=== PATIENT | female | born 1945 | race Caucasian/White ===

== ENCOUNTER 2017-01-20 08:17 | Inpatient (IN) | payer OTHER ==
--- NOTE | 2017-01-20 08:57 | PDOC ---
History of Present Illness - General Chief Complaint: Shortness of Breath Stated Complaint: liver transplant pt LOWER BACK PAIN, COUGH Time Seen by Provider: 01/20/17 08:47 Past History - Past Medical History Allergies/Adverse Reactions: Allergies Allergy/AdvReac Type Severity Reaction Status Date / Time shrimp Allergy Verified 01/20/17 08:20 Home Medications: Ambulatory Orders Allopurinol [Zyloprim -] 100 mg PO DAILY 01/20/17 Budesonide/Formeterol Fumarate [SYMBICORT 160/4.5mcg -] 1 inh PO BID 01/20/17 Gabapentin [Neurontin -] 200 mg PO DAILY 01/20/17 Hydrochlorothiazide [Hctz -] 12.5 mg PO DAILY 01/20/17 Losartan Potassium [Cozaar -] 25 mg PO DAILY 01/20/17 Metoprolol Succinate [Toprol Xl -] 25 mg PO DAILY 01/20/17 Montelukast Na [Singulair -] 10 mg PO HS 01/20/17 Omeprazole 20 mg PO DAILY 01/20/17 Prednisone [Deltasone -] 5 mg PO DAILY 01/20/17 Spironolactone [Aldactone] 25 mg PO DAILY 01/20/17 Cardiac Disorders: Yes (cad) HTN: Yes Liver Disease: Yes (cirrhosis, s/p transplant) - Psycho/Social/Smoking Cessation Hx Anxiety: No Suicidal Ideation: No Smoking History: Never smoked Have you smoked in the past 12 months: No Information on smoking cessation initiated: No Hx Alcohol Use: No Drug/Substance Use Hx: No Substance Use Type: None *Physical Exam - Vital Signs Last Vital Signs Temp Pulse Resp BP Pulse Ox 98.6 F 99 H 22 180/85 96 01/20/17 08:20 01/20/17 08:20 01/20/17 08:20 01/20/17 08:20 01/20/17 08:20
--- NOTE | 2017-01-20 09:02 | PDOC ---
History of Present Illness - General Chief Complaint: Shortness of Breath Stated Complaint: liver transplant pt LOWER BACK PAIN, COUGH Time Seen by Provider: 01/20/17 08:47 History Source: Patient Exam Limitations: No Limitations - History of Present Illness Initial Comments: 01/20/17 9:00 CHIEF COMPLAINT: Left sided chest pain, Worsening cough and SOB PCP: Dr. Pool HISTORY OF PRESENT ILLNESS: 71 year old female presented to the ED with the chief complaints of worsening cough and SOB. A/c to the patient, due to her COPD, she has chronic cough alternating with dry and productive sputum. Also reports of have left sided chest pain, pressure type, 4/10 in intensity, non radiating, non reproducible. Patient reports to have SOB at exertion and at rest, no orthopnea or PND. On home oxygen therapy. She thinks it may have been triggered by feathers/dust in a hotel room. Patient said she felt feverish (temp not recorded) associated with chills, rigors and sweating since few days. Patient mentions she went to [facility] 5 days ago for the same problem, flu swab was done but never told her the result, was given nebulization and discharged from the ED with tapering dose of Prednisone 60mg. She reports of not feeling better and was unhappy with their management and didn't take the prednisone 60mg. She has headache on the frontal area, on/off. Denies loc, dizziness, palpitations, abdominal pain, nausea or vomiting. Bowel/Bladder habit normal. Sleep/Appetite normal. Recent Travel: None PAST MEDICAL HISTORY: COPD, Sarcoidosis (30 yrs ago); Pneumonia, bronchitis, Liver transplant (20yrs ago) for cirrhosis of liver. PAST SURGICAL HISTORY: As mentioned above Social History: Smoking: Current smoker, 1 cig/day Alcohol: Denies Drugs: Denies Family History: Allergies: Shrimp, seasonal allergies, feathers, dusts, pollen. Past History - Past Medical History Allergies/Adverse Reactions: Allergies Allergy/AdvReac Type Severity Reaction Status Date / Time shrimp Allergy Verified 01/20/17 08:20 Home Medications: Ambulatory Orders Allopurinol [Zyloprim -] 100 mg PO DAILY 01/20/17 Budesonide/Formeterol Fumarate [SYMBICORT 160/4.5mcg -] 1 inh PO BID 01/20/17 Gabapentin [Neurontin -] 200 mg PO DAILY 01/20/17 Hydrochlorothiazide [Hctz -] 12.5 mg PO DAILY 01/20/17 Losartan Potassium [Cozaar -] 25 mg PO DAILY 01/20/17 Metoprolol Succinate [Toprol Xl -] 25 mg PO DAILY 01/20/17 Montelukast Na [Singulair -] 10 mg PO HS 01/20/17 Omeprazole 20 mg PO DAILY 01/20/17 Prednisone [Deltasone -] 5 mg PO DAILY 01/20/17 Spironolactone [Aldactone] 25 mg PO DAILY 01/20/17 Cardiac Disorders: Yes (cad) HTN: Yes Liver Disease: Yes (cirrhosis, s/p transplant) - Psycho/Social/Smoking Cessation Hx Anxiety: No Suicidal Ideation: No Smoking History: Never smoked Have you smoked in the past 12 months: No Information on smoking cessation initiated: No Hx Alcohol Use: No Drug/Substance Use Hx: No Substance Use Type: None Review of Systems - Review of Systems Able to Perform ROS?: Yes Comments:: 01/20/17 10:02 CONSTITUTIONAL: Absent: fever, chills, diaphoresis, generalized weakness, malaise, loss of appetite HEENT: Absent: rhinorrhea, nasal congestion, throat pain, throat swelling, difficulty swallowing, mouth swelling, ear pain, eye pain, visual Changes CARDIOVASCULAR: Present: Chest pain Absent:syncope, palpitations, irregular heart rate, lightheadedness, peripheral edema RESPIRATORY: Present: Chronic cough dry/productive,shortness of breath, dyspnea with exertion Absent: orthopnea, wheezing, stridor, hemoptysis GASTROINTESTINAL: Absent: abdominal pain, abdominal distension, nausea, vomiting, diarrhea, constipation, melena, hematochezia GENITOURINARY: Absent: dysuria, frequency, urgency, hesitancy, hematuria, flank pain, genital pain MUSCULOSKELETAL: Absent: myalgia, arthralgia, joint swelling SKIN: Absent: rash, itching, pallor HEMATOLOGIC/IMMUNOLOGIC: Absent: easy bleeding, easy bruising, lymphadenopathy, frequent infections ENDOCRINE: Absent: unexplained weight gain, unexplained weight loss, heat intolerance, cold intolerance NEUROLOGIC: Absent: headache, focal weakness or paresthesias, dizziness, unsteady gait, seizure, mental status changes, bladder or bowel incontinence PSYCHIATRIC: Absent: anxiety, depression, suicidal or homicidal ideation, hallucinations. Is the patient limited [place] proficient: No *Physical Exam - Vital Signs Last Vital Signs Temp Pulse Resp BP Pulse Ox 98.6 F 99 H 22 180/85 96 01/20/17 08:20 01/20/17 08:20 01/20/17 08:20 01/20/17 08:20 01/20/17 08:20 - Physical Exam Comments: 01/20/17 10:05 PE: GENERAL: Awake, alert, and fully oriented, in no acute distress HEAD: No signs of trauma EYES: PERRLA, EOMI, sclera anicteric, conjunctiva clear ENT: Auricles normal inspection, hearing grossly normal, nares patent, oropharynx clear without exudates. Moist mucosa NECK: Normal ROM, supple, no lymphadenopathy, JVD, or masses LUNGS: Breath sounds equal, clear to auscultation bilaterally. No wheezes, and no crackles.. HEART: Regular rate and rhythm, normal S1 and S2, no murmurs, rubs or gallops ABDOMEN: Soft, nontender, normoactive bowel sounds. No guarding, no rebound. No masses EXTREMITIES: Normal range of motion, no edema. No clubbing or cyanosis. No cords, erythema, or tenderness NEUROLOGICAL: Cranial nerves II through XII grossly intact. Normal speech, normal gait SKIN: Warm, Dry, normal turgor, no rashes or lesions noted. Heart Score/ECG Review - ECG Intrepretation Rhythm: Regular Rhythm - Horicon Horicon: Left Horicon Deviation - P and CT Delta Wave(s) Present: No WPW: No - ST and T Flattened T Waves: No Prolonged Q-T Interval: No - ECG Impressions Non-specific ST Elevation: Yes ED Treatment Course - LABORATORY CBC & Chemistry Diagram: 01/20/17 10:00 01/20/17 10:00 Medical Decision Making - Medical Decision Making 01/20/17 9:10 Patient seen and examined. Vitals noted, afebrile; 180/85 bpm, TachypneicSpo2- 95 %. Physical examination: Unremarkable. Will order basic labs, troponins, CXR, Flu swab, UA, D-dimer, EKG, VBG Duoneb Q15 3 doses Prednisone 60mg stat Differential Diagnosis: COPD exacerbation, r/o pneumonia; Bronchitis; URTI; Flu 01/20/17 9:50 Labs noted, leukocytosis (12.9). Rest, pending [id number]. If patient remains tachypneic, may need to be placed on observation 01/20/17 13:30 Patient reassessed. Still short of breath; Tachypneic. Couldn't walk ten steps due to short of breath. Clinical Impression/Plan Acute exacerbation of COPD likely triggered by allergy / URTI Patient's SOB didn't improve even after 3 dose of Duoneb Neb and 60mg of Prednisone CXR showed no acute pathology Admit the patient under Dr. Gutierrez. Would consider ABG if symptoms worsen Illness, Investigation and Plan of care explained to the patient. She verbalized understanding. Case seen and discussed with Dr. Trujillo. *DC/Admit/Observation/Transfer Diagnosis at time of Disposition: COPD with exacerbation - Discharge Dispostion Admit: Yes - Referrals Referrals: Dalia Pool MD [Primary Care Provider] -
[2017-01-20] MEDS ORDERED: ALBUTEROL SO4 2.5/IPRATROPIUM 0.5 INH SOL 3 ML VIAL.NEB. NEB ONE ×2 (09:23→09:28)
[2017-01-20 10:21] LABS: BASOPHIL 0.4 % (0-2.0); EOSINOPHIL 0.7 % (0-4.5); MCH 32.1 pg (25.7-33.7); MCHC 32.5 g/dl (32.0-36.0); MEAN CELL VOLUME 98.6 fl (80-96); NEUTROPHILS 79.4 % (42.8-82.8); PLATELET COUNT 150 K/MM3 (134-434); RDW 14.9 % (11.6-15.6); WHITE BLOOD COUNT 12.9 K/mm3 (4.0-10.0)
[2017-01-20 10:51] LABS: ALBUMIN 3.9 g/dl (3.4-5.0); ANION GAP 6 (8-16); BILIRUBIN,TOTAL 0.3 mg/dL (0.2-1.0); CALCIUM 9.1 mg/dL (8.5-10.1); CO2 30 mmol/L (21-32); CREATININE 1.4 mg/dL (0.55-1.02); GLUCOSE,RANDOM 60 mg/dL (74-106); SGPT/ALT 25 U/L (12-78); TOT PROT 7.4 g/dl (6.4-8.2)
[2017-01-20 10:54] LABS: ALK PHOS 101 U/L (45-117); TROPONIN I < 0.02 ng/ml (0.00-0.05)
[2017-01-20 11:05] LABS: URINE APPEARANCE CLEAR; URINE BILIRUBIN NEGATIVE (NEGATIVE); URINE BLOOD NEGATIVE (NEGATIVE); URINE COLOR STRAW; URINE GLUCOSE (UA) NEGATIVE (NEGATIVE); URINE KETONE NEGATIVE (NEGATIVE); URINE LEUK ESTERASE NEGATIVE (NEGATIVE); URINE NITRITE NEGATIVE (NEGATIVE); URINE PROTEIN NEGATIVE (NEGATIVE); URINE UROBILINOGEN NEGATIVE E.U./dl (0.2-1.0)
[2017-01-20 11:06] LABS: INR 0.96 (0.82-1.09); PROTHROMBIN TIME (PATIENT) 10.6 SEC (9.98-11.88)
[2017-01-20 11:09] LABS: MAGNESIUM 1.7 mg/dL (1.8-2.4)
[2017-01-20 11:10] LABS: SGOT/AST 25 U/L (15-37)
[2017-01-20] MEDS ORDERED: ALBUTEROL SO4 2.5/IPRATROPIUM 0.5 INH SOL 3 ML VIAL.NEB. NEB SCH (11:15)
[2017-01-20] MEDS ORDERED: predniSONE 20 MG TABLET (UD) PO ONE (11:15)
[2017-01-20] MEDS: ALBUTEROL SO4 2.5/IPRATROPIUM 0.5 INH SOL 3 ML VIAL.NEB. NEB SCH ×2 (11:20→11:37)
--- NOTE | 2017-01-20 11:20 | PDOC ---
Attending Attestation - Resident Resident Name: Dee Herrera - ED Attending Attestation I have performed the following: I have examined & evaluated the patient, The case was reviewed & discussed with the resident, I agree w/resident's findings & plan, Exceptions are as noted - HPI HPI: 01/20/17 11:19 71-year-old female with history of COPD/asthma, liver transplant patient from 20 years ago presents with persistent COPD exacerbation over the last week. Patient states trigger of feathers/dust in a hotel room, was seen at [facility] last week and prescribed treatment dose steroids but she never took it, presents now with persistent dry cough and dyspnea. - Physicial Exam PE: 01/20/17 11:20 Vital signs as noted, O2 sat within normal limits. Scant end expiratory wheezing throughout, no focally decreased breath sounds, no accessory muscle use. Slightly tachypneic at rest. No edema - Medical Decision Making 01/20/17 11:20 Patient seen and evaluated with the resident. I agree with the overall evaluation, assessment, and management with the following summary of visit: 71-year-old female with likely COPD exacerbation, rule out underlying pneumonia. Atypical for ACS or PE, vital signs within normal limits. Check labs including troponin EKG, chest x-ray Nebulizers, steroids Reassess, if remains tachypneic may require admission overnight
[2017-01-20] MEDS ORDERED: predniSONE 20 MG TABLET (UD) ONE (11:21)
--- NOTE | 2017-01-20 11:49 | EKG ---
Test Reason : Blood Pressure : / mmHG Vent. Rate : 091 BPM Atrial Rate : 091 BPM P-R Int : 130 ms QRS Dur : 120 ms QT Int : 366 ms P-R-T Axes : 071 -41 109 degrees QTc Int : 450 ms NORMAL SINUS RHYTHM LEFT AXIS DEVIATION LEFT BUNDLE BRANCH BLOCK ABNORMAL ECG NO PREVIOUS ECGS AVAILABLE Confirmed by CLARA CORRAL MD ([id number]) on 01/20/2017 11:48:52 AM Referred By: Confirmed By:CLARA CORRAL MD
[2017-01-20] MEDS ORDERED: CEFTRIAXONE 1 GM in DEXTROSE 5%-WATER - 50 ML IVPB ONE (13:28)
[2017-01-20] MEDS ORDERED: CEFTRIAXONE 50 ML ONE (13:29)
[2017-01-20 15:52] VITALS: BMI 37.0
--- NOTE | 2017-01-20 20:11 | HP ---
Admitting History and Physical - Primary Care Physician PCP: Марина Gutierrez - Admission History of Present Illness: 71-year-old female with history of COPD/asthma, liver transplant patient from 20 years ago presents with persistent COPD exacerbation over the last week. Patient states trigger of feathers/dust in a hotel room, was seen at [facility] last week and prescribed treatment dose steroids but she never took it, presents now with persistent dry cough and dyspnea. - Past Medical History Pulmonary: Yes: Asthma, COPD - Smoking History Smoking history: Never smoked Have you smoked in the past 12 months: No Aproximately how many cigarettes per day: 2 - Alcohol/Substance Use Hx Alcohol Use: No Home Medications - Allergies Allergies/Adverse Reactions: Allergies Allergy/AdvReac Type Severity Reaction Status Date / Time shrimp Allergy Verified 01/20/17 08:20 - Home Medications Home Medications: Ambulatory Orders Allopurinol [Zyloprim -] 100 mg PO DAILY 01/20/17 Budesonide/Formeterol Fumarate [SYMBICORT 160/4.5mcg -] 1 inh PO BID 01/20/17 Gabapentin [Neurontin -] 200 mg PO DAILY 01/20/17 Hydrochlorothiazide [Hctz -] 12.5 mg PO DAILY 01/20/17 Losartan Potassium [Cozaar -] 25 mg PO DAILY 01/20/17 Metoprolol Succinate [Toprol Xl -] 25 mg PO DAILY 01/20/17 Montelukast Na [Singulair -] 10 mg PO HS 01/20/17 Omeprazole 20 mg PO DAILY 01/20/17 Prednisone [Deltasone -] 5 mg PO DAILY 01/20/17 Spironolactone [Aldactone] 25 mg PO DAILY 01/20/17 Physical Examination Vital Signs: Vital Signs Temperature 98.3 F 01/20/17 12:01 Pulse Rate 96 H 01/20/17 15:40 Respiratory Rate 18 01/20/17 15:40 Blood Pressure 128/47 01/20/17 15:40 O2 Sat by Pulse Oximetry (%) 93 L 01/20/17 15:40 Constitutional: Yes: No Distress HENT: Yes: Atraumatic Neck: Yes: Supple Cardiovascular: Yes: Regular Rate and Rhythm Respiratory: Yes: Rhonchi, Wheezes Gastrointestinal: Yes: Normal Bowel Sounds Extremities: Yes: WNL Problem List - Problems (1) COPD with exacerbation Code(s): J44.1 - CHRONIC OBSTRUCTIVE PULMONARY DISEASE W (ACUTE) EXACERBATION Assessment/Plan Laboratory Tests 01/20/17 01/20/17 01/20/17 09:03 10:00 10:00 WBC 12.9 H RBC 4.04 Hgb 13.0 Hct 39.8 MCV 98.6 H MCHC 32.5 RDW 14.9 Plt Count 150 MPV 12.0 H Neutrophils % 79.4 Lymphocytes % 8.2 Monocytes % 11.3 H Eosinophils % 0.7 Basophils % 0.4 INR 0.96 D-Dimer Sodium Potassium Chloride Carbon Dioxide Anion Gap BUN Creatinine Creat Clearance w eGFR Random Glucose Calcium Magnesium Total Bilirubin AST ALT Alkaline Phosphatase Creatine Kinase CK-MB (CK-2) Troponin I B-Natriuretic Peptide Total Protein Albumin Urine Color Urine Appearance Urine pH Ur Specific [place] Urine Protein Urine Glucose (UA) Urine Ketones Urine Blood Urine Nitrite Urine Bilirubin Urine Urobilinogen Ur Leukocyte Esterase Blood Type O POSITIVE Antibody Screen Negative 01/20/17 01/20/17 01/20/17 10:00 10:00 10:00 WBC RBC Hgb Hct MCV MCHC RDW Plt Count MPV Neutrophils % Lymphocytes % Monocytes % Eosinophils % Basophils % INR D-Dimer 316 H Sodium 139 Potassium 4.9 Chloride 103 Carbon Dioxide 30 Anion Gap 6 L BUN 29 H Creatinine 1.4 H Creat Clearance w eGFR 37.18 Random Glucose 60 L Calcium 9.1 Magnesium 1.7 L Total Bilirubin 0.3 AST 25 ALT 25 Alkaline Phosphatase 101 Creatine Kinase 309 H CK-MB (CK-2) 2.387 Troponin I < 0.02 B-Natriuretic Peptide 478.84 H Total Protein 7.4 Albumin 3.9 Urine Color Urine Appearance Urine pH Ur Specific [place] Urine Protein Urine Glucose (UA) Urine Ketones Urine Blood Urine Nitrite Urine Bilirubin Urine Urobilinogen Ur Leukocyte Esterase Blood Type Antibody Screen 01/20/17 10:00 WBC RBC Hgb Hct MCV MCHC RDW Plt Count MPV Neutrophils % Lymphocytes % Monocytes % Eosinophils % Basophils % INR D-Dimer Sodium Potassium Chloride Carbon Dioxide Anion Gap BUN Creatinine Creat Clearance w eGFR Random Glucose Calcium Magnesium Total Bilirubin AST ALT Alkaline Phosphatase Creatine Kinase CK-MB (CK-2) Troponin I B-Natriuretic Peptide Total Protein Albumin Urine Color Straw Urine Appearance Clear Urine pH 5.0 Ur Specific [place] 1.010 Urine Protein Negative Urine Glucose (UA) Negative Urine Ketones Negative Urine Blood Negative Urine Nitrite Negative Urine Bilirubin Negative Urine Urobilinogen Negative Ur Leukocyte Esterase Negative Blood Type Antibody Screen A/P 1. CKD 2. COPD exacerbation DUO NEBS, STEROIDS ABX COVERAGE FOR POSSIBLE INFECTION 3. liver transplant 4. sarcoidosis 5. HTN ON MEDS STABLE 6. gout STABLE 7. hep C
[2017-01-20] MEDS: methylPREDNISolone NA SUCC 40 MG/1 ML VIAL IVPB SCH (21:20)
[2017-01-20] MEDS: MONTELUKAST NA 10 MG TABLET PO SCH (21:20)
[2017-01-20] MEDS ORDERED: GABAPENTIN 100 MG CAPSULE (FP) PO ONE (21:45)
--- NOTE | 2017-01-20 22:25 | CONSULT ---
Consult Consult Specialty:: Nephrology Reason for Consultation:: CKD - History of Present Illness Chief Complaint: shortness of breath History of Present Illness: Pt is a 71 year old female with pmhx of HTN, CKD. COPD, liver transplant, Hep C , and CHF who presents to the ER for shortness of breath. She also complains of cough. She went to [facility] where she was given steroids however she did not take them. She does complain of fevers and chills. She denies dysuria or hematuria. I was called to see her for CKD. She follows with me in the office and her renal function is at baseline. - Past Medical History Cardio/Vascular: Yes: HTN Pulmonary: Yes: Asthma, COPD Gastrointestinal: Yes: GERD, Other (liver transplant) Hepatobiliary: Yes: Hepatitis C Renal/: Yes: Renal Inusuff - Past Surgical History Past Surgical History: Yes: Liver Transplant - Alcohol/Substance Use Hx Alcohol Use: No - Smoking History Smoking history: Never smoked Have you smoked in the past 12 months: No Aproximately how many cigarettes per day: 2 Home Medications - Allergies Allergies/Adverse Reactions: Allergies Allergy/AdvReac Type Severity Reaction Status Date / Time shrimp Allergy Verified 01/20/17 08:20 - Home Medications Home Medications: Ambulatory Orders Allopurinol [Zyloprim -] 100 mg PO DAILY 01/20/17 Budesonide/Formeterol Fumarate [SYMBICORT 160/4.5mcg -] 1 inh PO BID 01/20/17 Gabapentin [Neurontin -] 200 mg PO DAILY 01/20/17 Hydrochlorothiazide [Hctz -] 12.5 mg PO DAILY 01/20/17 Losartan Potassium [Cozaar -] 25 mg PO DAILY 01/20/17 Metoprolol Succinate [Toprol Xl -] 25 mg PO DAILY 01/20/17 Montelukast Na [Singulair -] 10 mg PO HS 01/20/17 Omeprazole 20 mg PO DAILY 01/20/17 Prednisone [Deltasone -] 5 mg PO DAILY 01/20/17 Spironolactone [Aldactone] 25 mg PO DAILY 01/20/17 Family Disease History - Family Disease History Other Family History: DM Review of Systems - Review of Systems Constitutional: reports: Chills, Fever, Malaise Eyes: reports: No Symptoms HENT: reports: No Symptoms Neck: reports: No Symptoms Cardiovascular: reports: Shortness of Breath. denies: Edema Respiratory: reports: Cough, SOB, SOB on Exertion Gastrointestinal: reports: No Symptoms Genitourinary: reports: No Symptoms Musculoskeletal: reports: No Symptoms Integumentary: reports: No Symptoms Neurological: reports: No Symptoms Endocrine: reports: No Symptoms Hematology/Lymphatic: reports: No Symptoms Physical Exam Vital Signs: Vital Signs Temperature 98.8 F 01/20/17 21:53 Pulse Rate 92 H 01/20/17 21:53 Respiratory Rate 20 01/20/17 21:53 Blood Pressure 143/71 01/20/17 21:53 O2 Sat by Pulse Oximetry (%) 93 L 01/20/17 15:40 Constitutional: Yes: Calm Eyes: Yes: Conjunctiva Clear HENT: Yes: Atraumatic Neck: Yes: Supple Cardiovascular: Yes: S1, S2 Respiratory: Yes: Wheezes Gastrointestinal: Yes: Normal Bowel Sounds, Soft, Abdomen, Obese Musculoskeletal: Yes: WNL Edema: No Neurological: Yes: Oriented Psychiatric: Yes: Oriented Labs: Laboratory Tests 01/20/17 01/20/17 01/20/17 10:00 10:00 10:00 WBC 12.9 H Hgb 13.0 Plt Count 150 Sodium 139 Potassium 4.9 Chloride 103 Carbon Dioxide 30 Anion Gap 6 L BUN 29 H Creatinine 1.4 H Random Glucose 60 L Calcium 9.1 Magnesium 1.7 L Urine Color Straw Urine Appearance Clear Urine pH 5.0 Ur Specific [place] 1.010 Urine Protein Negative Urine Glucose (UA) Negative Urine Ketones Negative Urine Blood Negative Urine Nitrite Negative Urine Bilirubin Negative Urine Urobilinogen Negative Ur Leukocyte Esterase Negative Imaging - Results Chest X-ray: Report Reviewed Problem List - Problems (1) COPD with exacerbation Code(s): J44.1 - CHRONIC OBSTRUCTIVE PULMONARY DISEASE W (ACUTE) EXACERBATION (2) CKD (chronic kidney disease) Code(s): N18.9 - CHRONIC KIDNEY DISEASE, UNSPECIFIED Assessment/Plan Current Medications Generic Name Dose Route Start Last Admin Trade Name Freq PRN Reason Stop Dose Admin Albuterol/Ipratropium 1 amp 01/20/17 20:15 Duoneb - NEB Q4H PRN SHORTNESS OF BREATH Gabapentin 200 mg 01/21/17 10:00 Neurontin - PO DAILY [facility]SON Hydrochlorothiazide 12.5 mg 01/21/17 10:00 Hctz - PO DAILY K[facility]SON Ceftriaxone Sodium 50 mls @ 100 mls/hr 01/21/17 10:00 Rocephin 1gm Ivpb (Pre-Docked) IVPB 01/21/17 11:59 DAILY KARSON Losartan Potassium 25 mg 01/21/17 10:00 Cozaar - PO DAILY [facility]SON Methylprednisolone Sodium Succinate 40 mg 01/20/17 20:15 01/20/17 21:20 Solu-Medrol - IVPB 40 mg Q8H-IV K[facility]SON Administration Metoprolol Succinate 25 mg 01/21/17 10:00 Toprol Xl - PO DAILY K[facility]SON Montelukast Sodium 10 mg 01/20/17 22:00 01/20/17 21:20 Singulair - PO 10 mg HS K[facility]SON Administration Spironolactone 25 mg 01/21/17 10:00 Aldactone - PO DAILY KARSON Impression 1. CKD 2. COPD exacerbation 3. liver transplant 4. sarcoidosis 5. HTN 6. gout 7. hep C Plan - agree with steroids - recommend pulmonary eval - cont current meds - add allopurinol 100 mg daily - will follow Dr Pool
[2017-01-21] MEDS: methylPREDNISolone NA SUCC 40 MG/1 ML VIAL IVPB SCH ×4 (02:08→21:27)
[2017-01-21] MEDS: ALBUTEROL SO4 2.5/IPRATROPIUM 0.5 INH SOL 3 ML VIAL.NEB. NEB PRN ×3 (05:50→22:44)
[2017-01-21 08:09] LABS: MCH 32.2 pg (25.7-33.7); MCHC 33.1 g/dl (32.0-36.0); MEAN CELL VOLUME 97.5 fl (80-96); NEUTROPHILS 94.7 % (42.8-82.8); PLATELET COUNT 170 K/MM3 (134-434); RDW 15.2 % (11.6-15.6); WHITE BLOOD COUNT 14.5 K/mm3 (4.0-10.0)
[2017-01-21 09:05] LABS: BILIRUBIN,TOTAL 0.5 mg/dL (0.2-1.0); CREATININE 1.5 mg/dL (0.55-1.02); TOT PROT 7.7 g/dl (6.4-8.2)
[2017-01-21] MEDS: SPIRONOLACTONE 25 MG TABLET (FP) PO SCH (09:07)
[2017-01-21] MEDS: HYDROCHLOROTHIAZIDE 12.5 MG CAPSULE (FP) PO SCH (09:07)
[2017-01-21] MEDS: ALLOPURINOL 100 MG TABLET (FP) PO SCH (09:07)
[2017-01-21] MEDS: LOSARTAN POTASSIUM 25 MG TABLET PO SCH (09:07)
[2017-01-21] MEDS: METOPROLOL SUCCINATE 25 MG TAB.SR.24H (FP) PO SCH (09:08)
[2017-01-21] MEDS: GABAPENTIN 100 MG CAPSULE (FP) PO SCH (09:09)
[2017-01-21] MEDS ORDERED: CEFTRIAXONE 1G/50 ML IVPB SCH (10:00)
--- NOTE | 2017-01-21 14:36 | PN ---
Progress Note, Physician History of Present Illness: Pt seen and examined at bedside. She feels her breathing is a little better however she does get very SOB on ambulation. - Current Medication List Current Medications: Active Medications Albuterol/Ipratropium (Duoneb -) 1 amp NEB Q4H PRN PRN Reason: SHORTNESS OF BREATH Last Admin: 01/21/17 11:15 Dose: 1 amp Allopurinol (Zyloprim -) 100 mg PO DAILY [facility] Last Admin: 01/21/17 09:07 Dose: 100 mg Gabapentin (Neurontin -) 200 mg PO DAILY [facility] Last Admin: 01/21/17 09:09 Dose: 200 mg Hydrochlorothiazide (Hctz -) 12.5 mg PO DAILY [facility] Last Admin: 01/21/17 09:07 Dose: 12.5 mg Losartan Potassium (Cozaar -) 25 mg PO DAILY [facility] Last Admin: 01/21/17 09:07 Dose: 25 mg Methylprednisolone Sodium Succinate (Solu-Medrol -) 40 mg IVPB Q8H-IV [facility] Last Admin: 01/21/17 09:09 Dose: 40 mg Metoprolol Succinate (Toprol Xl -) 25 mg PO DAILY [facility] Last Admin: 01/21/17 09:08 Dose: 25 mg Montelukast Sodium (Singulair -) 10 mg PO HS [facility] Last Admin: 01/20/17 21:20 Dose: 10 mg Spironolactone (Aldactone -) 25 mg PO DAILY [facility] Last Admin: 01/21/17 09:07 Dose: 25 mg - Objective Vital Signs: Vital Signs Temperature 97.9 F 01/21/17 09:00 Pulse Rate 92 H 01/21/17 11:24 Respiratory Rate 20 01/21/17 09:00 Blood Pressure 154/72 01/21/17 09:00 O2 Sat by Pulse Oximetry (%) 96 01/21/17 11:24 Constitutional: Yes: Calm Eyes: Yes: Conjunctiva Clear HENT: Yes: Atraumatic Cardiovascular: Yes: S1, S2 Respiratory: Yes: Wheezes Gastrointestinal: Yes: Soft Genitourinary: Yes: WNL Musculoskeletal: Yes: WNL Edema: No Neurological: Yes: Oriented Psychiatric: Yes: Oriented Labs: CBC, BMP 01/21/17 07:08 01/21/17 07:08 INR, PTT INR 0.96 (0.82-1.09) 01/20/17 10:00 Problem List - Problems (1) COPD with exacerbation Code(s): J44.1 - CHRONIC OBSTRUCTIVE PULMONARY DISEASE W (ACUTE) EXACERBATION (2) CKD (chronic kidney disease) Code(s): N18.9 - CHRONIC KIDNEY DISEASE, UNSPECIFIED Assessment/Plan Current Medications Generic Name Dose Route Start Last Admin Trade Name Freq PRN Reason Stop Dose Admin Albuterol/Ipratropium 1 amp 01/20/17 20:15 01/21/17 11:15 Duoneb - NEB 1 amp Q4H PRN Administration SHORTNESS OF BREATH Allopurinol 100 mg 01/21/17 10:00 01/21/17 09:07 Zyloprim - PO 100 mg DAILY [facility] Administration Gabapentin 200 mg 01/21/17 10:00 01/21/17 09:09 Neurontin - PO 200 mg DAILY [facility] Administration Hydrochlorothiazide 12.5 mg 01/21/17 10:00 01/21/17 09:07 Hctz - PO 12.5 mg DAILY [facility] Administration Losartan Potassium 25 mg 01/21/17 10:00 01/21/17 09:07 Cozaar - PO 25 mg DAILY [facility] Administration Methylprednisolone Sodium Succinate 40 mg 01/20/17 20:15 01/21/17 09:09 Solu-Medrol - IVPB 40 mg Q8H-IV [facility] Administration Metoprolol Succinate 25 mg 01/21/17 10:00 01/21/17 09:08 Toprol Xl - PO 25 mg DAILY [facility] Administration Montelukast Sodium 10 mg 01/20/17 22:00 01/20/17 21:20 Singulair - PO 10 mg HS [facility] Administration Spironolactone 25 mg 01/21/17 10:00 01/21/17 09:07 Aldactone - PO 25 mg DAILY [facility] Administration Impression 1. CKD 2. COPD exacerbation 3. liver transplant 4. sarcoidosis 5. HTN 6. gout 7. hep C Plan - renal function stable - labs reviewed - cont with steroids - cont current meds - check pulse ox with ambulation - pending pulmonary consult - will follow Dr Pool
--- NOTE | 2017-01-21 14:43 | CONSULT ---
Consultation: REQUESTING PROVIDER: CONSULT REQUEST: We have been asked to medically evaluate this patient for SOB. HISTORY OF PRESENT ILLNESS: This is a 71 yo F with PMH of COPD (hospitalized 3 x, last time 1 yr ago), pulmonary sarcoidosis (diagnosed by [facility] biopsy), liver transplant (20 years ago, on daily steroids), who presents with worsening sob and cough productive of increased green flem for 10 days. She has exertional sob at baseline but it recently worsened. She states that symptoms were triggered by feathers/dust in a hotel room (she has many environmental allergies). She reports subjective fevers/chills. She was seen at [facility] week [facility]. Current symptoms partially alleviated by inhalers. She deneis bryan pain, abd pain, n/v, diarrhea or dysuria. She used to smoke 1 cig/day 20 yrs ago but has had some second hand exposure since from . 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 REVIEW OF SYSTEMS: CONSTITUTIONAL: Absent: generalized weakness, malaise, loss of appetite, weight change HEENT: Absent: rhinorrhea, nasal congestion, throat pain CARDIOVASCULAR: Absent: chest pain, syncope, palpitations RESPIRATORY: Absent: orthopnea GASTROINTESTINAL: Absent: abdominal pain, abdominal distension, nausea, vomiting, diarrhea, constipation GENITOURINARY: Absent: dysuria MUSCULOSKELETAL: Absent: myalgia, arthralgia SKIN: Absent: rash, itching, pallor HEMATOLOGIC/IMMUNOLOGIC: Absent:frequent infections ENDOCRINE: Absent: heat intolerance, cold intolerance NEUROLOGIC: Absent: headache, focal weakness or paresthesias PSYCHIATRIC: Absent: anxiety PHYSICAL EXAMINATION Vital Signs - 24 hr 01/20/17 01/20/17 01/20/17 15:40 21:00 21:53 Temperature 98.8 F Pulse Rate 96 H 92 H Respiratory 18 20 20 Rate Blood Pressure 128/47 143/71 O2 Sat by Pulse 93 L 94 L Oximetry (%) 01/21/17 01/21/17 01/21/17 05:33 09:00 11:24 Temperature 98.3 F 97.9 F Pulse Rate 87 95 H 92 H Respiratory 20 20 Rate Blood Pressure 149/80 154/72 O2 Sat by Pulse 95 96 Oximetry (%) GENERAL: Awake, alert, and fully oriented, in no acute distress. HEAD: Normal with no signs of trauma. EYES: Pupils equal, round and reactive to light, extraocular movements intact, sclera anicteric, conjunctiva clear. EARS, NOSE, THROAT: Moist mucous membranes. NECK: supple without masses. LUNGS: coarse breath sounds in upper lobes. HEART: Regular rate and rhythm, normal S1 and S2 ABDOMEN: Soft, nontender, not distended, normoactive bowel sounds MUSCULOSKELETAL: No CVA tenderness. UPPER EXTREMITIES: 2+ pulses, warm, well-perfused. No peripheral edema. LOWER EXTREMITIES: 2+ pulses, warm, well-perfused. No peripheral edema. NEUROLOGICAL: Cranial nerves II-XII grossly intact. Normal speech. PSYCHIATRIC: Cooperative. Good eye contact. Appropriate mood and affect. SKIN: Warm, dry Laboratory Results - last 24 hr 01/21/17 01/21/17 07:08 07:08 WBC 14.5 H RBC 4.19 Hgb 13.5 Hct 40.8 MCV 97.5 H MCHC 33.1 RDW 15.2 Plt Count 170 MPV 12.0 H Neutrophils % 94.7 H Lymphocytes % 3.0 L D Monocytes % 2.3 L Eosinophils % 0.0 D Basophils % 0.0 Sodium 140 Potassium 5.1 Chloride 102 Carbon Dioxide 24 Anion Gap 14 BUN 32 H Creatinine 1.5 H Creat Clearance w eGFR 34.33 Random Glucose 147 H D Calcium 10.0 Total Bilirubin 0.5 D AST 10 L D ALT 25 Alkaline Phosphatase 93 Total Protein 7.7 Albumin 4.0 Active Medications Generic Name Dose Route Start Last Admin Trade Name Freq PRN Reason Stop Dose Admin Albuterol/Ipratropium 1 amp 01/20/17 20:15 01/21/17 11:15 Duoneb - NEB 1 amp Q4H PRN Administration SHORTNESS OF BREATH Allopurinol 100 mg 01/21/17 10:00 01/21/17 09:07 Zyloprim - PO 100 mg DAILY [facility] Administration Gabapentin 200 mg 01/21/17 10:00 01/21/17 09:09 Neurontin - PO 200 mg DAILY [facility] Administration Hydrochlorothiazide 12.5 mg 01/21/17 10:00 01/21/17 09:07 Hctz - PO 12.5 mg DAILY [facility] Administration Losartan Potassium 25 mg 01/21/17 10:00 01/21/17 09:07 Cozaar - PO 25 mg DAILY [facility] Administration Methylprednisolone Sodium Succinate 40 mg 01/20/17 20:15 01/21/17 09:09 Solu-Medrol - IVPB 40 mg Q8H-IV [facility] Administration Metoprolol Succinate 25 mg 01/21/17 10:00 01/21/17 09:08 Toprol Xl - PO 25 mg DAILY [facility] Administration Montelukast Sodium 10 mg 01/20/17 22:00 01/20/17 21:20 Singulair - PO 10 mg HS [facility] Administration Spironolactone 25 mg 01/21/17 10:00 01/21/17 09:07 Aldactone - PO 25 mg DAILY [facility] Administration ASSESSMENT/PLAN: This is a 71 yo F with PMH of COPD (hospitalized 3 x, last time 1 yr ago), pulmonary sarcoidosis (diagnosed by [facility]), liver transplant (20 years ago, on daily steroids), who presents with worsening sob and cough productive of increased green flem for 10 days. Acute on Chronic pulmonary sarcoidosis vs COPD exacerbation -due to allergen exposure vs PNA -afebrile -clinically improving -continue empiric rocephin -leukocytosis trending up likely due to steroids: reactionary -duoneb, singulair -symbicort not indicated for acute copd exacerbation -IV medrol 40 q8h -CT chest -sputum cultures Hx Liver transplant -hold PO steroids -stable -f/u liver specialist outpatient Dispo: We will continue to follow the patient. Thank you for this consultative opportunity. Problem List - Problems (1) CKD (chronic kidney disease) Code(s): N18.9 - CHRONIC KIDNEY DISEASE, UNSPECIFIED (2) COPD with exacerbation Code(s): J44.1 - CHRONIC OBSTRUCTIVE PULMONARY DISEASE W (ACUTE) EXACERBATION (3) Pulmonary sarcoidosis Code(s): D86.0 - SARCOIDOSIS OF LUNG Visit type - Emergency Visit Emergency Visit: Yes ED Registration Date: 01/20/17 Care time: The patient presented to the Emergency Department on the above date and was hospitalized for further evaluation of their emergent condition. - New Patient This patient is new to me today: Yes Date on this admission: 01/21/17 - Critical Care Critical Care patient: No
--- NOTE | 2017-01-21 16:31 | PN ---
Teaching Attending Note Name of Resident: Odalis Aldridge ATTENDING PHYSICIAN STATEMENT I saw and evaluated the patient. I reviewed the resident's note and discussed the case with the resident. I agree with the resident's findings and plan as documented. SARCOID/FIBROTIC LUNG DISEASE ACUTE BRONCHITIC ILLNESS MULTIPLE MEDICAL PROBLEMS LISTED RESTART ANTIBIOTICS/CONTINUE STEROIDS/ANTIBIOTICS/CHECK CT CHEST Mercedez SCHWAB MD
--- NOTE | 2017-01-21 19:41 | PN ---
Progress Note, Physician - Current Medication List Current Medications: Active Medications Albuterol/Ipratropium (Duoneb -) 1 amp NEB Q4H PRN PRN Reason: SHORTNESS OF BREATH Last Admin: 01/21/17 11:15 Dose: 1 amp Allopurinol (Zyloprim -) 100 mg PO DAILY [facility] Last Admin: 01/21/17 09:07 Dose: 100 mg Gabapentin (Neurontin -) 200 mg PO DAILY [facility] Last Admin: 01/21/17 09:09 Dose: 200 mg Hydrochlorothiazide (Hctz -) 12.5 mg PO DAILY [facility] Last Admin: 01/21/17 09:07 Dose: 12.5 mg Losartan Potassium (Cozaar -) 25 mg PO DAILY [facility] Last Admin: 01/21/17 09:07 Dose: 25 mg Methylprednisolone Sodium Succinate (Solu-Medrol -) 40 mg IVPB BID [facility] Metoprolol Succinate (Toprol Xl -) 25 mg PO DAILY [facility] Last Admin: 01/21/17 09:08 Dose: 25 mg Montelukast Sodium (Singulair -) 10 mg PO HS [facility] Last Admin: 01/20/17 21:20 Dose: 10 mg Spironolactone (Aldactone -) 25 mg PO DAILY [facility] Last Admin: 01/21/17 09:07 Dose: 25 mg - Objective Vital Signs: Vital Signs Temperature 97.8 F 01/21/17 19:26 Pulse Rate 95 H 01/21/17 19:26 Respiratory Rate 20 01/21/17 19:26 Blood Pressure 144/74 01/21/17 19:26 O2 Sat by Pulse Oximetry (%) 96 01/21/17 11:24 Constitutional: Yes: No Distress HENT: Yes: Atraumatic Neck: Yes: Supple Cardiovascular: Yes: Regular Rate and Rhythm Respiratory: Yes: Rhonchi Gastrointestinal: Yes: Normal Bowel Sounds Extremities: Yes: WNL Neurological: Yes: Alert, Oriented Labs: INR, PTT INR 0.96 (0.82-1.09) 01/20/17 10:00 Problem List - Problems (1) COPD with exacerbation Code(s): J44.1 - CHRONIC OBSTRUCTIVE PULMONARY DISEASE W (ACUTE) EXACERBATION Assessment/Plan A/P 1. CKD 2. COPD exacerbation CONTINUE STEROIDS DUO NEBS 3. liver transplant 4. sarcoidosis 5. HTN STABLE ON MEDS 6. gout 7. hep C
[2017-01-21] MEDS ORDERED: CEFTRIAXONE 1 GM in DEXTROSE 5%-WATER - 100 ML IVPB SCH (19:45)
[2017-01-21] MEDS: MONTELUKAST NA 10 MG TABLET PO SCH (21:26)
[2017-01-22] MEDS: GABAPENTIN 100 MG CAPSULE (FP) PO SCH ×2 (09:28→21:48)
[2017-01-22] MEDS: HYDROCHLOROTHIAZIDE 12.5 MG CAPSULE (FP) PO SCH (09:29)
[2017-01-22] MEDS: SPIRONOLACTONE 25 MG TABLET (FP) PO SCH (09:29)
[2017-01-22] MEDS: LOSARTAN POTASSIUM 25 MG TABLET PO SCH (09:29)
[2017-01-22] MEDS: ALLOPURINOL 100 MG TABLET (FP) PO SCH (09:30)
[2017-01-22] MEDS: METOPROLOL SUCCINATE 25 MG TAB.SR.24H (FP) PO SCH (09:30)
[2017-01-22] MEDS: methylPREDNISolone NA SUCC 40 MG/1 ML VIAL IVPB SCH (09:30)
[2017-01-22] MEDS: CEFTRIAXONE 50 ML IVPB SCH (09:30)
[2017-01-22] MEDS: ALBUTEROL SO4 2.5/IPRATROPIUM 0.5 INH SOL 3 ML VIAL.NEB. NEB PRN (09:45)
--- NOTE | 2017-01-22 10:45 | PN ---
Physical Exam: SUBJECTIVE: Patient seen and examined PAtient resting in bed nad. No acute events overnight. Afebrile and hemodynamically stable. states she feels better but her cough has gotten more severe, She deneis bryan pain, abd pain, n/v, diarrhea or dysuria. OBJECTIVE: Vital Signs Period Temp Pulse Resp BP Sys/Freeman Pulse Ox Last 24 Hr 97.5 F-98.3 F 83-95 18-20 136-157/61-84 96-96 GENERAL: Awake, alert, and fully oriented, in no acute distress. HEAD: Normal with no signs of trauma. EYES: Pupils equal, round and reactive to light, extraocular movements intact, sclera anicteric, conjunctiva clear. EARS, NOSE, THROAT: Moist mucous membranes. NECK: supple without masses. LUNGS: coarse breath sounds in upper lobes. HEART: Regular rate and rhythm, normal S1 and S2 ABDOMEN: Soft, nontender, not distended, normoactive bowel sounds MUSCULOSKELETAL: No CVA tenderness. UPPER EXTREMITIES: 2+ pulses, warm, well-perfused. No peripheral edema. LOWER EXTREMITIES: 2+ pulses, warm, well-perfused. No peripheral edema. NEUROLOGICAL: Cranial nerves II-XII grossly intact. Normal speech. PSYCHIATRIC: Cooperative. Good eye contact. Appropriate mood and affect. SKIN: Warm, dry Active Medications Generic Name Dose Route Start Last Admin Trade Name Freq PRN Reason Stop Dose Admin Albuterol/Ipratropium 1 amp 01/20/17 20:15 01/22/17 09:45 Duoneb - NEB 1 amp Q4H PRN Administration SHORTNESS OF BREATH Allopurinol 100 mg 01/21/17 10:00 01/22/17 09:30 Zyloprim - PO 100 mg DAILY [facility] Administration Gabapentin 200 mg 01/21/17 10:00 01/22/17 09:28 Neurontin - PO Not Given DAILY [facility] Hydrochlorothiazide 12.5 mg 01/21/17 10:00 01/22/17 09:29 Hctz - PO 12.5 mg DAILY [facility] Administration Ceftriaxone Sodium 50 mls @ 100 mls/hr 01/22/17 10:00 01/22/17 09:30 Rocephin 1gm Ivpb (Pre-Docked) IVPB 100 mls/hr DAILY [facility] Administration Losartan Potassium 25 mg 01/21/17 10:00 01/22/17 09:29 Cozaar - PO 25 mg DAILY [facility] Administration Methylprednisolone Sodium Succinate 40 mg 01/21/17 22:00 01/22/17 09:30 Solu-Medrol - IVPB 40 mg BID [facility] Administration Metoprolol Succinate 25 mg 01/21/17 10:00 01/22/17 09:30 Toprol Xl - PO 25 mg DAILY [facility] Administration Montelukast Sodium 10 mg 01/20/17 22:00 01/21/17 21:26 Singulair - PO 10 mg HS [facility] Administration Spironolactone 25 mg 01/21/17 10:00 01/22/17 09:29 Aldactone - PO 25 mg DAILY [facility] Administration ASSESSMENT/PLAN: This is a 71 yo F with PMH of COPD (hospitalized 3 x, last time 1 yr ago), 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 Acute on Chronic pulmonary sarcoidosis vs COPD exacerbation -possible superimposed PNA -afebrile -clinically improving -CT chest consistent with upper lobe sarcoidosis (calcified lesions b/l) with possible upper lobe infiltrate -cannot r/o histo, TB -PPD -continue empiric rocephin -duoneb -can stop singulair, unlikley asthma -symbicort not indicated for acute copd exacerbation -IV medrol 40 bid -sputum cultures uncollected -robitussin -outpatient cardiac and eye eval for sarcoid. Hx Liver transplant -hold PO steroids -stable -f/u liver specialist outpatient Dispo: We will continue to follow the patient. Thank you for this consultative opportunity. Problem List - Problems (1) CKD (chronic kidney disease) Code(s): N18.9 - CHRONIC KIDNEY DISEASE, UNSPECIFIED (2) COPD with exacerbation Code(s): J44.1 - CHRONIC OBSTRUCTIVE PULMONARY DISEASE W (ACUTE) EXACERBATION (3) Pulmonary sarcoidosis Code(s): D86.0 - SARCOIDOSIS OF LUNG Visit type - Emergency Visit Emergency Visit: No - New Patient This patient is new to me today: No - Critical Care Critical Care patient: No - Discharge Referral Referred to [facility] No
[2017-01-22] MEDS ORDERED: PANTOPRAZOLE 40 MG TABLET (FP) PO SCH (11:15)
[2017-01-22] MEDS: PANTOPRAZOLE 20 MG TABLET (FP) PO SCH (11:54)
--- NOTE | 2017-01-22 13:11 | PN ---
Progress Note (short form) - Note Progress Note: PULMONARY VSS/AFEBRILE COUGHED ALL NIGHT(NONPRODUCTIVE) ANICTERIC CRACKLES B/L ANTERIOR/POSTERIOR/AXILLARY PREDOMINANTLY IN UPPER LUNG ZONES S1S2 BS+ SOFT NO EDEMA CT CHEST REVIEWED: B/L CYSTIC/FIBROTIC CHANGES WITH CALCIFIED LYMPH NODES IN HILAR/MEDIASTINAL AREA BRONCHIECTATIC CHANGES ARE ALSO PRESENT IMP :LIKELY ACUTE BRONCHITIS (DOUBT PNEUMONIA) SUPERIMPOSED UPON CYSTIC/ FIBROTIC CHANGES LIKELY DUE TO SARCOIDOSIS PLAN: STEROIDS/ANTIBIOTICS/BRONCHODILATORS/DVT PROPHYLAXSIS/O2 SUPPLEMENTATION PRN OUTPATIENT PFTS WILL FOLLOW Mercedez SCHWAB MD
--- NOTE | 2017-01-22 13:12 | PN ---
Progress Note, Physician History of Present Illness: Pt seen and examined at bedside. She is awake and alert. She still has shortness of breath. She also complains of cough. - Current Medication List Current Medications: Active Medications Albuterol/Ipratropium (Duoneb -) 1 amp NEB Q4H PRN PRN Reason: SHORTNESS OF BREATH Last Admin: 01/22/17 09:45 Dose: 1 amp Allopurinol (Zyloprim -) 100 mg PO DAILY [facility] Last Admin: 01/22/17 09:30 Dose: 100 mg Gabapentin (Neurontin -) 200 mg PO [facility] Hydrochlorothiazide (Hctz -) 12.5 mg PO DAILY [facility] Last Admin: 01/22/17 09:29 Dose: 12.5 mg Ceftriaxone Sodium (Rocephin 1gm Ivpb (Pre-Docked)) 50 mls @ 100 mls/hr IVPB DAILY [facility] Last Admin: 01/22/17 09:30 Dose: 100 mls/hr Losartan Potassium (Cozaar -) 25 mg PO DAILY [facility] Last Admin: 01/22/17 09:29 Dose: 25 mg Methylprednisolone Sodium Succinate (Solu-Medrol -) 40 mg IVPB BID [facility] Last Admin: 01/22/17 09:30 Dose: 40 mg Metoprolol Succinate (Toprol Xl -) 25 mg PO DAILY [facility] Last Admin: 01/22/17 09:30 Dose: 25 mg Montelukast Sodium (Singulair -) 10 mg PO HS [facility] Last Admin: 01/21/17 21:26 Dose: 10 mg Pantoprazole Sodium (Protonix -) 20 mg PO DAILY [facility] Spironolactone (Aldactone -) 25 mg PO DAILY [facility] Last Admin: 01/22/17 09:29 Dose: 25 mg - Objective Vital Signs: Vital Signs Temperature 98.2 F 01/22/17 08:59 Pulse Rate 89 01/22/17 09:45 Respiratory Rate 18 01/22/17 08:59 Blood Pressure 157/84 01/22/17 08:59 O2 Sat by Pulse Oximetry (%) 96 01/22/17 09:45 Constitutional: Yes: Calm Eyes: Yes: Conjunctiva Clear HENT: Yes: Atraumatic Neck: Yes: Supple Cardiovascular: Yes: S1, S2 Respiratory: Yes: Wheezes Gastrointestinal: Yes: Soft, Abdomen, Obese Genitourinary: Yes: WNL Extremities: Yes: WNL Edema: No Neurological: Yes: Oriented Psychiatric: Yes: Oriented Labs: INR, PTT INR 0.96 (0.82-1.09) 01/20/17 10:00 Problem List - Problems (1) COPD with exacerbation Code(s): J44.1 - CHRONIC OBSTRUCTIVE PULMONARY DISEASE W (ACUTE) EXACERBATION (2) CKD (chronic kidney disease) Code(s): N18.9 - CHRONIC KIDNEY DISEASE, UNSPECIFIED Assessment/Plan Current Medications Generic Name Dose Route Start Last Admin Trade Name Freq PRN Reason Stop Dose Admin Albuterol/Ipratropium 1 amp 01/20/17 20:15 01/22/17 09:45 Duoneb - NEB 1 amp Q4H PRN Administration SHORTNESS OF BREATH Allopurinol 100 mg 01/21/17 10:00 01/22/17 09:30 Zyloprim - PO 100 mg DAILY [facility] Administration Gabapentin 200 mg 01/22/17 22:00 Neurontin - PO HS [facility] Hydrochlorothiazide 12.5 mg 01/21/17 10:00 01/22/17 09:29 Hctz - PO 12.5 mg DAILY [facility] Administration Ceftriaxone Sodium 50 mls @ 100 mls/hr 01/22/17 10:00 01/22/17 09:30 Rocephin 1gm Ivpb (Pre-Docked) IVPB 100 mls/hr DAILY [facility] Administration Losartan Potassium 25 mg 01/21/17 10:00 01/22/17 09:29 Cozaar - PO 25 mg DAILY [facility] Administration Methylprednisolone Sodium Succinate 40 mg 01/21/17 22:00 01/22/17 09:30 Solu-Medrol - IVPB 40 mg BID [facility] Administration Metoprolol Succinate 25 mg 01/21/17 10:00 01/22/17 09:30 Toprol Xl - PO 25 mg DAILY [facility] Administration Montelukast Sodium 10 mg 01/20/17 22:00 01/21/17 21:26 Singulair - PO 10 mg HS [facility] Administration Pantoprazole Sodium 20 mg 01/22/17 11:45 Protonix - PO DAILY [facility] Spironolactone 25 mg 01/21/17 10:00 01/22/17 09:29 Aldactone - PO 25 mg DAILY [facility] Administration Impression 1. CKD 2. COPD exacerbation 3. liver transplant 4. sarcoidosis 5. HTN 6. gout 7. hep C Plan - pulmonary input appreciated - CT scan reviewed - renal function is stable - cont with steroids - cont abx - check pulse ox with ambulation - will follow Dr Pool
[2017-01-22] MEDS ORDERED: guaiFENesin/D-METHORPHAN HB 10 ML UNIT-DOSE CUPS PO PRN (15:40)
[2017-01-22] MEDS ORDERED: TUBERCULIN PPD 5 TU/0.1ML SYRINGE (IN PATIENT USE ONLY) ID ONE (16:29)
--- NOTE | 2017-01-22 19:25 | PN ---
Progress Note, Physician - Current Medication List Current Medications: Active Medications Albuterol/Ipratropium (Duoneb -) 1 amp NEB Q4H PRN PRN Reason: SHORTNESS OF BREATH Last Admin: 01/22/17 09:45 Dose: 1 amp Allopurinol (Zyloprim -) 100 mg PO DAILY [facility] Last Admin: 01/22/17 09:30 Dose: 100 mg Gabapentin (Neurontin -) 200 mg PO HS [facility] Guaifenesin (Robitussin Dm -) 10 ml PO Q4H PRN PRN Reason: COUGH Hydrochlorothiazide (Hctz -) 12.5 mg PO DAILY [facility] Last Admin: 01/22/17 09:29 Dose: 12.5 mg Ceftriaxone Sodium (Rocephin 1gm Ivpb (Pre-Docked)) 50 mls @ 100 mls/hr IVPB DAILY [facility] Last Admin: 01/22/17 09:30 Dose: 100 mls/hr Losartan Potassium (Cozaar -) 25 mg PO DAILY [facility] Last Admin: 01/22/17 09:29 Dose: 25 mg Metoprolol Succinate (Toprol Xl -) 25 mg PO DAILY [facility] Last Admin: 01/22/17 09:30 Dose: 25 mg Montelukast Sodium (Singulair -) 10 mg PO HS [facility] Last Admin: 01/21/17 21:26 Dose: 10 mg Pantoprazole Sodium (Protonix -) 20 mg PO DAILY [facility] Last Admin: 01/22/17 11:54 Dose: 20 mg Prednisone (Deltasone -) 40 mg PO DAILY [facility] Spironolactone (Aldactone -) 25 mg PO DAILY [facility] Last Admin: 01/22/17 09:29 Dose: 25 mg - Objective Vital Signs: Vital Signs Temperature 97.9 F 01/22/17 13:41 Pulse Rate 96 H 01/22/17 13:41 Respiratory Rate 18 01/22/17 08:59 Blood Pressure 156/75 01/22/17 13:41 O2 Sat by Pulse Oximetry (%) 96 01/22/17 09:45 Constitutional: Yes: No Distress HENT: Yes: Atraumatic Neck: Yes: Supple Cardiovascular: Yes: Regular Rate and Rhythm Respiratory: Yes: CTA Bilaterally Gastrointestinal: Yes: Normal Bowel Sounds Extremities: Yes: WNL Neurological: Yes: Alert, Oriented Labs: INR, PTT INR 0.96 (0.82-1.09) 01/20/17 10:00 Problem List - Problems (1) COPD with exacerbation Code(s): J44.1 - CHRONIC OBSTRUCTIVE PULMONARY DISEASE W (ACUTE) EXACERBATION Assessment/Plan 1. CKD 2. COPD exacerbation CONTINUE STEROIDS DUO NEBS 3. liver transplant 4. sarcoidosis 5. HTN STABLE ON MEDS 6. gout 7. hep C
[2017-01-22] MEDS: predniSONE 20 MG TABLET (UD) PO SCH (20:48)
[2017-01-22] MEDS: MONTELUKAST NA 10 MG TABLET PO SCH (21:49)
[2017-01-23] MEDS: ALBUTEROL SO4 2.5/IPRATROPIUM 0.5 INH SOL 3 ML VIAL.NEB. NEB PRN (00:13)
[2017-01-23] MEDS: LOSARTAN POTASSIUM 25 MG TABLET PO SCH (09:09)
[2017-01-23] MEDS: CEFTRIAXONE 50 ML IVPB SCH (09:09)
[2017-01-23] MEDS: METOPROLOL SUCCINATE 25 MG TAB.SR.24H (FP) PO SCH (09:10)
[2017-01-23] MEDS: HYDROCHLOROTHIAZIDE 12.5 MG CAPSULE (FP) PO SCH (09:10)
[2017-01-23] MEDS: ALLOPURINOL 100 MG TABLET (FP) PO SCH (09:10)
[2017-01-23] MEDS: PANTOPRAZOLE 20 MG TABLET (FP) PO SCH (09:10)
[2017-01-23] MEDS: predniSONE 20 MG TABLET (UD) PO SCH (09:10)
[2017-01-23] MEDS: SPIRONOLACTONE 25 MG TABLET (FP) PO SCH (09:10)
--- NOTE | 2017-01-23 11:43 | PN ---
Addendum entered and electronically signed by Odalis Aldridge RES 01/24/17 10: 40: CKD stage G3B Original Note: Physical Exam: SUBJECTIVE: Patient seen and examined Patient resting in bed nad. No acute events overnight. Afebrile and hemodynamically stable. states she feels better has less cough, but is below her baseline with exertional sob. has trouble sleeping. She denies chest pain, abd pain, n/v, diarrhea or dysuria. OBJECTIVE: Vital Signs Period Temp Pulse Resp BP Sys/Freeman Pulse Ox Last 24 Hr 97.8 F-98.2 F 81-96 18-20 140-159/61-81 94 GENERAL: Awake, alert, and fully oriented, in no acute distress. HEAD: Normal with no signs of trauma. EYES: Pupils equal, round and reactive to light, extraocular movements intact, sclera anicteric, conjunctiva clear. EARS, NOSE, THROAT: Moist mucous membranes. NECK: supple without masses. LUNGS: coarse breath sounds in upper lobes. HEART: Regular rate and rhythm, normal S1 and S2 ABDOMEN: Soft, nontender, not distended, normoactive bowel sounds MUSCULOSKELETAL: No CVA tenderness. UPPER EXTREMITIES: 2+ pulses, warm, well-perfused. No peripheral edema. LOWER EXTREMITIES: 2+ pulses, warm, well-perfused. No peripheral edema. NEUROLOGICAL: Cranial nerves II-XII grossly intact. Normal speech. PSYCHIATRIC: Cooperative. Good eye contact. Appropriate mood and affect. SKIN: Warm, dry Active Medications Generic Name Dose Route Start Last Admin Trade Name Freq PRN Reason Stop Dose Admin Albuterol/Ipratropium 1 amp 01/20/17 20:15 01/23/17 00:13 Duoneb - NEB 1 amp Q4H PRN Administration SHORTNESS OF BREATH Allopurinol 100 mg 01/21/17 10:00 01/23/17 09:10 Zyloprim - PO 100 mg DAILY [facility] Administration Gabapentin 200 mg 01/22/17 22:00 01/22/17 21:48 Neurontin - PO 200 mg HS [facility] Administration Guaifenesin 10 ml 01/22/17 15:40 01/22/17 21:49 Robitussin Dm - PO 10 ml Q4H PRN Administration COUGH Hydrochlorothiazide 12.5 mg 01/21/17 10:00 01/23/17 09:10 Hctz - PO 12.5 mg DAILY [facility] Administration Ceftriaxone Sodium 50 mls @ 100 mls/hr 01/22/17 10:00 01/23/17 09:09 Rocephin 1gm Ivpb (Pre-Docked) IVPB 100 mls/hr DAILY [facility] Administration Losartan Potassium 25 mg 01/21/17 10:00 01/23/17 09:09 Cozaar - PO 25 mg DAILY [facility] Administration Metoprolol Succinate 25 mg 01/21/17 10:00 01/23/17 09:10 Toprol Xl - PO 25 mg DAILY [facility] Administration Montelukast Sodium 10 mg 01/20/17 22:00 01/22/17 21:49 Singulair - PO 10 mg HS [facility] Administration Pantoprazole Sodium 20 mg 01/22/17 11:45 01/23/17 09:10 Protonix - PO 20 mg DAILY [facility] Administration Prednisone 40 mg 01/22/17 19:30 01/23/17 09:10 Deltasone - PO 40 mg DAILY [facility] Administration Spironolactone 25 mg 01/21/17 10:00 01/23/17 09:10 Aldactone - PO 25 mg DAILY [facility] Administration ASSESSMENT/PLAN: This is a 71 yo F with PMH of COPD (hospitalized 3 x, last time 1 yr ago), pulmonary sarcoidosis (diagnosed by [facility] biopsy), liver transplant (20 years ago, on daily steroids), who presents with worsening sob and cough productive of increased green flem for 10 days. Acute on Chronic pulmonary sarcoidosis vs COPD exacerbation -possible superimposed PNA -afebrile -clinically improving -CT chest consistent with upper lobe sarcoidosis (calcified lesions b/l) with possible upper lobe infiltrate -cannot r/o histo, TB -PPD -continue empiric rocephin day 3 -duoneb -can stop singulair, unlikley asthma -symbicort not indicated for acute copd exacerbation -prednisone 40 d -sputum cultures p/d -robitussin -pre/post exercise O2 before d/c -outpatient cardiac and eye eval for sarcoid -stable for d/c on PO abx tomorrow . Hx Liver transplant -hold PO steroids -stable -f/u liver specialist outpatient Dispo: We will continue to follow the patient. Thank you for this consultative opportunity. Problem List - Problems (1) CKD (chronic kidney disease) Code(s): N18.9 - CHRONIC KIDNEY DISEASE, UNSPECIFIED (2) COPD with exacerbation Code(s): J44.1 - CHRONIC OBSTRUCTIVE PULMONARY DISEASE W (ACUTE) EXACERBATION (3) Pulmonary sarcoidosis Code(s): D86.0 - SARCOIDOSIS OF LUNG Visit type - Emergency Visit Emergency Visit: Yes ED Registration Date: 01/21/17 Care time: The patient presented to the Emergency Department on the above date and was hospitalized for further evaluation of their emergent condition. - New Patient This patient is new to me today: No - Critical Care Critical Care patient: No - Discharge Referral Referred to [facility] No
--- NOTE | 2017-01-23 15:33 | PN ---
Teaching Attending Note Name of Resident: Odalis Aldridge ATTENDING PHYSICIAN STATEMENT I saw and evaluated the patient. I reviewed the resident's note and discussed the case with the resident. I agree with the resident's findings and plan as documented. SUBJECTIVE: LESS COUGH/NO WHEEZES OBJECTIVE:CLEAR LUNG CHILDRESS PLAN: OK FOR DISCHARGE TOMORROW CONTINUE SLOW TAPER ORAL STEROIDS/BRONCHODILATORS WOULD ALSO CONTINUE OUTPATIENT ANTIBIOTICS Mercedez SCHWAB MD
--- NOTE | 2017-01-23 18:00 | PN ---
Progress Note, Physician - Current Medication List Current Medications: Active Medications Albuterol/Ipratropium (Duoneb -) 1 amp NEB Q4H PRN PRN Reason: SHORTNESS OF BREATH Last Admin: 01/23/17 00:13 Dose: 1 amp Allopurinol (Zyloprim -) 100 mg PO DAILY [facility] Last Admin: 01/23/17 09:10 Dose: 100 mg Gabapentin (Neurontin -) 200 mg PO HS [facility] Last Admin: 01/22/17 21:48 Dose: 200 mg Guaifenesin (Robitussin Dm -) 10 ml PO Q4H PRN PRN Reason: COUGH Last Admin: 01/22/17 21:49 Dose: 10 ml Hydrochlorothiazide (Hctz -) 12.5 mg PO DAILY [facility] Last Admin: 01/23/17 09:10 Dose: 12.5 mg Ceftriaxone Sodium (Rocephin 1gm Ivpb (Pre-Docked)) 50 mls @ 100 mls/hr IVPB DAILY [facility] Last Admin: 01/23/17 09:09 Dose: 100 mls/hr Losartan Potassium (Cozaar -) 25 mg PO DAILY [facility] Last Admin: 01/23/17 09:09 Dose: 25 mg Metoprolol Succinate (Toprol Xl -) 25 mg PO DAILY [facility] Last Admin: 01/23/17 09:10 Dose: 25 mg Montelukast Sodium (Singulair -) 10 mg PO HS [facility] Last Admin: 01/22/17 21:49 Dose: 10 mg Pantoprazole Sodium (Protonix -) 20 mg PO DAILY [facility] Last Admin: 01/23/17 09:10 Dose: 20 mg Prednisone (Deltasone -) 40 mg PO DAILY [facility] Last Admin: 01/23/17 09:10 Dose: 40 mg Spironolactone (Aldactone -) 25 mg PO DAILY [facility] Last Admin: 01/23/17 09:10 Dose: 25 mg - Objective Vital Signs: Vital Signs Temperature 97.6 F 01/23/17 13:44 Pulse Rate 92 H 01/23/17 17:25 Respiratory Rate 18 01/23/17 08:58 Blood Pressure 143/81 01/23/17 13:44 O2 Sat by Pulse Oximetry (%) 92 L 01/23/17 17:25 Constitutional: Yes: No Distress HENT: Yes: Atraumatic Neck: Yes: Supple Cardiovascular: Yes: Regular Rate and Rhythm Respiratory: Yes: CTA Bilaterally Neurological: Yes: Alert, Oriented Labs: INR, PTT INR 0.96 (0.82-1.09) 01/20/17 10:00 Problem List - Problems (1) COPD with exacerbation Code(s): J44.1 - CHRONIC OBSTRUCTIVE PULMONARY DISEASE W (ACUTE) EXACERBATION Assessment/Plan A/P 1. CKD 2. COPD exacerbation CONTINUE STEROIDS DUO NEBS 3. liver transplant 4. sarcoidosis 5. HTN STABLE ON MEDS 6. gout 7. hep C
[2017-01-23] MEDS: MONTELUKAST NA 10 MG TABLET PO SCH (21:05)
[2017-01-23] MEDS: GABAPENTIN 100 MG CAPSULE (FP) PO SCH (21:06)
[2017-01-24] MEDS: ALLOPURINOL 100 MG TABLET (FP) PO SCH (10:03)
[2017-01-24] MEDS: METOPROLOL SUCCINATE 25 MG TAB.SR.24H (FP) PO SCH (10:03)
[2017-01-24] MEDS: LOSARTAN POTASSIUM 25 MG TABLET PO SCH (10:03)
[2017-01-24] MEDS: predniSONE 20 MG TABLET (UD) PO SCH (10:03)
[2017-01-24] MEDS: CEFTRIAXONE 50 ML IVPB SCH (10:03)
[2017-01-24] MEDS: PANTOPRAZOLE 20 MG TABLET (FP) PO SCH (10:03)
[2017-01-24] MEDS: SPIRONOLACTONE 25 MG TABLET (FP) PO SCH (10:03)
[2017-01-24] MEDS: HYDROCHLOROTHIAZIDE 12.5 MG CAPSULE (FP) PO SCH (10:03)
[2017-01-24 10:30] VITALS: PULSE 83
[2017-01-24 11:19] VITALS: BP 138/62; TEMP 98.2
--- NOTE | 2017-01-24 19:15 | DS ---
Physical Examination Vital Signs: Vital Signs Temperature 98.2 F 01/24/17 10:00 Pulse Rate 83 01/24/17 10:30 Respiratory Rate 18 01/24/17 10:00 Blood Pressure 138/62 01/24/17 10:00 O2 Sat by Pulse Oximetry (%) 94 L 01/24/17 10:30 Discharge Summary Reason For Visit: OBSTRUCTIVE CHRONIC BRONCHITIS Current Active Problems CKD (chronic kidney disease) (Acute) COPD with exacerbation (Acute) Pulmonary sarcoidosis (Acute) - Instructions Referrals: Dalia Pool MD [Primary Care Provider] - Disposition: HOME - Home Medications Comprehensive Discharge Medication List: Ambulatory Orders Allopurinol [Zyloprim -] 100 mg PO DAILY 01/20/17 Budesonide/Formeterol Fumarate [SYMBICORT 160/4.5mcg -] 1 inh PO BID 01/20/17 Gabapentin [Neurontin -] 200 mg PO DAILY 01/20/17 Hydrochlorothiazide [Hctz -] 12.5 mg PO DAILY 01/20/17 Losartan Potassium [Cozaar -] 25 mg PO DAILY 01/20/17 Metoprolol Succinate [Toprol Xl -] 25 mg PO DAILY 01/20/17 Montelukast Na [Singulair -] 10 mg PO HS 01/20/17 Omeprazole 20 mg PO DAILY 01/20/17 Prednisone [Deltasone -] 5 mg PO DAILY 01/20/17 Spironolactone [Aldactone -] 25 mg PO DAILY 01/20/17 Amox-Tr/K Cl [Augmentin - 875Mg Tablet] 1 tab PO BID #14 tablet 01/23/17 Prednisone 10 mg PO DAILY #30 tablet 01/23/17 ks home fu pmd next week
== END 2017-01-24 12:13 | disposition home or self-care (01) | DRG 196 ==
LOC: JER 08:17 → UNDOADMOB 13:35 → INTOOBSV 13:35 → JERBED 13:35 → J6S 19:09 → OBSVTOIN 01-21 17:32
PROVIDERS: ADMIT Internal Medicine; ATTEND Internal Medicine
DX: D86.9 Sarcoidosis, unspecified (principal); J18.9 Pneumonia, unspecified organism; J44.1 Chronic obstructive pulmonary disease with (acute) exacerbation; Z94.4 Liver transplant status; M10.9 Gout, unspecified; K21.9 Gastro-esophageal reflux disease without esophagitis; I12.9 Hypertensive chronic kidney disease with stage 1 through stage 4 chronic kidney disease, or unspecified chronic kidney disease; N18.3 Chronic kidney disease, stage 3 (moderate); Z86.19 Personal history of other infectious and parasitic diseases
CPT/HCPCS: 36415; 71020-TC; 71250-TC; 80053; 81003; 82550; 82553; 83735; 83880; 84484; 85025; 85379; 85610; 86850; 86900; 86901; 87040; 87070; 87186; 87205; 87804; 93005; 93010; 94640; 94761; 99284-25; G0378

== ENCOUNTER 2017-02-22 07:53 | Emergency (ER) | payer OTHER ==
[2017-02-22 08:02] VITALS: TEMP 98.6; BMI 37.0
--- NOTE | 2017-02-22 08:29 | PDOC ---
History of Present Illness - General Chief Complaint: Pain Stated Complaint: PAIN TO SIDE Time Seen by Provider: 02/22/17 08:21 History Source: Patient Exam Limitations: No Limitations - History of Present Illness Initial Comments: 02/22/17 08:46 71-year-old female presents the ED with complaints of worsening low back pain unrelieved with Motrin which normally does seem to alleviate her pain to this affected area. Patient states pain to the right side is reading down her right buttock and right hamstring which she describes a sharp intermittent electric like pain. Patient describes the pain to her low back as a constant aching sensation worsened with standing and sitting. Patient states has history of sarcoidosis, liver transplant 20 years ago and is under the care of Dr. Fatima although she has no kidney disorders. Timing/Duration: 1 week, getting worse Severity: moderate Associated Symptoms: denies: weakness Past History - Past Medical History Allergies/Adverse Reactions: Allergies Allergy/AdvReac Type Severity Reaction Status Date / Time shrimp Allergy Verified 02/22/17 07:54 Home Medications: Ambulatory Orders Allopurinol [Zyloprim -] 100 mg PO DAILY 02/22/17 Gabapentin 100 mg PO DAILY 02/22/17 Losartan Potassium 25 mg PO DAILY 02/22/17 Metoprolol Succinate [Toprol Xl -] 25 mg PO DAILY 02/22/17 Omeprazole 20 mg PO DAILY 02/22/17 Prednisone 5 mg PO DAILY 02/22/17 Spironolactone [Aldactone] 25 mg PO DAILY 02/22/17 Cardiac Disorders: Yes (cad) COPD: Yes HTN: Yes Liver Disease: Yes (cirrhosis, s/p transplant) - Psycho/Social/Smoking Cessation Hx Anxiety: No Suicidal Ideation: No Smoking History: Never smoked Have you smoked in the past 12 months: No Number of Cigarettes Smoked Daily: 2 Information on smoking cessation initiated: No Hx Alcohol Use: No Drug/Substance Use Hx: No Substance Use Type: None Patient Lives Alone: No Lives with/in: spouse/SO Review of Systems - Review of Systems Able to Perform ROS?: Yes Constitutional: No: Symptoms Reported HEENTM: No: Symptoms Reported Respiratory: No: Symptoms reported Cardiac (ROS): No: Symptoms Reported ABD/GI: No: Symptoms Reported : No: Symptoms Reported Musculoskeletal: Yes: Back Pain, Muscle Pain (right buttock) Neurological: No: Symptoms reported Hematologic/Lymphatic: No: Symptoms Reported *Physical Exam - Vital Signs Last Vital Signs Temp Pulse Resp BP Pulse Ox 98.6 F 88 18 155/80 94 L 02/22/17 07:54 02/22/17 07:54 02/22/17 07:54 02/22/17 07:54 02/22/17 07:54 - Physical Exam General Appearance: Yes: Nourished, Appropriately Dressed. No: Apparent Distress HEENT: negative: Pale Conjunctivae Respiratory/Chest: positive: Lungs Clear, Normal Breath Sounds. negative: Respiratory Distress, Accessory Muscle Use Gastrointestinal/Abdominal: positive: Soft. negative: Tenderness Musculoskeletal: positive: Vertebral Tenderness (L4-L5 and rt paraspinous muscle. Right sciatica tenderness.). negative: CVA Tenderness ED Treatment Course - LABORATORY CBC & Chemistry Diagram: 02/22/17 08:43 02/22/17 08:43 Medical Decision Making - Medical Decision Making 02/22/17 08:52 Patient with recurrent low back pain stating now unrelieved with Motrin which normally seems to alleviate her pain. Patient has no other complaints at this time but does have history of liver transplant 20 years ago and sarcoidosis currently on prednisone. Patient on exam had right sciatica tenderness and L4- L5 tenderness. Patient ordered for labs, urine and urine culture, Flexeril, Motrin and the lumbar x-ray. 02/22/17 09:51 Laboratory Tests 02/22/17 08:43 WBC 10.1 H D Hgb 12.8 Hct 38.8 Plt Count 157 Neutrophils % 64.6 D 02/22/17 10:02 X-ray shows degenerative changes with wedging. Vacuum phenomena noted. If symptoms persist patient is recommended to follow-up with her orthopedist. Patient otherwise stating feeling better. Urine analysis pending. 02/22/17 11:52 Laboratory Tests 02/22/17 08:43 Urine Glucose (UA) Negative Urine Ketones Negative Ur Leukocyte Esterase Negative Patient will be discharged home with Flexeril and told to continue with Motrin with Flexeril for adequate pain control and apply ice to the affected area. *DC/Admit/Observation/Transfer Diagnosis at time of Disposition: Low back pain Qualifiers: Chronicity: chronic Back pain laterality: right Sciatica presence: with sciatica Sciatica laterality: sciatica of right side Qualified Code(s): M54.41 - Lumbago with sciatica, right side; G89.29 - Other chronic pain - Discharge Dispostion Disposition: HOME Condition at time of disposition: Improved - Referrals Referrals: Boo Lopez [Primary Care Provider] - Olu Morris MD [Staff Physician] - - Patient Instructions Printed Discharge Instructions: DI for Low Back Pain, DI for Back Pain With Sciatica Additional Instructions: Please take Motrin with Flexeril as prescribed her neck side apply ice to the affected area. Please follow-up with referred orthopedist. Otherwise return to ED if symptoms worsen.
[2017-02-22] MEDS ORDERED: CYCLOBENZAPRINE HCL 10 MG TABLET (FP) PO ONE (08:31)
[2017-02-22] MEDS ORDERED: IBUPROFEN 600 MG TABLET (FP) PO ONE ×2 (08:31→08:46)
[2017-02-22] MEDS ORDERED: CYCLOBENZAPRINE HCL 10 MG TABLET (FP) ONE (08:46)
[2017-02-22 08:53] LABS: BASOPHIL 0.4 % (0-2.0); EOSINOPHIL 0.6 % (0-4.5); MCH 32.1 pg (25.7-33.7); MEAN CELL VOLUME 97.3 fl (80-96); MEAN PLT VOLUME 10.4 fl (7.5-11.1); NEUTROPHILS 64.6 % (42.8-82.8); PLATELET COUNT 157 K/MM3 (134-434); RDW 14.7 % (11.6-15.6); WHITE BLOOD COUNT 10.1 K/mm3 (4.0-10.0)
[2017-02-22 09:19] LABS: CALCIUM 9.1 mg/dL (8.5-10.1)
[2017-02-22 09:25] LABS: ALBUMIN 3.4 g/dl (3.4-5.0); BILIRUBIN,TOTAL 0.6 mg/dL (0.2-1.0); CREATININE 1.3 mg/dL (0.55-1.02); TOT PROT 6.7 g/dl (6.4-8.2)
--- NOTE | 2017-02-22 10:03 | PDOC ---
*Physical Exam - Vital Signs Last Vital Signs Temp Pulse Resp BP Pulse Ox 98.6 F 88 18 155/80 94 L 02/22/17 07:54 02/22/17 07:54 02/22/17 07:54 02/22/17 07:54 02/22/17 07:54 - Physical Exam Comments: 02/22/17 10:03 The patient was examined by [NELIDA Larson] under my direct supervision. I personally evaluated the patient. I concur with the above findings and the plan of care. ED Treatment Course - LABORATORY CBC & Chemistry Diagram: 02/22/17 08:43 02/22/17 08:43 - ADDITIONAL ORDERS Additional order review: 02/22/17 08:43 RBC 3.99 MCV 97.3 H MCHC 33.0 RDW 14.7 MPV 10.4 D Neutrophils % 64.6 D Lymphocytes % 23.9 D Monocytes % 10.5 H D Eosinophils % 0.6 D Basophils % 0.4 D - Medications Given in the ED: ED Medications Discontinued Medications Generic Name Dose Route Start Last Admin Trade Name Freq PRN Reason Stop Dose Admin Cyclobenzaprine HCl 5 mg 02/22/17 08:31 02/22/17 08:48 Flexeril - PO 02/22/17 08:32 5 mg ONCE ONE Administration Ibuprofen 600 mg 02/22/17 08:31 02/22/17 08:48 Motrin - PO 02/22/17 08:32 600 mg ONCE ONE Administration *DC/Admit/Observation/Transfer Diagnosis at time of Disposition: Low back pain - Discharge Dispostion Disposition: HOME Condition at time of disposition: Improved - Prescriptions Prescriptions: Cyclobenzaprine HCl [Flexeril 10 mg] 5 mg PO BID PRN #60 tablet PRN Reason: Back Pain Ibuprofen [Motrin -] 600 mg PO TID PRN #21 tablet PRN Reason: Pain - Referrals Referrals: Olu Morris MD [Staff Physician] - Boo Lopez [Primary Care Provider] - - Patient Instructions Printed Discharge Instructions: DI for Low Back Pain, DI for Back Pain With Sciatica Additional Instructions: Please take Motrin with Flexeril as prescribed her neck side apply ice to the affected area. Please follow-up with referred orthopedist. Otherwise return to ED if symptoms worsen.
[2017-02-22 11:45] LABS: URINE APPEARANCE CLEAR; URINE BILIRUBIN NEGATIVE (NEGATIVE); URINE BLOOD NEGATIVE (NEGATIVE); URINE COLOR STRAW; URINE GLUCOSE (UA) NEGATIVE (NEGATIVE); URINE KETONE NEGATIVE (NEGATIVE); URINE LEUK ESTERASE NEGATIVE (NEGATIVE); URINE NITRITE NEGATIVE (NEGATIVE); URINE PROTEIN NEGATIVE (NEGATIVE); URINE UROBILINOGEN NEGATIVE E.U./dl (0.2-1.0)
[2017-02-22 12:05] VITALS: BP 134/68; PULSE 84
== END 2017-02-22 12:05 | disposition home or self-care (01) ==
LOC: JER 07:53
DX: M54.41 Lumbago with sciatica, right side (principal); G89.29 Other chronic pain
CPT/HCPCS: 36415; 72100-TC; 80053; 81003; 85025; 87086; 99284-25

== ENCOUNTER 2017-09-29 11:11 | Inpatient (IN) | payer OTHER ==
--- NOTE | 2017-09-29 12:20 | PDOC ---
History of Present Illness - General Chief Complaint: Cold Symptoms Stated Complaint: COLD SYMPTOMS Time Seen by Provider: 09/29/17 12:10 History Source: Patient - History of Present Illness Initial Comments: 09/29/17 12:19 Patient is a 72 y.o. female with a PMH Liver Transplant 2/2 to cirrhosis, Sarcoidosis, HTN, Gout who presents with a 5 day h/o of sore throat and rhinorhea as well as a 2 day h/o of non-productive cough. Patient denies any subjective fever, diarrhea, vomiting, shortness of breath or chest pain but does endorse nausea. Patient further notes she was hospitalized on previous occasion for pneumonia. NKDA PMD: None Surgical: Liver Transplant, Appendectomy Social: denies cigarettes, denies alcohol, denies recreational drugs Past History - Past Medical History Allergies/Adverse Reactions: Allergies Allergy/AdvReac Type Severity Reaction Status Date / Time shrimp Allergy Verified 09/29/17 12:06 Home Medications: Ambulatory Orders Allopurinol [Zyloprim -] 100 mg PO DAILY 02/22/17 Cyclobenzaprine HCl [Flexeril 10 mg] 5 mg PO BID PRN #60 tablet 02/22/17 Gabapentin 100 mg PO DAILY 02/22/17 Ibuprofen [Motrin -] 600 mg PO TID PRN #21 tablet 02/22/17 Losartan Potassium 25 mg PO DAILY 02/22/17 Metoprolol Succinate [Toprol Xl -] 25 mg PO DAILY 02/22/17 Omeprazole 20 mg PO DAILY 02/22/17 Prednisone 5 mg PO DAILY 02/22/17 Spironolactone [Aldactone] 25 mg PO DAILY 02/22/17 Cardiac Disorders: Yes (cad) COPD: Yes HTN: Yes Liver Disease: Yes (cirrhosis, s/p transplant) - Immunization History Immunization Up to Date: Yes - Suicide/Smoking/Psychosocial Hx Smoking History: Never smoked Have you smoked in the past 12 months: No Number of Cigarettes Smoked Daily: 2 Information on smoking cessation initiated: No Hx Alcohol Use: No Drug/Substance Use Hx: No Substance Use Type: None Review of Systems - Review of Systems Constitutional: No: Chills, Fever Respiratory: Yes: Cough. No: Shortness of Breath Cardiac (ROS): No: Chest Pain ABD/GI: No: Constipated, Diarrhea, Nausea, Vomiting : No: Burning, Dysuria All Other Systems: Reviewed and Negative *Physical Exam - Vital Signs Last Vital Signs Temp Pulse Resp BP Pulse Ox 98.5 F 86 17 186/92 97 09/29/17 11:20 09/29/17 11:20 09/29/17 11:20 09/29/17 11:20 09/29/17 11:20 - Physical Exam General Appearance: Yes: Nourished, Appropriately Dressed Neck: positive: Trachea midline, Supple Respiratory/Chest: positive: Wheezing. negative: Accessory Muscle Use, Labored Respiration Cardiovascular: positive: S1, S2 Extremity: positive: Normal Capillary Refill, Normal Inspection Integumentary: positive: Normal Color, Dry, Warm Neurologic: positive: Fully Oriented, Alert ED Treatment Course - LABORATORY CBC & Chemistry Diagram: 09/29/17 13:00 09/29/17 14:00 Medical Decision Making - Medical Decision Making 09/29/17 15:41 Patient is a 72 y.o. female who presents with viral URI SiSx as well as more recent onset of cough. Patient's CBC showed leukocytosis of 14.8. Wet read of CXR showed B/L congestion, possible infiltrate. Patient started on Levaquin + IV Solumedrol. At patient continues to cough and given patient's h/o of pulmonary compromise (sarcoidosis) as well continued symptomatic complaints ( cough) CT Chest w/o contrast and patient to be admitted for further evaluation. *DC/Admit/Observation/Transfer Diagnosis at time of Disposition: Cough in adult
--- NOTE | 2017-09-29 12:46 | PDOC ---
Attending Attestation - HPI HPI: 09/29/17 12:59 Pt is a 72 yo F with a PMHx of Liver transplant (s/p liver cirrhosis), Sarcoidosis, who presents to the ED with URI like symptoms. Patient reports sore throat, clear rhinorrhea for the past 5 days. Since then, the patient has been developing productive cough (white). Patient has been taking Advil however denies any relief and presents to the ED for further evaluation. Patient denies any fever, chills, sick contacts, recent travel. PCP: None Liver transplant: [facility] 20 years ago Renal: Dr. Pool - Physicial Exam PE: 09/29/17 12:59 GENERAL: Awake, alert, and fully oriented, in no acute distress HEAD: No signs of trauma EYES: PERRLA, EOMI, sclera anicteric, conjunctiva clear ENT: Auricles normal inspection, hearing grossly normal, nares patent, oropharynx clear without exudates. Moist mucosa. +Nasal congestion. Dry nonporcutive cough (hacking) NECK: Normal ROM, supple, no lymphadenopathy, JVD, or masses LUNGS: Clear to auscultation bilaterally. No crackles. +Lungs are diminished with expiratory wheezing at the bases. HEART: Regular rate and rhythm, normal S1 and S2, no murmurs, rubs or gallops ABDOMEN: Soft, nontender, normoactive bowel sounds. No guarding, no rebound. No masses EXTREMITIES: Normal range of motion, no edema. No clubbing or cyanosis. No cords, erythema, or tenderness NEUROLOGICAL: Cranial nerves II through XII grossly intact. Normal speech, normal gait SKIN: Warm, Dry, normal turgor, no rashes or lesions noted. - Medical Decision Making 09/29/17 12:59 Documentation prepared by La Nena Rodriguez, acting as medical officer for Muriel Valladares DO, MD/. <La Nena Rodriguez - Last Filed: 09/29/17 13:12> - Resident Resident Name: Maura Adams - ED Attending Attestation I have performed the following: I have examined & evaluated the patient, The case was reviewed & discussed with the resident, I agree w/resident's findings & plan, Exceptions are as noted - Medical Decision Making 09/29/17 12:46 I, Dr. Muriel Kurkowski, DO, attest that this document has been prepared under my direction and personally reviewed by me in its entirety. I further attest, that it accurately reflects all work, treatment, procedures and medical decision -making performed by me. 09/29/17 13:34 a/p: 72yo female with cough/congestion/rhinorrhea -labs -cxr -nebs -most likely will need abx -hx of liver transplant on prednisone, hasn't followed with transplant team at [facility] in over 2 years 09/29/17 15:25 pt with a copd exacerbation and PNA - will start abx. Has not been hospitalized since January. CAP - levaquin at this time. Will obtain ct chest without contrast to further eval the chest. <Muriel Valladares - Last Filed: 09/29/17 15:26>
[2017-09-29] MEDS ORDERED: ALBUTEROL SO4 2.5/IPRATROPIUM 0.5 INH SOL 3 ML VIAL.NEB. NEB ONE ×2 (13:02→13:30)
[2017-09-29 13:37] LABS: URINE APPEARANCE SLCLOUDY; URINE BILIRUBIN NEGATIVE (NEGATIVE); URINE BLOOD 1+ (NEGATIVE); URINE COLOR LTYELLOW; URINE GLUCOSE (UA) NEGATIVE (NEGATIVE); URINE KETONE NEGATIVE (NEGATIVE); URINE NITRITE NEGATIVE (NEGATIVE); URINE PROTEIN NEGATIVE (NEGATIVE); URINE UROBILINOGEN NEGATIVE mg/dL (0.2-1.0)
[2017-09-29 14:26] LABS: BASOPHIL 0.5 % (0-2.0); EOSINOPHIL 0.9 % (0-4.5); MCH 30.7 pg (25.7-33.7); MCHC 32.1 g/dl (32.0-36.0); MEAN CELL VOLUME 95.8 fl (80-96); MEAN PLT VOLUME 11.6 fl (7.5-11.1); NEUTROPHILS 72.5 % (42.8-82.8); PLATELET COUNT 162 K/MM3 (134-434); RDW 14.9 % (11.6-15.6); WHITE BLOOD COUNT 15.9 K/mm3 (4.0-10.0)
[2017-09-29 14:40] LABS: ALBUMIN 3.5 g/dl (3.4-5.0); ALK PHOS 96 U/L (45-117); ANION GAP 8 (8-16); BILIRUBIN,TOTAL 0.4 mg/dL (0.2-1.0); CALCIUM 8.8 mg/dL (8.5-10.1); CO2 30 mmol/L (21-32); CREATININE 1.4 mg/dL (0.55-1.02); GLUCOSE,RANDOM 80 mg/dL (74-106); MAGNESIUM 2.2 mg/dL (1.8-2.4); SGOT/AST 10 U/L (15-37); SGPT/ALT 29 U/L (12-78); TOT PROT 7.1 g/dl (6.4-8.2)
[2017-09-29] MEDS ORDERED: LEVOFLOXACIN 750 MG IVPB 150 ML IVPB ONE ×2 (15:19→16:12)
[2017-09-29] MEDS ORDERED: methylPREDNISolone NA SUCC 125 MG/2 ML VIAL IVPUSH ONE (15:20)
[2017-09-29] MEDS ORDERED: methylPREDNISolone NA SUCC 125 MG/2 ML VIAL ONE (16:11)
--- NOTE | 2017-09-29 18:03 | HP ---
Admitting History and Physical - Primary Care Physician PCP: Марина Gutierrez - Admission History of Present Illness: 72 y.o. female with a H Liver Transplant 2/2 to cirrhosis, Sarcoidosis, HTN, Gout who presents with a 5 day h/o of sore throat and rhinorhea as well as a 2 day h/o of non-productive cough. Patient denies any subjective fever, diarrhea , vomiting, shortness of breath or chest pain but does endorse nausea. Patient further notes she was hospitalized on previous occasion for pneumonia. - Past Medical History Cardiovascular: Yes: HTN Pulmonary: Yes: Asthma, COPD Gastrointestinal: Yes: GERD, Other (liver transplant) Hepatobiliary: Yes: Hepatitis C Renal/: Yes: Renal Inusuff - Past Surgical History Past Surgical History: Yes: Liver Transplant - Smoking History Smoking history: Never smoked Have you smoked in the past 12 months: No Aproximately how many cigarettes per day: 2 - Alcohol/Substance Use Hx Alcohol Use: No Home Medications - Allergies Allergies/Adverse Reactions: Allergies Allergy/AdvReac Type Severity Reaction Status Date / Time shrimp Allergy Verified 09/29/17 12:06 - Home Medications Home Medications: Ambulatory Orders Allopurinol [Zyloprim -] 100 mg PO DAILY 02/22/17 Gabapentin 100 mg PO DAILY 02/22/17 Losartan Potassium 25 mg PO DAILY 02/22/17 Metoprolol Succinate [Toprol Xl -] 25 mg PO DAILY 02/22/17 Omeprazole 20 mg PO DAILY 02/22/17 Prednisone 5 mg PO DAILY 02/22/17 Spironolactone [Aldactone] 25 mg PO DAILY 02/22/17 Fluticasone/Salmeterol [Advair Hfa 115-21 Mcg Inhaler] 1 inh PO ASDIR 09/29/17 Physical Examination Vital Signs: Vital Signs Temperature 98.6 F 09/29/17 16:18 Pulse Rate 95 H 09/29/17 16:18 Respiratory Rate 17 09/29/17 11:20 Blood Pressure 151/74 09/29/17 16:18 O2 Sat by Pulse Oximetry (%) 95 09/29/17 16:18 Problem List - Problems (1) COPD with exacerbation Code(s): J44.1 - CHRONIC OBSTRUCTIVE PULMONARY DISEASE W (ACUTE) EXACERBATION (2) Cough in adult patient Code(s): R05 - COUGH (3) PNA (pneumonia) Code(s): J18.9 - PNEUMONIA, UNSPECIFIED ORGANISM (4) CKD (chronic kidney disease) Code(s): N18.9 - CHRONIC KIDNEY DISEASE, UNSPECIFIED Assessment/Plan Laboratory Tests 09/29/17 09/29/17 09/29/17 13:00 13:00 14:00 WBC 15.9 H D RBC 4.21 Hgb 12.9 Hct 40.3 MCV 95.8 MCH 30.7 MCHC 32.1 RDW 14.9 Plt Count 162 MPV 11.6 H D Neutrophils % 72.5 Lymphocytes % 16.6 D Monocytes % 9.5 Eosinophils % 0.9 Basophils % 0.5 Sodium 142 Potassium 4.2 Chloride 104 Carbon Dioxide 30 Anion Gap 8 BUN 31 H D Creatinine 1.4 H Creat Clearance w eGFR 37.07 Random Glucose 80 Calcium 8.8 Magnesium 2.2 D Total Bilirubin 0.4 D AST 10 L D ALT 29 Alkaline Phosphatase 96 Total Protein 7.1 Albumin 3.5 Urine Color Ltyellow Urine Appearance Slcloudy Urine pH 5.0 Ur Specific Camas 1.010 Urine Protein Negative Urine Glucose (UA) Negative Urine Ketones Negative Urine Blood 1+ H Urine Nitrite Negative Urine Bilirubin Negative Urine Urobilinogen Negative
[2017-09-29 18:09] VITALS: BMI 24.1
[2017-09-29] MEDS ORDERED: ACETAMINOPHEN 325 MG TABLET (FP) PO PRN (18:10)
[2017-09-29] MEDS ORDERED: CEFTRIAXONE 1 G/50 ML PREMIX 50 ML IVPB SCH (18:15)
[2017-09-29 18:44] LABS: URINE BACTERIA RARE /hpf (NONE SEEN); URINE MUCUS RARE; URINE RBC 0-2 /hpf (0-3); URINE WBC 84 /hpf (3-5)
[2017-09-29] MEDS ORDERED: PNEUMOC 13-VAL CONJ-DIP CRM/PF 0.5 ML DISP.SYRIN IM ONE (19:00)
[2017-09-29] MEDS: CEFTRIAXONE 1 G/50 ML PREMIX 50 ML IVPB SCH (20:23)
[2017-09-29] MEDS: methylPREDNISolone NA SUCC 125 MG/2 ML VIAL IVPUSH SCH (21:00)
[2017-09-29 21:36] LABS: URINE LEUK ESTERASE 1+ (NEGATIVE)
[2017-09-29] MEDS ORDERED: guaiFENesin/CODEINE 10 ML UNIT-DOSE CUPS PO PRN (22:33)
[2017-09-30] MEDS: methylPREDNISolone NA SUCC 125 MG/2 ML VIAL IVPUSH SCH ×4 (02:45→21:30)
[2017-09-30 08:37] LABS: BASOPHIL 0.1 % (0-2.0); MCH 30.8 pg (25.7-33.7); MCHC 32.5 g/dl (32.0-36.0); MEAN CELL VOLUME 94.8 fl (80-96); MEAN PLT VOLUME 11.7 fl (7.5-11.1); NEUTROPHILS 95.6 % (42.8-82.8); PLATELET COUNT 172 K/MM3 (134-434); WHITE BLOOD COUNT 14.6 K/mm3 (4.0-10.0)
[2017-09-30] MEDS: CEFTRIAXONE 1 G/50 ML PREMIX 50 ML IVPB SCH (09:48)
[2017-09-30 10:00] LABS: ALBUMIN 3.9 g/dl (3.4-5.0); ALK PHOS 106 U/L (45-117); ANION GAP 12 (8-16); BILIRUBIN,TOTAL 0.6 mg/dL (0.2-1.0); CALCIUM 9.3 mg/dL (8.5-10.1); CO2 25 mmol/L (21-32); CREATININE 1.5 mg/dL (0.55-1.02); GLUCOSE,RANDOM 186 mg/dL (74-106); SGOT/AST 10 U/L (15-37); SGPT/ALT 35 U/L (12-78); TOT PROT 7.8 g/dl (6.4-8.2)
[2017-09-30] MEDS: ALBUTEROL SO4 2.5/IPRATROPIUM 0.5 INH SOL 3 ML VIAL.NEB. NEB PRN ×2 (11:07→21:37)
--- NOTE | 2017-09-30 14:24 | CON.ID ---
Consult Consult Specialty:: infectious diseases Reason for Consultation:: pneumonia - History of Present Illness Chief Complaint: cough sputum production History of Present Illness: 72 y.o. female with a PMH Liver Transplant 2/2 to cirrhosis, Sarcoidosis, HTN, Gout who presents with a 5 day h/o of sore throat and rhinorhea as well as a 2 day h/o of non-productive cough. Patient denies any subjective fever, diarrhea , vomiting, shortness of breath or chest pain but does endorse nausea. Patient further notes she was hospitalized on previous occasion for pneumonia. currently ptient is starting to feel better still with sputum production,not other issues sputum which patient is bringing out is yellowish in color - History Source History Provided By: Patient Limitations to Obtaining History: No Limitations - Past Medical History Cardio/Vascular: Yes: HTN Pulmonary: Yes: Asthma, COPD Gastrointestinal: Yes: GERD, Other (liver transplant) Hepatobiliary: Yes: Hepatitis C Renal/: Yes: Renal Inusuff - Past Surgical History Past Surgical History: Yes: Liver Transplant - Alcohol/Substance Use Hx Alcohol Use: No - Smoking History Smoking history: Never smoked Have you smoked in the past 12 months: No Aproximately how many cigarettes per day: 2 Home Medications - Allergies Allergies/Adverse Reactions: Allergies Allergy/AdvReac Type Severity Reaction Status Date / Time shrimp Allergy Verified 09/29/17 12:06 - Home Medications Home Medications: Ambulatory Orders Allopurinol [Zyloprim -] 100 mg PO DAILY 02/22/17 Gabapentin 100 mg PO DAILY 02/22/17 Losartan Potassium 25 mg PO DAILY 02/22/17 Metoprolol Succinate [Toprol Xl -] 25 mg PO DAILY 02/22/17 Omeprazole 20 mg PO DAILY 02/22/17 Prednisone 5 mg PO DAILY 02/22/17 Spironolactone [Aldactone] 25 mg PO DAILY 02/22/17 Fluticasone/Salmeterol [Advair Hfa 115-21 Mcg Inhaler] 1 inh PO ASDIR 09/29/17 Review of Systems - Review of Systems Constitutional: reports: No Symptoms Eyes: reports: No Symptoms HENT: reports: No Symptoms Neck: reports: No Symptoms Cardiovascular: reports: No Symptoms Respiratory: reports: Cough, SOB Gastrointestinal: reports: No Symptoms Genitourinary: reports: No Symptoms Breasts: reports: No Symptoms Reported Musculoskeletal: reports: No Symptoms Integumentary: reports: No Symptoms Neurological: reports: No Symptoms Endocrine: reports: No Symptoms Hematology/Lymphatic: reports: No Symptoms Psychiatric: reports: No Symptoms Physical Exam Vital Signs: Vital Signs Temperature 98.0 F 09/30/17 05:54 Pulse Rate 97 H 09/30/17 10:00 Respiratory Rate 20 09/30/17 10:00 Blood Pressure 153/88 09/30/17 10:00 O2 Sat by Pulse Oximetry (%) 98 09/29/17 21:00 Constitutional: Yes: Well Nourished, No Distress, Calm Eyes: Yes: Conjunctiva Clear HENT: Yes: Atraumatic Neck: Yes: Supple Cardiovascular: Yes: Regular Rate and Rhythm Respiratory: Yes: Regular, Wheezes, Other Gastrointestinal: Yes: Normal Bowel Sounds, Soft Musculoskeletal: Yes: WNL Extremities: Yes: WNL Neurological: Yes: Alert, Oriented Psychiatric: Yes: Alert, Oriented Labs: CBC, BMP 09/30/17 07:30 09/30/17 07:30 Imaging - Results Chest X-ray: Report Reviewed, Image Reviewed X-ray: Report Reviewed, Image Reviewed Assessment/Plan Problem List - Problems (1) COPD with exacerbation Code(s): J44.1 - CHRONIC OBSTRUCTIVE PULMONARY DISEASE W (ACUTE) EXACERBATION (2) Cough in adult patient Code(s): R05 - COUGH (3) PNA (pneumonia) Code(s): J18.9 - PNEUMONIA, UNSPECIFIED ORGANISM (4) CKD (chronic kidney disease) Code(s): N18.9 - CHRONIC KIDNEY DISEASE, UNSPECIFIED plan continue ceftriaxone will add zithro incentive angeli after tomorrows dose will switch to oral abx rest as per primary
[2017-09-30] MEDS: AZITHROMYCIN 500 MG TABLET PO SCH (15:46)
[2017-09-30] MEDS: PANTOPRAZOLE 40 MG TABLET (FP) PO SCH (16:37)
--- NOTE | 2017-09-30 19:53 | PN ---
Progress Note, Physician - Current Medication List Current Medications: Active Medications Acetaminophen (Tylenol -) 650 mg PO Q6H PRN PRN Reason: FEVER OR PAIN Albuterol/Ipratropium (Duoneb -) 1 amp NEB Q4H PRN PRN Reason: SHORTNESS OF BREATH Last Admin: 09/30/17 11:07 Dose: 1 amp Azithromycin (Azithromycin) 500 mg PO DAILY [facility] Last Admin: 09/30/17 15:46 Dose: 500 mg Guaifenesin/Codeine Phosphate (Robitussin Ac -) 10 ml PO Q8H PRN PRN Reason: COUGH Last Admin: 09/29/17 23:26 Dose: 10 ml CEFTRIAXONE 1 G/50 ML PREMIX (Ceftriaxone 1 Gm-D5w Bag) 50 mls @ 100 mls/hr IVPB DAILY [facility] Last Admin: 09/30/17 09:48 Dose: 100 mls/hr Methylprednisolone Sodium Succinate (Solu-Medrol -) 60 mg IVPUSH Q6H-IV [facility] Last Admin: 09/30/17 14:21 Dose: 60 mg Pantoprazole Sodium (Protonix -) 40 mg PO DAILY [facility] Last Admin: 09/30/17 16:37 Dose: 40 mg - Objective Vital Signs: Vital Signs Temperature 98.3 F 09/30/17 14:27 Pulse Rate 97 H 09/30/17 14:27 Respiratory Rate 18 09/30/17 14:27 Blood Pressure 150/74 09/30/17 14:27 O2 Sat by Pulse Oximetry (%) 98 09/29/17 21:00 Constitutional: Yes: No Distress HENT: Yes: Atraumatic Neck: Yes: Supple Cardiovascular: Yes: Regular Rate and Rhythm Respiratory: Yes: Rhonchi Gastrointestinal: Yes: Normal Bowel Sounds Extremities: Yes: WNL Edema: No Neurological: Yes: Alert, Oriented Labs: CBC, BMP 09/30/17 07:30 09/30/17 07:30 Problem List - Problems (1) COPD with exacerbation Assessment/Plan: duo nebs iv steroid...taper Code(s): J44.1 - CHRONIC OBSTRUCTIVE PULMONARY DISEASE W (ACUTE) EXACERBATION (2) Cough in adult patient Assessment/Plan: prn cough syrup Code(s): R05 - COUGH (3) PNA (pneumonia) Assessment/Plan: on iv abx will switch to po tomorrow and dc home Code(s): J18.9 - PNEUMONIA, UNSPECIFIED ORGANISM (4) CKD (chronic kidney disease) Code(s): N18.9 - CHRONIC KIDNEY DISEASE, UNSPECIFIED
[2017-10-01] MEDS: methylPREDNISolone NA SUCC 125 MG/2 ML VIAL IVPUSH SCH ×2 (02:44→09:18)
[2017-10-01] MEDS ORDERED: PT OWN MED DRAWER 7, Y5N ONE (08:51)
[2017-10-01] MEDS: PANTOPRAZOLE 40 MG TABLET (FP) PO SCH (09:20)
[2017-10-01] MEDS: AZITHROMYCIN 500 MG TABLET PO SCH (09:20)
[2017-10-01] MEDS: CEFTRIAXONE 1 G/50 ML PREMIX 50 ML IVPB SCH (09:20)
[2017-10-01] MEDS ORDERED: FLU VACCINE QUAD 60 MCG/0.5 ML (MDV 17-18) IM ONE (11:00)
[2017-10-01 12:09] VITALS: BP 151/77; PULSE 98; TEMP 97.8
--- NOTE | 2017-10-03 11:55 | EKG ---
Test Reason : Blood Pressure : / mmHG Vent. Rate : 083 BPM Atrial Rate : 083 BPM P-R Int : 136 ms QRS Dur : 126 ms QT Int : 380 ms P-R-T Axes : 067 -03 141 degrees QTc Int : 446 ms NORMAL SINUS RHYTHM POSSIBLE LEFT ATRIAL ENLARGEMENT LEFT BUNDLE BRANCH BLOCK ABNORMAL ECG Confirmed by KAMERON CASTREJON MD ([id number]) on 10/03/2017 11:55:05 AM Referred By: Confirmed By:KAMERON CASTREJON MD
== END 2017-10-01 10:45 | disposition home health service (06) | DRG 190 ==
LOC: JER 11:11 → JERBED 15:28 → J6S 17:30
PROVIDERS: ADMIT Internal Medicine; ATTEND Internal Medicine
DX: J44.0 Chronic obstructive pulmonary disease with (acute) lower respiratory infection (principal); J18.9 Pneumonia, unspecified organism; Z94.4 Liver transplant status; J44.1 Chronic obstructive pulmonary disease with (acute) exacerbation; D86.9 Sarcoidosis, unspecified; M10.9 Gout, unspecified; N18.9 Chronic kidney disease, unspecified; I12.9 Hypertensive chronic kidney disease with stage 1 through stage 4 chronic kidney disease, or unspecified chronic kidney disease
CPT/HCPCS: 36415; 71020-TC; 71250-TC; 80053; 81003; 81015; 83735; 85025; 87040; 87070; 87430; 87804; 90670; 90688; 93005; 93010; 94640; 99283-25; G0008; G0009

== ENCOUNTER 2017-12-04 12:05 | Inpatient (IN) | payer OTHER ==
[2017-12-04 12:19] VITALS: BMI 31.4
--- NOTE | 2017-12-04 13:22 | PDOC ---
History of Present Illness - General Chief Complaint: Cold Symptoms Stated Complaint: COLD SYMPTOMS Time Seen by Provider: 12/04/17 12:57 History Source: Patient Exam Limitations: No Limitations - History of Present Illness Initial Comments: CHIEF COMPLAINT: 72 y/o febrile, tachycardic female with PMH sarcoidosis, liver transplant, HTN, bradycardia c/o body aches, cough and tactile fever x 4 days. HISTORY OF PRESENT ILLNESS: The patient states she did have the flu shot about 3 months ago. She denies earache, sore throat, CP, SOB, abd pain. Vital signs on arrival are notable for pulse of 115, temp of 100 and O2 sat of 94% on RA. REVIEW OF SYSTEMS: GENERAL/CONSTITUTIONAL: Tactile fever and chills. +body aches. No weakness. No weight change. HEAD, EYES, EARS, NOSE AND THROAT: No change in vision. No ear pain or discharge. No sore throat. CARDIOVASCULAR: No chest pain or shortness of breath. RESPIRATORY: +dry cough. No wheezing or hemoptysis. GASTROINTESTINAL: No abd pain, nausea, vomiting, diarrhea. GENITOURINARY: No dysuria, frequency, or change in urination. MUSCULOSKELETAL: No joint or muscle swelling or pain. No neck or back pain. SKIN: No rash or easy bruising. NEUROLOGIC: No headache, vertigo, loss of consciousness, or loss of sensation. PHYSICAL EXAM: GENERAL: The patient is awake, alert, and fully oriented, in no acute distress. She is non toxic but ill appearing. Persistent dry cough. HEAD: Normal with no signs of trauma. ENT: Pupils equal, round and reactive to light, extraocular movements intact, sclera anicteric, conjunctiva clear. Neck supple. LUNGS: Diffuse rhonchi across all meza. Normal excursion. No respiratory distress or use of accessory muscles. CV: RRR, S1/S2, no MRG. Cap refill < 2 sec. ABDOMEN: Soft, non-distended, non-tender even to deep palpation, no hepatomegaly or splenomegaly, no masses. EXTREMITIES: Normal range of motion, no edema. NEUROLOGICAL: Normal speech, normal gait. CN II-XII grossly intact. SKIN: Warm, dry, normal turgor, no rashes or lesions noted. Past History - Past Medical History Allergies/Adverse Reactions: Allergies Allergy/AdvReac Type Severity Reaction Status Date / Time shrimp Allergy Verified 12/04/17 12:19 Home Medications: Ambulatory Orders Allopurinol [Zyloprim -] 100 mg PO DAILY 02/22/17 Gabapentin 100 mg PO DAILY 02/22/17 Losartan Potassium 25 mg PO DAILY 02/22/17 Metoprolol Succinate [Toprol XL -] 25 mg PO DAILY 02/22/17 Omeprazole 20 mg PO DAILY 02/22/17 Prednisone 5 mg PO DAILY 02/22/17 Spironolactone [Aldactone] 25 mg PO DAILY 02/22/17 Fluticasone/Salmeterol [Advair Hfa 115-21 Mcg Inhaler] 1 inh PO ASDIR 09/29/17 Anemia: No Asthma: No Cancer: No Cardiac Disorders: Yes (cad) CVA: No COPD: Yes CHF: No Dementia: No Diabetes: No GI Disorders: No Disorders: No HTN: Yes Hypercholesterolemia: No Liver Disease: Yes (cirrhosis, s/p transplant) Seizures: No Thyroid Disease: No - Surgical History Abdominal Surgery: No Appendectomy: No Cardiac Surgery: No Cholecystectomy: No Lung Surgery: No Neurologic Surgery: No Orthopedic Surgery: No - Immunization History Immunization Up to Date: Yes - Suicide/Smoking/Psychosocial Hx Smoking History: Never smoked Have you smoked in the past 12 months: No Number of Cigarettes Smoked Daily: 2 Information on smoking cessation initiated: No Hx Alcohol Use: No Drug/Substance Use Hx: No Substance Use Type: None *Physical Exam - Vital Signs Last Vital Signs Temp Pulse Resp BP Pulse Ox 100 F H 115 H 19 139/72 94 L 12/04/17 12:16 12/04/17 12:16 12/04/17 12:16 12/04/17 12:16 12/04/17 12:16 ED Treatment Course - LABORATORY CBC & Chemistry Diagram: 12/04/17 13:35 12/04/17 13:35 Medical Decision Making - Medical Decision Making A/P: 72 y/o febrile, tachycardic female with possible PNA vs flu. Plan is as follows: 1. Influenza 2. CXR 3. Labs 4. Duoneb Influenza A&B - negative LUNGS (s/p 3 duonebs) - expiratory wheezing at the bases, but much improved. CXR IMPRESSION: Cannot rule out right upper lobe infiltrate. Patient is now afebrile. However, HR still at 115 with O2 sat at 94% on RA. Spoke with her PCP, Dr. Alessandro Pool, and he would like her admitted to hospitalist. Hospitalist, Judd accepted. Ordered cultures, IV fluids and IV abx. Pt made aware of plan. *DC/Admit/Observation/Transfer Diagnosis at time of Disposition: Hypoxia PNA (pneumonia) Qualifiers: Pneumonia type: due to unspecified organism Laterality: right Lung location: upper lobe of lung Qualified Code(s): J18.1 - Lobar pneumonia, unspecified organism - Discharge Dispostion Condition at time of disposition: Stable Admit: Yes - Referrals - Patient Instructions - Post Discharge Activity
[2017-12-04] MEDS ORDERED: IBUPROFEN 400 MG TABLET (FP) PO ONE ×2 (13:23→13:26)
[2017-12-04] MEDS ORDERED: ALBUTEROL SO4 2.5/IPRATROPIUM 0.5 INH SOL 3 ML VIAL.NEB. NEB ONE (13:26)
[2017-12-04] MEDS: ALBUTEROL SO4 2.5/IPRATROPIUM 0.5 INH SOL 3 ML VIAL.NEB. NEB SCH ×5 (13:29→22:53)
[2017-12-04 13:53] LABS: BASO % 0.7 % (0-2.0); EOS % 2.2 % (0-4.5); HEMATOCRIT 41.8 % (32.4-45.2); HEMOGLOBIN 13.3 GM/dL (10.7-15.3); LYMPH % 15.9 % (8-40); MCH 30.9 pg (25.7-33.7); MCHC 31.7 g/dl (32.0-36.0); MEAN CELL VOLUME 97.5 fl (80-96); MEAN PLT VOLUME 11.8 fl (7.5-11.1); NEUT % 68.2 % (42.8-82.8); PLATELET COUNT 163 K/MM3 (134-434); RBC 4.29 M/mm3 (3.60-5.2); RDW 14.3 % (11.6-15.6); WHITE BLOOD COUNT 14.4 K/mm3 (4.0-10.0)
[2017-12-04 14:07] LABS: ALBUMIN 3.7 g/dl (3.4-5.0); ANION GAP 7 (8-16); BILIRUBIN,TOTAL 0.7 mg/dL (0.2-1.0); BLOOD UREA NITROGEN 22 mg/dL (7-18); CALCIUM 9.2 mg/dL (8.5-10.1); CHLORIDE 101 mmol/L (98-107); CO2 30 mmol/L (21-32); CREATININE 1.4 mg/dL (0.55-1.02); GLUCOSE,RANDOM 90 mg/dL (74-106); POTASSIUM 4.7 mmol/L (3.5-5.1); SGOT/AST 82 U/L (15-37); SGPT/ALT 142 U/L (12-78); SODIUM 138 mmol/L (136-145)
[2017-12-04 14:08] LABS: ALK PHOS 271 U/L (45-117); TOT PROT 7.6 g/dl (6.4-8.2)
[2017-12-04] MEDS ORDERED: predniSONE 20 MG TABLET (UD) PO ONE (14:28)
[2017-12-04] MEDS ORDERED: predniSONE 20 MG TABLET (UD) ONE (14:31)
[2017-12-04 14:48] LABS: URINE APPEARANCE CLEAR; URINE BILIRUBIN NEGATIVE (NEGATIVE); URINE BLOOD NEGATIVE (NEGATIVE); URINE COLOR LTYELLOW; URINE GLUCOSE (UA) NEGATIVE (NEGATIVE); URINE KETONE NEGATIVE (NEGATIVE); URINE LEUK ESTERASE NEGATIVE (NEGATIVE); URINE NITRITE NEGATIVE (NEGATIVE); URINE PROTEIN NEGATIVE (NEGATIVE); URINE UROBILINOGEN NEGATIVE mg/dL (0.2-1.0)
[2017-12-04] MEDS ORDERED: CEFTRIAXONE 1 GM in DEXTROSE 5%-WATER - 50 ML IVPB ONE (16:35)
[2017-12-04] MEDS ORDERED: SODIUM CHLORIDE 1,000 ML IV STA (16:35)
[2017-12-04] MEDS ORDERED: AZITHROMYCIN IVPB 500 MG in DEXTROSE 5%-WATER - 250 ML IVPB ONE (16:35)
[2017-12-04] MEDS ORDERED: CEFTRIAXONE 1 G/50 ML PREMIX 50 ML IVPB ONE (17:45)
[2017-12-04] MEDS ORDERED: CEFTRIAXONE 1 GM in DEXTROSE 5%-WATER - 100 ML IVPB ONE (17:45)
--- NOTE | 2017-12-04 18:04 | HP ---
CHIEF COMPLAINT: Fever, cough x 4 days PCP: Dr. Pool HISTORY OF PRESENT ILLNESS: 72 year-old female with a PMH significant for HTN, asthma/COPD, CAD, sarcoidosis , cirrhosis s/p liver transplant, hepatitis C, CKD, and gout. Presented to the ED with complaint of body aches, fever, and cough x 4 days. ER course was notable for: (1) WBC 14.4k; afebrile; p115 (2) Influenza negative (3) CXR: cannot r/o RUL infiltrates Recent Travel: No PAST MEDICAL HISTORY: Hypertension Asthma/COPD Coronary artery disease Sarcoidosis Cirrhosis Hepatitis C Chronic kidney disease Gout PAST SURGICAL HISTORY: Liver transplant Social History: Smoking: no Alcohol: no Drugs: no Family History: Allergies shrimp Allergy (Verified 12/04/17 12:19) HOME MEDICATIONS: Home Medications Medication Instructions Recorded Allopurinol [Zyloprim -] 100 mg PO DAILY 02/22/17 Gabapentin 100 mg PO DAILY 02/22/17 Losartan Potassium 25 mg PO DAILY 02/22/17 Metoprolol Succinate [Toprol XL -] 25 mg PO DAILY 02/22/17 Omeprazole 20 mg PO DAILY 02/22/17 Prednisone 5 mg PO DAILY 02/22/17 Spironolactone [Aldactone] 25 mg PO DAILY 02/22/17 Fluticasone/Salmeterol [Advair Hfa 1 inh PO ASDIR 09/29/17 115-21 Mcg Inhaler] REVIEW OF SYSTEMS CONSTITUTIONAL: +fever, body aches Absent: chills, diaphoresis, generalized weakness, malaise, loss of appetite, weight change HEENT: Absent: rhinorrhea, nasal congestion, throat pain, throat swelling, difficulty swallowing, mouth swelling, ear pain, eye pain, visual changes CARDIOVASCULAR: Absent: chest pain, syncope, palpitations, irregular heart rate, lightheadedness , peripheral edema RESPIRATORY: +cough Absent: shortness of breath, dyspnea with exertion, orthopnea, wheezing, stridor, hemoptysis GASTROINTESTINAL: Absent: abdominal pain, abdominal distension, nausea, vomiting, diarrhea, constipation, melena, hematochezia GENITOURINARY: Absent: dysuria, frequency, urgency, hesitancy, hematuria, flank pain, genital pain MUSCULOSKELETAL: Absent: myalgia, arthralgia, joint swelling, back pain, neck pain SKIN: Absent: rash, itching, pallor HEMATOLOGIC/IMMUNOLOGIC: Absent: easy bleeding, easy bruising, lymphadenopathy, frequent infections ENDOCRINE: Absent: unexplained weight gain, unexplained weight loss, heat intolerance, cold intolerance NEUROLOGIC: Absent: headache, focal weakness or paresthesias, dizziness, unsteady gait, seizure, mental status changes, bladder or bowel incontinence PSYCHIATRIC: Absent: anxiety, depression, suicidal or homicidal ideation, hallucinations. PHYSICAL EXAMINATION Vital Signs - 24 hr 12/04/17 12/04/17 12:16 15:37 Temperature 100 F H 98.5 F Pulse Rate 115 H Pulse Rate [ 115 H Apical] Respiratory 19 Rate Blood Pressure 139/72 O2 Sat by Pulse 94 L 94 L Oximetry (%) GENERAL: Awake, alert, and fully oriented, in no acute distress. HEAD: Normal with no signs of trauma. EYES: Pupils equal, round and reactive to light, extraocular movements intact, sclera anicteric, conjunctiva clear. No lid lag. EARS, NOSE, THROAT: Ears normal, nares patent, oropharynx clear without exudates. Moist mucous membranes. NECK: Normal range of motion, supple without lymphadenopathy, JVD, or masses. LUNGS: Diffuse rhonchi and prolonged expiratory wheezing HEART: Regular rate and rhythm, normal S1 and S2 ABDOMEN: Soft, nontender, not distended, normoactive bowel sounds, no guarding, no rebound, no masses. MUSCULOSKELETAL: Normal range of motion at all joints. No bony deformities or tenderness. No CVA tenderness. UPPER EXTREMITIES: 2+ pulses, warm, well-perfused. No cyanosis. No clubbing. No peripheral edema. LOWER EXTREMITIES: 2+ pulses, warm, well-perfused. No calf tenderness. No peripheral edema. NEUROLOGICAL: Cranial nerves II-XII intact. Normal speech. Normal gait. PSYCHIATRIC: Cooperative. Good eye contact. Appropriate mood and affect. SKIN: Warm, dry, normal turgor Laboratory Results - last 24 hr 12/04/17 12/04/17 12/04/17 13:35 13:35 14:30 WBC 14.4 H RBC 4.29 Hgb 13.3 Hct 41.8 MCV 97.5 H MCH 30.9 MCHC 31.7 L RDW 14.3 Plt Count 163 MPV 11.8 H Neutrophils % 68.2 D Lymphocytes % 15.9 D Monocytes % 13.0 H D Eosinophils % 2.2 D Basophils % 0.7 D Sodium 138 Potassium 4.7 Chloride 101 Carbon Dioxide 30 Anion Gap 7 L BUN 22 H D Creatinine 1.4 H Creat Clearance w eGFR 37.07 Random Glucose 90 D Calcium 9.2 Total Bilirubin 0.7 AST 82 H D ALT 142 H D Alkaline Phosphatase 271 H D Total Protein 7.6 Albumin 3.7 Urine Color Ltyellow Urine Appearance Clear Urine pH 6.0 Ur Specific [place] 1.008 Urine Protein Negative Urine Glucose (UA) Negative Urine Ketones Negative Urine Blood Negative Urine Nitrite Negative Urine Bilirubin Negative Urine Urobilinogen Negative Ur Leukocyte Esterase Negative ASSESSMENT/PLAN: 72 year-old female with a PMH significant for HTN, asthma/COPD, CAD, sarcoidosis , cirrhosis s/p liver transplant, hepatitis C, CKD, and gout. Admitted for sepsis secondary to pneumonia. Sepsis possibly secondary to pneumonia --WBC 14.4k, p115, CXR suggestive of RUL infiltrates --flu negative --UA & UC ordered --blood cultures pending --lactic acid x 2 pending --CT chest pending --ceftriaxone (day #1), azithro (day #1) --duonebs Asthma/COPD Coronary artery disease --continue Toprol XL Hypertension --continue Toprol XL,, spironolactone, losartan Sarcoidosis --continue PO prednisone Cirrhosis s/p liver transplant Hepatitis C --no longer on immunosuppressant therapy --no acute issues Chronic kidney disease --Cr 1.4 which is baseline Gout --continue allopurinol FEN Fluids: PO intake adequate Electrolytes: replete as indicated Nutrition: low sodium Physical therapy evaluation DVT prophylaxis Dispo: continues to require inpatient care. Full code. Visit type - Emergency Visit Emergency Visit: Yes ED Registration Date: 12/04/17 Care time: The patient presented to the Emergency Department on the above date and was hospitalized for further evaluation of their emergent condition. - New Patient This patient is new to me today: Yes Date on this admission: 12/08/17 - Critical Care Critical Care patient: No
[2017-12-05 04:52] LABS: BASO % 0.2 % (0-2.0); HEMATOCRIT 35.2 % (32.4-45.2); HEMOGLOBIN 11.5 GM/dL (10.7-15.3); LYMPH % 7.9 % (8-40); MCH 31.7 pg (25.7-33.7); MCHC 32.7 g/dl (32.0-36.0); MEAN PLT VOLUME 12.4 fl (7.5-11.1); MONO % 5.8 % (3.8-10.2); NEUT % 86.1 % (42.8-82.8); PLATELET COUNT 137 K/MM3 (134-434); RBC 3.63 M/mm3 (3.60-5.2); RDW 14.4 % (11.6-15.6); WHITE BLOOD COUNT 11.1 K/mm3 (4.0-10.0)
[2017-12-05 05:23] LABS: ALBUMIN 3.3 g/dl (3.4-5.0); ANION GAP 11 (8-16); BLOOD UREA NITROGEN 31 mg/dL (7-18); CALCIUM 8.5 mg/dL (8.5-10.1); CHLORIDE 102 mmol/L (98-107); CO2 27 mmol/L (21-32); CREATININE 1.7 mg/dL (0.55-1.02); GLUCOSE,RANDOM 128 mg/dL (74-106); MAGNESIUM 1.8 mg/dL (1.8-2.4); PHOSPHOROUS 3.2 mg/dL (2.5-4.9); POTASSIUM 4.9 mmol/L (3.5-5.1); SGOT/AST 46 U/L (15-37); SGPT/ALT 111 U/L (12-78); SODIUM 140 mmol/L (136-145)
[2017-12-05 05:26] LABS: ALK PHOS 225 U/L (45-117); BILIRUBIN,TOTAL 0.5 mg/dL (0.2-1.0); TOT PROT 6.8 g/dl (6.4-8.2)
[2017-12-05] MEDS: ALBUTEROL SO4 2.5/IPRATROPIUM 0.5 INH SOL 3 ML VIAL.NEB. NEB SCH ×4 (08:20→21:46)
--- NOTE | 2017-12-05 09:33 | EKG ---
Test Reason : Blood Pressure : / mmHG Vent. Rate : 095 BPM Atrial Rate : 095 BPM P-R Int : 144 ms QRS Dur : 128 ms QT Int : 394 ms P-R-T Axes : 057 -12 142 degrees QTc Int : 495 ms NORMAL SINUS RHYTHM LEFT BUNDLE BRANCH BLOCK ABNORMAL ECG Confirmed by MD JELLY, TAYLOR ([id number]) on 12/05/2017 9:33:24 AM Referred By: Confirmed By:TAYLOR REAVES MD
[2017-12-05] MEDS ORDERED: METOPROLOL SUCCINATE 25 MG TAB.SR.24H (FP) PO SCH (10:00)
[2017-12-05] MEDS ORDERED: SPIRONOLACTONE 25 MG TABLET (FP) PO SCH (10:00)
[2017-12-05] MEDS ORDERED: LOSARTAN POTASSIUM 25 MG TABLET PO SCH (10:00)
--- NOTE | 2017-12-05 11:21 | PN ---
Progress Note (short form) - Note Progress Note: ID Consult dictated Community acquired v. atypical RML pneumonia Lactic acidosis Acute exacerbation COPD Pulmonary sarcoidosis S/P liver transplant CKD Obtain sputum c/s, legionella/ pneumococcal ag Empiric ceftriaxone/ zithromax
[2017-12-05] MEDS: GABAPENTIN 100 MG CAPSULE (FP) PO SCH (11:50)
[2017-12-05] MEDS: METOPROLOL SUCCINATE 25 MG TAB.SR.24H (FP) PO SCH ×2 (11:50→22:22)
[2017-12-05] MEDS: ALLOPURINOL 100 MG TABLET (FP) PO SCH (11:50)
[2017-12-05] MEDS: predniSONE 5 MG TABLET (UD) PO SCH (11:50)
[2017-12-05] MEDS: PANTOPRAZOLE 20 MG TABLET (FP) PO SCH (11:50)
--- NOTE | 2017-12-05 11:58 | CONS ---
DATE OF CONSULTATION: DATE OF DICTATION: 12/05/2017 HISTORY OF PRESENT ILLNESS: The patient is a 72-year-old female with a history of COPD, bronchial asthma, pulmonary sarcoidosis and history of liver transplant, evaluated for pneumonia. The patient was admitted to the hospital on December 04, 2017, with complaints of fever and generalized body ache, cough and dyspnea. She was evaluated in the emergency room where she was noted to be febrile to 100, tachycardic and with an elevated white blood cell count. O2 saturation on room air was 94%. Chest x-ray and CAT scan show evidence of chronic lung disease as well as a right middle lobe consolidation. She was empirically treated with Zithromax and ceftriaxone. Patient reports cough productive of yellowish sputum. She denies any hemoptysis. She has bilateral pleuritic-type chest pain with cough. She is short of breath at rest and on exertion. She reports wheezing. She states she has been in contact with persons with respiratory tract illnesses. She is a nonsmoker. She lives at home. No recent hospitalizations. No recent travel. No recent antibiotic therapy. PAST MEDICAL HISTORY: Positive for liver transplant 20 years ago. She is on prednisone 5 mg daily. She has been off her antirejection medications for many years. Past medical history also includes pulmonary sarcoidosis, COPD, bronchial asthma, hypertension, coronary artery disease, chronic kidney disease, history of hepatitis C, gouty arthritis. ALLERGIES: No known allergies. MEDICATIONS: Aldactone; prednisone; omeprazole; Toprol; losartan; Neurontin. SOCIAL HISTORY: She is originally from [place], has been living in [place] for the past 30 years. She is a nonsmoker, nondrinker. No recent travel. SYSTEMS REVIEW: Neurologic: No loss of consciousness, seizure activity, focal weakness. Cardiac: Negative chest pain or palpitations. Respiratory: As per HPI. Gastrointestinal: Negative vomiting with diarrhea. Genitourinary: Negative urinary tract infection. LABORATORY DATA: White count 11, 86 neutrophils, 7 lymphocytes, 5 monocytes, hematocrit 35.2, platelet count 137. Lactic acid 2.4. BUN 31, creatinine 1.7, total bilirubin 0.5, alkaline phosphatase 225, AST 46. CAT scan of the chest shows some chronic fibronodular changes in the upper lung meza as well as bronchiectatic changes. There is a right middle lobe consolidation. PHYSICAL EXAMINATION:General: She is out of bed to chair. She is short of breath on exertion. Vital Signs: Temperature 98.7, T-max 100, blood /61, pulse 85, regular, respirations 20 per minute. HEENT: Sclerae are anicteric. Oropharynx negative. Cardiac: Heart sounds S1, S2. Lungs: Coarse rhonchi bilaterally and scattered wheezing bilaterally. No rales. Abdomen: Obese, soft, nontender. Extremities: Negative for edema. IMPRESSION: 1. Community-acquired versus atypical right middle lobe pneumonia. 2. Lactic acidosis, possible sepsis secondary to lung source. 3. Acute exacerbation of chronic obstructive pulmonary disease. 4. Pulmonary sarcoidosis. 5. Status post liver transplant. 6. Chronic kidney disease. RECOMMENDATIONS: Await sputum culture, urine Legionella and pneumococcal antigens. Empiric coverage for community-acquired versus atypical pneumonia with Zithromax and ceftriaxone. Bronchodilators. Pulmonary evaluation. Will follow. Thank you for the kind referral. KAMERON PAGE M.D. [id number]
[2017-12-05] MEDS: CEFTRIAXONE IN IS-OSM DEXTROSE 2 GM/50 ML BAG IVPB SCH (12:16)
--- NOTE | 2017-12-05 12:35 | CONSULT ---
Consult Consult Specialty:: Nephrology Reason for Consultation:: CKD with acute component - History of Present Illness Chief Complaint: cough and wheeze History of Present Illness: Pt is a 72 year old female with pmhx of CKD, liver transplant, sarcoid, hep c and copd who presents to the ER for shortness of breath. She was found to be tachycardic. She complains of cough and body aches. She follows with me for renal and PMD. I was called to evaluate her for elevated creatinine. She denies dysuria or hematuria. She feels better today than she did yesterday. - History Source History Provided By: Patient, Medical Record - Past Medical History Cardio/Vascular: Yes: HTN Pulmonary: Yes: Asthma, COPD Gastrointestinal: Yes: GERD, Other (liver transplant) Hepatobiliary: Yes: Hepatitis C Renal/: Yes: Renal Inusuff ...: No - Past Surgical History Past Surgical History: Yes: Liver Transplant - Alcohol/Substance Use Hx Alcohol Use: No - Smoking History Smoking history: Never smoked Have you smoked in the past 12 months: No Aproximately how many cigarettes per day: 2 Home Medications - Allergies Allergies/Adverse Reactions: Allergies Allergy/AdvReac Type Severity Reaction Status Date / Time shrimp Allergy Verified 12/04/17 12:19 - Home Medications Home Medications: Ambulatory Orders Allopurinol [Zyloprim -] 100 mg PO DAILY 02/22/17 Gabapentin 100 mg PO DAILY 02/22/17 Losartan Potassium 25 mg PO DAILY 02/22/17 Metoprolol Succinate [Toprol XL -] 25 mg PO DAILY 02/22/17 Omeprazole 20 mg PO DAILY 02/22/17 Prednisone 5 mg PO DAILY 02/22/17 Spironolactone [Aldactone] 25 mg PO DAILY 02/22/17 Fluticasone/Salmeterol [Advair Hfa 115-21 Mcg Inhaler] 1 inh PO ASDIR 09/29/17 Family Disease History - Family Disease History Family History: Denies Review of Systems - Review of Systems Constitutional: reports: Chills, Fever, Malaise Eyes: reports: No Symptoms HENT: reports: No Symptoms Neck: reports: No Symptoms Cardiovascular: reports: Shortness of Breath Respiratory: reports: Cough, SOB, SOB on Exertion, Wheezing Gastrointestinal: reports: No Symptoms Genitourinary: reports: No Symptoms Musculoskeletal: reports: No Symptoms Neurological: reports: No Symptoms Endocrine: reports: No Symptoms Hematology/Lymphatic: reports: No Symptoms Psychiatric: reports: No Symptoms Physical Exam Vital Signs: Vital Signs Temperature 98.6 F 12/05/17 09:00 Pulse Rate 98 H 12/05/17 09:00 Respiratory Rate 20 12/05/17 09:00 Blood Pressure 140/82 12/05/17 09:00 O2 Sat by Pulse Oximetry (%) 94 L 12/05/17 08:46 Constitutional: Yes: Calm Eyes: Yes: Conjunctiva Clear HENT: Yes: Atraumatic Cardiovascular: Yes: S1, S2 Respiratory: Yes: Wheezes Gastrointestinal: Yes: Soft, Abdomen, Obese Renal/: Yes: WNL Musculoskeletal: Yes: WNL Edema: No Neurological: Yes: Oriented Psychiatric: Yes: Oriented Labs: CBC, BMP 12/05/17 04:25 12/05/17 04:25 Laboratory Tests 12/04/17 12/04/17 12/05/17 13:35 14:30 01:10 WBC Hgb Sodium Potassium BUN Creatinine 1.4 H Lactic Acid 2.4 H* Urine Protein Negative Urine Blood Negative 12/05/17 12/05/17 12/05/17 04:25 04:25 04:25 WBC 11.1 H Hgb 11.5 D Sodium 140 Potassium 4.9 BUN 31 H Creatinine 1.7 H Lactic Acid 1.1 Urine Protein Urine Blood Imaging - Results Chest X-ray: Report Reviewed Problem List - Problems (1) Hypoxia Code(s): R09.02 - HYPOXEMIA (2) PNA (pneumonia) Code(s): J18.9 - PNEUMONIA, UNSPECIFIED ORGANISM Qualifiers: Pneumonia type: due to unspecified organism Laterality: right Lung location: upper lobe of lung Qualified Code(s): J18.1 - Lobar pneumonia, unspecified organism (3) CKD (chronic kidney disease) Code(s): N18.9 - CHRONIC KIDNEY DISEASE, UNSPECIFIED (4) COPD with exacerbation Code(s): J44.1 - CHRONIC OBSTRUCTIVE PULMONARY DISEASE W (ACUTE) EXACERBATION (5) Pulmonary sarcoidosis Code(s): D86.0 - SARCOIDOSIS OF LUNG Assessment/Plan Current Medications Generic Name Dose Route Start Last Admin Trade Name Freq PRN Reason Stop Dose Admin Albuterol/Ipratropium 1 amp 12/04/17 20:00 12/05/17 11:02 Duoneb - NEB 1 amp RQID K[facility]SON Administration Allopurinol 100 mg 12/05/17 10:00 12/05/17 11:50 Zyloprim - PO 100 mg DAILY K[facility]SON Administration Gabapentin 100 mg 12/05/17 10:00 12/05/17 11:50 Neurontin - PO 100 mg DAILY [facility] Administration Azithromycin 250 mg/ Dextrose 250 mls @ 250 mls/hr 12/05/17 10:00 12/05/17 14 :38 IVPB 12/08/17 10:59 250 mls/hr DAILY K[facility]SON Administration CEFTRIAXONE IN IS-OSM DEXTROSE 2 gm in 50 mls @ 100 mls/hr 12/05/17 11:30 11/10 12:16 Ceftriaxone 2 Gm-D5w Bag IVPB 100 mls/hr DAILY [facility]SON Administration Metoprolol Succinate 25 mg 12/05/17 10:00 12/05/17 11:50 Toprol Xl - PO 25 mg BID K[facility]SON Administration Pantoprazole Sodium 20 mg 12/05/17 10:00 12/05/17 11:50 Protonix - PO 20 mg DAILY K[facility]SON Administration Prednisone 5 mg 12/05/17 10:00 12/05/17 11:50 Deltasone - PO 5 mg DAILY [facility] Administration Impression 1. CKD 2. COPD exacerbation 3. liver transplant 4. sarcoidosis 5. HTN 6. gout 7. hep C 8. PNA Plan - agree with abx - renal function is stable - follow cultures - if does not improve start IV steroids - resume home meds Dr Pool
[2017-12-05] MEDS: AZITHROMYCIN IVPB 250 MG in DEXTROSE 5%-WATER - 250 ML IVPB SCH (14:38)
--- NOTE | 2017-12-05 19:25 | PN ---
Physical Exam: SUBJECTIVE: Patient seen and examined. OBJECTIVE: Vital Signs Period Temp Pulse Resp BP Sys/Freeman Pulse Ox Last 24 Hr 97.8 F-98.7 F 85-98 20-24 128-144/61-82 92-95 GENERAL: The patient is awake, alert, and fully oriented, in no acute distress. LUNGS: Expiratory wheezing and rhonchi HEART: Regular rate and rhythm, S1, S2 ABDOMEN: Soft, nontender, nondistended, normoactive bowel sounds, no guarding, no rebound EXTREMITIES: 2+ pulses, warm, well-perfused, no edema. NEUROLOGICAL: Cranial nerves II through XII grossly intact. Normal speech, steady gait observed. Laboratory Results - last 24 hr 12/05/17 12/05/17 12/05/17 01:10 04:25 04:25 WBC 11.1 H RBC 3.63 Hgb 11.5 D Hct 35.2 D MCV 97.0 H MCH 31.7 MCHC 32.7 RDW 14.4 Plt Count 137 MPV 12.4 H Neutrophils % 86.1 H D Lymphocytes % 7.9 L D Monocytes % 5.8 Eosinophils % 0.0 D Basophils % 0.2 Sodium 140 Potassium 4.9 Chloride 102 Carbon Dioxide 27 Anion Gap 11 BUN 31 H Creatinine 1.7 H Creat Clearance w eGFR 29.63 Random Glucose 128 H Lactic Acid 2.4 H* Calcium 8.5 Phosphorus 3.2 Magnesium 1.8 Total Bilirubin 0.5 D AST 46 H D ALT 111 H D Alkaline Phosphatase 225 H D Total Protein 6.8 Albumin 3.3 L 12/05/17 04:25 WBC RBC Hgb Hct MCV MCH MCHC RDW Plt Count MPV Neutrophils % Lymphocytes % Monocytes % Eosinophils % Basophils % Sodium Potassium Chloride Carbon Dioxide Anion Gap BUN Creatinine Creat Clearance w eGFR Random Glucose Lactic Acid 1.1 Calcium Phosphorus Magnesium Total Bilirubin AST ALT Alkaline Phosphatase Total Protein Albumin Active Medications Generic Name Dose Route Start Last Admin Trade Name Freq PRN Reason Stop Dose Admin Albuterol/Ipratropium 1 amp 12/04/17 20:00 12/05/17 17:29 Duoneb - NEB 1 amp RQID KARSON Administration Allopurinol 100 mg 12/05/17 10:00 12/05/17 11:50 Zyloprim - PO 100 mg DAILY K[facility] Administration Gabapentin 100 mg 12/05/17 10:00 12/05/17 11:50 Neurontin - PO 100 mg DAILY [facility] Administration Azithromycin 250 mg/ Dextrose 250 mls @ 250 mls/hr 12/05/17 10:00 12/05/17 14 :38 IVPB 12/08/17 10:59 250 mls/hr DAILY K[facility] Administration CEFTRIAXONE IN IS-OSM DEXTROSE 2 gm in 50 mls @ 100 mls/hr 12/05/17 11:30 11/10 12:16 Ceftriaxone 2 Gm-D5w Bag IVPB 100 mls/hr DAILY [facility] Administration Metoprolol Succinate 25 mg 12/05/17 10:00 12/05/17 11:50 Toprol Xl - PO 25 mg BID K[facility] Administration Pantoprazole Sodium 20 mg 12/05/17 10:00 12/05/17 11:50 Protonix - PO 20 mg DAILY K[facility] Administration Prednisone 5 mg 12/05/17 10:00 12/05/17 11:50 Deltasone - PO 5 mg DAILY K[facility] Administration ASSESSMENT/PLAN: 72 year-old female with a PMH significant for HTN, asthma/COPD, CAD, sarcoidosis , cirrhosis s/p liver transplant, hepatitis C, CKD, and gout. Admitted for sepsis secondary to pneumonia. Sepsis secondary to pneumonia --WBC trending down --12/05 CT chest: RML infiltrates; extensive bilateral upper lobe fibrotic and bronchiectatic changes --flu negative --ceftriaxone (day #2), azithro (day #2) --duonebs Asthma/COPD Coronary artery disease --continue Toprol XL Hypertension --continue Toprol XL,, spironolactone, losartan Sarcoidosis --continue PO prednisone Cirrhosis s/p liver transplant Hepatitis C --no longer on immunosuppressant therapy --no acute issues Chronic kidney disease --Cr 1.4 which is baseline Gout --continue allopurinol FEN Fluids: PO intake adequate Electrolytes: replete as indicated Nutrition: low sodium Physical therapy evaluation DVT prophylaxis Dispo: continues to require inpatient care. Full code. Visit type - Emergency Visit Emergency Visit: Yes ED Registration Date: 12/04/17 Care time: The patient presented to the Emergency Department on the above date and was hospitalized for further evaluation of their emergent condition. - New Patient This patient is new to me today: No - Critical Care Critical Care patient: No
[2017-12-06] MEDS: ALBUTEROL SO4 2.5/IPRATROPIUM 0.5 INH SOL 3 ML VIAL.NEB. NEB SCH ×4 (03:15→20:50)
[2017-12-06 07:22] LABS: BASO % 0.6 % (0-2.0); EOS % 1.9 % (0-4.5); HEMATOCRIT 35.6 % (32.4-45.2); HEMOGLOBIN 11.4 GM/dL (10.7-15.3); LYMPH % 22.6 % (8-40); MCH 31.2 pg (25.7-33.7); MEAN CELL VOLUME 97.4 fl (80-96); MEAN PLT VOLUME 11.5 fl (7.5-11.1); MONO % 10.1 % (3.8-10.2); NEUT % 64.8 % (42.8-82.8); PLATELET COUNT 149 K/MM3 (134-434); RBC 3.65 M/mm3 (3.60-5.2); RDW 14.5 % (11.6-15.6); WHITE BLOOD COUNT 11.1 K/mm3 (4.0-10.0)
[2017-12-06 07:47] LABS: ALBUMIN 3.2 g/dl (3.4-5.0); ALK PHOS 201 U/L (45-117); ANION GAP 6 (8-16); BILIRUBIN,TOTAL 0.4 mg/dL (0.2-1.0); BLOOD UREA NITROGEN 29 mg/dL (7-18); CALCIUM 8.2 mg/dL (8.5-10.1); CHLORIDE 108 mmol/L (98-107); CO2 28 mmol/L (21-32); CREATININE 1.4 mg/dL (0.55-1.02); GLUCOSE,RANDOM 82 mg/dL (74-106); MAGNESIUM 1.9 mg/dL (1.8-2.4); POTASSIUM 4.5 mmol/L (3.5-5.1); SGOT/AST 32 U/L (15-37); SGPT/ALT 91 U/L (12-78); SODIUM 142 mmol/L (136-145); TOT PROT 6.4 g/dl (6.4-8.2)
[2017-12-06] MEDS ORDERED: PT OWN MED DRAWER 7, Y5N ONE (08:49)
[2017-12-06] MEDS: predniSONE 5 MG TABLET (UD) PO SCH (09:13)
[2017-12-06] MEDS: ALLOPURINOL 100 MG TABLET (FP) PO SCH (09:13)
[2017-12-06] MEDS: CEFTRIAXONE IN IS-OSM DEXTROSE 2 GM/50 ML BAG IVPB SCH (09:13)
[2017-12-06] MEDS: PANTOPRAZOLE 20 MG TABLET (FP) PO SCH (09:13)
[2017-12-06] MEDS: GABAPENTIN 100 MG CAPSULE (FP) PO SCH (09:13)
[2017-12-06] MEDS: METOPROLOL SUCCINATE 25 MG TAB.SR.24H (FP) PO SCH ×2 (09:13→21:52)
[2017-12-06] MEDS: AZITHROMYCIN IVPB 250 MG in DEXTROSE 5%-WATER - 250 ML IVPB SCH (10:02)
--- NOTE | 2017-12-06 12:11 | PN ---
Progress Note, Physician History of Present Illness: OOB in chair C/O persistant cough No c/o chest pain/ dyspnea No fever/ chills - Current Medication List Current Medications: Active Medications Albuterol/Ipratropium (Duoneb -) 1 amp NEB RQID [facility] Last Admin: 12/06/17 11:44 Dose: 1 amp Allopurinol (Zyloprim -) 100 mg PO DAILY [facility] Last Admin: 12/06/17 09:13 Dose: 100 mg Gabapentin (Neurontin -) 100 mg PO DAILY [facility] Last Admin: 12/06/17 09:13 Dose: 100 mg Guaifenesin (Robitussin Dm -) 10 ml PO Q6H PRN PRN Reason: COUGH Azithromycin 250 mg/ Dextrose 250 mls @ 250 mls/hr IVPB DAILY [facility] Stop: 12/08/17 10:59 Last Admin: 12/06/17 10:02 Dose: 250 mls/hr CEFTRIAXONE IN IS-OSM DEXTROSE (Ceftriaxone 2 Gm-D5w Bag) 2 gm in 50 mls @ 100 mls/hr IVPB DAILY [facility] Last Admin: 12/06/17 09:13 Dose: 100 mls/hr Metoprolol Succinate (Toprol Xl -) 25 mg PO BID [facility] Last Admin: 12/06/17 09:13 Dose: 25 mg Pantoprazole Sodium (Protonix -) 20 mg PO DAILY [facility] Last Admin: 12/06/17 09:13 Dose: 20 mg Prednisone (Deltasone -) 5 mg PO DAILY [facility] Last Admin: 12/06/17 09:13 Dose: 5 mg - Objective Vital Signs: Vital Signs Temperature 97.9 F 12/06/17 09:21 Pulse Rate 91 H 12/06/17 09:21 Respiratory Rate 18 12/06/17 09:21 Blood Pressure 138/52 12/06/17 09:21 O2 Sat by Pulse Oximetry (%) 94 L 12/06/17 10:00 Constitutional: Yes: No Distress, Obese Cardiovascular: Yes: Regular Rate and Rhythm, S1, S2 Respiratory: Yes: Rhonchi, Wheezes Gastrointestinal: Yes: Normal Bowel Sounds, Abdomen, Obese. No: Tenderness Edema: No Labs: CBC, BMP 12/06/17 07:00 12/06/17 07:00 Assessment/Plan RML community acquired v. atypical pneumonia Exacerbation COPD Hx pulmonary sarcoidosis S/P Liver transplant CKD Await c/s Continue zithromax/ ceftriaxone
[2017-12-06] MEDS: guaiFENesin/D-METHORPHAN HB 10 ML UNIT-DOSE CUPS PO PRN (13:31)
--- NOTE | 2017-12-06 15:04 | CON.PULM ---
Consult Consult Specialty:: PULMONARY Referred by:: Dr. Magana Reason for Consultation:: pneumonia - History of Present Illness Chief Complaint: shortness of breath History of Present Illness: 72yo female with h/o Hep C s/p liver transplant, pulmonary sarcoidosis, COPD, CKD who was admitted with worsening shortness of breath. Reports a cough productive of brown sputum and wheezing. +subjective fevers and chills. No chest pain or palpitations. No nausea, vomiting or diarrhea. CT chest done which showed chronic bilateral scarring/bronchiectasis but new infiltrate in RML. - History Source History Provided By: Patient, Medical Record Limitations to Obtaining History: No Limitations - Past Medical History Cardio/Vascular: Yes: HTN Pulmonary: Yes: Asthma, COPD Gastrointestinal: Yes: GERD, Other (liver transplant) Hepatobiliary: Yes: Hepatitis C Renal/: Yes: Renal Inusuff ...: No - Past Surgical History Past Surgical History: Yes: Liver Transplant - Alcohol/Substance Use Hx Alcohol Use: No - Smoking History Smoking history: Never smoked Have you smoked in the past 12 months: No Aproximately how many cigarettes per day: 2 Home Medications - Allergies Allergies/Adverse Reactions: Allergies Allergy/AdvReac Type Severity Reaction Status Date / Time shrimp Allergy Verified 12/04/17 12:19 - Home Medications Home Medications: Ambulatory Orders Allopurinol [Zyloprim -] 100 mg PO DAILY 02/22/17 Gabapentin 100 mg PO DAILY 02/22/17 Losartan Potassium 25 mg PO DAILY 02/22/17 Metoprolol Succinate [Toprol XL -] 25 mg PO DAILY 02/22/17 Omeprazole 20 mg PO DAILY 02/22/17 Prednisone 5 mg PO DAILY 02/22/17 Spironolactone [Aldactone] 25 mg PO DAILY 02/22/17 Fluticasone/Salmeterol [Advair Hfa 115-21 Mcg Inhaler] 1 inh PO ASDIR 09/29/17 Review of Systems - Review of Systems Constitutional: reports: Chills, Fever. denies: Weakness Eyes: denies: Recent Change in Vision HENT: denies: Nasal Congestion, Throat Pain Neck: denies: Stiffness, Tenderness Cardiovascular: reports: Shortness of Breath. denies: Chest Pain, Edema, Palpitations Respiratory: reports: Cough, SOB, SOB on Exertion, Wheezing. denies: Hemoptysis Gastrointestinal: denies: Abdominal Pain, Nausea, Vomiting Genitourinary: denies: Dysuria, Hematuria Neurological: denies: Dizziness, Headache Physical Exam Vital Sings: Vital Signs Temperature 97.9 F 12/06/17 09:21 Pulse Rate 91 H 12/06/17 09:21 Respiratory Rate 18 12/06/17 09:21 Blood Pressure 138/52 12/06/17 09:21 O2 Sat by Pulse Oximetry (%) 94 L 12/06/17 10:00 Constitutional: Yes: Calm Eyes: Yes: Conjunctiva Clear, EOM Intact HENT: Yes: Atraumatic, Normocephalic Neck: Yes: Supple, Trachea Midline Cardiovascular: Yes: Regular Rate and Rhythm Respiratory: Yes: Rhonchi, Wheezes ...Clubbing: No Gastrointestinal: Yes: Normal Bowel Sounds, Soft. No: Tenderness Edema: No Neurological: Yes: Alert, Oriented Labs: CBC, BMP 12/06/17 07:00 12/06/17 07:00 Imaging - Results Chest X-ray: Report Reviewed, Image Reviewed Cat Scan: Report Reviewed, Image Reviewed (bilateral bronchiectasis, RML infiltrate) Problem List - Problems (1) PNA (pneumonia) Code(s): J18.9 - PNEUMONIA, UNSPECIFIED ORGANISM Qualifiers: Pneumonia type: due to unspecified organism Laterality: right Lung location: upper lobe of lung Qualified Code(s): J18.1 - Lobar pneumonia, unspecified organism (2) COPD with exacerbation Code(s): J44.1 - CHRONIC OBSTRUCTIVE PULMONARY DISEASE W (ACUTE) EXACERBATION (3) Pulmonary sarcoidosis Code(s): D86.0 - SARCOIDOSIS OF LUNG Assessment/Plan Pneumonia Pulmonary Sarcoidosis Acute COPD/Bronchiectasis Exacerbation s/p Liver Transplant CKD - continue antibiotics per ID - f/u cultures - will change her home prednisone to solumedrol - inhaled bronchodilators - O2 to keep SpO2 >90% - IVF - monitor urine output, creatinine - DVT prophylaxis Thank you for this consult Usama Rondon MD
[2017-12-06] MEDS: methylPREDNISolone NA SUCC 40 MG/1 ML VIAL IVPUSH SCH (18:08)
--- NOTE | 2017-12-06 20:14 | PN ---
Physical Exam: SUBJECTIVE: Patient seen and examined. OBJECTIVE: Vital Signs Period Temp Pulse Resp BP Sys/Freeman Pulse Ox Last 24 Hr 97.9 F-98.9 F 86-97 18-24 115-147/50-71 94-98 GENERAL: The patient is awake, alert, and fully oriented, in no acute distress. Seen walking in hallway. LUNGS: Scattered wheezing, improved HEART: Regular rate and rhythm, S1, S2 ABDOMEN: Soft, nontender, nondistended, normoactive bowel sounds, no guarding, no rebound EXTREMITIES: 2+ pulses, warm, well-perfused, no edema. NEUROLOGICAL: Cranial nerves II through XII grossly intact. Normal speech, steady gait observed. Laboratory Results - last 24 hr 12/06/17 12/06/17 07:00 07:00 WBC 11.1 H RBC 3.65 Hgb 11.4 Hct 35.6 MCV 97.4 H MCH 31.2 MCHC 32.0 RDW 14.5 Plt Count 149 MPV 11.5 H Neutrophils % 64.8 D Lymphocytes % 22.6 D Monocytes % 10.1 Eosinophils % 1.9 D Basophils % 0.6 Sodium 142 Potassium 4.5 Chloride 108 H Carbon Dioxide 28 Anion Gap 6 L BUN 29 H Creatinine 1.4 H Creat Clearance w eGFR 37.07 Random Glucose 82 Calcium 8.2 L Magnesium 1.9 Total Bilirubin 0.4 AST 32 D ALT 91 H Alkaline Phosphatase 201 H D Total Protein 6.4 Albumin 3.2 L Active Medications Generic Name Dose Route Start Last Admin Trade Name Freq PRN Reason Stop Dose Admin Albuterol/Ipratropium 1 amp 12/04/17 20:00 12/06/17 11:44 Duoneb - NEB 1 amp RQID KARSON Administration Allopurinol 100 mg 12/05/17 10:00 12/06/17 09:13 Zyloprim - PO 100 mg DAILY [facility] Administration Gabapentin 100 mg 12/05/17 10:00 12/06/17 09:13 Neurontin - PO 100 mg DAILY [facility] Administration Guaifenesin 10 ml 12/06/17 13:15 12/06/17 13:31 Robitussin Dm - PO 10 ml Q6H PRN Administration COUGH Azithromycin 250 mg/ Dextrose 250 mls @ 250 mls/hr 12/05/17 10:00 12/06/17 10 :02 IVPB 12/08/17 10:59 250 mls/hr DAILY [facility] Administration CEFTRIAXONE IN IS-OSM DEXTROSE 2 gm in 50 mls @ 100 mls/hr 12/05/17 11:30 09:13 Ceftriaxone 2 Gm-D5w Bag IVPB 100 mls/hr DAILY [facility] Administration Methylprednisolone Sodium Succinate 40 mg 12/06/17 18:00 12/06/17 18:08 Solu-Medrol - IVPUSH 40 mg Q8H-IV [facility] Administration Metoprolol Succinate 25 mg 12/05/17 10:00 12/06/17 09:13 Toprol Xl - PO 25 mg BID [facility] Administration Pantoprazole Sodium 20 mg 12/05/17 10:00 12/06/17 09:13 Protonix - PO 20 mg DAILY [facility] Administration ASSESSMENT/PLAN 72 year-old female with a PMH significant for HTN, asthma/COPD, CAD, sarcoidosis , cirrhosis s/p liver transplant, hepatitis C, CKD, and gout. Admitted for sepsis secondary to pneumonia. Sepsis secondary to pneumonia --WBC continues to trend down, afebrile --12/05 CT chest: RML infiltrates; extensive bilateral upper lobe fibrotic and bronchiectatic changes --flu negative --ceftriaxone (day #3), azithro (day #3) --duonebs Asthma/COPD Coronary artery disease --continue Toprol XL Hypertension --continue Toprol XL, spironolactone, losartan Sarcoidosis --continue PO prednisone Cirrhosis s/p liver transplant Hepatitis C --no longer on immunosuppressant therapy --no acute issues Chronic kidney disease --Cr slight bump to 1.7 Gout --continue allopurinol FEN Fluids: PO intake adequate Electrolytes: replete as indicated Nutrition: low sodium Physical therapy evaluation DVT prophylaxis Dispo: continues to require inpatient care. Full code. Visit type - Emergency Visit Emergency Visit: Yes ED Registration Date: 12/04/17 Care time: The patient presented to the Emergency Department on the above date and was hospitalized for further evaluation of their emergent condition. - New Patient This patient is new to me today: No - Critical Care Critical Care patient: No
[2017-12-07] MEDS: methylPREDNISolone NA SUCC 40 MG/1 ML VIAL IVPUSH SCH ×3 (02:04→18:08)
[2017-12-07] MEDS: guaiFENesin/D-METHORPHAN HB 10 ML UNIT-DOSE CUPS PO PRN ×2 (02:05→09:53)
[2017-12-07] MEDS ORDERED: PT OWN MED DRAWER 7, Y5N ONE ×2 (08:45→14:58)
[2017-12-07] MEDS: ALBUTEROL SO4 2.5/IPRATROPIUM 0.5 INH SOL 3 ML VIAL.NEB. NEB SCH ×4 (08:50→21:05)
[2017-12-07] MEDS: GABAPENTIN 100 MG CAPSULE (FP) PO SCH (09:13)
[2017-12-07] MEDS: METOPROLOL SUCCINATE 25 MG TAB.SR.24H (FP) PO SCH ×2 (09:13→21:46)
[2017-12-07] MEDS: ALLOPURINOL 100 MG TABLET (FP) PO SCH (09:13)
[2017-12-07] MEDS: CEFTRIAXONE IN IS-OSM DEXTROSE 2 GM/50 ML BAG IVPB SCH (09:13)
[2017-12-07] MEDS: PANTOPRAZOLE 20 MG TABLET (FP) PO SCH (09:13)
[2017-12-07 09:44] LABS: BASO % 0.2 % (0-2.0); HEMATOCRIT 38.5 % (32.4-45.2); HEMOGLOBIN 12.5 GM/dL (10.7-15.3); LYMPH % 6.3 % (8-40); MCH 31.2 pg (25.7-33.7); MCHC 32.5 g/dl (32.0-36.0); MEAN PLT VOLUME 11.5 fl (7.5-11.1); MONO % 1.4 % (3.8-10.2); NEUT % 92.1 % (42.8-82.8); PLATELET COUNT 171 K/MM3 (134-434); RBC 4.01 M/mm3 (3.60-5.2); RDW 14.7 % (11.6-15.6); WHITE BLOOD COUNT 10.4 K/mm3 (4.0-10.0)
[2017-12-07] MEDS: AZITHROMYCIN IVPB 250 MG in DEXTROSE 5%-WATER - 250 ML IVPB SCH (09:53)
[2017-12-07 10:11] LABS: ALBUMIN 3.4 g/dl (3.4-5.0); ALK PHOS 246 U/L (45-117); ANION GAP 9 (8-16); BILIRUBIN,TOTAL 0.4 mg/dL (0.2-1.0); BLOOD UREA NITROGEN 31 mg/dL (7-18); CALCIUM 8.5 mg/dL (8.5-10.1); CHLORIDE 102 mmol/L (98-107); CO2 25 mmol/L (21-32); CREATININE 1.5 mg/dL (0.55-1.02); GLUCOSE,RANDOM 176 mg/dL (74-106); POTASSIUM 4.8 mmol/L (3.5-5.1); SGOT/AST 31 U/L (15-37); SGPT/ALT 97 U/L (12-78); SODIUM 136 mmol/L (136-145); TOT PROT 7.6 g/dl (6.4-8.2)
--- NOTE | 2017-12-07 14:06 | PN ---
Progress Note (short form) - Note Progress Note: PULMONARY Feels better today. Cough clearing. Breathing and wheezing improving. Last Vital Signs Temp Pulse Resp BP Pulse Ox 97.9 F 84 18 170/75 95 12/07/17 09:15 12/07/17 09:15 12/07/17 09:15 12/07/17 09:15 12/07/17 09:00 Gen: NAD at rest Heart: RRR Lung: bilateral rhonchi, wheezes but less Abd: soft, nontender Ext: no edema CBC, BMP 12/07/17 09:00 12/07/17 09:00 Active Medications Albuterol/Ipratropium (Duoneb -) 1 amp NEB RQID [facility] Last Admin: 12/07/17 12:15 Dose: 1 amp Allopurinol (Zyloprim -) 100 mg PO DAILY [facility] Last Admin: 12/07/17 09:13 Dose: 100 mg Gabapentin (Neurontin -) 100 mg PO DAILY [facility] Last Admin: 12/07/17 09:13 Dose: 100 mg Guaifenesin (Robitussin Dm -) 10 ml PO Q6H PRN PRN Reason: COUGH Last Admin: 12/07/17 02:05 Dose: 10 ml Azithromycin 250 mg/ Dextrose 250 mls @ 250 mls/hr IVPB DAILY [facility] Stop: 12/08/17 10:59 Last Admin: 12/07/17 09:53 Dose: 250 mls/hr CEFTRIAXONE IN IS-OSM DEXTROSE (Ceftriaxone 2 Gm-D5w Bag) 2 gm in 50 mls @ 100 mls/hr IVPB DAILY [facility] Last Admin: 12/07/17 09:13 Dose: 100 mls/hr Methylprednisolone Sodium Succinate (Solu-Medrol -) 40 mg IVPUSH Q8H-IV [facility] Last Admin: 12/07/17 09:13 Dose: 40 mg Metoprolol Succinate (Toprol Xl -) 25 mg PO BID [facility] Last Admin: 12/07/17 09:13 Dose: 25 mg Pantoprazole Sodium (Protonix -) 20 mg PO DAILY [facility] Last Admin: 12/07/17 09:13 Dose: 20 mg A/P Pneumonia Pulmonary Sarcoidosis Acute COPD/Bronchiectasis Exacerbation s/p Liver Transplant CKD - continue antibiotics per ID - f/u cultures - continue medrol at current dose - if continues to improve, can taper in AM - inhaled bronchodilators - O2 to keep SpO2 >90% - monitor urine output, creatinine - DVT prophylaxis Problem List - Problems (1) PNA (pneumonia) Code(s): J18.9 - PNEUMONIA, UNSPECIFIED ORGANISM Qualifiers: Pneumonia type: due to unspecified organism Laterality: right Lung location: upper lobe of lung Qualified Code(s): J18.1 - Lobar pneumonia, unspecified organism (2) COPD with exacerbation Code(s): J44.1 - CHRONIC OBSTRUCTIVE PULMONARY DISEASE W (ACUTE) EXACERBATION (3) Pulmonary sarcoidosis Code(s): D86.0 - SARCOIDOSIS OF LUNG
[2017-12-08] MEDS: guaiFENesin/D-METHORPHAN HB 10 ML UNIT-DOSE CUPS PO PRN ×3 (00:11→21:44)
[2017-12-08] MEDS: methylPREDNISolone NA SUCC 40 MG/1 ML VIAL IVPUSH SCH ×3 (01:55→17:22)
[2017-12-08 08:25] LABS: BASO % 0.1 % (0-2.0); HEMATOCRIT 37.7 % (32.4-45.2); HEMOGLOBIN 12.1 GM/dL (10.7-15.3); LYMPH % 4.8 % (8-40); MCHC 32.2 g/dl (32.0-36.0); MEAN CELL VOLUME 96.3 fl (80-96); MEAN PLT VOLUME 11.9 fl (7.5-11.1); MONO % 2.5 % (3.8-10.2); NEUT % 92.6 % (42.8-82.8); PLATELET COUNT 175 K/MM3 (134-434); RBC 3.91 M/mm3 (3.60-5.2); RDW 14.5 % (11.6-15.6); WHITE BLOOD COUNT 13.2 K/mm3 (4.0-10.0)
[2017-12-08 08:36] LABS: CHLORIDE 102 mmol/L (98-107); POTASSIUM 5.3 mmol/L (3.5-5.1); SODIUM 139 mmol/L (136-145)
[2017-12-08] MEDS: ALBUTEROL SO4 2.5/IPRATROPIUM 0.5 INH SOL 3 ML VIAL.NEB. NEB SCH ×4 (08:55→21:40)
[2017-12-08 08:58] LABS: ALBUMIN 3.4 g/dl (3.4-5.0); ALK PHOS 201 U/L (45-117); ANION GAP 9 (8-16); BILIRUBIN,TOTAL 0.5 mg/dL (0.2-1.0); BLOOD UREA NITROGEN 35 mg/dL (7-18); CALCIUM 9.2 mg/dL (8.5-10.1); CO2 28 mmol/L (21-32); CREATININE 1.3 mg/dL (0.55-1.02); GLUCOSE,RANDOM 148 mg/dL (74-106); MAGNESIUM 2.2 mg/dL (1.8-2.4); SGOT/AST 19 U/L (15-37); SGPT/ALT 75 U/L (12-78)
[2017-12-08] MEDS ORDERED: PT OWN MED DRAWER 7, Y5N ONE (09:55)
[2017-12-08] MEDS: PANTOPRAZOLE 20 MG TABLET (FP) PO SCH (09:59)
[2017-12-08] MEDS: METOPROLOL SUCCINATE 25 MG TAB.SR.24H (FP) PO SCH ×2 (09:59→21:44)
[2017-12-08] MEDS: GABAPENTIN 100 MG CAPSULE (FP) PO SCH (09:59)
[2017-12-08] MEDS: ALLOPURINOL 100 MG TABLET (FP) PO SCH (09:59)
[2017-12-08] MEDS: AZITHROMYCIN IVPB 250 MG in DEXTROSE 5%-WATER - 250 ML IVPB SCH (10:00)
[2017-12-08] MEDS: CEFTRIAXONE IN IS-OSM DEXTROSE 2 GM/50 ML BAG IVPB SCH (10:00)
--- NOTE | 2017-12-08 13:43 | PN ---
Progress Note, Physician History of Present Illness: Pt seen and examined at bedside. She says she feels better today. - Current Medication List Current Medications: Active Medications Albuterol/Ipratropium (Duoneb -) 1 amp NEB RQID [facility] Last Admin: 12/08/17 13:05 Dose: 1 amp Allopurinol (Zyloprim -) 100 mg PO DAILY [facility] Last Admin: 12/08/17 09:59 Dose: 100 mg Gabapentin (Neurontin -) 100 mg PO DAILY [facility] Last Admin: 12/08/17 09:59 Dose: 100 mg Guaifenesin (Robitussin Dm -) 10 ml PO Q6H PRN PRN Reason: COUGH Last Admin: 12/08/17 09:59 Dose: 10 ml CEFTRIAXONE IN IS-OSM DEXTROSE (Ceftriaxone 2 Gm-D5w Bag) 2 gm in 50 mls @ 100 mls/hr IVPB DAILY [facility] Last Admin: 12/08/17 10:00 Dose: 100 mls/hr Methylprednisolone Sodium Succinate (Solu-Medrol -) 40 mg IVPUSH Q8H-IV [facility] Last Admin: 12/08/17 09:59 Dose: 40 mg Metoprolol Succinate (Toprol Xl -) 25 mg PO BID [facility] Last Admin: 12/08/17 09:59 Dose: 25 mg Pantoprazole Sodium (Protonix -) 20 mg PO DAILY [facility] Last Admin: 12/08/17 09:59 Dose: 20 mg - Objective Vital Signs: Vital Signs Temperature 97.5 F L 12/08/17 10:00 Pulse Rate 91 H 12/08/17 10:00 Respiratory Rate 20 12/08/17 10:00 Blood Pressure 146/65 12/08/17 10:00 O2 Sat by Pulse Oximetry (%) 95 12/07/17 20:38 Constitutional: Yes: Calm Eyes: Yes: Conjunctiva Clear HENT: Yes: Atraumatic Neck: Yes: Supple Cardiovascular: Yes: S1, S2 Respiratory: Yes: On Nasal O2, Wheezes Gastrointestinal: Yes: Soft Genitourinary: Yes: WNL Musculoskeletal: Yes: WNL Edema: No Neurological: Yes: Oriented Psychiatric: Yes: Oriented Labs: CBC, BMP 12/08/17 07:20 12/08/17 07:20 Problem List - Problems (1) Hypoxia Code(s): R09.02 - HYPOXEMIA (2) PNA (pneumonia) Code(s): J18.9 - PNEUMONIA, UNSPECIFIED ORGANISM Qualifiers: Pneumonia type: due to unspecified organism Laterality: right Lung location: upper lobe of lung Qualified Code(s): J18.1 - Lobar pneumonia, unspecified organism (3) CKD (chronic kidney disease) Code(s): N18.9 - CHRONIC KIDNEY DISEASE, UNSPECIFIED (4) COPD with exacerbation Code(s): J44.1 - CHRONIC OBSTRUCTIVE PULMONARY DISEASE W (ACUTE) EXACERBATION (5) Pulmonary sarcoidosis Code(s): D86.0 - SARCOIDOSIS OF LUNG Assessment/Plan Current Medications Generic Name Dose Route Start Last Admin Trade Name Freq PRN Reason Stop Dose Admin Albuterol/Ipratropium 1 amp 12/04/17 20:00 12/08/17 13:05 Duoneb - NEB 1 amp RQID KARSON Administration Allopurinol 100 mg 12/05/17 10:00 12/08/17 09:59 Zyloprim - PO 100 mg DAILY [facility] Administration Gabapentin 100 mg 12/05/17 10:00 12/08/17 09:59 Neurontin - PO 100 mg DAILY [facility] Administration Guaifenesin 10 ml 12/06/17 13:15 12/08/17 09:59 Robitussin Dm - PO 10 ml Q6H PRN Administration COUGH CEFTRIAXONE IN IS-OSM DEXTROSE 2 gm in 50 mls @ 100 mls/hr 12/05/17 11:30 10:00 Ceftriaxone 2 Gm-D5w Bag IVPB 100 mls/hr DAILY [facility] Administration Methylprednisolone Sodium Succinate 40 mg 12/06/17 18:00 12/08/17 09:59 Solu-Medrol - IVPUSH 40 mg Q8H-IV [facility] Administration Metoprolol Succinate 25 mg 12/05/17 10:00 12/08/17 09:59 Toprol Xl - PO 25 mg BID [facility] Administration Pantoprazole Sodium 20 mg 12/05/17 10:00 12/08/17 09:59 Protonix - PO 20 mg DAILY [facility] Administration Impression 1. CKD 2. COPD exacerbation 3. liver transplant 4. sarcoidosis 5. HTN 6. gout 7. hep C 8. PNA Plan - low potassium diet - will see pt in office - renal function is stable - abx per ID - steroid taper Dr Pool
--- NOTE | 2017-12-08 14:50 | PN ---
Progress Note, Physician History of Present Illness: pulmonary alert,feeling better,less cough,less congested - Current Medication List Current Medications: Active Medications Albuterol/Ipratropium (Duoneb -) 1 amp NEB RQID [facility] Last Admin: 12/08/17 13:05 Dose: 1 amp Allopurinol (Zyloprim -) 100 mg PO DAILY [facility] Last Admin: 12/08/17 09:59 Dose: 100 mg Gabapentin (Neurontin -) 100 mg PO DAILY [facility] Last Admin: 12/08/17 09:59 Dose: 100 mg Guaifenesin (Robitussin Dm -) 10 ml PO Q6H PRN PRN Reason: COUGH Last Admin: 12/08/17 09:59 Dose: 10 ml CEFTRIAXONE IN IS-OSM DEXTROSE (Ceftriaxone 2 Gm-D5w Bag) 2 gm in 50 mls @ 100 mls/hr IVPB DAILY [facility] Last Admin: 12/08/17 10:00 Dose: 100 mls/hr Methylprednisolone Sodium Succinate (Solu-Medrol -) 40 mg IVPUSH Q8H-IV [facility] Last Admin: 12/08/17 09:59 Dose: 40 mg Metoprolol Succinate (Toprol Xl -) 25 mg PO BID [facility] Last Admin: 12/08/17 09:59 Dose: 25 mg Pantoprazole Sodium (Protonix -) 20 mg PO DAILY [facility] Last Admin: 12/08/17 09:59 Dose: 20 mg - Objective Vital Signs: Vital Signs Temperature 97.5 F L 12/08/17 10:00 Pulse Rate 91 H 12/08/17 10:00 Respiratory Rate 20 12/08/17 10:00 Blood Pressure 146/65 12/08/17 10:00 O2 Sat by Pulse Oximetry (%) 95 12/07/17 20:38 Constitutional: Yes: Well Nourished, Calm Eyes: Yes: WNL HENT: Yes: WNL Neck: Yes: WNL Cardiovascular: Yes: Regular Rate and Rhythm, S1, S2 Respiratory: Yes: Wheezes (arturo wheezes) Gastrointestinal: Yes: Normal Bowel Sounds, Soft Extremities: Yes: WNL Edema: No Labs: CBC, BMP 12/08/17 07:20 12/08/17 07:20 Assessment/Plan A/P Pneumonia Pulmonary Sarcoidosis Acute COPD/Bronchiectasis Exacerbation s/p Liver Transplant CKD - antibiotics per ID - continue medrol same dose - inhaled bronchodilators - O2 to keep SpO2 >90% - monitor urine output, creatinine - DVT prophylaxis DR DOOLEY Problem List - Problems (1) PNA (pneumonia) Code(s): J18.9 - PNEUMONIA, UNSPECIFIED ORGANISM Qualifiers: Pneumonia type: due to unspecified organism Laterality: right Lung location: upper lobe of lung Qualified Code(s): J18.1 - Lobar pneumonia, unspecified organism (2) COPD with exacerbation Code(s): J44.1 - CHRONIC OBSTRUCTIVE PULMONARY DISEASE W (ACUTE) EXACERBATION (3) Pulmonary sarcoidosis Code(s): D86.0 - SARCOIDOSIS OF LUNG
--- NOTE | 2017-12-08 17:07 | PN ---
Physical Exam: SUBJECTIVE: Patient seen and examined OBJECTIVE: Vital Signs Period Temp Pulse Resp BP Sys/Freeman Pulse Ox Last 24 Hr 97.5 F-97.8 F 82-99 18-20 146-160/65-96 95 GENERAL: The patient is awake, alert, and fully oriented, in no acute distress. Seen walking in hallway. LUNGS: Scattered wheezing, improved HEART: Regular rate and rhythm, S1, S2 ABDOMEN: Soft, nontender, nondistended, normoactive bowel sounds, no guarding, no rebound EXTREMITIES: 2+ pulses, warm, well-perfused, no edema. NEUROLOGICAL: Cranial nerves II through XII grossly intact. Normal speech, steady gait observed. Laboratory Results - last 24 hr 12/08/17 12/08/17 07:20 07:20 WBC 13.2 H RBC 3.91 Hgb 12.1 Hct 37.7 MCV 96.3 H MCH 31.0 MCHC 32.2 RDW 14.5 Plt Count 175 MPV 11.9 H Neutrophils % 92.6 H Lymphocytes % 4.8 L D Monocytes % 2.5 L Eosinophils % 0.0 Basophils % 0.1 Sodium 139 Potassium 5.3 H Chloride 102 Carbon Dioxide 28 Anion Gap 9 BUN 35 H Creatinine 1.3 H Creat Clearance w eGFR 40.38 Random Glucose 148 H Calcium 9.2 Magnesium 2.2 Total Bilirubin 0.5 D AST 19 D ALT 75 D Alkaline Phosphatase 201 H D Total Protein 7.0 Albumin 3.4 Active Medications Generic Name Dose Route Start Last Admin Trade Name Freq PRN Reason Stop Dose Admin Albuterol/Ipratropium 1 amp 12/04/17 20:00 12/08/17 16:01 Duoneb - NEB 1 amp RQID KARSON Administration Allopurinol 100 mg 12/05/17 10:00 12/08/17 09:59 Zyloprim - PO 100 mg DAILY KARSON Administration Gabapentin 100 mg 12/05/17 10:00 12/08/17 09:59 Neurontin - PO 100 mg DAILY KARSON Administration Guaifenesin 10 ml 12/06/17 13:15 12/08/17 09:59 Robitussin Dm - PO 10 ml Q6H PRN Administration COUGH CEFTRIAXONE IN IS-OSM DEXTROSE 2 gm in 50 mls @ 100 mls/hr 12/05/17 11:30 10:00 Ceftriaxone 2 Gm-D5w Bag IVPB 100 mls/hr DAILY KARSON Administration Methylprednisolone Sodium Succinate 40 mg 12/06/17 18:00 12/08/17 09:59 Solu-Medrol - IVPUSH 40 mg Q8H-IV KARSON Administration Metoprolol Succinate 25 mg 12/05/17 10:00 12/08/17 09:59 Toprol Xl - PO 25 mg BID KARSON Administration Pantoprazole Sodium 20 mg 12/05/17 10:00 12/08/17 09:59 Protonix - PO 20 mg DAILY KARSON Administration ASSESSMENT/PLAN: 72 year-old female with a PMH significant for HTN, asthma/COPD, CAD, sarcoidosis , cirrhosis s/p liver transplant, hepatitis C, CKD, and gout. Admitted for sepsis secondary to pneumonia. Sepsis secondary to pneumonia --WBC continues to trend down, afebrile --12/05 CT chest: RML infiltrates; extensive bilateral upper lobe fibrotic and bronchiectatic changes --flu negative --ceftriaxone (day #4), azithro (day #4) --duonebs Asthma/COPD Coronary artery disease --continue Toprol XL Hypertension --continue Toprol XL, spironolactone, losartan Sarcoidosis --continue PO prednisone Cirrhosis s/p liver transplant Hepatitis C --no longer on immunosuppressant therapy --no acute issues Chronic kidney disease --Cr 1.4 baseline Gout --continue allopurinol FEN Fluids: PO intake adequate Electrolytes: replete as indicated Nutrition: low sodium Physical therapy evaluation DVT prophylaxis Dispo: continues to require inpatient care. Full code. Visit type - Emergency Visit Emergency Visit: Yes ED Registration Date: 12/04/17 Care time: The patient presented to the Emergency Department on the above date and was hospitalized for further evaluation of their emergent condition. - New Patient This patient is new to me today: No - Critical Care Critical Care patient: No
--- NOTE | 2017-12-08 17:07 | PN ---
Physical Exam: SUBJECTIVE: Patient seen and examined OBJECTIVE: Vital Signs Period Temp Pulse Resp BP Sys/Freeman Pulse Ox Last 24 Hr 97.5 F-97.8 F 82-99 18-20 146-160/65-96 95 GENERAL: The patient is awake, alert, and fully oriented, in no acute distress. Seen walking in hallway. LUNGS: CTA HEART: Regular rate and rhythm, S1, S2 ABDOMEN: Soft, nontender, nondistended, normoactive bowel sounds, no guarding, no rebound EXTREMITIES: 2+ pulses, warm, well-perfused, no edema. NEUROLOGICAL: Cranial nerves II through XII grossly intact. Normal speech, steady gait observed. Laboratory Results - last 24 hr 12/08/17 12/08/17 07:20 07:20 WBC 13.2 H RBC 3.91 Hgb 12.1 Hct 37.7 MCV 96.3 H MCH 31.0 MCHC 32.2 RDW 14.5 Plt Count 175 MPV 11.9 H Neutrophils % 92.6 H Lymphocytes % 4.8 L D Monocytes % 2.5 L Eosinophils % 0.0 Basophils % 0.1 Sodium 139 Potassium 5.3 H Chloride 102 Carbon Dioxide 28 Anion Gap 9 BUN 35 H Creatinine 1.3 H Creat Clearance w eGFR 40.38 Random Glucose 148 H Calcium 9.2 Magnesium 2.2 Total Bilirubin 0.5 D AST 19 D ALT 75 D Alkaline Phosphatase 201 H D Total Protein 7.0 Albumin 3.4 Active Medications Generic Name Dose Route Start Last Admin Trade Name Freq PRN Reason Stop Dose Admin Albuterol/Ipratropium 1 amp 12/04/17 20:00 12/08/17 16:01 Duoneb - NEB 1 amp RQID KARSON Administration Allopurinol 100 mg 12/05/17 10:00 12/08/17 09:59 Zyloprim - PO 100 mg DAILY KARSON Administration Gabapentin 100 mg 12/05/17 10:00 12/08/17 09:59 Neurontin - PO 100 mg DAILY KARSON Administration Guaifenesin 10 ml 12/06/17 13:15 12/08/17 09:59 Robitussin Dm - PO 10 ml Q6H PRN Administration COUGH CEFTRIAXONE IN IS-OSM DEXTROSE 2 gm in 50 mls @ 100 mls/hr 12/05/17 11:30 10:00 Ceftriaxone 2 Gm-D5w Bag IVPB 100 mls/hr DAILY KARSON Administration Methylprednisolone Sodium Succinate 40 mg 12/06/17 18:00 12/08/17 09:59 Solu-Medrol - IVPUSH 40 mg Q8H-IV KARSON Administration Metoprolol Succinate 25 mg 12/05/17 10:00 12/08/17 09:59 Toprol Xl - PO 25 mg BID KARSON Administration Pantoprazole Sodium 20 mg 12/05/17 10:00 12/08/17 09:59 Protonix - PO 20 mg DAILY KARSON Administration Microbiology 12/04/17 17:05 Blood - Peripheral Venous Blood Culture - Preliminary NO GROWTH OBTAINED AFTER 96 HOURS, INCUBATION TO CONTINUE FOR 1 DAYS. 12/04/17 17:04 Blood - Peripheral Venous Blood Culture - Preliminary NO GROWTH OBTAINED AFTER 96 HOURS, INCUBATION TO CONTINUE FOR 1 DAYS. 12/05/17 15:00 Sputum - Expectorated Gram Stain - Final 12/05/17 15:00 Sputum - Expectorated Sputum Culture - Final Pseudomonas Aeruginosa 12/05/17 14:20 Urine For Antigen Detection Legionella Antigen - Final 12/05/17 14:20 Urine For Antigen Detection Streptococcus pneumoniae Antigen (M - Final 12/04/17 13:30 Nasopharyngeal Swab Influenza Types A,B Antigen (JOSEFINA) - Final 12/04/17 13:30 Nasopharyngeal Swab - Final ASSESSMENT/PLAN 72 year-old female with a PMH significant for HTN, asthma/COPD, CAD, sarcoidosis , cirrhosis s/p liver transplant, hepatitis C, CKD, and gout. Admitted for sepsis secondary to pneumonia. Sepsis secondary to pneumonia --WBC continues to trend down, afebrile --12/05 CT chest: RML infiltrates; extensive bilateral upper lobe fibrotic and bronchiectatic changes --flu negative --ceftriaxone (day #5), azithro (day #5, course complete) --duonebs --ID following Asthma/COPD Coronary artery disease --continue Toprol XL Hypertension --continue Toprol XL, spironolactone, losartan Sarcoidosis --continue PO prednisone Cirrhosis s/p liver transplant Hepatitis C --no longer on immunosuppressant therapy --no acute issues Chronic kidney disease --Cr 1.4 baseline Gout --continue allopurinol FEN Fluids: PO intake adequate Electrolytes: replete as indicated Nutrition: low sodium Physical therapy evaluation DVT prophylaxis Dispo: continues to require inpatient care. Full code. Visit type - Emergency Visit Emergency Visit: Yes ED Registration Date: 12/04/17 Care time: The patient presented to the Emergency Department on the above date and was hospitalized for further evaluation of their emergent condition. - New Patient This patient is new to me today: No - Critical Care Critical Care patient: No
[2017-12-08] MEDS: HEPARIN NA (PORCINE) 5,000 UNITS/ML 1ML VIAL SQ SCH ×2 (21:44→22:07)
[2017-12-08] MEDS ORDERED: MELATONIN 5 MG TABLETS PO ONE (22:00)
[2017-12-09] MEDS: methylPREDNISolone NA SUCC 40 MG/1 ML VIAL IVPUSH SCH ×2 (01:22→10:23)
[2017-12-09] MEDS: HEPARIN NA (PORCINE) 5,000 UNITS/ML 1ML VIAL SQ SCH ×3 (06:07→15:09)
[2017-12-09] MEDS: ALBUTEROL SO4 2.5/IPRATROPIUM 0.5 INH SOL 3 ML VIAL.NEB. NEB SCH ×2 (08:02→11:47)
[2017-12-09 09:00] LABS: CHLORIDE 103 mmol/L (98-107); POTASSIUM 4.9 mmol/L (3.5-5.1); SODIUM 139 mmol/L (136-145)
[2017-12-09 09:10] LABS: ANION GAP 10 (8-16); BLOOD UREA NITROGEN 43 mg/dL (7-18); CALCIUM 8.8 mg/dL (8.5-10.1); CO2 26 mmol/L (21-32); CREATININE 1.3 mg/dL (0.55-1.02); GLUCOSE,RANDOM 139 mg/dL (74-106)
[2017-12-09] MEDS: ALLOPURINOL 100 MG TABLET (FP) PO SCH (10:23)
[2017-12-09] MEDS: CEFTRIAXONE IN IS-OSM DEXTROSE 2 GM/50 ML BAG IVPB SCH (10:23)
[2017-12-09] MEDS: METOPROLOL SUCCINATE 25 MG TAB.SR.24H (FP) PO SCH (10:23)
[2017-12-09] MEDS: PANTOPRAZOLE 20 MG TABLET (FP) PO SCH (10:23)
[2017-12-09] MEDS: GABAPENTIN 100 MG CAPSULE (FP) PO SCH (10:23)
--- NOTE | 2017-12-09 12:19 | PN ---
Progress Note, Physician History of Present Illness: pulmonary alert,feeling better,less dyspneic - Current Medication List Current Medications: Active Medications Albuterol/Ipratropium (Duoneb -) 1 amp NEB RQID [facility] Last Admin: 12/09/17 11:47 Dose: 1 amp Allopurinol (Zyloprim -) 100 mg PO DAILY [facility] Last Admin: 12/09/17 10:23 Dose: 100 mg Gabapentin (Neurontin -) 100 mg PO DAILY [facility] Last Admin: 12/09/17 10:23 Dose: 100 mg Guaifenesin (Robitussin Dm -) 10 ml PO Q6H PRN PRN Reason: COUGH Last Admin: 12/08/17 21:44 Dose: 10 ml Heparin Sodium (Porcine) (Heparin -) 5,000 unit SQ TID [facility] Last Admin: 12/09/17 06:07 Dose: Not Given CEFTRIAXONE IN IS-OSM DEXTROSE (Ceftriaxone 2 Gm-D5w Bag) 2 gm in 50 mls @ 100 mls/hr IVPB DAILY [facility] Last Admin: 12/09/17 10:23 Dose: 100 mls/hr Methylprednisolone Sodium Succinate (Solu-Medrol -) 40 mg IVPUSH Q8H-IV [facility] Last Admin: 12/09/17 10:23 Dose: 40 mg Metoprolol Succinate (Toprol Xl -) 25 mg PO BID [facility] Last Admin: 12/09/17 10:23 Dose: 25 mg Pantoprazole Sodium (Protonix -) 20 mg PO DAILY [facility] Last Admin: 12/09/17 10:23 Dose: 20 mg - Objective Vital Signs: Vital Signs Temperature 98.3 F 12/09/17 08:47 Pulse Rate 86 12/09/17 08:47 Respiratory Rate 20 12/09/17 08:47 Blood Pressure 155/92 12/09/17 08:47 O2 Sat by Pulse Oximetry (%) 96 12/08/17 21:00 Constitutional: Yes: Well Nourished, Calm Eyes: Yes: WNL HENT: Yes: WNL Neck: Yes: WNL Cardiovascular: Yes: Regular Rate and Rhythm, S1, S2 Respiratory: Yes: Wheezes (few scattered wheezes) Gastrointestinal: Yes: Normal Bowel Sounds, Soft Extremities: Yes: WNL Edema: No Labs: CBC, BMP 12/09/17 06:10 Assessment/Plan A/P Pneumonia Pulmonary Sarcoidosis Acute COPD/Bronchiectasis Exacerbation s/p Liver Transplant CKD - antibiotics per ID - medrol taper - inhaled bronchodilators - O2 to keep SpO2 >90% - monitor urine output, creatinine - DVT prophylaxis DR DOOLEY Problem List - Problems (1) PNA (pneumonia) Code(s): J18.9 - PNEUMONIA, UNSPECIFIED ORGANISM Qualifiers: Pneumonia type: due to unspecified organism Laterality: right Lung location: upper lobe of lung Qualified Code(s): J18.1 - Lobar pneumonia, unspecified organism (2) COPD with exacerbation Code(s): J44.1 - CHRONIC OBSTRUCTIVE PULMONARY DISEASE W (ACUTE) EXACERBATION (3) Pulmonary sarcoidosis Code(s): D86.0 - SARCOIDOSIS OF LUNG
--- NOTE | 2017-12-09 13:59 | PN ---
Progress Note, Physician History of Present Illness: Ambulatory Feeling beter Still with cough/ sputum production, but less No c/o chest pain/ dyspnea No fever/ chills - Current Medication List Current Medications: Active Medications Albuterol/Ipratropium (Duoneb -) 1 amp NEB RQID [facility] Last Admin: 12/09/17 11:47 Dose: 1 amp Allopurinol (Zyloprim -) 100 mg PO DAILY [facility] Last Admin: 12/09/17 10:23 Dose: 100 mg Gabapentin (Neurontin -) 100 mg PO DAILY [facility] Last Admin: 12/09/17 10:23 Dose: 100 mg Guaifenesin (Robitussin Dm -) 10 ml PO Q6H PRN PRN Reason: COUGH Last Admin: 12/08/17 21:44 Dose: 10 ml Heparin Sodium (Porcine) (Heparin -) 5,000 unit SQ TID [facility] Last Admin: 12/09/17 06:07 Dose: Not Given CEFTRIAXONE IN IS-OSM DEXTROSE (Ceftriaxone 2 Gm-D5w Bag) 2 gm in 50 mls @ 100 mls/hr IVPB DAILY [facility] Last Admin: 12/09/17 10:23 Dose: 100 mls/hr Methylprednisolone Sodium Succinate (Solu-Medrol -) 40 mg IVPUSH BID [facility] Metoprolol Succinate (Toprol Xl -) 25 mg PO BID [facility] Last Admin: 12/09/17 10:23 Dose: 25 mg Pantoprazole Sodium (Protonix -) 20 mg PO DAILY [facility] Last Admin: 12/09/17 10:23 Dose: 20 mg - Objective Vital Signs: Vital Signs Temperature 98.3 F 12/09/17 08:47 Pulse Rate 86 12/09/17 08:47 Respiratory Rate 20 12/09/17 08:47 Blood Pressure 155/92 12/09/17 08:47 O2 Sat by Pulse Oximetry (%) 96 12/08/17 21:00 Constitutional: Yes: Obese Cardiovascular: Yes: Regular Rate and Rhythm, S1, S2 Respiratory: Yes: Other (+ rhonchi R>L Occasional scatterred wheeze) Gastrointestinal: Yes: Normal Bowel Sounds, Soft, Abdomen, Obese Edema: Yes Edema: LLE: 1+, RLE: 1+ Labs: CBC, BMP 12/08/17 07:20 12/09/17 06:10 Assessment/Plan RML community acquired v. atypical pneumonia Exacerbation COPD Hx pulmonary sarcoidosis S/P Liver transplant CKD + Sputum c/s Pseudomonas likely colonizer; Clinically improved. Doubt Pseudomonas pneumonia Continue ceftriaxone If stable po ceftin 500mg bid x 7d
--- NOTE | 2017-12-09 14:40 | PN ---
Progress Note, Physician History of Present Illness: Pt seen and examined at bedside. She feels cough is improved. - Current Medication List Current Medications: Active Medications Albuterol/Ipratropium (Duoneb -) 1 amp NEB RQID [facility] Last Admin: 12/09/17 11:47 Dose: 1 amp Allopurinol (Zyloprim -) 100 mg PO DAILY [facility] Last Admin: 12/09/17 10:23 Dose: 100 mg Gabapentin (Neurontin -) 100 mg PO DAILY [facility] Last Admin: 12/09/17 10:23 Dose: 100 mg Guaifenesin (Robitussin Dm -) 10 ml PO Q6H PRN PRN Reason: COUGH Last Admin: 12/08/17 21:44 Dose: 10 ml Heparin Sodium (Porcine) (Heparin -) 5,000 unit SQ TID [facility] Last Admin: 12/09/17 06:07 Dose: Not Given CEFTRIAXONE IN IS-OSM DEXTROSE (Ceftriaxone 2 Gm-D5w Bag) 2 gm in 50 mls @ 100 mls/hr IVPB DAILY [facility] Last Admin: 12/09/17 10:23 Dose: 100 mls/hr Methylprednisolone Sodium Succinate (Solu-Medrol -) 40 mg IVPUSH BID [facility] Metoprolol Succinate (Toprol Xl -) 25 mg PO BID [facility] Last Admin: 12/09/17 10:23 Dose: 25 mg Pantoprazole Sodium (Protonix -) 20 mg PO DAILY [facility] Last Admin: 12/09/17 10:23 Dose: 20 mg - Objective Vital Signs: Vital Signs Temperature 98.3 F 12/09/17 08:47 Pulse Rate 86 12/09/17 08:47 Respiratory Rate 20 12/09/17 08:47 Blood Pressure 155/92 12/09/17 08:47 O2 Sat by Pulse Oximetry (%) 96 12/08/17 21:00 Constitutional: Yes: Calm Eyes: Yes: Conjunctiva Clear HENT: Yes: Atraumatic Neck: Yes: Supple Cardiovascular: Yes: S1, S2 Respiratory: Yes: Wheezes Gastrointestinal: Yes: Normal Bowel Sounds, Soft Genitourinary: Yes: WNL Musculoskeletal: Yes: WNL Edema: No Neurological: Yes: Oriented Psychiatric: Yes: Oriented Labs: CBC, BMP 12/08/17 07:20 12/09/17 06:10 Problem List - Problems (1) Hypoxia Code(s): R09.02 - HYPOXEMIA (2) PNA (pneumonia) Code(s): J18.9 - PNEUMONIA, UNSPECIFIED ORGANISM Qualifiers: Pneumonia type: due to unspecified organism Laterality: right Lung location: upper lobe of lung Qualified Code(s): J18.1 - Lobar pneumonia, unspecified organism (3) CKD (chronic kidney disease) Code(s): N18.9 - CHRONIC KIDNEY DISEASE, UNSPECIFIED (4) COPD with exacerbation Code(s): J44.1 - CHRONIC OBSTRUCTIVE PULMONARY DISEASE W (ACUTE) EXACERBATION (5) Pulmonary sarcoidosis Code(s): D86.0 - SARCOIDOSIS OF LUNG Assessment/Plan Current Medications Generic Name Dose Route Start Last Admin Trade Name Freq PRN Reason Stop Dose Admin Albuterol/Ipratropium 1 amp 12/04/17 20:00 12/09/17 11:47 Duoneb - NEB 1 amp RQID KARSON Administration Allopurinol 100 mg 12/05/17 10:00 12/09/17 10:23 Zyloprim - PO 100 mg DAILY KARSON Administration Gabapentin 100 mg 12/05/17 10:00 12/09/17 10:23 Neurontin - PO 100 mg DAILY KARSON Administration Guaifenesin 10 ml 12/06/17 13:15 12/08/17 21:44 Robitussin Dm - PO 10 ml Q6H PRN Administration COUGH Heparin Sodium (Porcine) 5,000 unit 12/08/17 22:00 12/09/17 06:07 Heparin - SQ Not Given TID KARSON CEFTRIAXONE IN IS-OSM DEXTROSE 2 gm in 50 mls @ 100 mls/hr 12/05/17 11:30 10:23 Ceftriaxone 2 Gm-D5w Bag IVPB 100 mls/hr DAILY KARSON Administration Methylprednisolone Sodium Succinate 40 mg 12/09/17 22:00 Solu-Medrol - IVPUSH BID KARSON Metoprolol Succinate 25 mg 12/05/17 10:00 12/09/17 10:23 Toprol Xl - PO 25 mg BID KARSON Administration Pantoprazole Sodium 20 mg 12/05/17 10:00 12/09/17 10:23 Protonix - PO 20 mg DAILY KARSON Administration Impression 1. CKD 2. COPD exacerbation 3. liver transplant 4. sarcoidosis 5. HTN 6. gout 7. hep C 8. PNA 9. hyperkalemia resolved Plan - potassium improved - renal function stable - abx per ID - steroid taper Dr Pool
--- NOTE | 2017-12-09 15:22 | DS ---
Physical Exam: SUBJECTIVE: Patient seen and examined OBJECTIVE: Vital Signs Period Temp Pulse Resp BP Sys/Freeman Pulse Ox Last 24 Hr 97.6 F-98.3 F 77-93 20-20 124-160/53-92 96 PHYSICAL EXAM GENERAL: The patient is awake, alert, and fully oriented, in no acute distress. HEAD: Normal with no signs of trauma. EYES: PERRL, extraocular movements intact, sclera anicteric, conjunctiva clear. ENT: Ears normal, nares patent, oropharynx clear without exudates, moist mucous membranes. NECK: Trachea midline, full range of motion, supple. LUNGS: Breath sounds equal, clear to auscultation bilaterally, no wheezes, no crackles, no accessory muscle use. HEART: Regular rate and rhythm, S1, S2 without murmur, rub or gallop. ABDOMEN: Soft, nontender, nondistended, normoactive bowel sounds, no guarding, no rebound, no hepatosplenomegaly, no masses. EXTREMITIES: 2+ pulses, warm, well-perfused, no edema. NEUROLOGICAL: Cranial nerves II through XII grossly intact. Normal speech, gait not observed. PSYCH: Normal mood, normal affect. SKIN: Warm, dry, normal turgor, no rashes or lesions noted. LABS Laboratory Results - last 24 hr 12/09/17 06:10 Sodium 139 Potassium 4.9 Chloride 103 Carbon Dioxide 26 Anion Gap 10 BUN 43 H Creatinine 1.3 H Random Glucose 139 H Calcium 8.8 HOSPITAL COURSE: Date of Admission:12/04/17 Date of Discharge: 12/09/17 Discharge Summary Reason For Visit: PNEUMONIA; HYPOXIA Current Active Problems Hypoxia (Acute) PNA (pneumonia) (Acute) Condition: Improved - Instructions Diet, Activity, Other Instructions: A prescription has been sent to your pharmacy for Ceftin, an antibiotic. Take this medication as directed and be sure to FINISH all the medication. You should follow up with your primary care provider, Dr. Pool, within one week of your discharge. Return to the emergency department for any new or worsening symptoms. Referrals: Dalia Pool MD [Staff Physician] - 1 Week Disposition: HOME - Home Medications Comprehensive Discharge Medication List: Ambulatory Orders Gabapentin 100 mg PO DAILY 02/22/17 Losartan Potassium 25 mg PO DAILY 02/22/17 Metoprolol Succinate [Toprol XL -] 25 mg PO DAILY 02/22/17 Omeprazole 20 mg PO DAILY 02/22/17 Prednisone 5 mg PO DAILY 02/22/17 Spironolactone [Aldactone] 25 mg PO DAILY 02/22/17 Fluticasone/Salmeterol [Advair Hfa 115-21 Mcg Inhaler] 1 inh PO ASDIR 09/29/17 Cefuroxime Axetil [Ceftin -] 500 mg PO BID #14 tablet 12/09/17
[2017-12-09 15:30] VITALS: BP 160/85; PULSE 90; TEMP 97.8
[2017-12-09] MEDS ORDERED: methylPREDNISolone NA SUCC 40 MG/1 ML VIAL IVPUSH SCH (22:00)
== END 2017-12-09 15:54 | disposition home or self-care (01) | DRG 871 ==
LOC: JERFT 12:05 → JER 12:05 → JERBED 16:35 → J5S 12-05 02:50
PROVIDERS: ADMIT Internal Medicine; ATTEND Nurse Practitioner Acute Care
PROC: 3E0F7GC Introduction of Other Therapeutic Substance into Respiratory Tract, Via Natural or Artificial Opening (ICD-10-PCS; principal; 2017-12-05)
DX: A41.9 Sepsis, unspecified organism (principal); J18.9 Pneumonia, unspecified organism; Z94.4 Liver transplant status; E87.2 Acidosis; J44.1 Chronic obstructive pulmonary disease with (acute) exacerbation; I10 Essential (primary) hypertension; R00.1 Bradycardia, unspecified; I25.10 Atherosclerotic heart disease of native coronary artery without angina pectoris; I12.9 Hypertensive chronic kidney disease with stage 1 through stage 4 chronic kidney disease, or unspecified chronic kidney disease; N18.9 Chronic kidney disease, unspecified; M10.9 Gout, unspecified; K74.69 Other cirrhosis of liver; B19.20 Unspecified viral hepatitis C without hepatic coma; D86.0 Sarcoidosis of lung; K21.9 Gastro-esophageal reflux disease without esophagitis; R09.02 Hypoxemia; E87.5 Hyperkalemia
CPT/HCPCS: 36415; 71046-TC; 71250-TC; 80048; 80053; 81003; 83605; 83735; 84100; 85025; 87040; 87070; 87186; 87205; 87804; 87899; 93005; 93010; 94640; 97116-GP; 97161-GP; 99283-25; J1644

== ENCOUNTER 2018-06-01 09:11 | Emergency (ER) | payer OTHER ==
[2018-06-01 09:40] VITALS: BP 159/103; PULSE 98; TEMP 98.6; BMI 34.9
--- NOTE | 2018-06-01 10:38 | PDOC ---
History of Present Illness - General Chief Complaint: Cold Symptoms Stated Complaint: COUGH, THROAT PAIN Time Seen by Provider: 06/01/18 09:56 History Source: Patient Exam Limitations: No Limitations Past History - Travel Traveled outside of the country in the last 30 days: No Close contact w/someone who was outside of country & ill: No - Past Medical History Allergies/Adverse Reactions: Allergies Allergy/AdvReac Type Severity Reaction Status Date / Time shrimp Allergy Verified 06/01/18 09:34 Home Medications: Ambulatory Orders Gabapentin 100 mg PO DAILY 02/22/17 Losartan Potassium 25 mg PO DAILY 02/22/17 Metoprolol Succinate [Toprol XL -] 25 mg PO DAILY 02/22/17 Omeprazole 20 mg PO DAILY 02/22/17 Prednisone 5 mg PO DAILY 02/22/17 Spironolactone [Aldactone] 25 mg PO DAILY 02/22/17 Fluticasone/Salmeterol [Advair Hfa 115-21 Mcg Inhaler] 1 inh PO ASDIR 09/29/17 Cefuroxime Axetil [Ceftin -] 500 mg PO BID #14 tablet 12/09/17 predniSONE [Deltasone -] See Taper PO ASDIR #35 tab 12/09/17 Albuterol Sulfate Inhaler - [Ventolin HFA Inhaler -] 1 - 2 inh PO Q4H #1 inhaler 06/01/18 Azithromycin [Zithromax 250mg Tablets -] 250 mg PO UTDICT #6 tab 06/01/18 Guaifenesin AC [Robitussin AC] 10 ml PO Q6H #150 ml MDD 4 06/01/18 Ibuprofen 800 mg PO TID #30 tablet 06/01/18 predniSONE [Deltasone -] 40 mg PO DAILY #8 tablet 06/01/18 Anemia: No Asthma: Yes Cancer: No Cardiac Disorders: Yes (cad) CVA: No COPD: No CHF: No Dementia: No Diabetes: No GI Disorders: No Disorders: No HTN: Yes Hypercholesterolemia: No Liver Disease: Yes (cirrhosis, s/p transplant, hep c) Seizures: No Thyroid Disease: No - Surgical History Abdominal Surgery: No Appendectomy: No Cardiac Surgery: No Cholecystectomy: No Lung Surgery: No Neurologic Surgery: No Orthopedic Surgery: No - Immunization History Immunization Up to Date: Yes - Suicide/Smoking/Psychosocial Hx Smoking History: Never smoked Have you smoked in the past 12 months: No Number of Cigarettes Smoked Daily: 2 Hx Alcohol Use: No Drug/Substance Use Hx: No Substance Use Type: None Hx Substance Use Treatment: No Review of Systems - Review of Systems Able to Perform ROS?: Yes Comments:: 06/01/18 10:37 CONSTITUTIONAL: Absent: fever, chills, diaphoresis, generalized weakness, malaise, loss of appetite HEENT: Absent: rhinorrhea, nasal congestion, throat pain, throat swelling, difficulty swallowing, mouth swelling, ear pain, eye pain, visual Changes CARDIOVASCULAR: Absent: chest pain, loss of consciousness, palpitations, irregular heart rate, peripheral edema RESPIRATORY: Absent: cough, shortness of breath, dyspnea with exertion, orthopnea, wheezing, stridor, hemoptysis GASTROINTESTINAL: Absent: abdominal pain, abdominal distension, nausea, vomiting, diarrhea, constipation, melena, hematochezia GENITOURINARY: Absent: dysuria, frequency, urgency, hesitancy, hematuria, flank pain, genital pain MUSCULOSKELETAL: Absent: myalgia, arthralgia, joint swelling SKIN: Absent: rash, itching, pallor HEMATOLOGIC/IMMUNOLOGIC: Absent: easy bleeding, easy bruising, lymphadenopathy, frequent infections ENDOCRINE: Absent: unexplained weight gain, unexplained weight loss, heat intolerance, cold intolerance NEUROLOGIC: Absent: headache, focal weakness or paresthesias, dizziness, unsteady gait, seizure, mental status changes, bladder or bowel incontinence PSYCHIATRIC: Absent: anxiety, depression, suicidal or homicidal ideation, hallucinations. Is the patient limited Portuguese proficient: No *Physical Exam - Vital Signs Last Vital Signs Temp Pulse Resp BP Pulse Ox 98.6 F 98 H 19 159/103 95 06/01/18 09:34 06/01/18 09:34 06/01/18 09:34 06/01/18 09:34 06/01/18 09:34 - Physical Exam Comments: 06/01/18 10:37 GENERAL: Well developed, well nourished. Awake and alert. No acute distress. HEENT: Normocephalic, atraumatic. PERRLA, EOMI. No conjunctival pallor. Sclera are non- icteric. Moist mucous membranes. Oropharynx is clear. NECK: Supple. Full ROM. No JVD. Carotid pulses 2+ and symmetric, without bruits. No thyromegaly. No lymphadenopathy. CARDIOVASCULAR: Regular rate and rhythm. No murmurs, rubs, or gallops. Distal pulses are 2+ and symmetric. PULMONARY: No evidence of respiratory distress. Lungs clear to auscultation bilaterally. No wheezing, rales or rhonchi. ABDOMINAL: Soft. Non-tender. Non-distended. No rebound or guarding. No organomegaly. Normoactive bowel sounds. MUSCULOSKELETAL Normal range of motion at all joints. No bony deformities or tenderness. No CVA tenderness. EXTREMITIES: No cyanosis. No clubbing. No edema. No calf tenderness. SKIN: Warm and dry. Normal capillary refill. No rashes. No jaundice. NEUROLOGICAL: Alert, awake, appropriate. Cranial nerves 2-12 intact. No deficits to light touch and temperature in face, upper extremities and lower extremities. No motor deficits in the in face, upper extremities and lower extremities. Normoreflexic in the upper and lower extremities. Normal speech. Toes are down- going bilaterally. Gait is normal without ataxia. PSYCHIATRIC: Cooperative. Good eye contact. Appropriate mood and affect. ED Treatment Course - RADIOLOGY Radiology Studies Ordered: Category Date Time Status CHEST PA & LAT [RAD] Stat Radiology 06/01/18 09:57 Taken Medical Decision Making - Medical Decision Making 06/01/18 10:50 X-rays negative for pneumonia at this time. Lung sounds are clear to auscultation bilaterally, regular rate and rhythm. Vital signs are stable and the patient is afebrile at this time. Most likely a bronchitis. We'll treat with supportive therapy. Patient to follow up with her primary care doctor this week. Return precautions given. We'll discharge home at this time. Patient worsens all discharge instructions and all questions were answered. *DC/Admit/Observation/Transfer Diagnosis at time of Disposition: Bronchitis - Discharge Dispostion Disposition: HOME Condition at time of disposition: Stable Decision to Admit order: No - Referrals Referrals: Weston Pirce MD [Staff Physician] - - Patient Instructions Printed Discharge Instructions: DI for Acute Bronchitis Additional Instructions: You have bronchitis. Please take the Z-Bernard as directed. Take prednisone 40 mg a day for the next 4 days. Then resume your normal 5 mg daily. Please use the albuterol inhaler every 4 hours for the next week. Take Motrin 800 mg every 8 hours as needed for pain. You may take the Robitussin with codeine as needed for cough every 6 hours. Please follow up with her primary care doctor this week. Return to emergency department if you have worsening cough, fevers, chills, difficulty breathing, or feel any changes in your symptoms. - Post Discharge Activity
[2018-06-01] MEDS ORDERED: ALBUTEROL SO4 2.5/IPRATROPIUM 0.5 INH SOL 3 ML VIAL.NEB. NEB ONE ×2 (10:51)
[2018-06-01] MEDS ORDERED: predniSONE 20 MG TABLET (UD) PO ONE (10:52)
[2018-06-01] MEDS ORDERED: predniSONE 20 MG TABLET (UD) ONE (10:53)
== END 2018-06-01 11:01 | disposition home or self-care (01) ==
LOC: JERFT 09:11
PROC: 3E0F7GC Introduction of Other Therapeutic Substance into Respiratory Tract, Via Natural or Artificial Opening (ICD-10-PCS; principal; 2018-06-01)
DX: J40 Bronchitis, not specified as acute or chronic (principal); I25.10 Atherosclerotic heart disease of native coronary artery without angina pectoris; I10 Essential (primary) hypertension; Z94.4 Liver transplant status
CPT/HCPCS: 71046-TC-FY; 94640; 99281-25; J7620

== ENCOUNTER 2018-07-17 11:13 | Emergency (ER) | payer OTHER ==
[2018-07-17 11:30] VITALS: BP 156/73; PULSE 88; TEMP 97.5; BMI 33.2
--- NOTE | 2018-07-17 12:53 | PDOC ---
History of Present Illness - General Chief Complaint: Back Pain Stated Complaint: LOWER BACK PAIN Time Seen by Provider: 07/17/18 12:33 History Source: Patient Exam Limitations: Clinical Condition - History of Present Illness Initial Comments: 07/17/18 12:48 Patient with history of sciatica present with complain of persistent left lower back pain radiating to the back of lower thigh for 2 weeks now which has not been responding to ibuprofen. Report pain is worse with ambulation. Denies any new trauma or injury. Denies any other symptoms Timing/Duration: other (2 weeks) Severity: moderate Past History - Past Medical History Allergies/Adverse Reactions: Allergies Allergy/AdvReac Type Severity Reaction Status Date / Time shrimp Allergy Verified 07/17/18 11:25 Home Medications: Ambulatory Orders Gabapentin 100 mg PO DAILY 02/22/17 Losartan Potassium 25 mg PO DAILY 02/22/17 Metoprolol Succinate [Toprol XL -] 25 mg PO DAILY 02/22/17 Omeprazole 20 mg PO DAILY 02/22/17 Prednisone 5 mg PO DAILY 02/22/17 Spironolactone [Aldactone] 25 mg PO DAILY 02/22/17 Ibuprofen 800 mg PO TID #30 tablet 06/01/18 Methocarbamol [Robaxin -] 500 mg PO TID #21 tablet 07/17/18 Naproxen 500 mg PO BID PRN #20 tablet. 07/17/18 Anemia: No Asthma: Yes Cancer: No Cardiac Disorders: Yes (cad) CVA: No COPD: No CHF: No Dementia: No Diabetes: No GI Disorders: No Disorders: No HTN: Yes Hypercholesterolemia: No Liver Disease: Yes (cirrhosis, s/p transplant, hep c) Seizures: No Thyroid Disease: No - Surgical History Abdominal Surgery: No Appendectomy: No Cardiac Surgery: No Cholecystectomy: No Lung Surgery: No Neurologic Surgery: No Orthopedic Surgery: No - Immunization History Immunization Up to Date: Yes - Suicide/Smoking/Psychosocial Hx Smoking History: Former smoker Have you smoked in the past 12 months: No Number of Cigarettes Smoked Daily: 2 Information on smoking cessation initiated: No Hx Alcohol Use: No Drug/Substance Use Hx: No Substance Use Type: None Hx Substance Use Treatment: No Review of Systems - Review of Systems Able to Perform ROS?: Yes Is the patient limited Albanian proficient: No Constitutional: No: Chills, Diaphoresis, Fever, Loss of Appetite, Malaise, Night Sweats, Weakness, Weight Stable, Unintentional Wgt. Loss, Unexplained wgt Loss, Other HEENTM: No: Eye Pain, Blurred Vision, Tearing, Recent change in vision, Double Vision, Cataracts, Ear Pain, Ocular Prothesis, Ear Discharge, Nose Pain, Nose Congestion, Tinnitus, Nose Bleeding, Hearing Loss, Throat Pain, Throat Swelling , Mouth Pain, Dental Problems, Difficulty Swallowing, Mouth Swelling, Other Respiratory: No: Cough, Orthopnea, Shortness of Breath, SOB with Exertion, SOB at Rest, Stridor, Wheezing, Productive cough, Hemoptysis, Other Cardiac (ROS): No: Chest Pain, Edema, Irregular Heart Rate, Lightheadedness, Palpitations, Syncope, Chest Tightness, Other ABD/GI: No: Abdominal Distended, Abd. Pain w/ defecation, Blood Streaked Bowels , Constipated, Diarrhea, Difficulty Swallowing, Nausea, Poor Appetite, Poor Fluid Intake, Rectal Bleeding, Vomiting, Indigestion, Abdominal cramping, Tarry Stools, Other Musculoskeletal: Yes: Back Pain, Muscle Pain (left lower back). No: Joint Stiffness All Other Systems: Reviewed and Negative *Physical Exam - Vital Signs Last Vital Signs Temp Pulse Resp BP Pulse Ox 97.5 F L 88 19 156/73 96 07/17/18 11:25 07/17/18 11:25 07/17/18 11:25 07/17/18 11:25 07/17/18 11:25 - Physical Exam Comments: 07/17/18 12:51 GENERAL: Well developed, well nourished. Awake and alert. No acute distress. HEENT: Normocephalic, atraumatic. PERRLA, EOMI. No conjunctival pallor. Sclera are non- icteric. Moist mucous membranes. Oropharynx is clear. NECK: Supple. Full ROM. No JVD. Carotid pulses 2+ and symmetric, without bruits. No thyromegaly. No lymphadenopathy. CARDIOVASCULAR: Regular rate and rhythm. No murmurs, rubs, or gallops. Distal pulses are 2+ and symmetric. PULMONARY: No evidence of respiratory distress. Lungs clear to auscultation bilaterally. No wheezing, rales or rhonchi. ABDOMINAL: Soft. Non-tender. Non-distended. No rebound or guarding. No organomegaly. Normoactive bowel sounds. MUSCULOSKELETAL: Moderate tenderness to paravertebral left muscles of L1- S2.Normal range of motion at all joints. No bony deformities or tenderness. No CVA tenderness. EXTREMITIES: No cyanosis. No clubbing. No edema. No calf tenderness. SKIN: Warm and dry. Normal capillary refill. No rashes. No jaundice. NEUROLOGICAL: Alert, awake, appropriate. Cranial nerves 2-12 intact. No deficits to light touch and temperature in face, upper extremities and lower extremities. No motor deficits in the in face, upper extremities and lower extremities. Normoreflexic in the upper and lower extremities. Normal speech. Toes are down- going bilaterally. Gait is normal without ataxia. PSYCHIATRIC: Cooperative. Good eye contact. Appropriate mood and affect. General Appearance: Yes: Nourished, Appropriately Dressed. No: Apparent Distress ED Treatment Course - RADIOLOGY Radiology Studies Ordered: Category Date Time Status SPINE-LUMBAR SACRAL [RAD] Stat Radiology 07/17/18 12:47 Ordered Medical Decision Making - Medical Decision Making 07/17/18 12:52 Patient with history of sciatica present with complain of persistent left lower back pain radiating to the back of the left thigh area now as well as ibuprofen. Toradol 30 mg IM given for pain. X-ray of lumbosacral ordered to rule out acute pathology. Discharged home on muscle relaxer and NSAIDs with orthopedics follow-up if negative x-ray 07/17/18 14:11 X-ray of lumbosacral shows no acute pathology. Patient stable for home discharge on NSAIDs and muscle relaxer with orthopedist follow-up *DC/Admit/Observation/Transfer Diagnosis at time of Disposition: Lumbago with sciatica, left side Qualifiers: Chronicity: acute Back pain laterality: left Qualified Code(s): M54.42 - Lumbago with sciatica, left side - Discharge Dispostion Disposition: HOME Condition at time of disposition: Stable - Prescriptions Prescriptions: Methocarbamol [Robaxin -] 500 mg PO TID #21 tablet Naproxen 500 mg PO BID PRN #20 tablet.dr VALENTE Reason: Back Pain - Referrals Referrals: Gustabo Cummins MD [Staff Physician] - - Patient Instructions Printed Discharge Instructions: Low Back Pain, DI for Low Back Pain Additional Instructions: Take medication as prescribed for lower back pain. Follow up with preferred orthopedics as soon as possible - Post Discharge Activity Forms/Work/School Notes: Back to Work
[2018-07-17] MEDS ORDERED: KETOROLAC TROMETHAMINE 30 MG/1 ML VIAL IM ONE (13:28)
[2018-07-17] MEDS ORDERED: KETOROLAC TROMETHAMINE 30 MG/1 ML VIAL ONE (13:43)
== END 2018-07-17 14:30 | disposition home or self-care (01) ==
LOC: JERFT 11:13
DX: G20 Parkinson's disease (principal); I10 Essential (primary) hypertension; W18.39XA Other fall on same level, initial encounter; Y93.89 Activity, other specified; Y92.9 Unspecified place or not applicable; Y99.8 Other external cause status
CPT/HCPCS: 72100-TC-FY; 99281-25

== ENCOUNTER 2018-08-27 12:21 | Inpatient (IN) | payer OTHER ==
[2018-08-27 13:00] LABS: BASO % 0.8 % (0-2.0); EOS % 1.5 % (0-4.5); LYMPH % 22.6 % (8-40); MCH 31.8 pg (25.7-33.7); MCHC 32.5 g/dl (32.0-36.0); MEAN CELL VOLUME 97.7 fl (80-96); MEAN PLT VOLUME 12.3 fl (7.5-11.1); MONO % 11.6 % (3.8-10.2); NEUT % 63.5 % (42.8-82.8); PLATELET COUNT 162 K/MM3 (134-434); RBC 4.09 M/mm3 (3.60-5.2); RDW 15.5 % (11.6-15.6); WHITE BLOOD COUNT 9.3 K/mm3 (4.0-10.0)
[2018-08-27 13:10] LABS: INR 0.94 (0.83-1.09); PROTHROMBIN TIME (PATIENT) 11.1 SEC (9.7-13.0)
[2018-08-27 13:12] LABS: ACTIVATED PTT 28.7 SECONDS (25.2-36.5)
--- NOTE | 2018-08-27 13:20 | PDOC ---
History of Present Illness - General Chief Complaint: Chest Pain Stated Complaint: CHEST PAIN, NAUSEA Time Seen by Provider: 08/27/18 12:30 History Source: Patient Exam Limitations: No Limitations - History of Present Illness Initial Comments: 08/27/18 13:14 Pt is a 73yo f with PMH of COPD, sarcoidosis, HTN, GERD, cirrhosis due to hepatitis C s/p liver transplant BIBA to ED with complaints of chest tightness and lightheadedness. Pt said she was in the kitchen this morning when she started to feel lightheaded and felt a pressure in her chest. She went and sat down and started to sweat. She called her sister who called the ambulance. Pt says she is not feeling the tightness in her chest anymore however she still feels lightheaded associated with nausea and headache. Pt also admits to chronic cough which is occasionally with clots or blood streaks and bilateral feet swelling. She denies fever, chills, pleuritic chest pain, abdominal pain, diarrhea, bloody or dark stools, dysuria, hematuria, neck pain, back pain, changes in vision. PCP: has a new insurance, is trying to find one that works with her insurance. PMH: see hpi PSH: liver transplant Meds: allopurinol, metoprolol, losartan, omeprazole, prednisone, symbicort, ventolin Allergies: nkda Social: denies 08/27/18 18:49 Past History - Past Medical History Allergies/Adverse Reactions: Allergies Allergy/AdvReac Type Severity Reaction Status Date / Time shrimp Allergy Verified 07/17/18 11:25 Home Medications: Ambulatory Orders Gabapentin 100 mg PO DAILY 02/22/17 Losartan Potassium 25 mg PO DAILY 02/22/17 Metoprolol Succinate [Toprol XL -] 25 mg PO DAILY 02/22/17 Omeprazole 20 mg PO DAILY 02/22/17 Prednisone 5 mg PO DAILY 02/22/17 Spironolactone [Aldactone] 25 mg PO DAILY 02/22/17 Ibuprofen 800 mg PO TID #30 tablet 06/01/18 Methocarbamol [Robaxin -] 500 mg PO TID #21 tablet 07/17/18 Naproxen 500 mg PO BID PRN #20 tablet. 07/17/18 Anemia: No Asthma: Yes Cancer: No Cardiac Disorders: Yes (cad) CVA: No COPD: No CHF: No Dementia: No Diabetes: No GI Disorders: No Disorders: No HTN: Yes Hypercholesterolemia: No Liver Disease: Yes (cirrhosis, s/p transplant, hep c) Seizures: No Thyroid Disease: No Other medical history: sarcoidosis - Surgical History Abdominal Surgery: No Appendectomy: No Cardiac Surgery: No Cholecystectomy: No Lung Surgery: No Neurologic Surgery: No Orthopedic Surgery: No - Immunization History Immunization Up to Date: Yes - Suicide/Smoking/Psychosocial Hx Smoking History: Former smoker Have you smoked in the past 12 months: No Number of Cigarettes Smoked Daily: 2 If you are a former smoker, when did you quit?: 25 years ago Information on smoking cessation initiated: No Hx Alcohol Use: No Drug/Substance Use Hx: No Substance Use Type: None Hx Substance Use Treatment: No Review of Systems - Review of Systems Able to Perform ROS?: Yes Is the patient limited Luxembourgish proficient: No Constitutional: No: Chills, Fever, Weakness HEENTM: No: Blurred Vision, Recent change in vision, Tinnitus, Hearing Loss, Throat Pain Respiratory: Yes: Cough, Hemoptysis (chronic cough with clots mixed with blood for the past few months). No: Shortness of Breath, Wheezing Cardiac (ROS): Yes: Lightheadedness, Chest Tightness. No: Palpitations, Syncope ABD/GI: Yes: Nausea, Vomiting (1 episode of emesis in ED). No: Constipated, Diarrhea, Rectal Bleeding, Abdominal cramping, Tarry Stools : Yes: Frequency. No: Burning, Dysuria, Flank Pain, Hematuria Musculoskeletal: No: Back Pain, Joint Pain, Neck Pain Integumentary: No: Rash Neurological: Yes: Headache. No: Numbness, Paresthesia, Tremors, Weakness, Ataxia *Physical Exam - Vital Signs Last Vital Signs Temp Pulse Resp BP Pulse Ox 98.1 F 92 H 16 165/94 96 08/27/18 12:59 08/27/18 12:59 08/27/18 12:59 08/27/18 12:59 08/27/18 12:59 - Physical Exam Comments: 08/27/18 17:02 Pt sitting in bed comfortably General Appearance: Yes: Nourished, Appropriately Dressed. No: Apparent Distress HEENT: positive: EOMI (pt started to feel vertiginous with eye movements), REYES , Pharynx Normal. negative: Pale Conjunctivae, Scleral Icterus (R), Scleral Icterus (L) Neck: positive: Trachea midline, Supple. negative: Carotid bruit, Lymphadenopathy (R), Lymphadenopathy (L) Respiratory/Chest: positive: Lungs Clear, Normal Breath Sounds. negative: Respiratory Distress, Crackles, Rales, Rhonchi, Stridor, Wheezing Cardiovascular: positive: Regular Rhythm, Regular Rate, S1, S2. negative: Edema , JVD, Murmur Vascular Pulses: Carotid (R): 2+, Carotid (L): 2+, Dorsalis-Pedis (R): 2+, Doralis-Pedis (L): 2+ Gastrointestinal/Abdominal: positive: Normal Bowel Sounds, Soft. negative: Distended, Guarding, Rebound, Tenderness Musculoskeletal: negative: CVA Tenderness (R), CVA Tenderness (L), Decreased Range of Motion, Vertebral Tenderness Extremity: positive: Normal Capillary Refill Integumentary: positive: Normal Color, Dry, Warm. negative: Pale, Cold, Rash, Swelling Neurologic: positive: computer systems integrator II-XII NML intact, Fully Oriented, Alert, Normal Mood/ Affect, Normal Response, Motor Strength 5/5, Respond to painful stimul, Finger to Nose. negative: Numbness, Sensory Deficit Deep Tendon Reflexes: Ankle (L): 2+, Ankle (R): 2+, Knee (L): 2+, Knee (R): 2+ ED Treatment Course - LABORATORY CBC & Chemistry Diagram: 08/27/18 12:45 08/27/18 12:45 - ADDITIONAL ORDERS Additional order review: Laboratory Results 08/27/18 12:45 PT with INR 11.10 INR 0.94 PTT (Actin FS) 28.7 08/27/18 12:45 RBC 4.09 MCV 97.7 H MCHC 32.5 RDW 15.5 MPV 12.3 H Neutrophils % 63.5 D Lymphocytes % 22.6 D Monocytes % 11.6 H D Eosinophils % 1.5 D Basophils % 0.8 D - RADIOLOGY Radiology Studies Ordered: Category Date Time Status CHEST X-RAY PORTABLE* [RAD] Stat Radiology 08/27/18 12:38 Ordered Medical Decision Making - Medical Decision Making 08/27/18 13:20 Pt is a 73yo f with PMH of COPD, sarcoidosis, HTN, GERD, cirrhosis due to hepatitis C s/p liver transplant BIBA to ED with complaints of chest tightness and lightheadedness. Has not felt lightheaded like this before. Had episode of emesis in ED, with clots per nurse Vitals: wnl, saturating 96% ra (baseline). PE: dizziness with extraoccular movements DDx: acs, pe, vertebral aa dissection, vertigo, pna, copd exacerbation, CVA Concern for dissection. Will order CTA neck and thorax and CT head to r/o posterior stroke. EKG: LBBB. when compared to EKG done in November, no acute changes. Sgarbossa criteria not met for NC. 08/27/18 17:31 Labs showed elevated Cr however at baseline. Elevated LFTs. All other labs wnl CXR: no changes since prior cxr 08/27/18 17:38 CT head: No acute changes. Chronic sinusitis CTAB: No aortic dissection or aneurysm. Bilateral upper lobe fibrotic changes. No changes from prior C CTA neck: 70% stenosis of R carotid aa. No vertebral or carotid dissection. 08/27/18 17:39 Pt not feeling nauseous, not having chest tightness, reduced lightheadedness and slight headache. HEART score of 4. Pt will be admitted obs for ACS rule out. Admitted under Dr. Mcdonald *DC/Admit/Observation/Transfer Diagnosis at time of Disposition: Lightheaded, Chest tightness - Discharge Dispostion Condition at time of disposition: Stable Decision to Admit order: Yes - Referrals - Patient Instructions - Post Discharge Activity
[2018-08-27] MEDS ORDERED: SODIUM CHLORIDE 1,000 ML IV STA (13:27)
[2018-08-27 13:32] LABS: ALBUMIN 3.6 g/dl (3.4-5.0); ALK PHOS 441 U/L (45-117); ANION GAP 8 MMOL/L (8-16); BILIRUBIN,TOTAL 0.6 mg/dL (0.2-1); BLOOD UREA NITROGEN 42 mg/dL (7-18); CALCIUM 9.1 mg/dL (8.5-10.1); CHLORIDE 106 mmol/L (98-107); CO2 26 mmol/L (21-32); CREATININE 1.3 mg/dL (0.55-1.3); GLUCOSE,RANDOM 101 mg/dL (74-106); MAGNESIUM 2.2 mg/dL (1.8-2.4); PHOSPHOROUS 3.5 mg/dL (2.5-4.9); POTASSIUM 4.5 mmol/L (3.5-5.1); SGOT/AST 76 U/L (15-37); SGPT/ALT 167 U/L (13-61); SODIUM 140 mmol/L (136-145); TOT PROT 7.6 g/dl (6.4-8.2)
--- NOTE | 2018-08-27 14:07 | PDOC ---
Attending Attestation - Resident Resident Name: Susie Nascimento - ED Attending Attestation I have performed the following: I have examined & evaluated the patient, The case was reviewed & discussed with the resident, I agree w/resident's findings & plan, Exceptions are as noted - HPI HPI: 08/27/18 14:13 The patient is a 73 year old female, with a significant past medical history of COPD, sarcoidosis, cirrhosis s/p liver transplant, and vertigo, who presents to the emergency department with sudden onset of lightheadedness, diaphoresis, and chest tightness while standing in the kitchen this morning. She states the chest tightness has resolved at this time. She denies any pleuritic chest pain. She reportedly is still experiencing lightheadedness which is unlike her experience with vertigo in the past. She denies room spinning sensation. She states she had one episode of emesis when ems arrived to her house. She reports associated nausea at this time, but denies an recurrent episodes of emesis. She states she has been coughing streaks of blood for some time now and reports coughing blood today. The patient denies shortness of breath, headache. The patient denies fever, chills, diarrhea and constipation. The patient denies dysuria, frequency, urgency and hematuria. Allergies: NKDA Social history: denies toxic habits - Physicial Exam PE: 08/27/18 14:17 GENERAL: Awake, alert, and fully oriented, in no acute distress. HEAD: No signs of trauma EYES: PERRLA, EOMI, sclera anicteric, conjunctiva clear ENT: Auricles normal inspection, hearing grossly normal, nares patent, oropharynx clear without exudates. Moist mucosa NECK: Nontender, no stepoffs, Normal ROM, supple, no lymphadenopathy, JVD, or masses LUNGS: Breath sounds equal, clear to auscultation bilaterally. No wheezes, and no crackles HEART: Regular rate and rhythm, normal S1 and S2, no murmurs, rubs or gallops ABDOMEN: Soft, nontender, normoactive bowel sounds. No guarding, no rebound. No masses EXTREMITIES: Normal range of motion, no edema. No clubbing or cyanosis. No cords, erythema, or tenderness NEUROLOGICAL: Cranial nerves II through XII intact. 5/5 strength and sensation in all extremities, Normal speech, normal gait, normal cerebellar function SKIN: Warm, Dry, normal turgor, no rashes or lesions noted. - Critical Care Time Total Critical Care Time: 45 Critical Care Statement: The care of this patient involved high complexity decision making to prevent further life threatening deterioration of the patient 's condition and/or to evaluate & treat vital organ system(s) failure or risk of failure. - Medical Decision Making 08/27/18 14:06 73 F with chest pain and lightheadedness. Will need to r/o ACS with serial trops. EKG with no ischemic changes. Will also r/o dissection. - Labs, trop - CXR - Cr 1.3, OK to give IV contrast for CTA
[2018-08-27 15:44] LABS: URINE APPEARANCE CLEAR; URINE BILIRUBIN NEGATIVE (<2.0 mg/dL); URINE COLOR STRAW; URINE GLUCOSE (UA) NEGATIVE (NEGATIVE); URINE KETONE NEGATIVE (NEGATIVE); URINE LEUK ESTERASE NEGATIVE (NEGATIVE); URINE NITRITE NEGATIVE (NEGATIVE); URINE PROTEIN NEGATIVE (NEGATIVE); URINE UROBILINOGEN NEGATIVE mg/dL (0.2-1.0)
--- NOTE | 2018-08-27 19:36 | PN ---
Teaching Attending Note Name of Resident: Marquise Nolasco ATTENDING PHYSICIAN STATEMENT I saw and evaluated the patient. I reviewed the resident's note and discussed the case with the resident. I agree with the resident's findings and plan as documented. SUBJECTIVE: Patient is a 73 year old woman with a PMH of COPD, sarcoidosis, cirrhosis s/p liver transplant, and vertigo, who presents to the ER with sudden onset of lightheadedness, diaphoresis, and chest tightness while standing in the kitchen this morning. She states the chest tightness has resolved at this time. She denies any pleuritic chest pain. She reportedly is still experiencing lightheadedness which is unlike her experience with vertigo in the past. She denies room spinning sensation. She states she had one episode of emesis when ems arrived to her house. She reports associated nausea at this time, but denies an recurrent episodes of emesis. She states she has been coughing streaks of blood for some time now and reports coughing blood today. OBJECTIVE: Alert Vital Signs Period Temp Pulse Resp BP Sys/Freeman Pulse Ox Last 24 Hr 98.1 F 92-92 16-20 165-167/75-94 96-99 HEENT: No Jaundice, eye redness or discharge, PERRLA, EOMI. Normocephalic, atraumatic. External ears are normal and hearing is grossly intact. No nasal discharge. Neck: Supple, nontender. No palpable adenopathy or thyromegaly. No JVD Chest: Good effort. Clear to auscultation and percussion. Heart: Regular. No S3, rub or murmur Abdomen: Not distended, soft, nontender and no HSM. No rebound or guarding. Normoactive bowel sounds. Ext: Peripheral pulses intact. No leg edema. Skin: Warm and dry. No petechiae, rash or ecchymosis. Neuro: Alert. Oriented x3. CN 2-12 grossly intact. Sensation grossly intact in all four extremities and DTR are symmetric. Home Medications Medication Instructions Recorded Gabapentin 100 mg PO DAILY 02/22/17 Losartan Potassium 25 mg PO DAILY 02/22/17 Metoprolol Succinate [Toprol XL -] 25 mg PO DAILY 02/22/17 Omeprazole 20 mg PO DAILY 02/22/17 Prednisone 5 mg PO DAILY 02/22/17 Spironolactone [Aldactone] 25 mg PO DAILY 02/22/17 Ibuprofen 800 mg PO TID #30 tablet 06/01/18 Methocarbamol [Robaxin -] 500 mg PO TID #21 tablet 07/17/18 Naproxen 500 mg PO BID PRN #20 tablet. 07/17/18 Abnormal Lab Results 08/27/18 08/27/18 12:45 12:45 MCV 97.7 H MPV 12.3 H Monocytes % 11.6 H D BUN 42 H AST 76 H ALT 167 H Alkaline Phosphatase 441 H ASSESSMENT AND PLAN: 1. Chest pain - Pain is atypical. No significant ST-T wave changes on EKG and troponin is negative. Will admit to telemetry to rule out ACS. Get ECHO. Had features of presyncope, but imaging studies are negative except for 70% right internal carotid stenosis. Has been off all antirejection drugs except prednisone for 10 years and has not been seeing a Transplant MD due to insurance issues. Concerned about liver transplant rejection in view of elevated LFTs. Will consult GI and patient counseled about excessive use of NSAIDS. Urged to increase oral fluids to correct dehydration. Consult drug worker to help with health insurance issues. 2. Hemoptysis - CXR shows chronic granulomatous disease with increased interstitial making - likely sequelae of sarcoidosis. Consult pulmonary for further workup of hemoptysis. 3. Obesity - Will provide patient all the necessary assistance , counseling and positive reinforcement to facilitate weight loss. Consult furnace builder. 4. DVT prophylaxis - Lovenox 40 mg SQ q 24 hours. 5. Advance directives - Full code
--- NOTE | 2018-08-27 20:29 | HP ---
CHIEF COMPLAINT: Dizziness PCP: None HISTORY OF PRESENT ILLNESS: Pt is a 73 y/o lady with a significant past medical history of sarcoidosis, COPD , vertigo, HTN, GERD, Cirrhosis and liver transplant s/p Hep C. Pt states at approximately 12 pm she was in the kitchen of her home when she suddenly became lightheaded and experienced chest tightness. Pt was cleaning the dishes when her symptoms occurred. Pt sat down and began to perspire profusely. Pt subsequently called her sister who then notified her daughter. EMS was called and pt was brought to [facility] Pt vomited once in the ED, cannot recall color of vomit. Also endorses cough with streaks of blood. Pt currently denies chest pain , lightheadedness, nausea, or any vertiginous symptoms at this time. ER course was notable for: (1) Troponin <0.03 (2) CTA Neck 70% R Carotid Stenosis (3) EKG--> LBBB Recent Travel: Denies PAST MEDICAL HISTORY: Per HPI PAST SURGICAL HISTORY: Liver transplant Social History: Smoking: Denies Alcohol: Denies Drugs: Denies Family History: Allergies shrimp Allergy (Verified 07/17/18 11:25) HOME MEDICATIONS: Home Medications Medication Instructions Recorded Gabapentin 100 mg PO DAILY 02/22/17 Losartan Potassium 25 mg PO DAILY 02/22/17 Metoprolol Succinate [Toprol XL -] 25 mg PO DAILY 02/22/17 Omeprazole 20 mg PO DAILY 02/22/17 Prednisone 5 mg PO DAILY 02/22/17 Spironolactone [Aldactone] 25 mg PO DAILY 02/22/17 Ibuprofen 800 mg PO TID #30 tablet 06/01/18 Methocarbamol [Robaxin -] 500 mg PO TID #21 tablet 07/17/18 Naproxen 500 mg PO BID PRN #20 tablet. 07/17/18 REVIEW OF SYSTEMS CONSTITUTIONAL: Absent: fever, chills, diaphoresis, generalized weakness, malaise, loss of appetite, weight change HEENT: Absent: rhinorrhea, nasal congestion, throat pain, throat swelling, difficulty swallowing, mouth swelling, ear pain, eye pain, visual changes CARDIOVASCULAR: Absent: chest pain, syncope, palpitations, irregular heart rate, lightheadedness , peripheral edema RESPIRATORY: PRESENT: cough, shortness of breath, dyspnea with exertion, hemoptysis GASTROINTESTINAL: Absent: abdominal pain, abdominal distension, nausea, vomiting, diarrhea, constipation, melena, hematochezia GENITOURINARY: Absent: dysuria, frequency, urgency, hesitancy, hematuria, flank pain, genital pain MUSCULOSKELETAL: Absent: myalgia, arthralgia, joint swelling, back pain, neck pain SKIN: Absent: rash, itching, pallor HEMATOLOGIC/IMMUNOLOGIC: Absent: easy bleeding, easy bruising, lymphadenopathy, frequent infections ENDOCRINE: Absent: unexplained weight gain, unexplained weight loss, heat intolerance, cold intolerance NEUROLOGIC: Absent: headache, focal weakness or paresthesias, dizziness, unsteady gait, seizure, mental status changes, bladder or bowel incontinence PSYCHIATRIC: Absent: anxiety, depression, suicidal or homicidal ideation, hallucinations. PHYSICAL EXAMINATION Vital Signs - 24 hr 08/27/18 08/27/18 08/27/18 12:58 12:59 16:29 Temperature 98.1 F Pulse Rate 92 H Pulse Rate [ 92 H Right Radial] Respiratory 16 20 Rate Blood Pressure 165/94 Blood Pressure 167/75 [Right Arm] O2 Sat by Pulse 99 96 96 Oximetry (%) GENERAL: AAOx3 NAD HEAD: NC/AT EYES: PERRLA EOMI EARS, NOSE, THROAT: MMM NECK: Supple LUNGS: CTA B/L HEART: RRR no MRG S1 S2 ABDOMEN: ND NT No HSM BS + MUSCULOSKELETAL: Full ROM throughout UPPER EXTREMITIES: No CCE LOWER EXTREMITIES: No CCE. Possible erythema nodosum lower extremities. NEUROLOGICAL: CN 2-12 intact PSYCHIATRIC: Cooperative. Good eye contact. Appropriate mood and affect. SKIN: No rashes or lesions appreciated. Laboratory Results - last 24 hr 08/27/18 08/27/18 08/27/18 12:45 12:45 12:45 WBC 9.3 RBC 4.09 Hgb 13.0 Hct 40.0 MCV 97.7 H MCH 31.8 MCHC 32.5 RDW 15.5 Plt Count 162 MPV 12.3 H Absolute Neuts (auto) 5.9 Neutrophils % 63.5 D Lymphocytes % 22.6 D Monocytes % 11.6 H D Eosinophils % 1.5 D Basophils % 0.8 D Nucleated RBC % 0 PT with INR 11.10 INR 0.94 PTT (Actin FS) 28.7 Sodium 140 Potassium 4.5 Chloride 106 Carbon Dioxide 26 Anion Gap 8 BUN 42 H Creatinine 1.3 Creat Clearance w eGFR 40.26 Random Glucose 101 Calcium 9.1 Phosphorus 3.5 Magnesium 2.2 Total Bilirubin 0.6 AST 76 H ALT 167 H Alkaline Phosphatase 441 H Creatine Kinase Troponin I Total Protein 7.6 Albumin 3.6 Urine Color Urine Appearance Urine pH Ur Specific [place] Urine Protein Urine Glucose (UA) Urine Ketones Urine Blood Urine Nitrite Urine Bilirubin Urine Urobilinogen Ur Leukocyte Esterase Blood Type Antibody Screen 08/27/18 08/27/18 08/27/18 12:45 13:41 15:35 WBC RBC Hgb Hct MCV MCH MCHC RDW Plt Count MPV Absolute Neuts (auto) Neutrophils % Lymphocytes % Monocytes % Eosinophils % Basophils % Nucleated RBC % PT with INR INR PTT (Actin FS) Sodium Potassium Chloride Carbon Dioxide Anion Gap BUN Creatinine Creat Clearance w eGFR Random Glucose Calcium Phosphorus Magnesium Total Bilirubin AST ALT Alkaline Phosphatase Creatine Kinase 49 Troponin I 0.03 Total Protein Albumin Urine Color Straw Urine Appearance Clear Urine pH 5.0 Ur Specific [place] 1.024 Urine Protein Negative Urine Glucose (UA) Negative Urine Ketones Negative Urine Blood Negative Urine Nitrite Negative Urine Bilirubin Negative Urine Urobilinogen Negative Ur Leukocyte Esterase Negative Blood Type O POSITIVE Antibody Screen Negative ASSESSMENT/PLAN: Pt is a 73 y/o lady with a significant past medical history of sarcoidosis, COPD , vertigo, HTN, GERD, Cirrhosis and liver transplant s/p Hep C. Pt states at approximately 11 or 12 pm she was in the kitchen of her home when she suddenly became lightheaded and experienced chest tightness. # R/o ACS -EKG in ED-- LBBB, same in November -Echo Pending -Repeat Troponin. First one negative -Tele obs -Cardio consult -CTA Neck --70% stenosis R ICA -CT Abd/Pelvis--Negative -Chest/Thorax CTA--> No acute pathology, No aortic Dissection # Transaminitis s/p Liver transplant - Pt Not following Liver Transplant specialist, Referral to Specialist who participates in [employer] insurance -Consult GI -Consult [employer] for insurance issues -AST 76, ALT 167, Alk Phos 441 -Not on any immunosupressants. # Sarcoidosis - Chronic medical condition - Resume Home Meds FEN No Fluids Monitor Electrolytes Sodium Diet DVT ppx Lovenox 40 SQ daily Dispo: Monitor on floor Visit type - Emergency Visit Emergency Visit: Yes ED Registration Date: 08/27/18 Care time: The patient presented to the Emergency Department on the above date and was hospitalized for further evaluation of their emergent condition. - New Patient This patient is new to me today: Yes Date on this admission: 08/28/18 - Critical Care Critical Care patient: No
[2018-08-27] MEDS ORDERED: ASPIRIN 81 MG CHEWABLE TABLETS PO ONE (20:48)
[2018-08-27] MEDS ORDERED: ASPIRIN 81 MG CHEWABLE TABLETS ONE (21:49)
[2018-08-28 00:22] VITALS: BMI 34.4
[2018-08-28 06:03] LABS: BASO % 0.8 % (0-2.0); EOS % 2.3 % (0-4.5); HEMATOCRIT 35.6 % (32.4-45.2); HEMOGLOBIN 11.9 GM/dL (10.7-15.3); MCH 32.6 pg (25.7-33.7); MCHC 33.5 g/dl (32.0-36.0); MEAN CELL VOLUME 97.3 fl (80-96); MEAN PLT VOLUME 12.7 fl (7.5-11.1); MONO % 15.4 % (3.8-10.2); NEUT % 61.5 % (42.8-82.8); PLATELET COUNT 152 K/MM3 (134-434); RBC 3.66 M/mm3 (3.60-5.2); RDW 15.1 % (11.6-15.6); WHITE BLOOD COUNT 7.3 K/mm3 (4.0-10.0)
[2018-08-28 06:06] LABS: ADD RBC MORPHOLOGY YES
[2018-08-28 06:07] LABS: INR 0.97 (0.83-1.09); PROTHROMBIN TIME (PATIENT) 11.4 SEC (9.7-13.0)
[2018-08-28 06:09] LABS: ACTIVATED PTT 29.6 SECONDS (25.2-36.5)
[2018-08-28 06:20] LABS: ANION GAP 5 MMOL/L (8-16); BLOOD UREA NITROGEN 30 mg/dL (7-18); CALCIUM 8.8 mg/dL (8.5-10.1); CHLORIDE 109 mmol/L (98-107); CO2 28 mmol/L (21-32); CREATININE 1.2 mg/dL (0.55-1.3); GLUCOSE,RANDOM 81 mg/dL (74-106); MAGNESIUM 1.9 mg/dL (1.8-2.4); PHOSPHOROUS 3.4 mg/dL (2.5-4.9); POTASSIUM 4.8 mmol/L (3.5-5.1); SODIUM 142 mmol/L (136-145)
[2018-08-28] MEDS ORDERED: PT OWN MED DRAWER 7, Y5N ONE ×2 (08:29→09:46)
--- NOTE | 2018-08-28 09:14 | EKG ---
Test Reason : Blood Pressure : / mmHG Vent. Rate : 093 BPM Atrial Rate : 093 BPM P-R Int : 136 ms QRS Dur : 132 ms QT Int : 390 ms P-R-T Axes : 060 036 219 degrees QTc Int : 484 ms NORMAL SINUS RHYTHM LEFT BUNDLE BRANCH BLOCK ABNORMAL ECG WHEN COMPARED WITH ECG OF 27-AUG-2018 20:26, T WAVE INVERSION NOW EVIDENT IN INFERIOR LEADS Confirmed by CASH ESPINO, KAMERON ([id number]) on 08/28/2018 9:13:44 AM Referred By: Confirmed By:KAMERON CASTREJON MD
--- NOTE | 2018-08-28 09:20 | EKG ---
Test Reason : Blood Pressure : / mmHG Vent. Rate : 093 BPM Atrial Rate : 093 BPM P-R Int : 138 ms QRS Dur : 122 ms QT Int : 388 ms P-R-T Axes : 058 -08 154 degrees QTc Int : 482 ms POOR DATA QUALITY, INTERPRETATION MAY BE ADVERSELY AFFECTED NORMAL SINUS RHYTHM POSSIBLE LEFT ATRIAL ENLARGEMENT LEFT BUNDLE BRANCH BLOCK ABNORMAL ECG WHEN COMPARED WITH ECG OF 27-AUG-2018 12:36, NO SIGNIFICANT CHANGE WAS FOUND Confirmed by KAMERON CASTREJON MD ([id number]) on 08/28/2018 9:19:53 AM Referred By: Confirmed By:KAMERON CASTREJON MD
--- NOTE | 2018-08-28 09:31 | EKG ---
Test Reason : Blood Pressure : / mmHG Vent. Rate : 087 BPM Atrial Rate : 087 BPM P-R Int : 146 ms QRS Dur : 136 ms QT Int : 396 ms P-R-T Axes : 062 -11 146 degrees QTc Int : 476 ms NORMAL SINUS RHYTHM POSSIBLE LEFT ATRIAL ENLARGEMENT LEFT BUNDLE BRANCH BLOCK ABNORMAL ECG WHEN COMPARED WITH ECG OF 05-DEC-2017 08:27, NO SIGNIFICANT CHANGE WAS FOUND Confirmed by KAMERON CASTREJON MD ([id number]) on 08/28/2018 9:31:33 AM Referred By: Confirmed By:KAMERON CASTREJON MD
[2018-08-28] MEDS: ENOXAPARIN NA (PORCINE) 40 MG/0.4 ML DISP.SYRIN SQ SCH (09:43)
[2018-08-28] MEDS: GABAPENTIN 100 MG CAPSULE (FP) PO SCH (09:44)
[2018-08-28] MEDS: PANTOPRAZOLE 20 MG TABLET (FP) PO SCH (09:44)
[2018-08-28] MEDS ORDERED: metoPROLOL SUCCINATE 25 MG TAB.SR.24H (FP) PO SCH (10:00)
[2018-08-28] MEDS ORDERED: LOSARTAN POTASSIUM 25 MG TABLET PO SCH (10:00)
[2018-08-28] MEDS ORDERED: FLU VACCINE QUAD 60 MCG/0.5 ML (MDV 18-19) IM ONE (10:00)
--- NOTE | 2018-08-28 11:37 | CON.CARD ---
Consult Consult Specialty:: Cardiology Referred by:: Hospitalist Nate Reason for Consultation:: Chest pain, demand ischemia - History of Present Illness Chief Complaint: Chest pain, dyspnea History of Present Illness: 73yo female with h/o Hep C s/p liver transplant, pulmonary sarcoidosis, COPD, CKD, vertigo presented to the ER with sudden onset of lightheadedness, diaphoresis, dyspnea and retrosternal chest tightness while standing in the kitchen cleaning dishes associated with emesis, diaphoresis. Symptoms have since resolved, she declines stress testing, BP elevated. - History Source History Provided By: Patient Limitations to Obtaining History: No Limitations - Past Medical History Cardio/Vascular: Yes: HTN Pulmonary: Yes: Asthma, COPD Gastrointestinal: Yes: GERD, Other (liver transplant) Hepatobiliary: Yes: Hepatitis C Renal/: Yes: Renal Inusuff - Past Surgical History Past Surgical History: Yes: Liver Transplant - Alcohol/Substance Use Hx Alcohol Use: No - Smoking History Smoking history: Former smoker Have you smoked in the past 12 months: No Aproximately how many cigarettes per day: 2 If you are a former smoker, when did you quit?: 25 years ago Home Medications - Allergies Allergies/Adverse Reactions: Allergies Allergy/AdvReac Type Severity Reaction Status Date / Time shrimp Allergy Verified 07/17/18 11:25 - Home Medications Home Medications: Ambulatory Orders Gabapentin 200 mg PO HS PRN 02/22/17 Losartan Potassium 25 mg PO DAILY 02/22/17 Metoprolol Succinate [Toprol XL -] 25 mg PO DAILY 02/22/17 Omeprazole 20 mg PO DAILY 02/22/17 Prednisone 5 mg PO DAILY 02/22/17 Spironolactone [Aldactone] 25 mg PO DAILY 02/22/17 Albuterol 2.5/Ipratropium 0.5 [Duoneb -] 1 amp NEB DAILY PRN 08/28/18 Albuterol Sulfate Inhaler - [Ventolin HFA Inhaler -] 2 inh IH Q6H PRN 08/28/18 Allopurinol [Zyloprim -] 100 mg PO DAILY 08/28/18 Budesonide/Formeterol Fumarate [SYMBICORT 160/4.5mcg -] 2 puff IH BID 08/28/18 Hydrochlorothiazide 12.5 mg PO DAILY 08/28/18 Meclizine HCl 25 mg PO DAILY PRN 08/28/18 Montelukast Sodium [Singulair] 10 mg PO DAILY 08/28/18 Family Disease History - Family Disease History Family History: Unremarkable Review of Systems - Review of Systems Constitutional: reports: Weakness Eyes: reports: No Symptoms HENT: reports: No Symptoms Neck: reports: No Symptoms Cardiovascular: reports: Chest Pain, Shortness of Breath Respiratory: reports: SOB Gastrointestinal: reports: Nausea, Vomiting Genitourinary: reports: No Symptoms Musculoskeletal: reports: No Symptoms Integumentary: reports: No Symptoms Neurological: reports: Dizziness, Headache Endocrine: reports: No Symptoms Hematology/Lymphatic: reports: No Symptoms Vital Signs: Vital Signs Temperature 98.7 F 08/28/18 04:53 Pulse Rate 80 08/28/18 08:02 Respiratory Rate 18 08/28/18 08:02 Blood Pressure 160/81 08/28/18 08:02 O2 Sat by Pulse Oximetry (%) 94 L 08/28/18 00:03 Constitutional: Yes: No Distress, Calm Neck: Yes: Supple Respiratory: Yes: Regular, CTA Bilaterally Gastrointestinal: Yes: Normal Bowel Sounds, Soft Cardiovascular: Yes: Regular Rate and Rhythm JVD: No Carotid Bruit: No Heart Sounds: Yes: S1, S2 Murmur: Yes: Systolic Murmur, Grade 1 Edema: No - Other Data Labs, Other Data: CBC, BMP 08/28/18 05:30 08/28/18 05:30 INR, PTT INR 0.97 (0.83-1.09) 08/28/18 05:30 Troponin, BNP 08/27/18 08/27/18 08/28/18 12:45 22:10 05:30 Troponin I 0.03 0.31 H 0.16 H Troponin, BNP 08/27/18 08/27/18 08/28/18 12:45 22:10 05:30 Troponin I 0.03 0.31 H 0.16 H NSR @ 93 LBBB Ejection Fraction %: LVEF > or = 40 % Imaging - Results Chest X-ray: Report Reviewed (NAD) Cat Scan: Report Reviewed (70% prox SURI stenosis CTA: no PE / chronic appearing parenchymal and mediastinal changes) Problem List - Problems (1) Hypertensive cardiomyopathy Code(s): I11.9 - HYPERTENSIVE HEART DISEASE WITHOUT HEART FAILURE; I43 - CARDIOMYOPATHY IN DISEASES CLASSIFIED ELSEWHERE Qualifiers: Heart failure presence: without heart failure Qualified Code(s): I11.9 - Hypertensive heart disease without heart failure; I43 - Cardiomyopathy in diseases classified elsewhere (2) Subendocardial ischemia Code(s): I24.8 - OTHER FORMS OF ACUTE ISCHEMIC HEART DISEASE (3) CKD (chronic kidney disease) Code(s): N18.9 - CHRONIC KIDNEY DISEASE, UNSPECIFIED Qualifiers: Chronic kidney disease stage: stage 2 (mild) Qualified Code(s): N18.2 - Chronic kidney disease, stage 2 (mild) (4) Pulmonary sarcoidosis Code(s): D86.0 - SARCOIDOSIS OF LUNG Assessment/Plan 08/28/2018 Mildly decreased LVEF 45-50%, normal RV size and fxn, mild MR, MA, TR 1. HTN cardiomyopathy with subendocardial ischemia in context of HTN urgency 2. Pulmonary Sarcoidosis 3. ESLD s/p orthotopic Liver Transplant with abnl LFTs 4. CKD 5. 70% right prox ICA stenosis P:1. Trops are downtrending 2. Continue ASA 81 qd, uptitrate losartan 50 qd, Toprol XL 50 qd, Aldactone 25 qd to optimize BP management 3. Patient may undergo MPI as outpatient, check TSH, lipid panel, Ha1c, BNP 4. Thank you for consultative opportunity
--- NOTE | 2018-08-28 11:49 | PN ---
Physical Exam: SUBJECTIVE: Patient seen and examined this morning. She describes the pain during her initial episode as "elephant sat on my chest" and was accompanied by numbness that traveled up her legs bilaterally. The chest discomfort has since resolved. Patient says she is always short of breath due to her sarcoidosis. Patient feels nauseous this morning and vomited "gastric juices." Has not felt lightheaded or dizzy since admission. OBJECTIVE: Vital Signs Period Temp Pulse Resp BP Sys/Freeman Pulse Ox Last 24 Hr 97.6 F-98.7 F 80-92 16-23 156-174/71-94 94-99 GENERAL: A&Ox3, NAD, Sitting upright in her chair eating breakfast HEAD: NCAT EYES: PERRLA, EOMI THROAT: Oropharynx clear without exudates, moist mucous membranes. NECK: No JVD LUNGS: Clear to auscultation bilaterally, no wheezes HEART: Regular rate and rhythm, S1, S2 without murmur ABDOMEN: Soft, nontender, nondistended, + bowel sounds, no guarding EXTREMITIES: 2+ pulses, no edema. NEUROLOGICAL: Cranial nerves II through XII grossly intact. Normal speech. SKIN: Warm, dry Laboratory Results - last 24 hr 08/27/18 08/27/18 08/27/18 12:45 12:45 12:45 WBC 9.3 RBC 4.09 Hgb 13.0 Hct 40.0 MCV 97.7 H MCH 31.8 MCHC 32.5 RDW 15.5 Plt Count 162 MPV 12.3 H Absolute Neuts (auto) 5.9 Neutrophils % 63.5 D Lymphocytes % 22.6 D Monocytes % 11.6 H D Eosinophils % 1.5 D Basophils % 0.8 D Nucleated RBC % 0 PT with INR 11.10 INR 0.94 PTT (Actin FS) 28.7 Sodium 140 Potassium 4.5 Chloride 106 Carbon Dioxide 26 Anion Gap 8 BUN 42 H Creatinine 1.3 Creat Clearance w eGFR 40.26 Random Glucose 101 Calcium 9.1 Phosphorus 3.5 Magnesium 2.2 Total Bilirubin 0.6 AST 76 H ALT 167 H Alkaline Phosphatase 441 H Creatine Kinase Troponin I Total Protein 7.6 Albumin 3.6 Urine Color Urine Appearance Urine pH Ur Specific Collins Urine Protein Urine Glucose (UA) Urine Ketones Urine Blood Urine Nitrite Urine Bilirubin Urine Urobilinogen Ur Leukocyte Esterase Blood Type Antibody Screen 08/27/18 08/27/18 08/27/18 12:45 13:41 15:35 WBC RBC Hgb Hct MCV MCH MCHC RDW Plt Count MPV Absolute Neuts (auto) Neutrophils % Lymphocytes % Monocytes % Eosinophils % Basophils % Nucleated RBC % PT with INR INR PTT (Actin FS) Sodium Potassium Chloride Carbon Dioxide Anion Gap BUN Creatinine Creat Clearance w eGFR Random Glucose Calcium Phosphorus Magnesium Total Bilirubin AST ALT Alkaline Phosphatase Creatine Kinase 49 Troponin I 0.03 Total Protein Albumin Urine Color Straw Urine Appearance Clear Urine pH 5.0 Ur Specific Collins 1.024 Urine Protein Negative Urine Glucose (UA) Negative Urine Ketones Negative Urine Blood Negative Urine Nitrite Negative Urine Bilirubin Negative Urine Urobilinogen Negative Ur Leukocyte Esterase Negative Blood Type O POSITIVE Antibody Screen Negative 08/27/18 08/28/18 08/28/18 22:10 05:30 05:30 WBC 7.3 RBC 3.66 Hgb 11.9 Hct 35.6 MCV 97.3 H MCH 32.6 MCHC 33.5 RDW 15.1 Plt Count 152 MPV 12.7 H Absolute Neuts (auto) 4.5 Neutrophils % 61.5 Lymphocytes % 20.0 Monocytes % 15.4 H Eosinophils % 2.3 Basophils % 0.8 Nucleated RBC % 0 PT with INR 11.40 INR 0.97 PTT (Actin FS) 29.6 Sodium Potassium Chloride Carbon Dioxide Anion Gap BUN Creatinine Creat Clearance w eGFR Random Glucose Calcium Phosphorus Magnesium Total Bilirubin AST ALT Alkaline Phosphatase Creatine Kinase Troponin I 0.31 H Total Protein Albumin Urine Color Urine Appearance Urine pH Ur Specific Collins Urine Protein Urine Glucose (UA) Urine Ketones Urine Blood Urine Nitrite Urine Bilirubin Urine Urobilinogen Ur Leukocyte Esterase Blood Type Antibody Screen 08/28/18 08/28/18 05:30 05:30 WBC RBC Hgb Hct MCV MCH MCHC RDW Plt Count MPV Absolute Neuts (auto) Neutrophils % Lymphocytes % Monocytes % Eosinophils % Basophils % Nucleated RBC % PT with INR INR PTT (Actin FS) Sodium 142 Potassium 4.8 Chloride 109 H Carbon Dioxide 28 Anion Gap 5 L BUN 30 H Creatinine 1.2 Creat Clearance w eGFR 44.16 Random Glucose 81 Calcium 8.8 Phosphorus 3.4 Magnesium 1.9 Total Bilirubin AST ALT Alkaline Phosphatase Creatine Kinase Troponin I 0.16 H Total Protein Albumin Urine Color Urine Appearance Urine pH Ur Specific Collins Urine Protein Urine Glucose (UA) Urine Ketones Urine Blood Urine Nitrite Urine Bilirubin Urine Urobilinogen Ur Leukocyte Esterase Blood Type Antibody Screen Active Medications Enoxaparin Sodium (Lovenox -) 40 mg SQ DAILY [facility] Last Admin: 08/28/18 09:43 Dose: 40 mg Gabapentin (Neurontin -) 100 mg PO DAILY [facility] Last Admin: 08/28/18:44 Dose: 100 mg Losartan Potassium (Cozaar -) 25 mg PO DAILY [facility] Last Admin: 08/28/18:44 Dose: 25 mg Metoprolol Succinate (Toprol Xl -) 25 mg PO DAILY [facility] Last Admin: 08/28/18:44 Dose: 25 mg Pantoprazole Sodium (Protonix -) 20 mg PO DAILY [facility] Last Admin: 08/28/18:44 Dose: 20 mg Prednisone (Deltasone -) 5 mg PO DAILY [facility] IMAGING: -CXR: No significant change since 06/01/2018 study. -Chest CTA: There is no evidence of aortic dissection, aneurysm, or intramural hematoma. No pneumothorax, pleural effusion or acute infiltrate is seen. As on a previous CT exam of 12/05/2017 prominent bilateral upper lobe fibrotic changes are seen with associated traction bronchiectasis. No definite CT evidence of pulmonary embolism. There is no definite cardiac enlargement. No pericardial effusion is seen. As the prior study several calcified mediastinal and bilateral hilar lymph nodes consistent with prior granulomatous disease. -CT A/P With contrast: No aortic dissection is identified. Status post cholecystectomy. Colonic diverticulosis. -CT Head without contrast: Mild volume loss without evidence of acute intracranial pathology. Chronic sinusitis involving included portion of the right maxillary antrum and right ethmoid air cells -Neck CTA: No definite arterial dissection is identified. An approximately 70% proximal right internal carotid artery stenosis is noted. -EKG: NORMAL SINUS RHYTHM, POSSIBLE LEFT ATRIAL ENLARGEMENT, LEFT BUNDLE BRANCH BLOCK -EKG: NORMAL SINUS RHYTHM, POSSIBLE LEFT ATRIAL ENLARGEMENT, LEFT BUNDLE BRANCH BLOCK -EKG: NORMAL SINUS RHYTHM, LEFT BUNDLE BRANCH BLOCK, T WAVE INVERSION NOW EVIDENT IN INFERIOR LEADS -ECHO: Septal motion is consistent with conduction abnormality. EF 45-50%. Mild MR, TR, PVR. No pericardial effusion. ASSESSMENT/PLAN: 73 y/o F with PMHx significant for sarcoidosis, COPD, vertigo, HTN, GERD, Cirrhosis and liver transplant s/p Hep C was BIBEMS with chest discomfort. 1. Chest discomfort r/o ACS -Troponins 0.16--> 0.31--> 0.03 -EKG: NSR, LBBB (old), TWI in inferior leads -ECHO: Septal motion is consistent with conduction abnormality. EF 45-50%. Mild MR, TR, PVR. No pericardial effusion. -Lexiscan stress test scheduled, however patient refused -Cardiology (Dr. Kellogg) consulted, appreciate rec's, Continue ASA 81 qd, uptitrate losartan 50 qd, Toprol XL 50 qd, Aldactone 25 qd to optimize BP management -Chest CTA (noted above) negative -CT A/P With contrast: No aortic dissection is identified. -Neck CTA: No definite arterial dissection is identified. Approx. 70% proximal right ICA stenosis 2. Hemoptysis -On admission, patient mentioned coughing up blood -CXR: Chronic upper lobe findings with scarring and granulomatous changes -Chest CTA: Several calcified mediastinal and bilateral hilar lymph nodes consistent with prior granulomatous disease. -Likely sequelae of sarcoidosis -Pulmonology (Dr. Lorenzana) Consulted -Continue home dose Prednisone for sarcoidosis 3. Transaminitis -s/p Liver transplant (On Prednisone 5mg daily, no other antirejection meds) -Concern for possible rejection, GI (Dr. Brown) Consulted, Appreciate Rec's -Will refer to social work to help patient find a transplant crt in her network -Abdominal US pending official read 4. HTN -Continue Home dose Metoprolol, Losartan, Spironolactone 5. FEN -PO Fluids -Lytes WNL -NPO Pending stress test 6. PPx -DVT: Lovenox Dispo:Tele Visit type - Emergency Visit Emergency Visit: Yes ED Registration Date: 08/27/18 Care time: The patient presented to the Emergency Department on the above date and was hospitalized for further evaluation of their emergent condition. - New Patient This patient is new to me today: Yes Date on this admission: 08/28/18 - Critical Care Critical Care patient: No
--- NOTE | 2018-08-28 12:06 | ECHO ---
Name: DEDRICK JUAREZ Exam:Adult Echocardiogram Study Date: 08/28/2018 11:13 AM Age: 73 yrs Reason For Study: Chest pain Height: 60 in Weight: 176 lb BSA: 1.8 m2 MMode/2D Measurements & Calculations IVSd: 0.91 cm Ao root diam: 2.5 cm LVIDd: 4.8 cm LA dimension: 3.5 cm LVIDs: 3.5 cm LVPWd: 0.97 cm EDV(Teich): 105.8 ml ESV(Teich): 50.7 ml Doppler Measurements & Calculations MV E max manoj: 97.9 cm/sec TR max manoj: 250.8 cm/sec MV A max manoj: 143.9 cm/sec TR max P.2 mmHg MV E/A: 0.68 MV dec time: 0.10 sec Med Peak E' Manoj: 5.7 cm/sec Med E/e': 17.3 Lat Peak E' Manoj: 5.3 cm/sec Lat E/e': 18.4 Left Ventricle Ejection Fraction = 45-50%. Septal motion is consistent with conduction abnormality. Right Ventricle The right ventricle is normal in size and function. Atria Normal left and right atrial size and function. Mitral Valve The posterior leaflet of the mitral valve has an area of focal calcification. There is no mitral valv e stenosis. There is mild mitral regurgitation. Tricuspid Valve The tricuspid valve is normal in structure and function. There is mild tricuspid regurgitation. Right ventricular systolic pressure is elevated at 30-40mmHg. Aortic Valve The aortic valve opens well. No hemodynamically significant valvular aortic stenosis. No aortic regur gitation is present. Pulmonic Valve The pulmonic valve is not well seen, but is grossly normal. There is no pulmonic valvular stenosis. M ild pulmonic valvular regurgitation. Great Vessels The aortic root is normal size. Pericardium/Pleura There is no pericardial effusion. Interpretation Summary Septal motion is consistent with conduction abnormality. Ejection Fraction = 45-50%. The right ventricle is normal in size and function. The posterior leaflet of the mitral valve has an area of focal calcification. There is mild mitral regurgitation. There is mild tricuspid regurgitation. Right ventricular systolic pressure is elevated at 30-40mmHg. Mild pulmonic valvular regurgitation. There is no pericardial effusion. MD Ulisses Prather 08/28/2018 12:06 PM
[2018-08-28 12:42] LABS: ANISOCYTOSIS 1+; MACROCYTOSIS 1+
[2018-08-28] MEDS: predniSONE 5 MG TABLET (UD) PO SCH (12:54)
--- NOTE | 2018-08-28 13:36 | CON.PULM ---
Consult Consult Specialty:: PULM/CCM Referred by:: CATE Reason for Consultation:: CP / Sarcoidosis - History of Present Illness Chief Complaint: GANDHI / CP History of Present Illness: 73 F, known history of Pulmonary Sarcoidosis diagnosed by Dr Lyons by lug biopsy (not treatment), COPD due to previous smoking, vertigo, HTN, GERD, Hep C , Cirrhosis, and history of liver transplant at [facility]. Admitted via the ER due to lightheadedness, GANDHI, and chest tightness. She reports that she was cleaning the dishes when her symptoms occurred. Associated diaphoresis and nausea and vomiting. No travel history or sick contacts. Reports "occasional" hemoptysis, but none for months. Of note, has not followed with her liver transplant team since 2012. In addition she takes Tylenol and NSAIDS "when she needs to". CTA: no PE / chronic appearing parenchymal and mediastinal changes - History Source History Provided By: Patient Limitations to Obtaining History: No Limitations - Past Medical History Cardio/Vascular: Yes: HTN Pulmonary: Yes: Asthma, Bronchitis, COPD. No: Cancer, O2 Dependent, Previously Intubated, Pulmonary Embolus, Pulmonary Fibrosis Gastrointestinal: Yes: GERD, Other (liver transplant) Hepatobiliary: Yes: Hepatitis C Renal/: Yes: Renal Inusuff - Past Surgical History Past Surgical History: Yes: Liver Transplant - Alcohol/Substance Use Hx Alcohol Use: No - Smoking History Smoking history: Former smoker Have you smoked in the past 12 months: No Aproximately how many cigarettes per day: 2 If you are a former smoker, when did you quit?: 25 years ago Home Medications - Allergies Allergies/Adverse Reactions: Allergies Allergy/AdvReac Type Severity Reaction Status Date / Time shrimp Allergy Verified 07/17/18 11:25 - Home Medications Home Medications: Ambulatory Orders Gabapentin 100 mg PO DAILY 02/22/17 Losartan Potassium 25 mg PO DAILY 02/22/17 Metoprolol Succinate [Toprol XL -] 25 mg PO DAILY 02/22/17 Omeprazole 20 mg PO DAILY 02/22/17 Prednisone 5 mg PO DAILY 02/22/17 Spironolactone [Aldactone] 25 mg PO DAILY 02/22/17 Ibuprofen 800 mg PO TID #30 tablet 06/01/18 Methocarbamol [Robaxin -] 500 mg PO TID #21 tablet 07/17/18 Naproxen 500 mg PO BID PRN #20 tablet. 07/17/18 Review of Systems - Review of Systems Constitutional: denies: Chills, Fever, Malaise, Night Sweats, Unintentional Wgt. Loss, Weakness Eyes: reports: No Symptoms HENT: reports: No Symptoms Neck: reports: No Symptoms Cardiovascular: reports: Chest Pain. denies: Edema, Palpitations, Shortness of Breath Respiratory: reports: Cough, Hemoptysis, Snoring. denies: SOB, SOB on Exertion , Wheezing Gastrointestinal: reports: Nausea, Vomiting. denies: Melena, Vomiting Blood Genitourinary: reports: No Symptoms Breasts: reports: No Symptoms Reported Musculoskeletal: reports: No Symptoms Integumentary: reports: No Symptoms Neurological: reports: Headache. denies: Change in Speech, Seizure, Syncope Endocrine: reports: No Symptoms Hematology/Lymphatic: reports: No Symptoms Psychiatric: reports: No Symptoms Physical Exam Vital Sings: Vital Signs Temperature 98.7 F 08/28/18 04:53 Pulse Rate 80 08/28/18 08:02 Respiratory Rate 18 08/28/18 08:02 Blood Pressure 160/81 08/28/18 08:02 O2 Sat by Pulse Oximetry (%) 94 L 08/28/18 00:03 Constitutional: Yes: Well Nourished, No Distress, Obese Eyes: Yes: Conjunctiva Clear, EOM Intact HENT: Yes: Normocephalic Neck: Yes: Trachea Midline Cardiovascular: Yes: Regular Rate and Rhythm Respiratory: Yes: CTA Bilaterally, Cough, Diminished. No: Accessory Muscle Use , Rales, Rhonchi, SOB, SOB on Exertion, Stridor, Tachypnea, Wheezes ...Inspection: Yes: WNL ...Clubbing: No Gastrointestinal: Yes: Normal Bowel Sounds, Soft, Abdomen, Obese Renal/: Yes: WNL Musculoskeletal: Yes: WNL Extremities: Yes: WNL Edema: No Peripheral Pulses WNL: Yes Integumentary: Yes: WNL Neurological: Yes: WNL, Alert, Oriented ...Motor Strength: WNL Psychiatric: Yes: WNL, Alert, Oriented Labs: CBC, BMP 08/28/18 05:30 08/28/18 05:30 Imaging - Results Chest X-ray: Report Reviewed, Image Reviewed Cat Scan: Report Reviewed, Image Reviewed Problem List - Problems (1) Chest tightness Code(s): R07.89 - OTHER CHEST PAIN (2) Lightheaded Code(s): R42 - DIZZINESS AND GIDDINESS (3) CKD (chronic kidney disease) Code(s): N18.9 - CHRONIC KIDNEY DISEASE, UNSPECIFIED (4) Low back pain Code(s): M54.5 - LOW BACK PAIN Qualifiers: Chronicity: chronic Back pain laterality: right Sciatica presence: with sciatica Sciatica laterality: sciatica of right side Qualified Code(s): M54.41 - Lumbago with sciatica, right side; G89.29 - Other chronic pain (5) Pulmonary sarcoidosis Code(s): D86.0 - SARCOIDOSIS OF LUNG Assessment/Plan At present no referable acute pulmonary issues identified. Chronic changes noted on radiographic imaging. Patient has never required specific treatment for her Pulmonary Sarcoidosis in the past. Cardiac workup ongoing Advised to follow with Dr Lyons or my office O2 as needed No smoking No Pulmonary contraindication for D/C planning if cardiac workup is negative Thank you. Dr Peck
--- NOTE | 2018-08-28 15:04 | PN ---
Teaching Attending Note Name of Resident: Shanelle Brady ATTENDING PHYSICIAN STATEMENT I saw and evaluated the patient. I reviewed the resident's note and discussed the case with the resident. I agree with the resident's findings and plan as documented. SUBJECTIVE: No fever or chills. reported Cp and light headedness along with sweating and body numbness at home. improved after sitting down but her L hand continued to be numb for few more min . NO Cp at time of evaluation this am. SOB at base line . no abd pain OBJECTIVE: NAD CV : RRR, nO JVD Lungs: CTAB , no crackles or wheezes ext : no edema Abd:soft, NT, ND , minimal discomfort in RUQ. no hepatosplenomegaly . ASSESSMENT AND PLAN: 73 y/o lady with h/o HTN, Hep C s/p liver transplant , , pulmonary sarcoidosis , COPD, vertigo, and other medical problems who presented with near syncope and CP 1- Near syncope: sounds vasovagal in etiology vs orthostatic hypotension . PA as a primary process is less likely - carotid stenosis on CT is unlikely contributing, but will consult vascular 2- CP : possibly part of her vasovagal sx . L arm numbness along with elevated trop is slightly concerning for ACS, Trop leak could be due to NSTEMI though. EKG with LBBB ( old ) - patient refused stress test - cont BB - f/u with card as out pt - echo reviewed. 3- Transaminitis : unclear etiology. has not seen devops developer x 10 yrs. no tenderness but discomfort in RUQ. liver on CT scan has no abnormalities and s/p CCY . - GI eval pending - US ordered - follow repeat LFTS 4- Hemoptysis: no masses on chest CT.No PNA . old scarring - f/u with pulm as out pt - cont her prednisone for sarcoidosis 5- HTN: cont meds dispo : pending GI and vascular eval. might DC today .ambulating normally with no difficulty
[2018-08-28] MEDS ORDERED: metoPROLOL SUCCINATE 25 MG TAB.SR.24H (FP) PO ONE (15:10)
--- NOTE | 2018-08-28 17:45 | CON.GI ---
Consult Consult Specialty:: Gastroenterology ( covering Dr. Paiz) Referred by:: Dr Og Whaley Reason for Consultation:: abnormal LFTs - History of Present Illness Chief Complaint: chest pain with dizziness and vomiting History of Present Illness: 73F is admitted with c/o dizziness, vomiting and chest pain. She describes having hematemesis at home but no melena. No vomiting today. She is hungry. She also describes hemoptysis regularly. 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 She however tells me that it was for hepatitis C. She last had an EGD with my associate Dr Joe Knight in 1997 that revealed antral erythema but no varices. Her last colonoscopy in 11/04 led to the removal of an adenoma from the hepatic flexure and revealed right colon diverticulosis. She is chronically in steroids for sarcoidosis. She has been off transplant rejections drugs for "many years". She stopped them on her own. She lost contact with her transplant team long ago. She last had LFTs with her PMD Dr Pool 3 months ago and was told that they were abnormal and she needed to followup with her transplant team but ignored the advice. She denies pruritus. - History Source History Provided By: Patient Limitations to Obtaining History: No Limitations - Past Medical History Cardio/Vascular: Yes: HTN Pulmonary: Yes: Asthma, COPD, Other (sarcoidosis) Gastrointestinal: Yes: GERD, Other (colon adenoma removed 2011 ) Hepatobiliary: Yes: Hepatitis C, Other (liver transplant for PBC at [facility]) Renal/: Yes: Renal Inusuff Rheumatology: Yes: Gout - Past Surgical History Past Surgical History: Yes: Cataract Removal (with implants bilaterally), Colonoscopy, Liver Transplant (liver transplanted at [facility]), Tubal Ligation, Upper Endoscopy - Alcohol/Substance Use Hx Alcohol Use: No History of Substance Use: reports: None - Smoking History Smoking history: Former smoker Have you smoked in the past 12 months: No Aproximately how many cigarettes per day: 2 If you are a former smoker, when did you quit?: 1992 - Social History Usual Living Arrangement: With Spouse ADL: Independent Place of : Other ([place] Came to [place] (year[place] age 36 History of Recent Travel: No Home Medications - Allergies Allergies/Adverse Reactions: Allergies Allergy/AdvReac Type Severity Reaction Status Date / Time shrimp Allergy Verified 07/17/18 11:25 - Home Medications Home Medications: Ambulatory Orders Gabapentin 200 mg PO HS PRN 02/22/17 Losartan Potassium 25 mg PO DAILY 02/22/17 Metoprolol Succinate [Toprol XL -] 25 mg PO DAILY 02/22/17 Omeprazole 20 mg PO DAILY 02/22/17 Prednisone 5 mg PO DAILY 02/22/17 Spironolactone [Aldactone] 25 mg PO DAILY 02/22/17 Albuterol 2.5/Ipratropium 0.5 [Duoneb -] 1 amp NEB DAILY PRN 08/28/18 Albuterol Sulfate Inhaler - [Ventolin HFA Inhaler -] 2 inh IH Q6H PRN 08/28/18 Allopurinol [Zyloprim -] 100 mg PO DAILY 08/28/18 Budesonide/Formeterol Fumarate [SYMBICORT 160/4.5mcg -] 2 puff IH BID 08/28/18 Hydrochlorothiazide 12.5 mg PO DAILY 08/28/18 Meclizine HCl 25 mg PO DAILY PRN 08/28/18 Montelukast Sodium [Singulair] 10 mg PO DAILY 08/28/18 Family Disease History - Family Disease History Family Disease History: Other: Father (lived into his 90s), Mother ( inher 40's ? cause) Review of Systems - Review of Systems Constitutional: reports: No Symptoms Eyes: reports: No Symptoms HENT: reports: No Symptoms Neck: reports: No Symptoms Cardiovascular: reports: Chest Pain, Shortness of Breath Respiratory: reports: Exercise Intolerance Gastrointestinal: reports: Vomiting, Vomiting Blood Musculoskeletal: reports: No Symptoms Physical Exam-GI Vital Signs: Vital Signs Temperature 97.5 F L 08/28/18 12:00 Pulse Rate 89 08/28/18 12:00 Respiratory Rate 18 08/28/18 12:00 Blood Pressure 144/65 08/28/18 12:00 O2 Sat by Pulse Oximetry (%) 94 L 08/28/18 00:03 CBC,CMP WBC 7.3 K/mm3 (4.0-10.0) 08/28/18 05:30 RBC 3.66 M/mm3 (3.60-5.2) 08/28/18 05:30 Hgb 11.9 GM/dL (10.7-15.3) 08/28/18 05:30 Hct 35.6 % (32.4-45.2) 08/28/18 05:30 MCV 97.3 fl (80-96) H 08/28/18 05:30 MCH 32.6 pg (25.7-33.7) 08/28/18 05:30 MCHC 33.5 g/dl (32.0-36.0) 08/28/18 05:30 RDW 15.1 % (11.6-15.6) 08/28/18 05:30 Plt Count 152 K/MM3 (134-434) 08/28/18 05:30 MPV 12.7 fl (7.5-11.1) H 08/28/18 05:30 Absolute Neuts (auto) 4.5 K/mm3 (1.5-8.0) 08/28/18 05:30 Neutrophils % 61.5 % (42.8-82.8) 08/28/18 05:30 Lymphocytes % 20.0 % (8-40) 08/28/18 05:30 Monocytes % 15.4 % (3.8-10.2) H 08/28/18 05:30 Eosinophils % 2.3 % (0-4.5) 08/28/18 05:30 Basophils % 0.8 % (0-2.0) 08/28/18 05:30 Nucleated RBC % 0 % (0-0) 08/28/18 05:30 Hypochromia 1+ 08/28/18 05:30 Anisocytosis 1+ 08/28/18 05:30 Macrocytosis 1+ 08/28/18 05:30 Sodium 142 mmol/L (136-145) 08/28/18 05:30 Potassium 4.8 mmol/L (3.5-5.1) 08/28/18 05:30 Chloride 109 mmol/L (98-107) H 08/28/18 05:30 Carbon Dioxide 28 mmol/L (21-32) 08/28/18 05:30 Anion Gap 5 MMOL/L (8-16) L 08/28/18 05:30 BUN 30 mg/dL (7-18) H 08/28/18 05:30 Creatinine 1.2 mg/dL (0.55-1.3) 08/28/18 05:30 Creat Clearance w eGFR 44.16 (>60) 08/28/18 05:30 Random Glucose 81 mg/dL (74-106) 08/28/18 05:30 Calcium 8.8 mg/dL (8.5-10.1) 08/28/18 05:30 Phosphorus 3.4 mg/dL (2.5-4.9) 08/28/18 05:30 Magnesium 1.9 mg/dL (1.8-2.4) 08/28/18 05:30 Total Bilirubin 0.6 mg/dL (0.2-1) 08/27/18 12:45 AST 76 U/L (15-37) H 08/27/18 12:45 ALT 167 U/L (13-61) H 08/27/18 12:45 Alkaline Phosphatase 441 U/L (45-117) H 08/27/18 12:45 Creatine Kinase 49 IU/L (26-192) 08/27/18 12:45 Troponin I 0.16 ng/ml (0.00-0.05) H 08/28/18 05:30 Total Protein 7.6 g/dl (6.4-8.2) 08/27/18 12:45 Albumin 3.6 g/dl (3.4-5.0) 08/27/18 12:45 Current Medications Generic Name Dose Route Start Last Admin Trade Name Freq PRN Reason Stop Dose Admin Enoxaparin Sodium 40 mg 08/28/18 10:00 08/28/18 09:43 Lovenox - SQ 40 mg DAILY [facility]SON Administration Gabapentin 100 mg 08/28/18 10:00 08/28/18 09:44 Neurontin - PO 100 mg DAILY [facility]SON Administration Losartan Potassium 25 mg 08/28/18 10:00 08/28/18 09:44 Cozaar - PO 25 mg DAILY [facility] Administration Metoprolol Succinate 50 mg 08/29/18 10:00 Toprol Xl - PO DAILY [facility]SON Pantoprazole Sodium 20 mg 08/28/18 10:00 08/28/18 09:44 Protonix - PO 20 mg DAILY [facility] Administration Prednisone 5 mg 08/28/18 10:00 08/28/18 12:54 Deltasone - PO 5 mg DAILY [facility] Administration Spironolactone 25 mg 08/28/18 15:15 Aldactone - PO DAILY K[facility]SON Constitutional: Yes: Anxious Eyes: Yes: Conjunctiva Clear HENT: Yes: Normocephalic Neck: Yes: Supple Cardiovascular: Yes: Regular Rate and Rhythm Respiratory: Yes: CTA Bilaterally Gastrointestinal Inspection: Yes: Scars (healed buckethandle and BTL incisions) ...Auscultate: Yes: Normoactive Bowel Sounds ...Palpate: Yes: Soft, Other (nontender) ...Rectal Exam: Yes: Guaiac Negative (formed brown guaiac negative stool) Edema: No Neurological: Yes: Alert, Oriented Labs: CBC, BMP 08/28/18 05:30 08/28/18 05:30 INR, PTT INR 0.97 (0.83-1.09) 08/28/18 05:30 Imaging - Results Cat Scan: Report Reviewed (George Lamas Name: DEDRICK JUAREZ DEPARTMENT OF RADIOLOGY Phys: Moisés Nascimento RESIDENT : 1945 Age: 73 Sex: F [facility] Acct: [id number] Loc: [address] Exam Date: 08/27/18 Status: [place] [address] Unit Number: [id number] EXAM#: TYPE/EXAM: RESULT: [id number] CT/CHEST CTA Chest CT angiography Clinical information given: chest tightness with dizziness, evaluate for clot or dissection Multiplanar imaging was performed before and following the intravenous administration of nonionic contrast. There is no evidence of aortic dissection, aneurysm, or intramural hematoma. No pneumothorax, pleural effusion or acute infiltrate is seen. As on a previous CT exam of 12/05/2017 prominent bilateral upper lobe fibrotic changes are seen with associated traction bronchiectasis. No definite CT evidence of pulmonary embolism. There is no definite cardiac enlargement. No pericardial effusion is seen. As the prior study several calcified mediastinal and bilateral hilar lymph nodes consistent with prior granulomatous disease. The visualized osseous structures demonstrate no gross CT evidence of acute abnormality. Impression: No definite interval change is identified in comparison to a prior CT exam of 12/05/2017. Please see above. Abdomen and pelvis CT (with contrast) Clinical information given: evaluate for dissection Multiplanar imaging was performed before and following the intravenous administration of nonionic contrast. Enteric contrast was not administered. No aortic aneurysm or dissection is visualized. On the basis of arterial phase imaging only the liver, spleen, pancreas, and adrenal glands and kidneys demonstrate no obvious abnormality. Status post cholecystectomy. No evidence of pneumoperitoneum, free intraperitoneal fluid or bowel obstruction. Colonic diverticulosis is noted without evidence of acute diverticulitis. No gross pelvic pathology is identified. The visualized osseous structures demonstrate no obvious CT evidence of acute abnormality. Impression: No aortic dissection is identified. Status post cholecystectomy. Colonic diverticulosis. Reported By: You Barnes MD 08/27/181656 MOISÉS NASCIMENTO Technologist : Raven Abreu Transcribed Date/Time: 08/27/181656 [employer]ways [employer] Specialist: You Barnes Printed Date/Time: By: Signed by: You Barnes Signed on: 27-Aug-2018 16:59) Problem List - Problems (1) History of liver transplant Assessment/Plan: The elevated LFTs suggest PBC but I will screen for alternative etiologies which could include TAYLOR. She may come to need a liver biopsy. Will confirm or exclude HCV. CT reveals no ductal dilation or masses but will check AFP. Code(s): Z94.4 - LIVER TRANSPLANT STATUS (2) Primary biliary cholangitis Code(s): K74.3 - PRIMARY BILIARY CIRRHOSIS (3) Colon adenoma Code(s): D12.6 - BENIGN NEOPLASM OF COLON, UNSPECIFIED (4) Diverticulosis Code(s): K57.90 - DVRTCLOS OF INTEST, PART UNSP, W/O PERF OR ABSCESS W/O BLEED (5) Hematemesis with nausea Assessment/Plan: Suspect small Tanika Ac tear given the self limited nature. I have advised EGD once she is cardiologically cleared to exclude varices, portal gastropathy and ulcer disease. Code(s): K92.0 - HEMATEMESIS (6) Gout Code(s): M10.9 - GOUT, UNSPECIFIED (7) Chest tightness Code(s): R07.89 - OTHER CHEST PAIN (8) CKD (chronic kidney disease) Code(s): N18.9 - CHRONIC KIDNEY DISEASE, UNSPECIFIED Qualifiers: Chronic kidney disease stage: stage 2 (mild) Qualified Code(s): N18.2 - Chronic kidney disease, stage 2 (mild) (9) COPD with exacerbation Code(s): J44.1 - CHRONIC OBSTRUCTIVE PULMONARY DISEASE W (ACUTE) EXACERBATION (10) Pulmonary sarcoidosis Code(s): D86.0 - SARCOIDOSIS OF LUNG
--- NOTE | 2018-08-28 17:55 | PN ---
Progress Note (short form) - Note Progress Note: [facility] CTA reviewed - right ICA stenosis of 70%. Pt does not need any surgical intervention for this stenosis. CAn follow as outpt to surveillance the stenosis and make sure it is not progressing. Medical management. Carlos Alves DO
[2018-08-28] MEDS: SPIRONOLACTONE 25 MG TABLET (FP) PO SCH (23:26)
[2018-08-29 06:26] LABS: INR 0.99 (0.83-1.09); PROTHROMBIN TIME (PATIENT) 11.7 SEC (9.7-13.0)
[2018-08-29 07:05] LABS: N-TERMINAL BNP 708.3 pg/ml (5-125); URIC ACID 8.4 mg/dL (2.6-7.2)
--- NOTE | 2018-08-29 08:37 | PN ---
Progress Note (short form) - Note Progress Note: Chief Complaint: Events noted, notes reviewed, denies any chest pain or dyspnea , sinus rhythm is noted with IVCD History of Present Illness: Seen and examined on telemetry. Events noted, notes reviewed, denies any chest pain or dyspnea, sinus rhythm is noted with IVCD Declined pharmacologic MPI study, advised to followup with her photo specialist Dr. Mancilla for further evaluation and management 08/28/2018 Mildly decreased LVEF 45-50%, normal RV size and function, mild MR and TR Medications: Current Medications Enoxaparin Sodium (Lovenox -) 40 mg SQ DAILY [facility] Last Admin: 08/28/18 09:43 Dose: 40 mg Gabapentin (Neurontin -) 100 mg PO DAILY [facility] Last Admin: 08/28/18 09:44 Dose: 100 mg Losartan Potassium (Cozaar -) 25 mg PO DAILY [facility] Last Admin: 08/28/18 09:44 Dose: 25 mg Metoprolol Succinate (Toprol Xl -) 50 mg PO DAILY [facility] Pantoprazole Sodium (Protonix -) 20 mg PO DAILY [facility] Last Admin: 08/28/18 09:44 Dose: 20 mg Prednisone (Deltasone -) 5 mg PO DAILY [facility] Last Admin: 08/28/18 12:54 Dose: 5 mg Spironolactone (Aldactone -) 25 mg PO DAILY [facility] Last Admin: 08/28/18 23:26 Dose: 25 mg Review of Systems - Review of Systems Constitutional: no symptoms reported Respiratory: reports Cough Cardiovascular: as noted above Gastrointestinal: denies Nausea, Vomiting, Diarrhea, Constipation or Abdominal Pain Genitourinary: no symptoms reported Musculoskeletal: no symptoms reported Endocrine: no symptoms reported Vital Signs: Last Vital Signs Temp Pulse Resp BP Pulse Ox 98.6 F 73 18 152/64 94 L 08/29/18 02:00 08/29/18 02:00 08/29/18 02:00 08/29/18 02:00 08/28/18 00:03 Intake & Output 08/26/18 08/27/18 08/28/18 08/29/18 23:59 23:59 23:59 23:59 Weight 175 lb 176 lb 8 oz Neck: Supple Negative JVD Respiratory: Bilateral Scattered Rhonchi Cardiovascular: S1 S2 Regular Rate and Rhythm Gastrointestinal: Soft Benign Normal Bowel Sounds Ext: Negative Edema Labs: Troponin, BNP 08/29/18 05:30 B-Natriuretic Peptide 708.3 H CBC, BMP 08/28/18 05:30 08/28/18 05:30 Hepatic Panel Total Bilirubin 0.6 mg/dL (0.2-1) 08/27/18 12:45 AST 76 U/L (15-37) H 08/27/18 12:45 ALT 167 U/L (13-61) H 08/27/18 12:45 Alkaline Phosphatase 441 U/L (45-117) H 08/27/18 12:45 Albumin 3.6 g/dl (3.4-5.0) 08/27/18 12:45 INR, PTT INR 0.99 (0.83-1.09) 08/29/18 05:30 Assessment/Plan ASSESSMENT: 1. Hypertensive cardiomyopathy with hypertensive urgency, not at goal blood pressure 2. CAD with evidence of demand ischemia 3. Systolic LV dysfunction with class 0-I NYHA classification LV failure, clinically compensated (systolic dysfunction etiologies could be CAD/ischemic cardiomyopathy or hypertensive cardiomyopathy or myocardial sarcoidosis) 4. HTN 5. Hypercholestrolemia/xanthelasmas 6. Pulmonary Sarcoidosis 7. ESLD post orthotopic Liver Transplant with abnormal LFTs 8. CKD PLAN: 1. Continue ASA 2. Continue Losartan and titrate as needed and as tolerated 3. Continue Toprol XL 4. Continue Aldactone 5. Since patient declined inpatient MPI study, recommend outpatient followup with her photo specialist and outpatient evaluation including pharmacologic Dobutamine study, and cardiac MRA (evaluation of possible myocardial sarcoidosis) 6. Ambulate and D/C as per the primary team Clemencia Dale M.D.
[2018-08-29] MEDS ORDERED: LOSARTAN POTASSIUM 25 MG TABLET PO SCH (09:22)
[2018-08-29] MEDS: ENOXAPARIN NA (PORCINE) 40 MG/0.4 ML DISP.SYRIN SQ SCH (10:58)
[2018-08-29] MEDS: GABAPENTIN 100 MG CAPSULE (FP) PO SCH (10:58)
[2018-08-29] MEDS: predniSONE 5 MG TABLET (UD) PO SCH (10:59)
[2018-08-29] MEDS: SPIRONOLACTONE 25 MG TABLET (FP) PO SCH (11:00)
[2018-08-29] MEDS: PANTOPRAZOLE 20 MG TABLET (FP) PO SCH (11:00)
--- NOTE | 2018-08-29 12:33 | PN ---
Physical Exam: SUBJECTIVE: Patient seen and examined this morning while she was eating breakfast. Has chronic cough productive of white phlegm, SOB and lower back pain. Denies any chest pain, dizziness, palpitations, nausea, vomiting, diarrhea. OBJECTIVE: Vital Signs Period Temp Pulse Resp BP Sys/Freeman Pulse Ox Last 24 Hr 98.4 F-98.6 F 73-100 16-18 121-166/55-70 GENERAL: A&Ox3, NAD, Sitting upright in her chair eating breakfast HEAD: NCAT EYES: PERRLA, EOMI THROAT: Oropharynx clear without exudates, moist mucous membranes. NECK: No JVD LUNGS: Clear to auscultation bilaterally, no wheezes HEART: Regular rate and rhythm, S1, S2 without murmur ABDOMEN: Soft, nontender, nondistended, + bowel sounds, no guarding EXTREMITIES: 2+ pulses, no edema. NEUROLOGICAL: Cranial nerves II through XII grossly intact. Normal speech. SKIN: Warm, dry Laboratory Results - last 24 hr 08/29/18 08/29/18 08/29/18 05:30 05:30 05:30 Hypochromia Anisocytosis Macrocytosis PT with INR 11.70 INR 0.99 Hemoglobin A1c % 5.6 Uric Acid 8.4 H Ferritin 282.8 GGT 484 H C-Reactive Protein B-Natriuretic Peptide 708.3 H Triglycerides Cholesterol Total LDL Cholesterol HDL Cholesterol Total Amylase 61 Lipase 201 TSH Stool Occult Blood 08/29/18 08/29/18 05:30 10:20 Hypochromia Anisocytosis Macrocytosis PT with INR INR Hemoglobin A1c % Uric Acid Ferritin GGT C-Reactive Protein 2.9 H B-Natriuretic Peptide Triglycerides 71 Cholesterol 178 Total LDL Cholesterol 91 HDL Cholesterol 79 H Total Amylase Lipase TSH 2.02 Stool Occult Blood Negative Active Medications Enoxaparin Sodium (Lovenox -) 40 mg SQ DAILY [facility] Last Admin: 08/29/18 10:58 Dose: 40 mg Gabapentin (Neurontin -) 100 mg PO DAILY [facility] Last Admin: 08/29/18 10:58 Dose: 100 mg Losartan Potassium (Cozaar -) 50 mg PO DAILY [facility] Last Admin: 08/29/18 10:59 Dose: 50 mg Metoprolol Succinate (Toprol Xl -) 100 mg PO DAILY [facility] Pantoprazole Sodium (Protonix -) 20 mg PO DAILY [facility] Last Admin: 08/29/18 11:00 Dose: 20 mg Prednisone (Deltasone -) 5 mg PO DAILY [facility] Last Admin: 08/29/18 10:59 Dose: 5 mg Spironolactone (Aldactone -) 25 mg PO DAILY [facility] Last Admin: 08/29/18 11:00 Dose: 25 mg IMAGING: -CXR: No significant change since 06/01/2018 study. -Chest CTA: There is no evidence of aortic dissection, aneurysm, or intramural hematoma. No pneumothorax, pleural effusion or acute infiltrate is seen. As on a previous CT exam of 12/05/2017 prominent bilateral upper lobe fibrotic changes are seen with associated traction bronchiectasis. No definite CT evidence of pulmonary embolism. There is no definite cardiac enlargement. No pericardial effusion is seen. As the prior study several calcified mediastinal and bilateral hilar lymph nodes consistent with prior granulomatous disease. -CT A/P With contrast: No aortic dissection is identified. Status post cholecystectomy. Colonic diverticulosis. -CT Head without contrast: Mild volume loss without evidence of acute intracranial pathology. Chronic sinusitis involving included portion of the right maxillary antrum and right ethmoid air cells -Neck CTA: No definite arterial dissection is identified. An approximately 70% proximal right internal carotid artery stenosis is noted. -EKG: NORMAL SINUS RHYTHM, POSSIBLE LEFT ATRIAL ENLARGEMENT, LEFT BUNDLE BRANCH BLOCK -EKG: NORMAL SINUS RHYTHM, POSSIBLE LEFT ATRIAL ENLARGEMENT, LEFT BUNDLE BRANCH BLOCK -EKG: NORMAL SINUS RHYTHM, LEFT BUNDLE BRANCH BLOCK, T WAVE INVERSION NOW EVIDENT IN INFERIOR LEADS -ECHO: Septal motion is consistent with conduction abnormality. EF 45-50%. Mild MR, TR, PVR. No pericardial effusion. -Abdomen Ultrasound: No obvious hepatic pathology is seen. Status post cholecystectomy. The proximal common bile duct appears to be dilated with a 1.2 cm diameter. The distal common bile duct is obscured due to overlapping bowel gas. No gross intraductal calculus is identified. MRI/MRCP evaluation may be considered. No free intraperitoneal fluid is identified. The partially visualized pancreas demonstrates no discrete abnormality. There is no right hydronephrosis. The right kidney demonstrates no obvious pathology. ASSESSMENT/PLAN: 73 y/o F with PMHx significant for sarcoidosis, COPD, vertigo, HTN, GERD, Cirrhosis and liver transplant s/p Hep C was BIBEMS with chest discomfort. 1. Chest discomfort r/o ACS -Troponins 0.16--> 0.31--> 0.03 -EKG: NSR, LBBB (old), TWI in inferior leads -ECHO: Septal motion is consistent with conduction abnormality. EF 45-50%. Mild MR, TR, PVR. No pericardial effusion. -Lexiscan stress test scheduled, however patient refused -Cardiology (Dr. Kellogg) consulted, appreciate rec's, Continue ASA 81 qd, uptitrate losartan 50 qd, Toprol XL 100 qd, Aldactone 25 qd to optimize BP management -Chest CTA (noted above) negative -CT A/P With contrast: No aortic dissection is identified. -Neck CTA: No definite arterial dissection is identified. Approx. 70% proximal right ICA stenosis 2. Hemoptysis -On admission, patient mentioned coughing up blood -CXR: Chronic upper lobe findings with scarring and granulomatous changes -Chest CTA: Several calcified mediastinal and bilateral hilar lymph nodes consistent with prior granulomatous disease. -Likely sequelae of sarcoidosis -Pulmonology (Dr. Lorenzana) Consulted -Continue home dose Prednisone for sarcoidosis -GI (Dr. Brown) Consulted, Appreciate Rec's, Will have EGD on friday 3. Transaminitis -s/p Liver transplant (On Prednisone 5mg daily, no other antirejection meds) -Concern for possible rejection, GI (Dr. Brown) Consulted, Appreciate Rec's -Will refer to social work to help patient find a transplant developer [employer] in her network -Abdominal US noted above 4. HTN -Continue Metoprolol, Losartan, Spironolactone 5. FEN -PO Fluids -Lytes WNL -Sodium controlled diet 6. PPx -DVT: Lovenox Dispo:Tele
--- NOTE | 2018-08-29 13:57 | PN ---
Teaching Attending Note Name of Resident: Shanelle Brady ATTENDING PHYSICIAN STATEMENT I saw and evaluated the patient. I reviewed the resident's note and discussed the case with the resident. I agree with the resident's findings and plan as documented. SUBJECTIVE: no fever or chills. No abd pain . no PC , no cough . now she reported one episode of hematemesis in the ambulance and she was told it has blood . no hematemesis at home OBJECTIVE: NAD CV : RRR, no JVD Lungs: minimal fine crackles heard throughout the lungs ext : no edema Abd:soft, NT, ND , minimal discomfort in RUQ. no hepatosplenomegaly. ASSESSMENT AND PLAN: 73 y/o lady with h/o HTN, Hep C s/p liver transplant , , pulmonary sarcoidosis , COPD, vertigo, and other medical problems who presented with near syncope and CP 1- Near syncope: vasovagal in etiology vs orthostatic hypotension. tele 2- CP : atypical . refused stress test . - f/u with card as out pt - cont BB - LDL above goal but has transaminitis. will not start statin 3- Transaminitis: appreciate Dr. Brown's help. work up in progress - US with CBD dilation 1.2 cm . - check MRCP - follow LFts ( still pending ) - follow all serology - Likely, EGD on Friday due to hemoptysis x 1. to be assessed tomorrow for pre- procedure risk stratification 4- Hemoptysis: no masses on chest CT. No PNA . old scarring - f/u with pulm as out pt - cont her prednisone for sarcoidosis - resume her homepulm meds 5- HTN: cont meds dispo : HLOC .
[2018-08-29] MEDS ORDERED: ALBUTEROL SO4 2.5/IPRATROPIUM 0.5 INH SOL 3 ML VIAL.NEB. NEB PRN (14:00)
[2018-08-29] MEDS ORDERED: ALBUTEROL SO4 8 GM HFA INHALER IH PRN (14:00)
[2018-08-29 15:30] LABS: ALBUMIN 3.2 g/dl (3.4-5.0); BILIRUBIN,DIRECT 0.4 mg/dL (0.0-0.2); BILIRUBIN,TOTAL 0.9 mg/dL (0.2-1); TOT PROT 6.6 g/dl (6.4-8.2)
--- NOTE | 2018-08-29 15:39 | PN ---
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 She admits to chronic pruritus. I have explained that this most likely accounts for her liver abnormalities rather than HCV or liver rejection. I have advised taking Actigall and following u with my associate Dr Joe Knight of the [facility]. She prefers to see Dr Knight. I explained that if she has HCV flaring that he can treat her for this. She has no further hematemesis. NO melena and her Hb is stable so there is no ongoing active bleed. I have nevertheless advised an EGD after she is cardiologically cleared. I spoke with Dr. Dale who plans to complete this as an outpatient. I advised a PPI until then. I have discussed the case with Dr. Whaley . 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 Intrp Pending Hepatitis A Ab Total Pending Hep Bs Antigen Pending Hep Bs Antibody Pending Hep B Core Total Ab Pending Hep C Ab Diagnostic Pending Constitutional: Calm ...Auscultate: Yes: Normoactive Bowel Sounds ...Palpate: Yes: Soft, Other (nontender) Labs: CBC, BMP 08/28/18 05:30 08/28/18 05:30 INR, PTT INR 0.99 (0.83-1.09) 08/29/18 05:30 Assessment/Plan PBC affecting transplanted liver Resolved self limited hematemesis No GI objections to discharge on Actigal 300mg BID and Pantoprazole 40mg daily Problem List - Problems (1) History of liver transplant Assessment/Plan: The elevated LFTs are most consistent with PBC. She will start Actigal BID and followup with Dr Knight who can treat her if she indeed has HCV as well. AFP is pending as well. Code(s): Z94.4 - LIVER TRANSPLANT STATUS (2) Primary biliary cholangitis Code(s): K74.3 - PRIMARY BILIARY CIRRHOSIS (3) Colon adenoma Code(s): D12.6 - BENIGN NEOPLASM OF COLON, UNSPECIFIED (4) Diverticulosis Code(s): K57.90 - DVRTCLOS OF INTEST, PART UNSP, W/O PERF OR ABSCESS W/O BLEED (5) Hematemesis with nausea Assessment/Plan: Resolved. I have advised EGD once she is cardiologically cleared to exclude varices, portal gastropathy and ulcer disease. 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
[2018-08-29] MEDS ORDERED: PANTOPRAZOLE 40 MG TABLET (FP) PO SCH (15:43)
[2018-08-29 17:15] VITALS: BP 126/43; PULSE 80; TEMP 98.2
--- NOTE | 2018-08-29 17:15 | DS ---
Physical Exam: SUBJECTIVE: Patient seen and examined this morning while she was eating breakfast. Denies any chest pain, dizziness, palpitations, nausea, vomiting, diarrhea. OBJECTIVE: Vital Signs Period Temp Pulse Resp BP Sys/Freeman Pulse Ox Last 24 Hr 98.2 F-98.6 F 73-95 16-18 121-163/43-73 PHYSICAL EXAM GENERAL: A&Ox3, NAD, Sitting upright in her chair eating breakfast HEAD: NCAT EYES: PERRLA, EOMI THROAT: Oropharynx clear without exudates, moist mucous membranes. NECK: No JVD LUNGS: Clear to auscultation bilaterally, no wheezes HEART: Regular rate and rhythm, S1, S2 without murmur ABDOMEN: Soft, nontender, nondistended, + bowel sounds, no guarding EXTREMITIES: 2+ pulses, no edema. NEUROLOGICAL: Cranial nerves II through XII grossly intact. Normal speech. SKIN: Warm, dry LABS Laboratory Results - last 24 hr 08/29/18 08/29/18 08/29/18 05:30 05:30 05:30 PT with INR 11.70 INR 0.99 Hemoglobin A1c % 5.6 Uric Acid 8.4 H Ferritin 282.8 Total Bilirubin 0.9 Cancelled Direct Bilirubin 0.4 H Cancelled GGT 484 H AST 100 H Cancelled ALT 180 H Cancelled Alkaline Phosphatase 428 H Cancelled C-Reactive Protein 2.9 H B-Natriuretic Peptide 708.3 H Total Protein 6.6 Cancelled Albumin 3.2 L Cancelled Triglycerides 71 Cholesterol 178 Total LDL Cholesterol 91 HDL Cholesterol 79 H Total Amylase 61 Lipase 201 TSH 2.02 Stool Occult Blood 08/29/18 10:20 PT with INR INR Hemoglobin A1c % Uric Acid Ferritin Total Bilirubin Direct Bilirubin GGT AST ALT Alkaline Phosphatase C-Reactive Protein B-Natriuretic Peptide Total Protein Albumin Triglycerides Cholesterol Total LDL Cholesterol HDL Cholesterol Total Amylase Lipase TSH Stool Occult Blood Negative IMAGING: -CXR: No significant change since 06/01/2018 study. -Chest CTA: There is no evidence of aortic dissection, aneurysm, or intramural hematoma. No pneumothorax, pleural effusion or acute infiltrate is seen. As on a previous CT exam of 12/05/2017 prominent bilateral upper lobe fibrotic changes are seen with associated traction bronchiectasis. No definite CT evidence of pulmonary embolism. There is no definite cardiac enlargement. No pericardial effusion is seen. As the prior study several calcified mediastinal and bilateral hilar lymph nodes consistent with prior granulomatous disease. -CT A/P With contrast: No aortic dissection is identified. Status post cholecystectomy. Colonic diverticulosis. -CT Head without contrast: Mild volume loss without evidence of acute intracranial pathology. Chronic sinusitis involving included portion of the right maxillary antrum and right ethmoid air cells -Neck CTA: No definite arterial dissection is identified. An approximately 70% proximal right internal carotid artery stenosis is noted. -EKG: NORMAL SINUS RHYTHM, POSSIBLE LEFT ATRIAL ENLARGEMENT, LEFT BUNDLE BRANCH BLOCK -EKG: NORMAL SINUS RHYTHM, POSSIBLE LEFT ATRIAL ENLARGEMENT, LEFT BUNDLE BRANCH BLOCK -EKG: NORMAL SINUS RHYTHM, LEFT BUNDLE BRANCH BLOCK, T WAVE INVERSION NOW EVIDENT IN INFERIOR LEADS -ECHO: Septal motion is consistent with conduction abnormality. EF 45-50%. Mild MR, TR, PVR. No pericardial effusion. -Abdomen Ultrasound: No obvious hepatic pathology is seen. Status post cholecystectomy. The proximal common bile duct appears to be dilated with a 1.2 cm diameter. The distal common bile duct is obscured due to overlapping bowel gas. No gross intraductal calculus is identified. MRI/MRCP evaluation may be considered. No free intraperitoneal fluid is identified. The partially visualized pancreas demonstrates no discrete abnormality. There is no right hydronephrosis. The right kidney demonstrates no obvious pathology. HOSPITAL COURSE: Date of Admission:08/29/18 Date of Discharge: 08/29/18 73 y/o F with PMHx significant for sarcoidosis, COPD, vertigo, HTN, GERD, Cirrhosis and liver transplant s/p Hep C was BIBEMS with chest discomfort. Her troponins peaked and trended down. Cardiology was consulted, an Echo was done ( noted above) and patient was scheduled for a Lexiscan stress test however she refused. Cardiology suggested uptitrating her home doses of Metoprolol XL and Losartan. Her chest discomfort resolved and she had no further episodes. Her transaminases were elevated on admission, and an Abdominal ultrasound was done ( noted above) that did not reveal any obvious hepatic pathology. Patient also mentioned possibly having an episode of hemoptysis and GI was consulted. It was concluded that her elevated LFTs were the result of PBC. Patient did not have any further episodes of hemoptysis. Her Hgb remained stable without any evidence of active bleed and patient was advised to have an outpatient EGD. Patient was discharged home with strict instructions to follow up with GI (Dr. Knight) in his office. Until her EGD is done, she was also advised to start Protonix and Actigal. Additionally, she was given strict instructions to follow up with cardiology. Minutes to complete discharge: 45 Discharge Summary Reason For Visit: LIGHTHEADEDNESS,CHEST TIGHTNESS Current Active Problems Chest tightness (Acute) Hematemesis with nausea (Acute) Lightheaded (Acute) Troponin level elevated (Acute) Colon adenoma (Chronic) Diverticulosis (Chronic) Gout (Chronic) History of liver transplant (Chronic) Hypertensive cardiomyopathy (Chronic) Primary biliary cholangitis (Chronic) Subendocardial ischemia (Chronic) Condition: Improved - Instructions Diet, Activity, Other Instructions: You were admitted to the hospital for chest pain. Your lab work suggested this pain could be from the heart. You had an echo and the results were abnormal. You were scheduled for a nuclear stress test but refused it. Your home dose Losartan has been increased to 50mg Daily. Please stop taking the 25mg dose. Your home dose Metoprolol XL has been increased to 100mg Daily. Please stop taking the 25mg dose. Please follow up with a clasp machine operator to further manage your chest discomfort and abnormal Echo findings. Dr. Kellogg's information has been provided. Please call his office for further management. Some of your liver enzymes tests were elevated. This could be related to Primary Billiary cholangitis. It is important you follow up with a GI doctor ( Dr. Knight) to further manage this. Please call his office to schedule an appointment Please stop taking your home dose omeprazole. You are being started on Actigal 300mg twice a day and Pantoprazole 40mg daily. Your home dose naproxen has been stopped. Please do not take this further. Additionally, please do not take advil, mortrin, ibeprofen Please follow up with your primary care physician in one week. Continue all your other medications as prescribed Please return to the ER if you have any signs or symptoms of chest pain, shortness of breath, uncontrollable fever, chills, nausea, vomiting, numbness, tingling, or weakness in any part of your body, changes in vision, or slurred speech. Please return to the ER if symptoms persist, worsen, or new symptoms arise. Referrals: Freddy Duron FNP [Primary Care Provider] - 1 Week Severo Kellogg MD [Staff Physician] - 1 Week (May benefit from out patient cardiac cath. Refused nuclear stress test after a likey NSTEMI) dax romeo [Other] - 1 Week Jovanni Peck MD [Staff Physician] - 2 Weeks Joe Knight MD [Staff Physician] - 1 Week Disposition: HOME - Home Medications Comprehensive Discharge Medication List: Ambulatory Orders Gabapentin 200 mg PO HS PRN 02/22/17 Prednisone 5 mg PO DAILY 02/22/17 Spironolactone [Aldactone] 25 mg PO DAILY 02/22/17 Albuterol 2.5/Ipratropium 0.5 [Duoneb -] 1 amp NEB DAILY PRN 08/28/18 Albuterol Sulfate Inhaler - [Ventolin HFA Inhaler -] 2 inh IH Q6H PRN 08/28/18 Allopurinol [Zyloprim -] 100 mg PO DAILY 08/28/18 Budesonide/Formeterol Fumarate [SYMBICORT 160/4.5mcg -] 2 puff IH BID 08/28/18 Hydrochlorothiazide 12.5 mg PO DAILY 08/28/18 Meclizine HCl 25 mg PO DAILY PRN 08/28/18 Montelukast Sodium [Singulair] 10 mg PO DAILY 08/28/18 Losartan Potassium [Cozaar -] 50 mg PO DAILY #30 tablet 08/29/18 Metoprolol Succinate [Toprol XL -] 100 mg PO DAILY #30 tab.sr.24h 08/29/18 Pantoprazole Sodium 40 mg PO DAILY #30 tablet. 08/29/18 Ursodiol [Actigal] 300 mg NR BID #60 capsule 08/29/18 This patient is new to me today: No Emergency Visit: No Critical Care patient: No - Discharge Referral Referred to [facility] No
[2018-08-29] MEDS ORDERED: URSODIOL 300 MG CAPSULE PO SCH (22:00)
[2018-08-29] MEDS ORDERED: BUDESONIDE/FORMETEROL FUMARATE 160/4.5 mcg INHALER IH SCH (22:00)
[2018-08-30] MEDS ORDERED: SPIRONOLACTONE 25 MG TABLET (FP) PO SCH (10:00)
[2018-08-30] MEDS ORDERED: MONTELUKAST NA 10 MG TABLET PO SCH (10:00)
[2018-08-30] MEDS ORDERED: ALLOPURINOL 100 MG TABLET (FP) PO SCH (10:00)
[2018-09-01 06:06] LABS: SERUM IRON SATURATION 28 % (15-55); TOTAL IRON BINDING CAPACITY 235 ug/dL (250-450); UIBC 169 ug/dL (118-369)
[2018-09-02 00:07] LABS: HBSAG SCREEN Negative (Negative); HEP A AB, IGM Negative (Negative); HEP B CORE AB, TOT Negative (Negative)
[2018-09-04 10:11] LABS: ALPHA 2 MACROGLOBULINS,QN 175 mg/dL (110-276); ALT(SGPT)P5P 150 IU/L (0-40); CHOLESTEROL TOTAL 178 mg/dL (100-199); FIBROSIS SCORE 0.46 (0.00-0.21); GGT= 374 IU/L (0-60); GLUCOSE SERUM 83 mg/dL (65-99); HEIGHT 60 in (.); WEIGHT- 176 LBS (.)
== END 2018-08-29 18:25 | disposition home or self-care (01) | DRG 313 ==
LOC: JER 12:21 → JERBED 20:19 → J2W 08-28 00:58 → OBSVTOIN 08-29 13:50
PROVIDERS: ADMIT Internal Medicine; ATTEND Internal Medicine
DX: R07.89 Other chest pain (principal); Z94.4 Liver transplant status; R04.2 Hemoptysis; I13.0 Hypertensive heart and chronic kidney disease with heart failure and stage 1 through stage 4 chronic kidney disease, or unspecified chronic kidney disease; I50.22 Chronic systolic (congestive) heart failure; J44.9 Chronic obstructive pulmonary disease, unspecified; K21.9 Gastro-esophageal reflux disease without esophagitis; I44.7 Left bundle-branch block, unspecified; R42 Dizziness and giddiness; E66.9 Obesity, unspecified; R74.0 Nonspecific elevation of levels of transaminase and lactic acid dehydrogenase [LDH]; N18.9 Chronic kidney disease, unspecified; D86.0 Sarcoidosis of lung; N18.2 Chronic kidney disease, stage 2 (mild); I16.0 Hypertensive urgency; Z68.34 Body mass index [BMI] 34.0-34.9, adult; R55 Syncope and collapse; M10.9 Gout, unspecified; I65.21 Occlusion and stenosis of right carotid artery; I25.10 Atherosclerotic heart disease of native coronary artery without angina pectoris
CPT/HCPCS: 36415; 70450-TC; 70498-TC; 71045-TC-FY; 71275-TC; 74177-TC; 76705-TC; 80048; 80053; 80061; 80076; 81003; 82105; 82150; 82172; 82247; 82272; 82465; 82550; 82728; 82947; 82977; 83010; 83036; 83516; 83540; 83550; 83690; 83721; 83735; 83880; 83883; 84100; 84443; 84450; 84460; 84478; 84484; 84550; 85025; 85610; 85730; 86038; 86140; 86704; 86706; 86708; 86803; 86850; 86900; 86901; 87340; 90688; 93005; 93010; 93306-TC; 99284-25; G0008; G0378; J7030

== ENCOUNTER 2019-09-09 11:10 | Inpatient (IN) | payer OTHER ==
--- NOTE | 2019-09-09 11:39 | PDOC ---
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 States that her cough began 5 days ago, productive of phlegm, and has been associated with worse SOB than normal. Patient endorses chest tightness, but not chest pain. Reports that she has been taking all of her medications as prescribed, but to no avail. Denies fevers/chills, constipation/diarrhea, GANDHI, N/V. Endorses edema in her legs. Past History - Past Medical History Allergies/Adverse Reactions: Allergies Allergy/AdvReac Type Severity Reaction Status Date / Time shrimp Allergy Verified 07/17/18 11:25 Home Medications: Ambulatory Orders Gabapentin 200 mg PO HS PRN 02/22/17 Prednisone 5 mg PO DAILY 02/22/17 Spironolactone [Aldactone] 25 mg PO DAILY 02/22/17 Albuterol 2.5/Ipratropium 0.5 [Duoneb -] 1 amp NEB DAILY PRN 08/28/18 Albuterol Sulfate Inhaler - [Ventolin HFA Inhaler -] 2 inh IH Q6H PRN 08/28/18 Allopurinol [Zyloprim -] 100 mg PO DAILY 08/28/18 Budesonide/Formeterol Fumarate [SYMBICORT 160/4.5mcg -] 2 puff IH BID 08/28/18 Hydrochlorothiazide 12.5 mg PO DAILY 08/28/18 Meclizine HCl 25 mg PO DAILY PRN 08/28/18 Montelukast Sodium [Singulair] 10 mg PO DAILY 08/28/18 Metoprolol Succinate [Toprol XL -] 100 mg PO DAILY #30 tab.sr.24h 08/29/18 Pantoprazole Sodium 40 mg PO DAILY #30 tablet.dr 08/29/18 Ursodiol [Actigal] 300 mg NR BID #60 capsule 08/29/18 Amlodipine Besylate 5 mg PO DAILY 09/09/19 Mycophenolate Mofetil 500 mg PO DAILY 09/09/19 Anemia: No Asthma: No Cancer: No Cardiac Disorders: Yes (cad) CVA: No COPD: Yes CHF: No Dementia: No Diabetes: No GI Disorders: No Disorders: No HTN: Yes Hypercholesterolemia: No Liver Disease: Yes (cirrhosis, s/p transplant, hep c) Seizures: No Thyroid Disease: No - Surgical History Abdominal Surgery: No Appendectomy: No Cardiac Surgery: No Cholecystectomy: No Lung Surgery: No Neurologic Surgery: No Orthopedic Surgery: No - Immunization History Immunization Up to Date: Yes - Psycho Social/Smoking Cessation Hx Smoking History: Former smoker Have you smoked in the past 12 months: No Number of Cigarettes Smoked Daily: 2 If you are a former smoker, when did you quit?: 1992 Information on smoking cessation initiated: No Hx Alcohol Use: No Drug/Substance Use Hx: No Substance Use Type: None Hx Substance Use Treatment: No Review of Systems - Review of Systems Constitutional: No: Chills, Diaphoresis, Fever HEENTM: No: Recent change in vision, Throat Pain, Mouth Swelling Respiratory: Yes: Cough, Shortness of Breath. No: Orthopnea Cardiac (ROS): Yes: Edema, Irregular Heart Rate, Chest Tightness. No: Chest Pain ABD/GI: No: Constipated, Diarrhea, Nausea, Vomiting : Yes: Dysuria, Discharge. No: Flank Pain, Hematuria, Incontinence Musculoskeletal: No: Back Pain, Neck Pain Neurological: No: Headache, Numbness, Tingling *Physical Exam - Vital Signs Last Vital Signs Temp Pulse Resp BP Pulse Ox 98.0 F 96 H 16 174/78 H 95 09/09/19 11:18 09/09/19 11:18 09/09/19 11:18 09/09/19 11:18 09/09/19 11:18 - Physical Exam Comments: 09/09/19 12:50 Gen: well-developed, well-nourished, NAD Neuro: AAOX4, CN II-XII intact, FTN intact, EOMI, PERRLA, 5/5 strength, SILT HEENT: atraumatic, normocephalic, dry mucous membranes Neck: trachea midline, supple CV: regular rate, regular rhythm, no murmurs, rubs, or gallops Pulm: diffuse expiratory wheezing Abd: soft, non-distended, non-tender MSK: full ROM, intact pulses Extr: 1+ pitting edema to the knees, no deformities Skin: warm, dry ED Treatment Course - LABORATORY CBC & Chemistry Diagram: 09/09/19 12:30 09/09/19 12:30 Medical Decision Making - Medical Decision Making 09/09/19 12:15 Concern for COPD exacerbation vs CHF exacerbation vs ACS. - CBC, CMP, BNP - Chest PA + L - methylprednisolone, Duonebs - reassess 09/09/19 12:43 EKG normal sinus at 94 bpm, LBBB, no ST segment elevation, no inferior lead T inversions (were seen in most recent EKG here). 09/09/19 13:00 Reassessed, lungs sound significantly improved. 09/09/19 13:27 WBC 15.8, however patient received steroids. Discharge - Discharge Information Problems reviewed: Yes Clinical Impression/Diagnosis: PNA (pneumonia) Condition: Stable - Follow up/Referral - Patient Discharge Instructions - Post Discharge Activity
[2019-09-09] MEDS ORDERED: methylPREDNISolone NA SUCC 125 MG/2 ML VIAL IVPB ONE (12:05)
[2019-09-09] MEDS ORDERED: methylPREDNISolone NA SUCC 125 MG/2 ML VIAL ONE (12:32)
[2019-09-09] MEDS ORDERED: ALBUTEROL SO4 2.5/IPRATROPIUM 0.5 INH SOL 3 ML VIAL.NEB. NEB ONE (12:32)
[2019-09-09] MEDS: ALBUTEROL SO4 2.5/IPRATROPIUM 0.5 INH SOL 3 ML VIAL.NEB. NEB SCH ×4 (12:39→13:09)
[2019-09-09 12:46] LABS: BASO % 0.3 % (0-2.0); EOS % 0.7 % (0-4.5); HEMATOCRIT 39.5 % (32.4-45.2); HEMOGLOBIN 12.7 GM/dL (10.7-15.3); LYMPH % 12.8 % (8-40); MCH 31.4 pg (25.7-33.7); MEAN PLT VOLUME 11.6 fl (7.5-11.1); NEUT % 77.2 % (42.8-82.8); PLATELET COUNT 189 K/MM3 (134-434); RBC 4.03 M/mm3 (3.60-5.2); RDW 14.6 % (11.6-15.6); WHITE BLOOD COUNT 15.8 K/mm3 (4.0-10.0)
[2019-09-09 13:15] LABS: ALBUMIN 3.6 g/dl (3.4-5.0); BILIRUBIN,TOTAL 0.4 mg/dL (0.2-1); BLOOD UREA NITROGEN 27.3 mg/dL (7-18); CREATININE 1.3 mg/dL (0.55-1.3); POTASSIUM 3.5 mmol/L (3.5-5.1); TOT PROT 7.1 g/dl (6.4-8.2)
--- NOTE | 2019-09-09 13:56 | PDOC ---
Documentation entered by Ly Vides SCRIBE, acting as scribe for Fermín Trujillo MD. Fermín Trujillo MD: This documentation has been prepared by the Peewee bueno Adrianna, SCRIBE, under my direction and personally reviewed by me in its entirety. I confirm that the documentation accurately reflects all work, treatment, procedures, and medical decision making performed by me. Attending Attestation - Resident Resident Name: [email or web address] - ED Attending Attestation I have performed the following: I have examined & evaluated the patient, The case was reviewed & discussed with the resident, I agree w/resident's findings & plan - HPI HPI: 09/09/19 13:45 74-year-old female history of hypertension, COPD, liver transplant presents for progressive shortness of breath over the past week with increased productive cough. Patient has dry cough at baseline, over the last week had cough occasionally productive of white sputum, increased dyspnea and wheezing. Self treated with nebulizers at home without relief, presents for evaluation. Positive sick contacts, had URI about 1 week ago, patient reports similar URI symptoms and onset of this exacerbation. Former smoker, No recent travel. - Physicial Exam PE: 09/09/19 13:47 O2 sat 95% on room air at triage, respiratory rate 22, hemodynamically stable Overall well-appearing, speaking comfortably and joking with staff s1s2 rrr good air entry, scant insp and exp wheeze, L worse than R abd benign no edema/calf ttp - Medical Decision Making 09/09/19 13:50 74-year-old female with history of COPD and liver transplant presents with COPD exacerbation in the setting of URI symptoms, rule out pneumonia. Normal O2 sat here, but with active wheezing, improved after nebulizers. Labs, EKG Chest x-ray Nebulizers, IV steroids Reassess and disposition accordingly 09/09/19 15:36 LLL pna on my prelim review. Given immunocompromised transplant patient + copd, will admit for abx and respiratory monitoring. Heart Score/ECG Review #1 ECG reviewed & interpreted by me at: 12:13 General ECG Interpretation: Sinus Rhythm, Normal Rate (94), Normal Intervals ( LBBB without secondary sign of acute ischemic change, qtc 462), No acute ischemic changes Compared to previous ECG there are: No significant change (c/w 08/2018)
[2019-09-09] MEDS ORDERED: VANCOMYCIN 1 GM in D5W (PRE-DOCKED) 1,000 MG/250 ML IVPB ONE (15:41)
[2019-09-09] MEDS ORDERED: VANCOMYCIN 1 GRAM (PRE-DOCKED) 1,000 MG/250 ML BAG IVPB ONE (16:15)
[2019-09-09] MEDS ORDERED: ACETAMINOPHEN 325 MG TABLET (FP) PO PRN (17:46)
[2019-09-09 18:59] LABS: URINE APPEARANCE CLEAR; URINE BILIRUBIN NEGATIVE (NEGATIVE); URINE COLOR YELLOW; URINE GLUCOSE (UA) 1+ (NEGATIVE); URINE KETONE NEGATIVE (NEGATIVE); URINE LEUK ESTERASE NEGATIVE (NEGATIVE); URINE NITRITE NEGATIVE (NEGATIVE); URINE PROTEIN NEGATIVE (NEGATIVE); URINE UROBILINOGEN 0.2 mg/dL (0.2-1.0)
--- NOTE | 2019-09-09 19:22 | HP ---
CHIEF COMPLAINT: Cough, SOB HISTORY OF PRESENT ILLNESS: Patient is a 74 y/o HF presenting with CAP with a pertinent PMH of s/p hepatic XP with sporadic FU as documented in prior visit. She is hemodynamically stable and afebrile but at high risk for decompensation due to her underlying immunosuppression with unknown adherence and sporadic followup for her transplant; she hasnt seen xp MD in a year but states that she continues to take her mycophenolate, etc. for her underlying disorder. She has a cough with questionable infiltrate on CXR and CT pending; she got broad spectrum abx in the ER and I am consulting her GI MD and ID for guidance with the XP medications and the underlying ? infection. She does have a WBC increase, etc. She has a history of sarcoid/obstructive lung disease/monteleukast use ? asthma (PFTS not available to check for reversability). Cough with some sputum which is different than her usial and noted some SOB. She has a known mildly reduced LVEF with no recent echo and an elevated BNP so diurese PRN and consult CV as needed. She does have diminished exercise tolerance, etc. 10 sys ROS done and negative aside from HPI Recent Travel: None. PAST MEDICAL HISTORY: As per chart; s/p liver xp remote on myco/pred, HTN, sarcoid, COPD/Asthma, GERD, Noncomplaince PAST SURGICAL HISTORY: Transplant Social History: Denies IVDU, ETOH abuse Allergies shrimp Allergy (Verified 07/17/18 11:25) HOME MEDICATIONS: Home Medications Medication Instructions Recorded Gabapentin 200 mg PO HS PRN 02/22/17 Prednisone 5 mg PO DAILY 02/22/17 Spironolactone [Aldactone] 25 mg PO DAILY 02/22/17 Albuterol 2.5/Ipratropium 0.5 1 amp NEB DAILY PRN 08/28/18 [Duoneb -] Albuterol Sulfate Inhaler - 2 inh IH Q6H PRN 08/28/18 [Ventolin HFA Inhaler -] Allopurinol [Zyloprim -] 100 mg PO DAILY 08/28/18 Budesonide/Formeterol Fumarate 2 puff IH BID 08/28/18 [SYMBICORT 160/4.5mcg -] Hydrochlorothiazide 12.5 mg PO DAILY 08/28/18 Meclizine HCl 25 mg PO DAILY PRN 08/28/18 Montelukast Sodium [Singulair] 10 mg PO DAILY 08/28/18 Metoprolol Succinate [Toprol XL -] 100 mg PO DAILY #30 tab.sr.24h 08/29/18 Pantoprazole Sodium 40 mg PO DAILY #30 tablet.dr 08/29/18 Ursodiol [Actigal] 300 mg NR BID #60 capsule 08/29/18 Amlodipine Besylate 5 mg PO DAILY 09/09/19 Mycophenolate Mofetil 500 mg PO DAILY 09/09/19 PHYSICAL EXAMINATION Vital Signs - 24 hr 09/09/19 09/09/19 11:18 15:54 Temperature 98.0 F Pulse Rate 96 H Pulse Rate [ 100 H Radial] Respiratory 16 22 H Rate Blood Pressure 174/78 H Blood Pressure 141/71 [Left Arm] O2 Sat by Pulse 95 99 Oximetry (%) GENERAL: Awake, alert, and fully oriented, in no acute distress. HEAD: Normal with no signs of trauma. EYES: Pupils equal, round and reactive to light, extraocular movements intact EARS, NOSE, THROAT: Ears normal, nares patent, oropharynx clear without exudates. Moist mucous membranes. NECK: Normal range of motion, supple without lymphadenopathy, JVD, or masses. LUNGS: Breath sounds equal, wheezes with ? crackles but notably no focal consolidation HEART: Regular rate and rhythm, normal S1 and S2 without murmur, rub or gallop. ABDOMEN: Soft, nontender, not distended, normoactive bowel sounds, no guarding, no rebound, no masses. No hepatomegaly or splenomegaly. MUSCULOSKELETAL: Normal range of motion at all joints. No bony deformities or tenderness. No CVA tenderness. NEUROLOGICAL: Cranial nerves II-XII intact. Normal speech. Normal gait. PSYCHIATRIC: Cooperative. Good eye contact. Appropriate mood and affect. SKIN: Warm, dry, normal turgor, no rashes or lesions noted, normal capillary refill. Laboratory Results - last 24 hr 09/09/19 09/09/19 09/09/19 12:30 12:30 12:30 WBC 15.8 H RBC 4.03 Hgb 12.7 Hct 39.5 MCV 98.0 H MCH 31.4 MCHC 32.0 RDW 14.6 Plt Count 189 D MPV 11.6 H Absolute Neuts (auto) 12.2 H Neutrophils % 77.2 D Lymphocytes % 12.8 D Monocytes % 9.0 Eosinophils % 0.7 Basophils % 0.3 Nucleated RBC % 0 Sodium 144 Potassium 3.5 Chloride 106 Carbon Dioxide 28 Anion Gap 11 BUN 27.3 H Creatinine 1.3 Est GFR (CKD-EPI)AfAm 47.13 Est GFR (CKD-EPI)NonAf 40.67 Random Glucose 87 Calcium 9.0 Total Bilirubin 0.4 GGT AST 24 ALT 38 Alkaline Phosphatase 181 H B-Natriuretic Peptide 481.7 H Total Protein 7.1 Albumin 3.6 Total Amylase Urine Color Urine Appearance Urine pH Ur Specific [place] Urine Protein Urine Glucose (UA) Urine Ketones Urine Blood Urine Nitrite Urine Bilirubin Urine Urobilinogen Ur Leukocyte Esterase 09/09/19 09/09/19 09/09/19 18:00 18:00 18:00 WBC RBC Hgb Hct MCV MCH MCHC RDW Plt Count MPV Absolute Neuts (auto) Neutrophils % Lymphocytes % Monocytes % Eosinophils % Basophils % Nucleated RBC % Sodium Potassium Chloride Carbon Dioxide Anion Gap BUN Creatinine Est GFR (CKD-EPI)AfAm Est GFR (CKD-EPI)NonAf Random Glucose Calcium Total Bilirubin GGT 251 H AST ALT Alkaline Phosphatase B-Natriuretic Peptide Total Protein Albumin Total Amylase 60 Urine Color Yellow Urine Appearance Clear Urine pH 5.0 Ur Specific [place] 1.011 Urine Protein Negative Urine Glucose (UA) 1+ H Urine Ketones Negative Urine Blood Negative Urine Nitrite Negative Urine Bilirubin Negative Urine Urobilinogen 0.2 Ur Leukocyte Esterase Negative CXR reviewed; reticular pattern with ? infiltrate CT pending EKG reviewed ABG pending due to increased O2 demand and acute RF Reviewed prior echocardiogram ASSESSMENT/PLAN: Patient with a history of liver transplant, sarcoid, mild CHF, COPD, HTN, GERD, Noncompliance presents with a CC of SOB. Her problems include: -Acute on Chronic Hypoxic Respiratory Failure (ABG pendign to check for mixed process) 2/2 *Acute on chronic COPD vs. Asthma exacerbation (PFTs not available) *Likely Sarcoid Flare *R/O Community Acquired PNA in immunosuppressed patient *Acute on Chronic HFrEF Exacerbation (echo reviewed, consider CV consult, cautious diuresis as potentilly septic) -SIRS + with r/o sepsis 2/2 Community acquired PNA (ID, pulm pending, micro pending, broad spectrum abx) -HTN -Status Post Liver Transplant -Noncompliance with Medical Therapy -Leukocytosis -Obesity (sleep study ordered) Steroids, admission, caution with fluids/diuretics given the potential for sepsis and CHF. Will elect to see how the steroids and abx act. Consult appropriate parties. Sleep study and pulm consult. BDs, supplemental O2. Low threshold to upgrade level of care. Full Code Visit type - Emergency Visit Emergency Visit: Yes ED Registration Date: 09/09/19 Care time: The patient presented to the Emergency Department on the above date and was hospitalized for further evaluation of their emergent condition. - New Patient This patient is new to me today: Yes Date on this admission: 09/11/19 - Critical Care Critical Care patient: Yes Total Critical Care Time (in minutes): 60 Critical Care Statement: The care of this patient involved high complexity decision making to prevent further life threatening deterioration of the patient 's condition and/or to evaluate & treat vital organ system(s) failure or risk of failure.
[2019-09-09] MEDS ORDERED: GABAPENTIN 100 MG CAPSULE (FP) PO PRN (19:28)
[2019-09-09] MEDS ORDERED: ALBUTEROL SO4 2.5/IPRATROPIUM 0.5 INH SOL 3 ML VIAL.NEB. NEB PRN (19:28)
[2019-09-09] MEDS ORDERED: MECLIZINE HCL 25 MG TABLET (FP) PO PRN (19:28)
[2019-09-09] MEDS ORDERED: methylPREDNISolone NA SUCC 125 MG/2 ML VIAL IVPUSH SCH (19:30)
[2019-09-09] MEDS ORDERED: ALBUTEROL SO4 0.083% IH SOL 2.5 MG/3 ML VIAL.NEB. NEB PRN (19:31)
[2019-09-09 19:33] LABS: LIPASE 144 U/L (73-393)
[2019-09-09] MEDS ORDERED: PIPERACILLIN/TAZOB 3.375 GM 3.375 GM in DEXTROSE 5%-WATER - 50 ML IVPB ONE (20:30)
[2019-09-09] MEDS ORDERED: PIPERACILLIN/TAZOBACTAM 3.375 GM VIAL IVPB ONE (21:17)
[2019-09-09] MEDS ORDERED: DEXTROSE 5%-WATER - 50 ML IVPB ONE (21:17)
[2019-09-09] MEDS: MONTELUKAST NA 10 MG TABLET PO SCH (22:32)
[2019-09-09] MEDS: URSODIOL 300 MG CAPSULE PO SCH ×2 (22:32→22:48)
[2019-09-09] MEDS: PANTOPRAZOLE 40 MG TABLET (FP) PO SCH (22:33)
[2019-09-09] MEDS: HEPARIN NA (PORCINE) 5,000 UNITS/ML 1ML VIAL SQ SCH ×2 (22:33→22:48)
[2019-09-09] MEDS: MAGNESIUM SULF 50% (8.12 MEQ/2 ML-1 GM VIAL) IVPB SCH (23:17)
[2019-09-10 00:03] VITALS: BMI 34.2
[2019-09-10] MEDS: methylPREDNISolone NA SUCC 40 MG/1 ML VIAL IVPUSH SCH ×3 (02:07→17:43)
[2019-09-10] MEDS: HEPARIN NA (PORCINE) 5,000 UNITS/ML 1ML VIAL SQ SCH ×3 (05:05→21:33)
[2019-09-10 07:33] LABS: HEMOGLOBIN 12.3 GM/dL (10.7-15.3); MCHC 33.1 g/dl (32.0-36.0); MEAN CELL VOLUME 96.6 fl (80-96); MEAN PLT VOLUME 11.7 fl (7.5-11.1); PLATELET COUNT 194 K/MM3 (134-434); RBC 3.83 M/mm3 (3.60-5.2); RDW 14.5 % (11.6-15.6); WHITE BLOOD COUNT 15.5 K/mm3 (4.0-10.0)
[2019-09-10] MEDS: ALBUTEROL SO4 2.5/IPRATROPIUM 0.5 INH SOL 3 ML VIAL.NEB. NEB SCH ×4 (07:40→20:35)
[2019-09-10 08:36] LABS: ALBUMIN 3.5 g/dl (3.4-5.0); BILIRUBIN,TOTAL 0.4 mg/dL (0.2-1); CALCIUM 9.2 mg/dL (8.5-10.1); CREATININE 1.6 mg/dL (0.55-1.3); MAGNESIUM 2.2 mg/dL (1.8-2.4)
[2019-09-10] MEDS ORDERED: predniSONE 5 MG TABLET (UD) PO SCH (10:00)
[2019-09-10] MEDS ORDERED: MYCOPHENOLATE MOFETIL 500 MG TABLET PO SCH (10:00)
[2019-09-10] MEDS ORDERED: PT OWN MED DRAWER 7, Y5N ONE (10:07)
[2019-09-10] MEDS: ALLOPURINOL 100 MG TABLET (FP) PO SCH (10:10)
[2019-09-10] MEDS: amLODIPine BESYLATE 5 MG TABLET (FP) PO SCH (10:10)
[2019-09-10] MEDS: PANTOPRAZOLE 40 MG TABLET (FP) PO SCH (10:10)
[2019-09-10] MEDS: URSODIOL 300 MG CAPSULE PO SCH ×2 (10:14→21:34)
[2019-09-10] MEDS: SPIRONOLACTONE 25 MG TABLET (FP) PO SCH (10:14)
[2019-09-10 10:35] LABS: ANISOCYTOSIS 1+; MACROCYTOSIS 0; PLATELET ESTIMATE NORMAL
--- NOTE | 2019-09-10 12:19 | CON.ID ---
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 States that her cough began 5 days ago, productive of phlegm, and has been associated with worse SOB than normal. Patient endorses chest tightness, but not chest pain. Reports that she has been taking all of her medications as prescribed, but to no avail. says she is producing greenish yellow sputum. today she feels a bit better Denies fevers/chills, constipation/diarrhea, GANDHI, N/V. Endorses edema in her legs. - History Source History Provided By: Patient Limitations to Obtaining History: No Limitations - Past Medical History Cardio/Vascular: Yes: HTN Pulmonary: Yes: Asthma, COPD, Other (sarcoidosis) Gastrointestinal: Yes: GERD, Other (colon adenoma removed 2011 ) Hepatobiliary: Yes: Hepatitis C, Other (liver transplant for PBC at [facility]) Renal/: Yes: Renal Inusuff Rheumatology: Yes: Gout - Past Surgical History Past Surgical History: Yes: Cataract Removal (with implants bilaterally), Colonoscopy, Liver Transplant (liver transplanted at [facility]), Tubal Ligation, Upper Endoscopy - Alcohol/Substance Use Hx Alcohol Use: No History of Substance Use: reports: None - Smoking History Smoking history: Former smoker Have you smoked in the past 12 months: No Aproximately how many cigarettes per day: 2 If you are a former smoker, when did you quit?: 1992 - Social History Usual Living Arrangement: With Spouse ADL: Independent History of Recent Travel: No Home Medications - Allergies Allergies/Adverse Reactions: Allergies Allergy/AdvReac Type Severity Reaction Status Date / Time shrimp Allergy Verified 07/17/18 11:25 - Home Medications Home Medications: Ambulatory Orders Gabapentin 200 mg PO HS PRN 02/22/17 Prednisone 5 mg PO DAILY 02/22/17 Spironolactone [Aldactone] 25 mg PO DAILY 02/22/17 Albuterol 2.5/Ipratropium 0.5 [Duoneb -] 1 amp NEB DAILY PRN 08/28/18 Albuterol Sulfate Inhaler - [Ventolin HFA Inhaler -] 2 inh IH Q6H PRN 08/28/18 Allopurinol [Zyloprim -] 100 mg PO DAILY 08/28/18 Budesonide/Formeterol Fumarate [SYMBICORT 160/4.5mcg -] 2 puff IH BID 08/28/18 Hydrochlorothiazide 12.5 mg PO DAILY 08/28/18 Meclizine HCl 25 mg PO DAILY PRN 08/28/18 Montelukast Sodium [Singulair] 10 mg PO DAILY 08/28/18 Metoprolol Succinate [Toprol XL -] 100 mg PO DAILY #30 tab.sr.24h 08/29/18 Pantoprazole Sodium 40 mg PO DAILY #30 tablet.dr 08/29/18 Ursodiol [Actigal] 300 mg NR BID #60 capsule 08/29/18 Amlodipine Besylate 5 mg PO DAILY 09/09/19 Mycophenolate Mofetil 500 mg PO DAILY 09/09/19 Review of Systems - Review of Systems Constitutional: reports: Weakness, Other Eyes: reports: No Symptoms HENT: reports: No Symptoms Neck: reports: No Symptoms Cardiovascular: reports: No Symptoms Respiratory: reports: Cough, SOB, Other (sputum production) Genitourinary: reports: No Symptoms Musculoskeletal: reports: No Symptoms Integumentary: reports: No Symptoms Neurological: reports: No Symptoms Endocrine: reports: No Symptoms Hematology/Lymphatic: reports: No Symptoms Psychiatric: reports: No Symptoms Physical Exam Vital Signs: Vital Signs Temperature 98.1 F 09/10/19 05:00 Pulse Rate 97 H 09/10/19 05:00 Respiratory Rate 18 09/10/19 05:00 Blood Pressure 119/94 09/10/19 05:00 O2 Sat by Pulse Oximetry (%) 97 09/09/19 19:00 Constitutional: Yes: Well Nourished, No Distress, Calm Cardiovascular: Yes: Regular Rate and Rhythm Respiratory: Yes: Regular, Poor Air Entry, Rhonchi Gastrointestinal: Yes: Normal Bowel Sounds, Soft Musculoskeletal: Yes: WNL Extremities: Yes: WNL Neurological: Yes: Alert, Oriented Psychiatric: Yes: Alert, Oriented Labs: CBC, BMP 09/10/19 07:16 09/10/19 07:10 Imaging - Results Chest X-ray: Report Reviewed, Image Reviewed Cat Scan: Report Reviewed, Image Reviewed Ultrasound: Report Reviewed, Image Reviewed Assessment/Plan patient coming to the hospital with weakness with cough and sputum production patient is immunocompromised after looking at the imaging studies and symptoms i am leaning towards bronchiectasis but i am going to start him empirically on zosyn and once when she settles down will deeescalte rest as per the team
--- NOTE | 2019-09-10 12:56 | EKG ---
Test Reason : Blood Pressure : / mmHG Vent. Rate : 094 BPM Atrial Rate : 094 BPM P-R Int : 140 ms QRS Dur : 128 ms QT Int : 370 ms P-R-T Axes : 065 -16 136 degrees QTc Int : 462 ms NORMAL SINUS RHYTHM LEFT BUNDLE BRANCH BLOCK ABNORMAL ECG WHEN COMPARED WITH ECG OF 28-AUG-2018 08:45, T WAVE INVERSION NO LONGER EVIDENT IN INFERIOR LEADS Confirmed by KAMERON CASTREJON MD ([id number]) on 09/10/2019 12:56:11 PM Referred By: Confirmed By:KAMERON CASTREJON MD
[2019-09-10] MEDS: PIPERACILLIN/TAZOB 2.25 GM 2.25 GM in DEXTROSE 5%-WATER - 50 ML IVPB SCH ×3 (14:10→21:34)
--- NOTE | 2019-09-10 14:22 | PN ---
Progress Note (short form) - Note Progress Note: HPI: Briefly, 74yo F with h/o of Sarcoid, Liver transplantation 2/2 to ?Hep C without treatment?, COPD and HTN who initially presented with shortness of breath and increased white sputum production. Her SOB increased over the last few days and so she came to the ER. Pt is a relatively poor historian so HPI is limited. Pt reports she feels better than yesterday. PE: Gen: NAD, awake, alert, resting in bed Lung: End-expiratory wheezes appreciated with inspiratory squeaking noted. Card: RRR no murmurs appreciated Abd: Soft, NT/ND, normoactive BS, no hepatic nodularity appreciated Ext: No edema, no calf tenderness, well-perfused. CBC, BMP 09/10/19 07:16 09/10/19 07:10 Hepatic Panel Total Bilirubin 0.4 mg/dL (0.2-1) 09/10/19 07:10 AST 15 U/L (15-37) 09/10/19 07:10 ALT 33 U/L (13-61) 09/10/19 07:10 Alkaline Phosphatase 160 U/L (45-117) H 09/10/19 07:10 Albumin 3.5 g/dl (3.4-5.0) 09/10/19 07:10 Microbiology 09/09/19 20:00 Blood - Peripheral Venous Blood Culture - Preliminary NO GROWTH OBTAINED AFTER 24 HOURS, INCUBATION TO CONTINUE FOR 4 DAYS. 09/09/19 20:00 Blood - Peripheral Venous Blood Culture - Preliminary NO GROWTH OBTAINED AFTER 24 HOURS, INCUBATION TO CONTINUE FOR 4 DAYS. 09/09/19 20:45 Urine - Urine Clean Catch Legionella Antigen - Final 09/09/19 20:45 Urine - Urine Clean Catch Streptococcus pneumoniae Antigen ( M - Final Active Medications Acetaminophen (Tylenol -) 650 mg PO Q4H PRN PRN Reason: pain Albuterol Sulfate (Ventolin 0.083% Nebulizer Soln -) 1 amp NEB Q4H PRN PRN Reason: SHORT OF BREATH/WHEEZING Last Admin: 09/09/19 21:30 Dose: 1 amp Albuterol/Ipratropium (Duoneb -) 1 amp NEB RQID KARSON Last Admin: 09/10/19 20:35 Dose: 1 amp Allopurinol (Zyloprim -) 100 mg PO DAILY KARSON Last Admin: 09/10/19 10:10 Dose: 100 mg Amlodipine Besylate (Norvasc -) 5 mg PO DAILY [facility] Last Admin: 09/10/19 10:10 Dose: 5 mg Benzocaine/Menthol (Cepacol Lozenge -) 1 each MM DAILY PRN PRN Reason: SORE THROAT Gabapentin (Neurontin -) 200 mg PO HS PRN PRN Reason: PAIN Heparin Sodium (Porcine) (Heparin -) 5,000 unit SQ TID [facility] Last Admin: 09/10/19 21:33 Dose: Not Given Piperacillin Sod/Tazobactam (Sod 2.25 gm/ Dextrose) 50 mls @ 100 mls/hr IVPB Q6H-IV [facility]; Protocol Last Admin: 09/10/19 21:34 Dose: 100 mls/hr Insulin Aspart (Novolog Vial Sliding Scale -) 1 vial SQ ACHS [facility]; Protocol Last Admin: 09/10/19 21:39 Dose: 1 unit Meclizine HCl (Antivert -) 25 mg PO DAILY PRN PRN Reason: VERTIGO Methylprednisolone Sodium Succinate (Solu-Medrol -) 40 mg IVPUSH Q8H-IV [facility] Last Admin: 09/10/19 17:43 Dose: 40 mg Metoprolol Succinate (Toprol Xl -) 100 mg PO DAILY [facility] Last Admin: 09/10/19 10:10 Dose: 100 mg Montelukast Sodium (Singulair -) 10 mg PO HS [facility] Last Admin: 09/10/19 21:34 Dose: 10 mg Mycophenolate Mofetil (Cellcept -) 500 mg PO BID [facility] Last Admin: 09/10/19 21:34 Dose: 500 mg Pantoprazole Sodium (Protonix -) 40 mg PO DAILY [facility] Last Admin: 09/10/19 10:10 Dose: 40 mg Spironolactone (Aldactone -) 25 mg PO DAILY [facility] Last Admin: 09/10/19 10:14 Dose: Not Given Ursodiol (Actigal -) 300 mg PO BID [facility] Last Admin: 09/10/19 21:34 Dose: 300 mg A/P: COPD exacerbation R/o PNA with immunocompromise Liver transplantation Sarcoidosis HTN CKD Gout --All acura sales consultant recommendations appreciated --Imaging reviewed without any acute infiltrates and likely bronchiectasis noted on imaging --Continue Duoneb QID and albuterol PRN for increased SOB --Continue Medrol 40mg q8h IV --Continue Singulair 10mg HS --Continue Zosyn per ID for now; will likely de-escalate shortly --Continue Mycophenolate at home dose 500mg BID PO --Continue Actigal 300mg BID --Will attempt to get records from Transplant team (see Dr. Brown's note of same day for center number) --Continue rest of home medications as above FEN: Fluids: None; encourage PO Electrolyte abnormalities: None Nutrition: PPX: DVT - Heparin TID GI - Protonix 40mg IVP qdaily Dispo: continue monitoring on M/S Case discussed with Dr. Beatriz Salas, DO - IM PGY-3 <Harman Salas - Last Filed: 09/10/19 23:02> - Note Progress Note: Discussed with resident; agree with the above note aside from as supplemented. Independently verified all historial and PE findings. VS, labs, imaging independently reviewd; discussed with team. NAD, AAO, improved from prior encounter [facility] Lung exam imroved with less wheezes, no aparent crackles NT ND +BS CN2-12 wnl, no fnd Normal mood, appropriate behavior, MCI appreciated -Acute on Chronic Hypoxic Respiratory Failure (ABG pendign to check for mixed process) 2/2 *Acute on chronic COPD vs. Asthma exacerbation (PFTs not available) *Likely Sarcoid Flare *R/O Community Acquired PNA in immunosuppressed patient *Acute on Chronic HFrEF Exacerbation (echo reviewed new echo pending, consider CV consult, cautious diuresis as potentilly septic. Actually appears euvolemic today so less suspect. Will consult cardiology if worsens but for now pending return of current echo and will continue to monitor fluid status. ) -SIRS + with r/o sepsis 2/2 Community acquired PNA (ID, pulm pending, micro pending, broad spectrum abx) -HTN -Status Post Liver Transplant -Noncompliance with Medical Therapy -Leukocytosis -Obesity (sleep study ordered) <Jorge Henderson - Last Filed: 09/11/19 09:57>
--- NOTE | 2019-09-10 15:05 | ECHO ---
Name: DEDRICK JUAREZ Exam:Adult Echocardiogram Study Date: 09/10/2019 09:21 AM Age: 74 yrs Reason For Study: elevated BNP Height: 62 in Weight: 176 lb BSA: 1.8 m2 MMode/2D Measurements & Calculations IVSd: 1.2 cm Ao root diam: 2.3 cm LVIDd: 3.7 cm LA dimension: 2.7 cm LVIDs: 2.4 cm LVPWd: 0.92 cm EDV(Teich): 59.1 ml LVOT diam: 2.0 cm ESV(Teich): 20.8 ml LAV (MOD-bp): 36.7 ml Doppler Measurements & Calculations MV E max manoj: 97.3 cm/sec Ao V2 max: 183.2 cm/sec MV A max manoj: 145.1 cm/sec Ao max P.4 mmHg MV E/A: 0.67 MV dec time: 0.05 sec MERNA(V,D): 2.3 cm2 LV V1 max P.5 mmHg TR max manoj: 311.5 cm/sec LV V1 max: 136.5 cm/sec TR max P.0 mmHg PA V2 max: 238.2 cm/sec Med Peak E' Manoj: 8.2 cm/sec PA max P.7 mmHg Med E/e': 11.9 PA V2 mean: 142.6 cm/sec Lat Peak E' Manoj: 7.0 cm/sec PA mean P.0 mmHg Lat E/e': 14.0 PA V2 VTI: 35.2 cm Left Ventricle There is mild concentric left ventricular hypertrophy. Left ventricular systolic function is normal. Ejection Fraction = 55-60%. The transmitral spectral Doppler flow pattern is suggestive of impaired LV relaxat ion. Right Ventricle The right ventricle is normal in size and function. Atria Normal left and right atrial size and function. Mitral Valve There is mild mitral annular calcification. There is no mitral valve stenosis. There is trace to mild mitral regurgitation. Tricuspid Valve The tricuspid valve is normal in structure and function. There is mild tricuspid regurgitation. Right ventricular systolic pressure is elevated at 40-50mmHg. Aortic Valve The aortic valve opens well. No hemodynamically significant valvular aortic stenosis. No aortic regur gitation is present. Pulmonic Valve The pulmonic valve is not well seen, but is grossly normal. There is no pulmonic valvular stenosis. Great Vessels The aortic root is normal size. Pericardium/Pleura There is no pericardial effusion. Interpretation Summary There is mild concentric left ventricular hypertrophy. The transmitral spectral Doppler flow pattern is suggestive of impaired LV relaxation. Left ventricular systolic function is normal. Ejection Fraction = 55-60%. There is mild mitral annular calcification. There is trace to mild mitral regurgitation. There is mild tricuspid regurgitation. Right ventricular systolic pressure is elevated at 40-50mmHg. There is no pericardial effusion. MD Gtz *Yamilka 09/10/2019 11:11 AM
--- NOTE | 2019-09-10 15:14 | CON.GI ---
Consult Consult Specialty:: Gastroenterology Referred by:: Dr Jorge Henderson Reason for Consultation:: Liver transplant - History of Present Illness Chief Complaint: Cough - History Source History Provided By: Patient Limitations to Obtaining History: Poor Historian - Past Medical History Cardio/Vascular: Yes: HTN Pulmonary: Yes: Asthma, COPD, Other (sarcoidosis) Gastrointestinal: Yes: GERD, Other (colon adenoma removed 2011 ) Hepatobiliary: Yes: Hepatitis C (as per patient), Other (liver transplant for PBC at [facility]) Renal/: Yes: Renal Inusuff Rheumatology: Yes: Gout - Past Surgical History Past Surgical History: Yes: Cataract Removal (with implants bilaterally), Colonoscopy, Liver Transplant (liver transplanted at [facility]), Tubal Ligation, Upper Endoscopy - Alcohol/Substance Use Hx Alcohol Use: No History of Substance Use: reports: None - Smoking History Smoking history: Former smoker Have you smoked in the past 12 months: No Aproximately how many cigarettes per day: 2 If you are a former smoker, when did you quit?: 1992 - Social History Usual Living Arrangement: With Spouse ADL: Independent 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 (year[place] 30 History of Recent Travel: No Home Medications - Allergies Allergies/Adverse Reactions: Allergies Allergy/AdvReac Type Severity Reaction Status Date / Time shrimp Allergy Verified 07/17/18 11:25 - Home Medications Home Medications: Ambulatory Orders Gabapentin 200 mg PO HS PRN 02/22/17 Prednisone 5 mg PO DAILY 02/22/17 Spironolactone [Aldactone] 25 mg PO DAILY 02/22/17 Albuterol 2.5/Ipratropium 0.5 [Duoneb -] 1 amp NEB DAILY PRN 08/28/18 Albuterol Sulfate Inhaler - [Ventolin HFA Inhaler -] 2 inh IH Q6H PRN 08/28/18 Allopurinol [Zyloprim -] 100 mg PO DAILY 08/28/18 Budesonide/Formeterol Fumarate [SYMBICORT 160/4.5mcg -] 2 puff IH BID 08/28/18 Hydrochlorothiazide 12.5 mg PO DAILY 08/28/18 Meclizine HCl 25 mg PO DAILY PRN 08/28/18 Montelukast Sodium [Singulair] 10 mg PO DAILY 08/28/18 Metoprolol Succinate [Toprol XL -] 100 mg PO DAILY #30 tab.sr.24h 08/29/18 Pantoprazole Sodium 40 mg PO DAILY #30 tablet. 08/29/18 Ursodiol [Actigal] 300 mg NR BID #60 capsule 08/29/18 Amlodipine Besylate 5 mg PO DAILY 09/09/19 Mycophenolate Mofetil 500 mg PO DAILY 09/09/19 Family Medical History Other Family History: F 88. M 49 following complications Review of Systems - Review of Systems Constitutional: reports: No Symptoms Eyes: reports: No Symptoms HENT: reports: No Symptoms Neck: reports: No Symptoms Cardiovascular: reports: Shortness of Breath Respiratory: reports: Cough Gastrointestinal: reports: No Symptoms Musculoskeletal: reports: Joint Pain Physical Exam-GI Vital Signs: Vital Signs Temperature 97.5 F L 09/10/19 13:05 Pulse Rate 88 09/10/19 13:05 Respiratory Rate 18 09/10/19 13:05 Blood Pressure 145/73 09/10/19 13:05 O2 Sat by Pulse Oximetry (%) 97 09/09/19 19:00 CBC,CMP WBC 15.5 K/mm3 (4.0-10.0) H 09/10/19 07:16 RBC 3.83 M/mm3 (3.60-5.2) 09/10/19 07:16 Hgb 12.3 GM/dL (10.7-15.3) 09/10/19 07:16 Hct 37.0 % (32.4-45.2) 09/10/19 07:16 MCV 96.6 fl (80-96) H 09/10/19 07:16 MCH 32.0 pg (25.7-33.7) 09/10/19 07:16 MCHC 33.1 g/dl (32.0-36.0) 09/10/19 07:16 RDW 14.5 % (11.6-15.6) 09/10/19 07:16 Plt Count 194 K/MM3 (134-434) 09/10/19 07:16 MPV 11.7 fl (7.5-11.1) H 09/10/19 07:16 Absolute Neuts (auto) 12.2 K/mm3 (1.5-8.0) H 09/09/19 12:30 Neutrophils % 77.2 % (42.8-82.8) D 09/09/19 12:30 Neutrophils % (Manual) 96.3 % (42.8-82.8) H 09/10/19 07:16 Band Neutrophils % 0.0 % 09/10/19 07:16 Lymphocytes % 12.8 % (8-40) D 09/09/19 12:30 Lymphocytes % (Manual) 0.0 % (8-40) L 09/10/19 07:16 Monocytes % 9.0 % (3.8-10.2) 09/09/19 12:30 Monocytes % (Manual) 1 % (3.8-10.2) L 09/10/19 07:16 Eosinophils % 0.7 % (0-4.5) 09/09/19 12:30 Eosinophils % (Manual) 0.9 % (0-4.5) 09/10/19 07:16 Basophils % 0.3 % (0-2.0) 09/09/19 12:30 Basophils % (Manual) 0.0 % (0-2.0) 09/10/19 07:16 Myelocytes % (Man) 0 % (0-2) 09/10/19 07:16 Promyelocytes % (Man) 0 % (0-2) 09/10/19 07:16 Blast Cells % (Manual) 0 % (0-0) 09/10/19 07:16 Nucleated RBC % 0 % (0-0) 09/10/19 07:16 Metamyelocytes 0 % (0-2) 09/10/19 07:16 Hypochromia 0 09/10/19 07:16 Platelet Estimate Normal 09/10/19 07:16 Polychromasia 1+ 09/10/19 07:16 Poikilocytosis 0 09/10/19 07:16 Anisocytosis 1+ 09/10/19 07:16 Microcytosis 0 09/10/19 07:16 Macrocytosis 0 09/10/19 07:16 ESR 37 mm/hr (0-30) H 09/10/19 07:16 Sodium 140 mmol/L (136-145) 09/10/19 07:10 Potassium 4.0 mmol/L (3.5-5.1) 09/10/19 07:10 Chloride 106 mmol/L (98-107) 09/10/19 07:10 Carbon Dioxide 23 mmol/L (21-32) 09/10/19 07:10 Anion Gap 12 MMOL/L (8-16) 09/10/19 07:10 BUN 29.0 mg/dL (7-18) H 09/10/19 07:10 Creatinine 1.6 mg/dL (0.55-1.3) H 09/10/19 07:10 Est GFR (CKD-EPI)AfAm 36.67 09/10/19 07:10 Est GFR (CKD-EPI)NonAf 31.64 09/10/19 07:10 Random Glucose 171 mg/dL (74-106) H 09/10/19 07:10 Serum Osmolality 306 mosm/kg (278-305) H 09/10/19 07:10 Calcium 9.2 mg/dL (8.5-10.1) 09/10/19 07:10 Magnesium 2.2 mg/dL (1.8-2.4) 09/10/19 07:10 Total Bilirubin 0.4 mg/dL (0.2-1) 09/10/19 07:10 GGT 251 U/L (5-85) H 09/09/19 18:00 AST 15 U/L (15-37) 09/10/19 07:10 ALT 33 U/L (13-61) 09/10/19 07:10 Alkaline Phosphatase 160 U/L (45-117) H 09/10/19 07:10 Troponin I < 0.02 ng/ml (0.00-0.05) 09/09/19 18:00 B-Natriuretic Peptide 481.7 pg/ml (5-125) H 09/09/19 12:30 Total Protein 7.0 g/dl (6.4-8.2) 09/10/19 07:10 Albumin 3.5 g/dl (3.4-5.0) 09/10/19 07:10 Total Amylase 60 U/L (25-115) 09/09/19 18:00 Lipase 144 U/L (73-393) 09/09/19 18:00 TSH 0.90 uIU/ml (0.358-3.74) 09/09/19 18:00 Current Medications Generic Name Dose Route Start Last Admin Trade Name Freq PRN Reason Stop Dose Admin Acetaminophen 650 mg 09/09/19 17:46 Tylenol - PO Q4H PRN pain Albuterol Sulfate 1 amp 09/09/19 19:31 09/09/19 21:30 Ventolin 0.083% Nebulizer Soln - NEB 1 amp Q4H PRN Administration SHORT OF BREATH/WHEEZING Albuterol/Ipratropium 1 amp 09/10/19 08:00 09/10/19 11:48 Duoneb - NEB 1 amp RQID [facility] Administration Allopurinol 100 mg 09/10/19 10:00 09/10/19 10:10 Zyloprim - PO 100 mg DAILY [facility] Administration Amlodipine Besylate 5 mg 09/10/19 10:00 09/10/19 10:10 Norvasc - PO 5 mg DAILY [facility] Administration Benzocaine/Menthol 1 each 09/09/19 20:25 Cepacol Lozenge - MM DAILY PRN SORE THROAT Gabapentin 200 mg 09/09/19 19:28 Neurontin - PO HS PRN PAIN Heparin Sodium (Porcine) 5,000 unit 09/09/19 22:00 09/10/19 14:48 Heparin - SQ Not Given TID [facility] Piperacillin Sod/Tazobactam 50 mls @ 100 mls/hr 09/10/19 12:30 09/10/19 14:10 Sod 2.25 gm/ Dextrose IVPB Not Given Q6H-IV [facility] Protocol Insulin Aspart 1 vial 09/10/19 11:00 Novolog Vial Sliding Scale - SQ ACHS [facility] Protocol Magnesium Sulfate 2 gm 09/09/19 20:45 09/09/19 23:17 Magnesium Sulfate IVPB 2 gm ONCE [facility] Administration Meclizine HCl 25 mg 09/09/19 19:28 Antivert - PO DAILY PRN V[facility]IGO Methylprednisolone Sodium Succinate 80 mg 09/09/19 20:38 09/10/19 10:10 Solu-Medrol - IVPUSH 80 mg Q8H-IV [facility] Administration Metoprolol Succinate 100 mg 09/10/19 10:00 09/10/19 10:10 Toprol Xl - PO 100 mg DAILY [facility] Administration Montelukast Sodium 10 mg 09/09/19 22:00 09/09/19 22:32 Singulair - PO 10 mg HS [facility] Administration Mycophenolate Mofetil 500 mg 10/18/19 22:00 Cellcept - PO BID [facility] Pantoprazole Sodium 40 mg 09/09/19 20:30 09/10/19 10:10 Protonix - PO 40 mg DAILY [facility] Administration Spironolactone 25 mg 09/10/19 10:00 09/10/19 10:14 Aldactone - PO Not Given DAILY [facility] Ursodiol 300 mg 09/09/19 22:00 09/10/19 10:14 Actigal - PO Not Given BID [facility] Constitutional: Yes: Well Nourished Eyes: Yes: Conjunctiva Clear HENT: Yes: Atraumatic Neck: Yes: Supple Cardiovascular: Yes: Regular Rate and Rhythm Respiratory: Yes: Rhonchi (bilaterally) Gastrointestinal Inspection: Yes: Scars (upper abdominal bucket handle incisions ) ...Auscultate: Yes: Normoactive Bowel Sounds ...Palpate: Yes: Soft, Other (nontender) ...Rectal Exam: Yes: Guaiac Negative (no masses, brown guaiac negative stool) Edema: No Psychiatric: Yes: Alert, Oriented Labs: CBC, BMP 09/10/19 07:16 09/10/19 07:10 Laboratory Tests 09/09/19 09/10/19 18:00 07:10 GGT 251 H AST 15 ALT 33 Alkaline Phosphatase 160 H Problem List - Problems (1) Liver transplant recipient Code(s): Z94.4 - LIVER TRANSPLANT STATUS (2) COPD with exacerbation Code(s): J44.1 - CHRONIC OBSTRUCTIVE PULMONARY DISEASE W (ACUTE) EXACERBATION (3) Colon adenoma Code(s): D12.6 - BENIGN NEOPLASM OF COLON, UNSPECIFIED (4) Diverticulosis Code(s): K57.90 - DVRTCLOS OF INTEST, PART UNSP, W/O PERF OR ABSCESS W/O BLEED (5) Gout Code(s): M10.9 - GOUT, UNSPECIFIED (6) Primary biliary cholangitis Code(s): K74.3 - PRIMARY BILIARY CIRRHOSIS (7) Pulmonary sarcoidosis Code(s): D86.0 - SARCOIDOSIS OF LUNG Assessment/Plan Assessment: - Upper respiratory infection in a liver transplant patient. The patient claims that her transplant was due to HCV yet denies that it was ever treated or how she contacted it. She is known to have primary sclerosing cholangitis. I have called the [facility] transplant center ( [phone]) and await information. She left before her viral serologies were drawn in 2018 Plan: -- Continue Mycophenolate, prednisone and the Actigal -- Await liver viral serologies and word from her transplant center
--- NOTE | 2019-09-10 15:31 | PN ---
Progress Note (short form) - Note Progress Note: PULMONARY CONSULTATION DICTATED 09/10/19 IMP COUGH ,CONGESTION BRONCHIECTASIS URI SARCOIDOSIS COPD H/O LIVER TRANSPLANT VANESSA H/O PRIMARY BILIARY CHOLANGITIS PLAN IV ABX PER ID INHALED BRONCHODILATORS MEDROL CULTURES O2 NEEDED MONITOR LYTES,RENAL FUNCTION DR DOOLEY
[2019-09-10] MEDS ORDERED: PIPERACILLIN/TAZOBACTAM 2.25 GM VIAL IVPB ONE ×3 (16:04→23:34)
[2019-09-10] MEDS ORDERED: DEXTROSE 5%-WATER - 50 ML IVPB ONE ×3 (16:04→23:34)
--- NOTE | 2019-09-10 16:10 | CONSULT ---
Consult Consult Specialty:: Nephrology Reason for Consultation:: CKD - History of Present Illness Chief Complaint: shortness of breath History of Present Illness: Pt is a 74 year old female with pmhx of ckd, sarcoid, liver transplant, copd, and htn who presents with cough and shortness of breath. She says that the shortness of breath and wheeze have gotten worse over the last few days. She is on prednisone 10 mg at home. She denies dysuria or hematuria. She denies fevers or chills. She denies nsaids use. She is complaint with meds. She feels better today than she did yesterday. - History Source History Provided By: Patient - Past Medical History Cardio/Vascular: Yes: HTN Pulmonary: Yes: Asthma, COPD, Other (sarcoidosis) Gastrointestinal: Yes: GERD, Other (colon adenoma removed 2011 ) Hepatobiliary: Yes: Hepatitis C (as per patient), Other (liver transplant for PBC at [facility]) Renal/: Yes: Renal Inusuff Rheumatology: Yes: Gout - Past Surgical History Past Surgical History: Yes: Cataract Removal (with implants bilaterally), Colonoscopy, Liver Transplant (liver transplanted at [facility]), Tubal Ligation, Upper Endoscopy - Alcohol/Substance Use Hx Alcohol Use: No History of Substance Use: reports: None - Smoking History Smoking history: Former smoker Have you smoked in the past 12 months: No Aproximately how many cigarettes per day: 2 If you are a former smoker, when did you quit?: 1992 - Social History Usual Living Arrangement: With Spouse ADL: Independent 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 History of Recent Travel: No Home Medications - Allergies Allergies/Adverse Reactions: Allergies Allergy/AdvReac Type Severity Reaction Status Date / Time shrimp Allergy Verified 07/17/18 11:25 - Home Medications Home Medications: Ambulatory Orders Gabapentin 200 mg PO HS PRN 02/22/17 Prednisone 5 mg PO DAILY 02/22/17 Spironolactone [Aldactone] 25 mg PO DAILY 02/22/17 Albuterol 2.5/Ipratropium 0.5 [Duoneb -] 1 amp NEB DAILY PRN 08/28/18 Albuterol Sulfate Inhaler - [Ventolin HFA Inhaler -] 2 inh IH Q6H PRN 08/28/18 Allopurinol [Zyloprim -] 100 mg PO DAILY 08/28/18 Budesonide/Formeterol Fumarate [SYMBICORT 160/4.5mcg -] 2 puff IH BID 08/28/18 Hydrochlorothiazide 12.5 mg PO DAILY 08/28/18 Meclizine HCl 25 mg PO DAILY PRN 08/28/18 Montelukast Sodium [Singulair] 10 mg PO DAILY 08/28/18 Metoprolol Succinate [Toprol XL -] 100 mg PO DAILY #30 tab.sr.24h 08/29/18 Pantoprazole Sodium 40 mg PO DAILY #30 tablet.dr 08/29/18 Ursodiol [Actigal] 300 mg NR BID #60 capsule 08/29/18 Amlodipine Besylate 5 mg PO DAILY 09/09/19 Mycophenolate Mofetil 500 mg PO DAILY 09/09/19 Family Medical History Family History: Denies Review of Systems - Review of Systems Constitutional: reports: Malaise. denies: Chills, Fever Eyes: reports: No Symptoms HENT: reports: No Symptoms Neck: reports: No Symptoms Cardiovascular: reports: No Symptoms Respiratory: reports: Cough, SOB, SOB on Exertion, Wheezing Gastrointestinal: reports: No Symptoms Genitourinary: reports: No Symptoms Musculoskeletal: reports: No Symptoms Integumentary: reports: No Symptoms Neurological: reports: No Symptoms Endocrine: reports: No Symptoms Hematology/Lymphatic: reports: No Symptoms Psychiatric: reports: No Symptoms Physical Exam Vital Signs: Vital Signs Temperature 97.5 F L 09/10/19 13:05 Pulse Rate 88 09/10/19 13:05 Respiratory Rate 18 09/10/19 13:05 Blood Pressure 145/73 09/10/19 13:05 O2 Sat by Pulse Oximetry (%) 97 09/09/19 19:00 Constitutional: Yes: Calm Eyes: Yes: Conjunctiva Clear HENT: Yes: Atraumatic Neck: Yes: Supple Cardiovascular: Yes: S1, S2 Respiratory: Yes: Wheezes Gastrointestinal: Yes: Soft, Abdomen, Obese Renal/: Yes: WNL Musculoskeletal: Yes: WNL Edema: No Neurological: Yes: Oriented Psychiatric: Yes: Oriented Labs: CBC, BMP 09/10/19 07:16 09/10/19 07:10 Laboratory Tests 12/07/17 12/08/17 12/09/17 09:00 07:20 06:10 WBC Creatinine 1.5 H 1.3 H 1.3 H Urine Protein Urine Glucose (UA) Urine Blood Influenza A (Rapid) Influenza B (Rapid) 08/27/18 08/28/18 09/09/19 12:45 05:30 12:30 WBC 15.8 H Creatinine 1.3 1.2 Urine Protein Urine Glucose (UA) Urine Blood Influenza A (Rapid) Influenza B (Rapid) 09/09/19 09/09/19 09/09/19 12:30 18:00 Unknown WBC Creatinine 1.3 Urine Protein Negative Urine Glucose (UA) 1+ H Urine Blood Negative Influenza A (Rapid) Negative Influenza B (Rapid) Negative 09/10/19 09/10/19 07:10 07:16 WBC 15.5 H Creatinine 1.6 H Urine Protein Urine Glucose (UA) Urine Blood Influenza A (Rapid) Influenza B (Rapid) Imaging - Results Ultrasound: Report Reviewed Problem List - Problems (1) Liver transplant recipient Code(s): Z94.4 - LIVER TRANSPLANT STATUS (2) CKD (chronic kidney disease) Code(s): N18.9 - CHRONIC KIDNEY DISEASE, UNSPECIFIED Qualifiers: Chronic kidney disease stage: stage 2 (mild) Qualified Code(s): N18.2 - Chronic kidney disease, stage 2 (mild) Assessment/Plan Current Medications Generic Name Dose Route Start Last Admin Trade Name Freq PRN Reason Stop Dose Admin Acetaminophen 650 mg 09/09/19 17:46 Tylenol - PO Q4H PRN pain Albuterol Sulfate 1 amp 09/09/19 19:31 09/09/19 21:30 Ventolin 0.083% Nebulizer Soln - NEB 1 amp Q4H PRN Administration SHORT OF BREATH/WHEEZING Albuterol/Ipratropium 1 amp 09/10/19 08:00 09/10/19 11:48 Duoneb - NEB 1 amp RQID [facility] Administration Allopurinol 100 mg 09/10/19 10:00 09/10/19 10:10 Zyloprim - PO 100 mg DAILY [facility] Administration Amlodipine Besylate 5 mg 09/10/19 10:00 09/10/19 10:10 Norvasc - PO 5 mg DAILY [facility] Administration Benzocaine/Menthol 1 each 09/09/19 20:25 Cepacol Lozenge - MM DAILY PRN SORE THROAT Gabapentin 200 mg 09/09/19 19:28 Neurontin - PO HS PRN PAIN Heparin Sodium (Porcine) 5,000 unit 09/09/19 22:00 09/10/19 14:48 Heparin - SQ Not Given TID [facility] Piperacillin Sod/Tazobactam 50 mls @ 100 mls/hr 09/10/19 12:30 09/10/19 14:10 Sod 2.25 gm/ Dextrose IVPB Not Given Q6H-IV [facility] Protocol Insulin Aspart 1 vial 09/10/19 11:00 Novolog Vial Sliding Scale - SQ ACHS [facility] Protocol Magnesium Sulfate 2 gm 09/09/19 20:45 09/09/19 23:17 Magnesium Sulfate IVPB 2 gm ONCE [facility] Administration Meclizine HCl 25 mg 09/09/19 19:28 Antivert - PO DAILY PRN VERTIGO Methylprednisolone Sodium Succinate 40 mg 09/10/19 15:48 Solu-Medrol - IVPUSH Q8H-IV [facility] Metoprolol Succinate 100 mg 09/10/19 10:00 09/10/19 10:10 Toprol Xl - PO 100 mg DAILY [facility] Administration Montelukast Sodium 10 mg 09/09/19 22:00 09/09/19 22:32 Singulair - PO 10 mg HS [facility] Administration Mycophenolate Mofetil 500 mg 09/10/19 22:00 Cellcept - PO BID [facility] Pantoprazole Sodium 40 mg 09/09/19 20:30 09/10/19 10:10 Protonix - PO 40 mg DAILY [facility] Administration Spironolactone 25 mg 09/10/19 10:00 09/10/19 10:14 Aldactone - PO Not Given DAILY [facility] Ursodiol 300 mg 09/09/19 22:00 09/10/19 10:14 Actigal - PO Not Given BID [facility] Impression 1. CKD 2. COPD exacerbation 3. liver transplant 4. sarcoidosis 5. HTN 6. gout 7. hep C 8. PNA 9. hydronephrosis Plan - monitor renal function - steroids with taper - cont mycophenylate - monitor renal function - monitor potassium on aldactone
[2019-09-10] MEDS: INSULIN SLIDING SCALE (NOVOLOG) 1 VIAL SQ SCH ×3 (16:12→21:39)
--- NOTE | 2019-09-10 19:34 | CONS ---
DATE OF CONSULTATION: 09/10/2019 PULMONARY CONSULTATION REFERRING PHYSICIAN: Jorge Henderson M.D. HISTORY OF PRESENT ILLNESS: The patient is a 74-year-old female known to me from previous hospitalization as well as office visit. Past medical history of sarcoidosis diagnosed approximately 27 years ago with transbronchial biopsy, extensive bronchiectasis, chronic obstructive pulmonary disease, vertigo, hypertension, GERD, history of cirrhosis likely secondary to hepatitis C status post liver transplant greater than 20 years ago, maintained on prednisone, colon adenoma, primary biliary cholangitis, admitted to [facility] on September 09 with cough and increasing shortness of breath, chest congestion. Patient states she started developing cough approximately 5 days prior to admission. She describes this cough as productive yellow and green sputum and denies any hemoptysis. She also had increasing shortness of breath. She was using inhaler, which did not offer much improvement. She also complains of chest tightness and denies any fevers or chills, denies any hemoptysis. The patient presented to the emergency room with the above. In the ER, she underwent a CT scan of the chest which revealed no change from extensive bronchiectasis bilaterally. She was placed on antibiotic therapy and treated with inhaled bronchodilators with some clinical improvement. She was transferred to medical floor for further management. Patient has history of tobacco use many years ago. There is no history of occupational exposures to chemicals or fumes. There is no history of recent travel. There is no history of DVT or PE in the past. She states the has been sick with a similar symptoms prior to her a couple weeks ago. PAST MEDICAL HISTORY: Again includes sarcoid, COPD, vertigo, hypertension, GERD, history of liver transplant status post history of colon adenoma, primary biliary cholangitis. REVIEW OF SYSTEMS: Positive for cough. Positive for sputum. No fever. Positive shortness of breath. No chest pain. Positive chest tightness. No hemoptysis. No abdominal pain. No lower extremity edema. SOCIAL HISTORY: Born in [place], moved to the [facility] many years ago. No occupational exposures. CURRENT MEDICATIONS: Include Solu-Medrol 80 q.8, Tylenol, Zosyn, heparin, Neurontin, Zyloprim, Antivert, albuterol, Toprol, Norvasc, Singulair, and Aldactone. PHYSICAL EXAMINATION: General: The patient is a well-developed, well-nourished female currently awake , alert, in no acute respiratory distress. She is currently afebrile. Vital Signs: Blood pressure is 145/73, respiratory rate 18, and O2 saturation is 97% on room air. HEENT: Normocephalic, atraumatic. Neck: Supple. Heart: Regular S1, S2. Chest: Scattered bilateral rhonchi. Abdomen: Soft, bowel sounds positive. Extremities: No cyanosis, edema. LABORATORY: WBC 15.5, hemoglobin 12.3, hematocrit 37, platelet count of 194, 000. BUN 29, creatinine 1.6. Chest CT reveals extensive bronchiectasis bilaterally, right side greater than left. No significant changes from previous exam on March 04, 2019. IMPRESSION: 1. Cough, chest congestion, dyspnea most likely secondary to chronic obstructive pulmonary disease exacerbation likely secondary to upper respiratory infection. 2. Infected bronchiectasis. 3. Sarcoid. 4. History of liver transplant. 5. History of chronic obstructive pulmonary disease. 6. History of primary biliary cholangitis. 7. Also acute kidney injury. PLAN: IV antibiotics as per infectious disease. Supplemental O2 as needed. Inhaled bronchodilators. Solu-Medrol, obtain cultures. Monitor IV fluids. Monitor electrolytes. Renal function. MAXIMO DOOLEY M.D. HUSSAIN/[id number] MTDD
[2019-09-10] MEDS ORDERED: INSULIN (NOVOLOG) ASPART 100 UNITS/ML 10ML VIAL ONE (21:15)
[2019-09-10] MEDS: MAGNESIUM SULF 50% (8.12 MEQ/2 ML-1 GM VIAL) IVPB SCH (21:25)
[2019-09-10] MEDS: MONTELUKAST NA 10 MG TABLET PO SCH (21:34)
[2019-09-10] MEDS: MYCOPHENOLATE MOFETIL 500 MG TABLET PO SCH (21:34)
[2019-09-11] MEDS: methylPREDNISolone NA SUCC 40 MG/1 ML VIAL IVPUSH SCH ×3 (01:07→18:32)
[2019-09-11] MEDS: PIPERACILLIN/TAZOB 2.25 GM 2.25 GM in DEXTROSE 5%-WATER - 50 ML IVPB SCH ×4 (02:18→21:34)
[2019-09-11] MEDS: HEPARIN NA (PORCINE) 5,000 UNITS/ML 1ML VIAL SQ SCH ×3 (05:04→21:36)
[2019-09-11] MEDS: INSULIN SLIDING SCALE (NOVOLOG) 1 VIAL SQ SCH ×4 (06:08→21:44)
[2019-09-11] MEDS: ALBUTEROL SO4 2.5/IPRATROPIUM 0.5 INH SOL 3 ML VIAL.NEB. NEB SCH ×4 (07:15→19:45)
[2019-09-11 07:44] LABS: BASO % 0.2 % (0-2.0); HEMATOCRIT 33.5 % (32.4-45.2); HEMOGLOBIN 11.1 GM/dL (10.7-15.3); LYMPH % 2.2 % (8-40); MCH 31.8 pg (25.7-33.7); MCHC 33.3 g/dl (32.0-36.0); MEAN CELL VOLUME 95.7 fl (80-96); MEAN PLT VOLUME 11.5 fl (7.5-11.1); NEUT % 94.6 % (42.8-82.8); PLATELET COUNT 179 K/MM3 (134-434); RDW 14.4 % (11.6-15.6); WHITE BLOOD COUNT 16.9 K/mm3 (4.0-10.0)
[2019-09-11 08:13] LABS: ALBUMIN 3.4 g/dl (3.4-5.0); BILIRUBIN,TOTAL 0.3 mg/dL (0.2-1); BLOOD UREA NITROGEN 32.7 mg/dL (7-18); CALCIUM 9.2 mg/dL (8.5-10.1); CREATININE 1.6 mg/dL (0.55-1.3); MAGNESIUM 2.4 mg/dL (1.8-2.4); PHOSPHOROUS 3.9 mg/dL (2.5-4.9); TOT PROT 6.4 g/dl (6.4-8.2)
[2019-09-11] MEDS ORDERED: PIPERACILLIN/TAZOBACTAM 2.25 GM VIAL IVPB ONE ×3 (08:51→20:56)
[2019-09-11] MEDS ORDERED: DEXTROSE 5%-WATER - 50 ML IVPB ONE ×3 (08:51→20:56)
[2019-09-11] MEDS ORDERED: PT OWN MED DRAWER 7, Y5N ONE (08:51)
--- NOTE | 2019-09-11 09:59 | PN ---
Progress Note, Physician History of Present Illness: feeling better still coughing - Current Medication List Current Medications: Active Medications Acetaminophen (Tylenol -) 650 mg PO Q4H PRN PRN Reason: pain Albuterol Sulfate (Ventolin 0.083% Nebulizer Soln -) 1 amp NEB Q4H PRN PRN Reason: SHORT OF BREATH/WHEEZING Last Admin: 09/09/19 21:30 Dose: 1 amp Albuterol/Ipratropium (Duoneb -) 1 amp NEB RQID [facility] Last Admin: 09/11/19 07:15 Dose: 1 amp Allopurinol (Zyloprim -) 100 mg PO DAILY [facility] Last Admin: 09/10/19 10:10 Dose: 100 mg Amlodipine Besylate (Norvasc -) 5 mg PO DAILY [facility] Last Admin: 09/10/19 10:10 Dose: 5 mg Benzocaine/Menthol (Cepacol Lozenge -) 1 each MM DAILY PRN PRN Reason: SORE THROAT Gabapentin (Neurontin -) 200 mg PO HS PRN PRN Reason: PAIN Heparin Sodium (Porcine) (Heparin -) 5,000 unit SQ TID [facility] Last Admin: 09/11/19 05:04 Dose: Not Given Piperacillin Sod/Tazobactam (Sod 2.25 gm/ Dextrose) 50 mls @ 100 mls/hr IVPB Q6H-IV [facility]; Protocol Last Admin: 09/11/19 02:18 Dose: 100 mls/hr Insulin Aspart (Novolog Vial Sliding Scale -) 1 vial SQ ACHS [facility]; Protocol Last Admin: 09/11/19 06:08 Dose: 1 unit Meclizine HCl (Antivert -) 25 mg PO DAILY PRN PRN Reason: VERTIGO Methylprednisolone Sodium Succinate (Solu-Medrol -) 40 mg IVPUSH Q8H-IV [facility] Last Admin: 09/11/19 01:07 Dose: 40 mg Metoprolol Succinate (Toprol Xl -) 100 mg PO DAILY [facility] Last Admin: 09/10/19 10:10 Dose: 100 mg Montelukast Sodium (Singulair -) 10 mg PO HS [facility] Last Admin: 09/10/19 21:34 Dose: 10 mg Mycophenolate Mofetil (Cellcept -) 500 mg PO BID [facility] Last Admin: 09/10/19 21:34 Dose: 500 mg Pantoprazole Sodium (Protonix -) 40 mg PO DAILY [facility] Last Admin: 09/10/19 10:10 Dose: 40 mg Spironolactone (Aldactone -) 25 mg PO DAILY [facility] Last Admin: 09/10/19 10:14 Dose: Not Given Ursodiol (Actigal -) 300 mg PO BID [facility] Last Admin: 09/10/19 21:34 Dose: 300 mg - Objective Vital Signs: Vital Signs Temperature 98.1 F 09/11/19 06:00 Pulse Rate 90 09/11/19 06:00 Respiratory Rate 20 09/11/19 06:00 Blood Pressure 161/88 09/11/19 06:00 O2 Sat by Pulse Oximetry (%) 97 09/10/19 21:00 Constitutional: Yes: No Distress, Calm Neck: Yes: Supple Cardiovascular: Yes: S1, S2 Respiratory: Yes: Regular, CTA Bilaterally Gastrointestinal: Yes: Normal Bowel Sounds, Soft Musculoskeletal: Yes: WNL Extremities: Yes: WNL Neurological: Yes: Alert, Oriented Psychiatric: Yes: Alert, Oriented Labs: CBC, BMP 09/11/19 07:07 09/11/19 07:07 Assessment/Plan Problem List - Problems (1) Liver transplant recipient Code(s): Z94.4 - LIVER TRANSPLANT STATUS (2) CKD (chronic kidney disease) Code(s): N18.9 - CHRONIC KIDNEY DISEASE, UNSPECIFIED Qualifiers: Chronic kidney disease stage: stage 2 (mild) Qualified Code(s): N18.2 - Chronic kidney disease, stage 2 (mild) 3 breoncheiactasis cough plan continue abx for now pul on case rest as per team
--- NOTE | 2019-09-11 10:01 | PN ---
Progress Note (short form) - Note Progress Note: Renal follow up for CKD Coverage for Dr. Pool Seen and examined at the bedside no acute complaints feels better sob is improved making urine no leg swelling Vital Signs Temperature 98.1 F 09/11/19 06:00 Pulse Rate 90 09/11/19 06:00 Respiratory Rate 20 09/11/19 06:00 Blood Pressure 161/88 09/11/19 06:00 O2 Sat by Pulse Oximetry (%) 97 09/10/19 21:00 Intake & Output 09/08/19 09/09/19 09/10/19 09/11/19 23:59 23:59 23:59 23:59 Intake Total 600 1150 500 Balance 600 1150 500 Weight 79.492 kg 79.424 kg NAD awake and alert RRR Dec BS, no rales no LE edema CBC, BMP 09/11/19 07:07 09/11/19 07:07 Current Medications Acetaminophen (Tylenol -) 650 mg PO Q4H PRN PRN Reason: pain Albuterol Sulfate (Ventolin 0.083% Nebulizer Soln -) 1 amp NEB Q4H PRN PRN Reason: SHORT OF BREATH/WHEEZING Last Admin: 09/09/19 21:30 Dose: 1 amp Albuterol/Ipratropium (Duoneb -) 1 amp NEB RQID [facility] Last Admin: 09/11/19 07:15 Dose: 1 amp Allopurinol (Zyloprim -) 100 mg PO DAILY [facility] Last Admin: 09/10/19 10:10 Dose: 100 mg Amlodipine Besylate (Norvasc -) 5 mg PO DAILY [facility] Last Admin: 09/10/19 10:10 Dose: 5 mg Benzocaine/Menthol (Cepacol Lozenge -) 1 each MM DAILY PRN PRN Reason: SORE THROAT Gabapentin (Neurontin -) 200 mg PO HS PRN PRN Reason: PAIN Heparin Sodium (Porcine) (Heparin -) 5,000 unit SQ TID [facility] Last Admin: 09/11/19 05:04 Dose: Not Given Piperacillin Sod/Tazobactam (Sod 2.25 gm/ Dextrose) 50 mls @ 100 mls/hr IVPB Q6H-IV [facility]; Protocol Last Admin: 09/11/19 02:18 Dose: 100 mls/hr Insulin Aspart (Novolog Vial Sliding Scale -) 1 vial SQ ACHS [facility]; Protocol Last Admin: 09/11/19 06:08 Dose: 1 unit Meclizine HCl (Antivert -) 25 mg PO DAILY PRN PRN Reason: VERTIGO Methylprednisolone Sodium Succinate (Solu-Medrol -) 40 mg IVPUSH Q8H-IV [facility] Last Admin: 09/11/19 01:07 Dose: 40 mg Metoprolol Succinate (Toprol Xl -) 100 mg PO DAILY [facility] Last Admin: 09/10/19 10:10 Dose: 100 mg Montelukast Sodium (Singulair -) 10 mg PO HS [facility] Last Admin: 09/10/19 21:34 Dose: 10 mg Mycophenolate Mofetil (Cellcept -) 500 mg PO BID [facility] Last Admin: 09/10/19 21:34 Dose: 500 mg Pantoprazole Sodium (Protonix -) 40 mg PO DAILY [facility] Last Admin: 09/10/19 10:10 Dose: 40 mg Spironolactone (Aldactone -) 25 mg PO DAILY [facility] Last Admin: 09/10/19 10:14 Dose: Not Given Ursodiol (Actigal -) 300 mg PO BID [facility] Last Admin: 09/10/19 21:34 Dose: 300 mg Impression 1. CKD 2. COPD exacerbation 3. liver transplant 4. sarcoidosis 5. HTN 6. gout 7. hep C 8. PNA 9. hydronephrosis Plan Renal function stable at this time Continue cellcept for liver transplant continue aldactone trend BMP daily continue IV steroids for COPD Meng Sol DO
[2019-09-11] MEDS: SPIRONOLACTONE 25 MG TABLET (FP) PO SCH (10:31)
[2019-09-11] MEDS: URSODIOL 300 MG CAPSULE PO SCH ×2 (10:31→21:34)
[2019-09-11] MEDS: MYCOPHENOLATE MOFETIL 500 MG TABLET PO SCH ×2 (10:33→21:34)
[2019-09-11] MEDS: PANTOPRAZOLE 40 MG TABLET (FP) PO SCH (10:33)
[2019-09-11] MEDS: amLODIPine BESYLATE 5 MG TABLET (FP) PO SCH (10:33)
[2019-09-11] MEDS: ALLOPURINOL 100 MG TABLET (FP) PO SCH (10:33)
[2019-09-11 11:58] LABS: ANISOCYTOSIS 1+; MACROCYTOSIS 1+; PLATELET ESTIMATE NORMAL
--- NOTE | 2019-09-11 13:27 | PN ---
Progress Note, Physician - Current Medication List Current Medications: Active Medications Acetaminophen (Tylenol -) 650 mg PO Q4H PRN PRN Reason: pain Albuterol Sulfate (Ventolin 0.083% Nebulizer Soln -) 1 amp NEB Q4H PRN PRN Reason: SHORT OF BREATH/WHEEZING Last Admin: 09/09/19 21:30 Dose: 1 amp Albuterol/Ipratropium (Duoneb -) 1 amp NEB RQID [facility] Last Admin: 09/11/19 11:00 Dose: 1 amp Allopurinol (Zyloprim -) 100 mg PO DAILY [facility] Last Admin: 09/11/19 10:33 Dose: 100 mg Amlodipine Besylate (Norvasc -) 5 mg PO DAILY [facility] Last Admin: 09/11/19 10:33 Dose: 5 mg Benzocaine/Menthol (Cepacol Lozenge -) 1 each MM DAILY PRN PRN Reason: SORE THROAT Gabapentin (Neurontin -) 200 mg PO HS PRN PRN Reason: PAIN Heparin Sodium (Porcine) (Heparin -) 5,000 unit SQ TID [facility] Last Admin: 09/11/19 05:04 Dose: Not Given Piperacillin Sod/Tazobactam (Sod 2.25 gm/ Dextrose) 50 mls @ 100 mls/hr IVPB Q6H-IV [facility]; Protocol Last Admin: 09/11/19 10:31 Dose: 100 mls/hr Insulin Aspart (Novolog Vial Sliding Scale -) 1 vial SQ ACHS [facility]; Protocol Last Admin: 09/11/19 12:54 Dose: Not Given Meclizine HCl (Antivert -) 25 mg PO DAILY PRN PRN Reason: VERTIGO Methylprednisolone Sodium Succinate (Solu-Medrol -) 40 mg IVPUSH Q8H-IV [facility] Last Admin: 09/11/19 10:31 Dose: 40 mg Metoprolol Succinate (Toprol Xl -) 100 mg PO DAILY [facility] Last Admin: 09/11/19 10:33 Dose: 100 mg Montelukast Sodium (Singulair -) 10 mg PO HS [facility] Last Admin: 09/10/19 21:34 Dose: 10 mg Mycophenolate Mofetil (Cellcept -) 500 mg PO BID [facility] Last Admin: 09/11/19 10:33 Dose: 500 mg Pantoprazole Sodium (Protonix -) 40 mg PO DAILY [facility] Last Admin: 09/11/19 10:33 Dose: 40 mg Spironolactone (Aldactone -) 25 mg PO DAILY [facility] Last Admin: 09/11/19 10:31 Dose: 25 mg Ursodiol (Actigal -) 300 mg PO BID [facility] Last Admin: 09/11/19 10:31 Dose: 300 mg - Objective Vital Signs: Vital Signs Temperature 97.9 F 09/11/19 13:22 Pulse Rate 89 09/11/19 13:22 Respiratory Rate 20 09/11/19 13:22 Blood Pressure 134/68 09/11/19 13:22 O2 Sat by Pulse Oximetry (%) 97 09/10/19 21:00 Labs: CBC, BMP 09/11/19 07:07 09/11/19 07:07 Assessment/Plan IMP COUGH ,CONGESTION BRONCHIECTASIS URI SARCODOSIS COPD H/O LIVER TRANSPLANT VANESSA H/O PRIMARY BILIARY CHOLANGITIS PLAN IV ABX PER ID INHALED BRONCHODILATORS MEDROL CULTURES O2 NEEDED MONITOR LYTES,RENAL FUNCTION DR DOOLEY
--- NOTE | 2019-09-11 13:35 | PN ---
Progress Note, Physician Chief Complaint: doing well , no new c/o, no sob, - Current Medication List Current Medications: Active Medications Acetaminophen (Tylenol -) 650 mg PO Q4H PRN PRN Reason: pain Albuterol Sulfate (Ventolin 0.083% Nebulizer Soln -) 1 amp NEB Q4H PRN PRN Reason: SHORT OF BREATH/WHEEZING Last Admin: 09/09/19 21:30 Dose: 1 amp Albuterol/Ipratropium (Duoneb -) 1 amp NEB RQID [facility] Last Admin: 09/11/19 11:00 Dose: 1 amp Allopurinol (Zyloprim -) 100 mg PO DAILY [facility] Last Admin: 09/11/19 10:33 Dose: 100 mg Amlodipine Besylate (Norvasc -) 5 mg PO DAILY [facility] Last Admin: 09/11/19 10:33 Dose: 5 mg Benzocaine/Menthol (Cepacol Lozenge -) 1 each MM DAILY PRN PRN Reason: SORE THROAT Gabapentin (Neurontin -) 200 mg PO HS PRN PRN Reason: PAIN Heparin Sodium (Porcine) (Heparin -) 5,000 unit SQ TID [facility] Last Admin: 09/11/19 05:04 Dose: Not Given Piperacillin Sod/Tazobactam (Sod 2.25 gm/ Dextrose) 50 mls @ 100 mls/hr IVPB Q6H-IV [facility]; Protocol Last Admin: 09/11/19 10:31 Dose: 100 mls/hr Insulin Aspart (Novolog Vial Sliding Scale -) 1 vial SQ ACHS [facility]; Protocol Last Admin: 09/11/19 12:54 Dose: Not Given Meclizine HCl (Antivert -) 25 mg PO DAILY PRN PRN Reason: VERTIGO Methylprednisolone Sodium Succinate (Solu-Medrol -) 40 mg IVPUSH Q8H-IV [facility] Last Admin: 09/11/19 10:31 Dose: 40 mg Metoprolol Succinate (Toprol Xl -) 100 mg PO DAILY [facility] Last Admin: 09/11/19 10:33 Dose: 100 mg Montelukast Sodium (Singulair -) 10 mg PO HS [facility] Last Admin: 09/10/19 21:34 Dose: 10 mg Mycophenolate Mofetil (Cellcept -) 500 mg PO BID [facility] Last Admin: 09/11/19 10:33 Dose: 500 mg Pantoprazole Sodium (Protonix -) 40 mg PO DAILY [facility] Last Admin: 09/11/19 10:33 Dose: 40 mg Spironolactone (Aldactone -) 25 mg PO DAILY [facility] Last Admin: 09/11/19 10:31 Dose: 25 mg Ursodiol (Actigal -) 300 mg PO BID [facility] Last Admin: 09/11/19 10:31 Dose: 300 mg - Objective Vital Signs: Vital Signs Temperature 97.9 F 09/11/19 13:22 Pulse Rate 89 09/11/19 13:22 Respiratory Rate 20 09/11/19 13:22 Blood Pressure 134/68 09/11/19 13:22 O2 Sat by Pulse Oximetry (%) 97 09/10/19 21:00 Constitutional: Yes: Well Nourished Eyes: Yes: WNL HENT: Yes: WNL, Tonsillar Exudate Cardiovascular: Yes: Regular Rate and Rhythm Respiratory: Yes: Regular, CTA Bilaterally Gastrointestinal: Yes: WNL, Normal Bowel Sounds Extremities: Yes: WNL Labs: CBC, BMP 09/11/19 07:07 09/11/19 07:07 Impression/Plan Impression/Plan: cOPD exacerbation/ bronchiectasis, --All chain sales consultant recommendations appreciated --Imaging reviewed without any acute infiltrates and likely bronchiectasis noted on imaging --Continue Duoneb QID and albuterol PRN for increased SOB --Continue Medrol 40mg q8h IV --Continue Singulair 10mg HS --Continue Zosyn per ID for now; Liver transplantation records pending --Continue Mycophenolate at home dose 500mg BID PO --Continue Actigal 300mg BID --Continue rest of home medications as above HTN, continue curent meds, CKD, stable, Gout, stable, FEN: Fluids: None; encourage PO Electrolyte abnormalities: None Nutrition: PPX: DVT - Heparin TID GI - Protonix 40mg IVP qdaily Dispo: continue monitoring on / Case discussed with Dr. Beatriz Salas, DO - IM [id number] Visit type - Emergency Visit Emergency Visit: No - New Patient This patient is new to me today: Yes Date on this admission: 09/11/19 - Critical Care Critical Care patient: No - Discharge Referral Referred to [facility] Med P.C.: No
--- NOTE | 2019-09-11 14:11 | PN ---
Progress Note, Physician History of Present Illness: pulmonary alert,feeling better,less congested - Current Medication List Current Medications: Active Medications Acetaminophen (Tylenol -) 650 mg PO Q4H PRN PRN Reason: pain Albuterol Sulfate (Ventolin 0.083% Nebulizer Soln -) 1 amp NEB Q4H PRN PRN Reason: SHORT OF BREATH/WHEEZING Last Admin: 09/09/19 21:30 Dose: 1 amp Albuterol/Ipratropium (Duoneb -) 1 amp NEB RQID [facility] Last Admin: 09/11/19 11:00 Dose: 1 amp Allopurinol (Zyloprim -) 100 mg PO DAILY [facility] Last Admin: 09/11/19 10:33 Dose: 100 mg Amlodipine Besylate (Norvasc -) 5 mg PO DAILY [facility] Last Admin: 09/11/19 10:33 Dose: 5 mg Benzocaine/Menthol (Cepacol Lozenge -) 1 each MM DAILY PRN PRN Reason: SORE THROAT Gabapentin (Neurontin -) 200 mg PO HS PRN PRN Reason: PAIN Heparin Sodium (Porcine) (Heparin -) 5,000 unit SQ TID [facility] Last Admin: 09/11/19 05:04 Dose: Not Given Piperacillin Sod/Tazobactam (Sod 2.25 gm/ Dextrose) 50 mls @ 100 mls/hr IVPB Q6H-IV [facility]; Protocol Last Admin: 09/11/19 10:31 Dose: 100 mls/hr Insulin Aspart (Novolog Vial Sliding Scale -) 1 vial SQ ACHS [facility]; Protocol Last Admin: 09/11/19 12:54 Dose: Not Given Meclizine HCl (Antivert -) 25 mg PO DAILY PRN PRN Reason: VERTIGO Methylprednisolone Sodium Succinate (Solu-Medrol -) 40 mg IVPUSH Q8H-IV [facility] Last Admin: 09/11/19 10:31 Dose: 40 mg Metoprolol Succinate (Toprol Xl -) 100 mg PO DAILY [facility] Last Admin: 09/11/19 10:33 Dose: 100 mg Montelukast Sodium (Singulair -) 10 mg PO HS [facility] Last Admin: 09/10/19 21:34 Dose: 10 mg Mycophenolate Mofetil (Cellcept -) 500 mg PO BID [facility] Last Admin: 09/11/19 10:33 Dose: 500 mg Pantoprazole Sodium (Protonix -) 40 mg PO DAILY [facility] Last Admin: 09/11/19 10:33 Dose: 40 mg Spironolactone (Aldactone -) 25 mg PO DAILY [facility] Last Admin: 09/11/19 10:31 Dose: 25 mg Ursodiol (Actigal -) 300 mg PO BID [facility] Last Admin: 09/11/19 10:31 Dose: 300 mg - Objective Vital Signs: Vital Signs Temperature 97.9 F 09/11/19 13:22 Pulse Rate 89 09/11/19 13:22 Respiratory Rate 20 09/11/19 13:22 Blood Pressure 134/68 09/11/19 13:22 O2 Sat by Pulse Oximetry (%) 97 09/10/19 21:00 Constitutional: Yes: Well Nourished, Calm Eyes: Yes: WNL HENT: Yes: WNL Neck: Yes: WNL Cardiovascular: Yes: Regular Rate and Rhythm, S1, S2 Respiratory: Yes: Rales (few scattered crrackles) Gastrointestinal: Yes: Normal Bowel Sounds, Soft Extremities: Yes: WNL Edema: No Labs: CBC, BMP 09/11/19 07:07 09/11/19 07:07 Assessment/Plan IMP COUGH ,CONGESTION BRONCHIECTASIS URI SARCOIDOSIS COPD H/O LIVER TRANSPLANT VANESSA H/O PRIMARY BILIARY CHOLANGITIS PLAN CONTINUE IV ABX PER ID INHALED BRONCHODILATORS MEDROL O2 NEEDED MONITOR LYTES,RENAL FUNCTION DR DOOLEY
[2019-09-11] MEDS: BENZOCAINE/MENTH/CETYLPYRD CL 1 EACH LOZENGE MM PRN (18:57)
[2019-09-11] MEDS ORDERED: INSULIN (NOVOLOG) ASPART 100 UNITS/ML 10ML VIAL ONE (20:56)
[2019-09-11] MEDS: MONTELUKAST NA 10 MG TABLET PO SCH (21:34)
[2019-09-12] MEDS: MELATONIN 1 MG TABLET PO SCH ×2 (00:39→21:28)
[2019-09-12] MEDS ORDERED: DEXTROSE 5%-WATER - 50 ML IVPB ONE ×4 (01:11→21:26)
[2019-09-12] MEDS ORDERED: PIPERACILLIN/TAZOBACTAM 2.25 GM VIAL IVPB ONE ×4 (01:11→21:26)
[2019-09-12] MEDS: methylPREDNISolone NA SUCC 40 MG/1 ML VIAL IVPUSH SCH ×3 (01:42→21:27)
[2019-09-12] MEDS: PIPERACILLIN/TAZOB 2.25 GM 2.25 GM in DEXTROSE 5%-WATER - 50 ML IVPB SCH ×4 (02:12→21:27)
[2019-09-12] MEDS: HEPARIN NA (PORCINE) 5,000 UNITS/ML 1ML VIAL SQ SCH ×4 (06:07→21:36)
[2019-09-12] MEDS: INSULIN SLIDING SCALE (NOVOLOG) 1 VIAL SQ SCH ×4 (06:12→21:34)
[2019-09-12 06:53] LABS: BLOOD UREA NITROGEN 39.1 mg/dL (7-18); CALCIUM 9.3 mg/dL (8.5-10.1); CREATININE 1.8 mg/dL (0.55-1.3); POTASSIUM 4.4 mmol/L (3.5-5.1)
[2019-09-12] MEDS: ALBUTEROL SO4 2.5/IPRATROPIUM 0.5 INH SOL 3 ML VIAL.NEB. NEB SCH ×4 (07:25→19:45)
[2019-09-12] MEDS ORDERED: GABAPENTIN 100 MG CAPSULE (FP) PO PRN (09:49)
[2019-09-12] MEDS ORDERED: ACETAMINOPHEN 325 MG TABLET (FP) PO PRN (09:50)
--- NOTE | 2019-09-12 09:50 | PN ---
Progress Note (short form) - Note Progress Note: Renal follow up for CKD Coverage for Dr. Pool Seen and examined at the bedside no acute complaints cough and sob is better is having frequent soft stools, no overt diarrhea making urine no leg swelling Vital Signs Temperature 97.6 F 09/12/19 06:00 Pulse Rate 80 09/12/19 06:00 Respiratory Rate 18 09/12/19 06:00 Blood Pressure 133/74 09/12/19 06:00 O2 Sat by Pulse Oximetry (%) 100 09/11/19 20:19 Intake & Output 09/09/19 09/10/19 09/11/19 09/12/19 23:59 23:59 23:59 23:59 Intake Total 600 1150 1050 Balance 600 1150 1050 Weight 79.492 kg 79.424 kg 79.968 kg NAD awake and alert RRR Dec BS, no rales no LE edema CBC, BMP 09/11/19 07:07 09/12/19 05:58 Current Medications Acetaminophen (Tylenol -) 650 mg PO Q4H PRN PRN Reason: pain Albuterol Sulfate (Ventolin 0.083% Nebulizer Soln -) 1 amp NEB Q4H PRN PRN Reason: SHORT OF BREATH/WHEEZING Last Admin: 09/09/19 21:30 Dose: 1 amp Albuterol/Ipratropium (Duoneb -) 1 amp NEB RQID [facility] Last Admin: 09/12/19 07:25 Dose: 1 amp Allopurinol (Zyloprim -) 100 mg PO DAILY [facility] Last Admin: 09/11/19 10:33 Dose: 100 mg Amlodipine Besylate (Norvasc -) 5 mg PO DAILY [facility] Last Admin: 09/11/19 10:33 Dose: 5 mg Benzocaine/Menthol (Cepacol Lozenge -) 1 each MM DAILY PRN PRN Reason: SORE THROAT Last Admin: 09/11/19 18:57 Dose: 1 each Gabapentin (Neurontin -) 200 mg PO HS PRN PRN Reason: PAIN Heparin Sodium (Porcine) (Heparin -) 5,000 unit SQ TID [facility] Last Admin: 09/12/19 06:07 Dose: Not Given Piperacillin Sod/Tazobactam (Sod 2.25 gm/ Dextrose) 50 mls @ 100 mls/hr IVPB Q6H-IV [facility]; Protocol Last Admin: 09/12/19 02:12 Dose: 100 mls/hr Insulin Aspart (Novolog Vial Sliding Scale -) 1 vial SQ ACHS [facility]; Protocol Last Admin: 09/12/19 06:12 Dose: 1 unit Meclizine HCl (Antivert -) 25 mg PO DAILY PRN PRN Reason: VERTIGO Melatonin (Melatonin) 3 mg PO HS [facility] Last Admin: 09/12/19 00:39 Dose: 3 mg Methylprednisolone Sodium Succinate (Solu-Medrol -) 40 mg IVPUSH Q8H-IV [facility] Last Admin: 09/12/19 01:42 Dose: 40 mg Metoprolol Succinate (Toprol Xl -) 100 mg PO DAILY [facility] Last Admin: 09/11/19 10:33 Dose: 100 mg Montelukast Sodium (Singulair -) 10 mg PO HS [facility] Last Admin: 09/11/19 21:34 Dose: 10 mg Mycophenolate Mofetil (Cellcept -) 500 mg PO BID [facility] Last Admin: 09/11/19 21:34 Dose: 500 mg Pantoprazole Sodium (Protonix -) 40 mg PO DAILY [facility] Last Admin: 09/11/19 10:33 Dose: 40 mg Spironolactone (Aldactone -) 25 mg PO DAILY [facility] Last Admin: 09/11/19 10:31 Dose: 25 mg Ursodiol (Actigal -) 300 mg PO BID [facility] Last Admin: 09/11/19 21:34 Dose: 300 mg Impression 1. CKD 2. COPD exacerbation 3. liver transplant 4. sarcoidosis 5. HTN 6. gout 7. hep C 8. PNA 9. hydronephrosis Plan Renal function stable at this time if BUN/Cr trends up further may benefit from short tiral of IVF and discontination of diuretics. Continue cellcept for liver transplant continue aldactone, hold if BUN/Cr further trends up trend BMP daily continue IV steroids for COPD Meng Sol DO
--- NOTE | 2019-09-12 09:55 | PN ---
Progress Note, Physician Chief Complaint: doing well , no new c/o, no sob, - Current Medication List Current Medications: Active Medications Acetaminophen (Tylenol -) 650 mg PO Q4H PRN PRN Reason: PAIN LEVEL 4 - 6 Albuterol Sulfate (Ventolin 0.083% Nebulizer Soln -) 1 amp NEB Q4H PRN PRN Reason: SHORT OF BREATH/WHEEZING Last Admin: 09/09/19 21:30 Dose: 1 amp Albuterol/Ipratropium (Duoneb -) 1 amp NEB RQID [facility] Last Admin: 09/12/19 07:25 Dose: 1 amp Allopurinol (Zyloprim -) 100 mg PO DAILY [facility] Last Admin: 09/11/19 10:33 Dose: 100 mg Amlodipine Besylate (Norvasc -) 5 mg PO DAILY [facility] Last Admin: 09/11/19 10:33 Dose: 5 mg Benzocaine/Menthol (Cepacol Lozenge -) 1 each MM DAILY PRN PRN Reason: SORE THROAT Last Admin: 09/11/19 18:57 Dose: 1 each Gabapentin (Neurontin -) 200 mg PO HS PRN PRN Reason: PAIN LEVEL 4 - 6 Heparin Sodium (Porcine) (Heparin -) 5,000 unit SQ TID [facility] Last Admin: 09/12/19 06:07 Dose: Not Given Piperacillin Sod/Tazobactam (Sod 2.25 gm/ Dextrose) 50 mls @ 100 mls/hr IVPB Q6H-IV [facility]; Protocol Last Admin: 09/12/19 02:12 Dose: 100 mls/hr Insulin Aspart (Novolog Vial Sliding Scale -) 1 vial SQ ACHS [facility]; Protocol Last Admin: 09/12/19 06:12 Dose: 1 unit Meclizine HCl (Antivert -) 25 mg PO DAILY PRN PRN Reason: VERTIGO Melatonin (Melatonin) 3 mg PO HS [facility] Last Admin: 09/12/19 00:39 Dose: 3 mg Methylprednisolone Sodium Succinate (Solu-Medrol -) 40 mg IVPUSH Q8H-IV [facility] Last Admin: 09/12/19 01:42 Dose: 40 mg Metoprolol Succinate (Toprol Xl -) 100 mg PO DAILY [facility] Last Admin: 09/11/19 10:33 Dose: 100 mg Montelukast Sodium (Singulair -) 10 mg PO HS [facility] Last Admin: 09/11/19 21:34 Dose: 10 mg Mycophenolate Mofetil (Cellcept -) 500 mg PO BID [facility] Last Admin: 09/11/19 21:34 Dose: 500 mg Pantoprazole Sodium (Protonix -) 40 mg PO DAILY [facility] Last Admin: 09/11/19 10:33 Dose: 40 mg Spironolactone (Aldactone -) 25 mg PO DAILY [facility] Last Admin: 09/11/19 10:31 Dose: 25 mg Ursodiol (Actigal -) 300 mg PO BID [facility] Last Admin: 09/11/19 21:34 Dose: 300 mg - Objective Vital Signs: Vital Signs Temperature 97.6 F 09/12/19 06:00 Pulse Rate 80 09/12/19 06:00 Respiratory Rate 18 09/12/19 06:00 Blood Pressure 133/74 09/12/19 06:00 O2 Sat by Pulse Oximetry (%) 100 09/11/19 20:19 Labs: CBC, BMP 09/11/19 07:07 09/12/19 05:58 Impression/Plan Impression/Plan: cOPD exacerbation/ bronchiectasis, --Continue Duoneb QID and albuterol PRN for increased SOB --Continue Medrol 40mg q8h IV --Continue Singulair 10mg HS --Continue Zosyn per ID for now; Liver transplantation records pending --Continue Mycophenolate at home dose 500mg BID PO --Continue Actigal 300mg BID --Continue rest of home medications as above HTN, continue curent meds, CKD, stable, Gout, stable, PPX: DVT - Heparin TID GI - Protonix 40mg Visit type - Emergency Visit Emergency Visit: No - New Patient This patient is new to me today: No - Critical Care Critical Care patient: No - Discharge Referral Referred to [facility] Med P.C.: No
--- NOTE | 2019-09-12 10:21 | PN ---
Progress Note, Physician History of Present Illness: looking better coughing less - Current Medication List Current Medications: Active Medications Acetaminophen (Tylenol -) 650 mg PO Q4H PRN PRN Reason: PAIN LEVEL 4 - 6 Albuterol Sulfate (Ventolin 0.083% Nebulizer Soln -) 1 amp NEB Q4H PRN PRN Reason: SHORT OF BREATH/WHEEZING Last Admin: 09/09/19 21:30 Dose: 1 amp Albuterol/Ipratropium (Duoneb -) 1 amp NEB RQID [facility] Last Admin: 09/12/19 07:25 Dose: 1 amp Allopurinol (Zyloprim -) 100 mg PO DAILY [facility] Last Admin: 09/11/19 10:33 Dose: 100 mg Amlodipine Besylate (Norvasc -) 5 mg PO DAILY [facility] Last Admin: 09/11/19 10:33 Dose: 5 mg Benzocaine/Menthol (Cepacol Lozenge -) 1 each MM DAILY PRN PRN Reason: SORE THROAT Last Admin: 09/11/19 18:57 Dose: 1 each Gabapentin (Neurontin -) 200 mg PO HS PRN PRN Reason: PAIN LEVEL 4 - 6 Heparin Sodium (Porcine) (Heparin -) 5,000 unit SQ TID [facility] Last Admin: 09/12/19 06:07 Dose: Not Given Piperacillin Sod/Tazobactam (Sod 2.25 gm/ Dextrose) 50 mls @ 100 mls/hr IVPB Q6H-IV [facility]; Protocol Last Admin: 09/12/19 02:12 Dose: 100 mls/hr Insulin Aspart (Novolog Vial Sliding Scale -) 1 vial SQ ACHS [facility]; Protocol Last Admin: 09/12/19 06:12 Dose: 1 unit Meclizine HCl (Antivert -) 25 mg PO DAILY PRN PRN Reason: VERTIGO Melatonin (Melatonin) 3 mg PO HS [facility] Last Admin: 09/12/19 00:39 Dose: 3 mg Methylprednisolone Sodium Succinate (Solu-Medrol -) 40 mg IVPUSH Q8H-IV [facility] Last Admin: 09/12/19 01:42 Dose: 40 mg Metoprolol Succinate (Toprol Xl -) 100 mg PO DAILY [facility] Last Admin: 09/11/19 10:33 Dose: 100 mg Montelukast Sodium (Singulair -) 10 mg PO HS [facility] Last Admin: 09/11/19 21:34 Dose: 10 mg Mycophenolate Mofetil (Cellcept -) 500 mg PO BID [facility] Last Admin: 09/11/19 21:34 Dose: 500 mg Pantoprazole Sodium (Protonix -) 40 mg PO DAILY [facility] Last Admin: 09/11/19 10:33 Dose: 40 mg Spironolactone (Aldactone -) 25 mg PO DAILY [facility] Last Admin: 09/11/19 10:31 Dose: 25 mg Ursodiol (Actigal -) 300 mg PO BID [facility] Last Admin: 09/11/19 21:34 Dose: 300 mg - Objective Vital Signs: Vital Signs Temperature 97.6 F 09/12/19 06:00 Pulse Rate 80 09/12/19 06:00 Respiratory Rate 18 09/12/19 06:00 Blood Pressure 133/74 09/12/19 06:00 O2 Sat by Pulse Oximetry (%) 100 09/11/19 20:19 Constitutional: Yes: No Distress Cardiovascular: Yes: Regular Rate and Rhythm Respiratory: Yes: Regular, CTA Bilaterally Gastrointestinal: Yes: Normal Bowel Sounds, Soft Musculoskeletal: Yes: WNL Extremities: Yes: Other Neurological: Yes: Alert, Oriented Psychiatric: Yes: Alert, Oriented Labs: CBC, BMP 09/11/19 07:07 09/12/19 05:58 Assessment/Plan Problem List - Problems (1) Liver transplant recipient Code(s): Z94.4 - LIVER TRANSPLANT STATUS (2) CKD (chronic kidney disease) Code(s): N18.9 - CHRONIC KIDNEY DISEASE, UNSPECIFIED Qualifiers: Chronic kidney disease stage: stage 2 (mild) Qualified Code(s): N18.2 - Chronic kidney disease, stage 2 (mild) 3 breoncheiactasis cough plan continue abx for now pul on case rest as per team
[2019-09-12] MEDS: PANTOPRAZOLE 40 MG TABLET (FP) PO SCH (10:32)
[2019-09-12] MEDS: URSODIOL 300 MG CAPSULE PO SCH ×2 (10:32→21:48)
[2019-09-12] MEDS: ALLOPURINOL 100 MG TABLET (FP) PO SCH (10:32)
[2019-09-12] MEDS: SPIRONOLACTONE 25 MG TABLET (FP) PO SCH (10:32)
[2019-09-12] MEDS: MYCOPHENOLATE MOFETIL 500 MG TABLET PO SCH ×2 (10:32→21:28)
[2019-09-12] MEDS: amLODIPine BESYLATE 5 MG TABLET (FP) PO SCH (10:36)
--- NOTE | 2019-09-12 13:01 | PN.GI ---
GI Progress Note Subjective: GI Note: LFTs are stable and alk phos is dropping. I did receive a call from the [facility] transplant center. They confirm that Lila has not been seen since 01/12. Her meds include mycophenolate, prednisone and ursodiol. They could not confirm a the diagnosis for cirrhosis or exclude HCV. Her study here however revealed that she is negative for hepatitis B and C and I have informed her of this. - Objective Vital Signs: Vital Signs Temperature 97.6 F 09/12/19 06:00 Pulse Rate 80 09/12/19 06:00 Respiratory Rate 18 09/12/19 06:00 Blood Pressure 133/74 09/12/19 06:00 O2 Sat by Pulse Oximetry (%) 100 09/11/19 20:19 Laboratory Tests 09/10/19 09/11/19 07:10 07:07 Total Bilirubin 0.3 AST 22 ALT 31 Alkaline Phosphatase 160 H 130 H Constitutional: No Distress ...Auscultate: Yes: Normoactive Bowel Sounds ...Palpate: Yes: Soft, Other (nontender) Labs: CBC, BMP 09/11/19 07:07 09/12/19 05:58 Assessment/Plan Assessment: - Upper respiratory infection in a liver transplant patient. 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 I emphasized to Teresa that she must be followed at a Liver Transplant Center Problem List - Problems (1) Liver transplant recipient Code(s): Z94.4 - LIVER TRANSPLANT STATUS (2) COPD with exacerbation Code(s): J44.1 - CHRONIC OBSTRUCTIVE PULMONARY DISEASE W (ACUTE) EXACERBATION (3) Colon adenoma Code(s): D12.6 - BENIGN NEOPLASM OF COLON, UNSPECIFIED (4) Diverticulosis Code(s): K57.90 - DVRTCLOS OF INTEST, PART UNSP, W/O PERF OR ABSCESS W/O BLEED (5) Gout Code(s): M10.9 - GOUT, UNSPECIFIED (6) Primary biliary cholangitis Code(s): K74.3 - PRIMARY BILIARY CIRRHOSIS (7) Pulmonary sarcoidosis Code(s): D86.0 - SARCOIDOSIS OF LUNG
--- NOTE | 2019-09-12 14:22 | PN ---
Progress Note, Physician History of Present Illness: PULMONARY ALERT,OOB-CHAIR,AMBULATING,LESS COUGH - Current Medication List Current Medications: Active Medications Acetaminophen (Tylenol -) 650 mg PO Q4H PRN PRN Reason: PAIN LEVEL 4 - 6 Albuterol Sulfate (Ventolin 0.083% Nebulizer Soln -) 1 amp NEB Q4H PRN PRN Reason: SHORT OF BREATH/WHEEZING Last Admin: 09/09/19 21:30 Dose: 1 amp Albuterol/Ipratropium (Duoneb -) 1 amp NEB RQID [facility] Last Admin: 09/12/19 11:28 Dose: 1 amp Allopurinol (Zyloprim -) 100 mg PO DAILY [facility] Last Admin: 09/12/19 10:32 Dose: 100 mg Amlodipine Besylate (Norvasc -) 5 mg PO DAILY [facility] Last Admin: 09/12/19 10:36 Dose: 5 mg Benzocaine/Menthol (Cepacol Lozenge -) 1 each MM DAILY PRN PRN Reason: SORE THROAT Last Admin: 09/11/19 18:57 Dose: 1 each Gabapentin (Neurontin -) 200 mg PO HS PRN PRN Reason: PAIN LEVEL 4 - 6 Heparin Sodium (Porcine) (Heparin -) 5,000 unit SQ TID [facility] Last Admin: 09/12/19 06:07 Dose: Not Given Piperacillin Sod/Tazobactam (Sod 2.25 gm/ Dextrose) 50 mls @ 100 mls/hr IVPB Q6H-IV [facility]; Protocol Last Admin: 09/12/19 10:32 Dose: 100 mls/hr Insulin Aspart (Novolog Vial Sliding Scale -) 1 vial SQ ACHS [facility]; Protocol Last Admin: 09/12/19 12:19 Dose: 1 unit Meclizine HCl (Antivert -) 25 mg PO DAILY PRN PRN Reason: VERTIGO Melatonin (Melatonin) 3 mg PO HS [facility] Last Admin: 09/12/19 00:39 Dose: 3 mg Methylprednisolone Sodium Succinate (Solu-Medrol -) 40 mg IVPUSH Q8H-IV [facility] Last Admin: 09/12/19 10:32 Dose: 40 mg Metoprolol Succinate (Toprol Xl -) 100 mg PO DAILY [facility] Last Admin: 09/12/19 10:36 Dose: 100 mg Montelukast Sodium (Singulair -) 10 mg PO HS [facility] Last Admin: 09/11/19 21:34 Dose: 10 mg Mycophenolate Mofetil (Cellcept -) 500 mg PO BID [facility] Last Admin: 09/12/19 10:32 Dose: 500 mg Pantoprazole Sodium (Protonix -) 40 mg PO DAILY [facility] Last Admin: 09/12/19 10:32 Dose: 40 mg Spironolactone (Aldactone -) 25 mg PO DAILY [facility] Last Admin: 09/12/19 10:32 Dose: 25 mg Ursodiol (Actigal -) 300 mg PO BID [facility] Last Admin: 09/12/19 10:32 Dose: 300 mg - Objective Vital Signs: Vital Signs Temperature 98 F 09/12/19 13:35 Pulse Rate 83 09/12/19 13:35 Respiratory Rate 20 09/12/19 13:35 Blood Pressure 151/81 09/12/19 13:35 O2 Sat by Pulse Oximetry (%) 100 09/11/19 20:19 Constitutional: Yes: Well Nourished, Calm Eyes: Yes: WNL HENT: Yes: WNL Neck: Yes: WNL Cardiovascular: Yes: Regular Rate and Rhythm, S1, S2 Respiratory: Yes: Rales (FEW TABITHA CRACKLES) Gastrointestinal: Yes: Normal Bowel Sounds, Soft Extremities: Yes: WNL Edema: No Labs: CBC, BMP 09/11/19 07:07 09/12/19 05:58 Assessment/Plan IMP COUGH ,CONGESTION BRONCHIECTASIS URI SARCOIDOSIS COPD H/O LIVER TRANSPLANT VANESSA WORSENING H/O PRIMARY BILIARY CHOLANGITIS PLAN CONTINUE IV ABX PER ID INHALED BRONCHODILATORS MEDROL TAPER O2 NEEDED MONITOR LYTES,RENAL FUNCTION DR DOOLEY
[2019-09-12] MEDS ORDERED: methylPREDNISolone NA SUCC 40 MG/1 ML VIAL IVPUSH SCH (14:30)
[2019-09-12] MEDS ORDERED: METOPROLOL TARTRATE 5 MG/5 ML VIAL ONE (18:58)
[2019-09-12] MEDS: MONTELUKAST NA 10 MG TABLET PO SCH (21:48)
[2019-09-13] MEDS ORDERED: DEXTROSE 5%-WATER - 50 ML IVPB ONE (01:56)
[2019-09-13] MEDS ORDERED: PIPERACILLIN/TAZOBACTAM 2.25 GM VIAL IVPB ONE (01:56)
[2019-09-13] MEDS: PIPERACILLIN/TAZOB 2.25 GM 2.25 GM in DEXTROSE 5%-WATER - 50 ML IVPB SCH (03:23)
[2019-09-13] MEDS: HEPARIN NA (PORCINE) 5,000 UNITS/ML 1ML VIAL SQ SCH ×3 (05:39→22:08)
[2019-09-13] MEDS: INSULIN SLIDING SCALE (NOVOLOG) 1 VIAL SQ SCH ×4 (06:00→22:09)
[2019-09-13] MEDS: ALBUTEROL SO4 2.5/IPRATROPIUM 0.5 INH SOL 3 ML VIAL.NEB. NEB SCH ×4 (07:35→20:17)
--- NOTE | 2019-09-13 07:38 | PN ---
Progress Note (short form) - Note Progress Note: HPI: Feels great today. No complaints. No events overnight PE: Gen: NAD, awake, alert, resting in bed Lung: Card: RRR no murmurs appreciated Abd: Soft, NT/ND, normoactive BS, no hepatic nodularity appreciated Ext: Microbiology 09/09/19 20:00 Blood - Peripheral Venous Blood Culture - Preliminary NO GROWTH OBTAINED AFTER 24 HOURS, INCUBATION TO CONTINUE FOR 4 DAYS. 09/09/19 20:00 Blood - Peripheral Venous Blood Culture - Preliminary NO GROWTH OBTAINED AFTER 24 HOURS, INCUBATION TO CONTINUE FOR 4 DAYS. 09/09/19 20:45 Urine - Urine Clean Catch Legionella Antigen - Final 09/09/19 20:45 Urine - Urine Clean Catch Streptococcus pneumoniae Antigen ( M - Final Active Medications Acetaminophen (Tylenol -) 650 mg PO Q4H PRN PRN Reason: PAIN LEVEL 4 - 6 Albuterol Sulfate (Ventolin 0.083% Nebulizer Soln -) 1 amp NEB Q4H PRN PRN Reason: SHORT OF BREATH/WHEEZING Last Admin: 09/09/19 21:30 Dose: 1 amp Albuterol/Ipratropium (Duoneb -) 1 amp NEB RQID [facility] Last Admin: 09/12/19 19:45 Dose: 1 amp Allopurinol (Zyloprim -) 100 mg PO DAILY [facility] Last Admin: 09/12/19 10:32 Dose: 100 mg Amlodipine Besylate (Norvasc -) 5 mg PO DAILY [facility] Last Admin: 09/12/19 10:36 Dose: 5 mg Amoxicillin/Clavulanate Potassium (Augmentin - 875mg Tablet) 1 tab PO BID@0800, 1730 [facility] Stop: 09/19/19 08:00 Benzocaine/Menthol (Cepacol Lozenge -) 1 each MM DAILY PRN PRN Reason: SORE THROAT Last Admin: 09/11/19 18:57 Dose: 1 each Gabapentin (Neurontin -) 200 mg PO HS PRN PRN Reason: PAIN LEVEL 4 - 6 Heparin Sodium (Porcine) (Heparin -) 5,000 unit SQ TID [facility] Last Admin: 09/13/19 05:39 Dose: Not Given Insulin Aspart (Novolog Vial Sliding Scale -) 1 vial SQ ACHS [facility]; Protocol Last Admin: 09/13/19 06:00 Dose: 1 unit Meclizine HCl (Antivert -) 25 mg PO DAILY PRN PRN Reason: VERTIGO Melatonin (Melatonin) 3 mg PO HS [facility] Last Admin: 09/12/19 21:28 Dose: 3 mg Methylprednisolone Sodium Succinate (Solu-Medrol -) 40 mg IVPUSH Q12H [facility] Last Admin: 09/12/19 21:27 Dose: 40 mg Metoprolol Succinate (Toprol Xl -) 100 mg PO DAILY [facility] Last Admin: 09/12/19 10:36 Dose: 100 mg Montelukast Sodium (Singulair -) 10 mg PO HS [facility] Last Admin: 09/12/19 21:48 Dose: 10 mg Mycophenolate Mofetil (Cellcept -) 500 mg PO BID [facility] Last Admin: 09/12/19 21:28 Dose: 500 mg Pantoprazole Sodium (Protonix -) 40 mg PO DAILY [facility] Last Admin: 09/12/19 10:32 Dose: 40 mg Spironolactone (Aldactone -) 25 mg PO DAILY [facility] Last Admin: 09/12/19 10:32 Dose: 25 mg Ursodiol (Actigal -) 300 mg PO BID [facility] Last Admin: 09/12/19 21:48 Dose: 300 mg A/P: COPD exacerbation R/o PNA with immunocompromise Acute kidney injury Liver transplantation Sarcoidosis HTN CKD Gout --All security consultant recommendations appreciated --Imaging reviewed without any acute infiltrates and likely bronchiectasis noted on imaging --Continue Duoneb QID and albuterol PRN for increased SOB -Switched to Augmentin 875mg today to finish antibiotic course --Change to PO corticosteroids tomorrow --Continue Mycophenolate at home dose 500mg BID PO --Continue Actigal 300mg BID --Hold diuresis; gentle hydration per nephrology --Continue rest of home medications as above FEN: Fluids: Gentle IVF Electrolyte abnormalities: None Nutrition: Sodium controlled PPX: DVT - Heparin TID GI - Protonix 40mg IVP qdaily Dispo: D/c in AM pending Cr improvement Case discussed with Dr. Beatriz Salas, DO - IM PGY-3 <Harman Salas - Last Filed: 09/13/19 21:03> - Note Progress Note: Seen and examined; please see resident note for further historical information. I personally verified all walker historical information and exam findings. Personally interpreted all imaging and diagnostics and reviewed appropriate consults. I reviewed all labs and vital signs as per resident note and EMR as documented. I agree with the above assessment and plan unless supplemented by myself in the following. Seen and examined 10 sys ROS done and is negative aside from HPI VS, labs, imaging reviewed NAD, AAO, resting in bed NC AT EOMI PERRLA Neck supple, trach ML, no LN HR wnl, s1/2 Lungs CTAB, w/ sym exp NT ND +BS Skin without rashes or breakdown CN2-12 wnl, no fnd Normal mood, appropriate behavior Echo reviewed; lvef wnl A/P: COPD exacerbation R/o PNA with immunocompromise Acute kidney injury Liver transplantation Sarcoidosis HTN CKD Gout Discussed abx with ID; continue per their service Convert to PO steroids Continue immunosuppression; monitor renal function daily and d/w nephro 45 minutes spent in the care of this patient. <Jorge Henderson - Last Filed: 09/17/19 08:36>
[2019-09-13 07:42] LABS: BASO % 0.1 % (0-2.0); HEMATOCRIT 36.4 % (32.4-45.2); LYMPH % 4.1 % (8-40); MCH 31.7 pg (25.7-33.7); MEAN PLT VOLUME 11.6 fl (7.5-11.1); MONO % 4.8 % (3.8-10.2); PLATELET COUNT 198 K/MM3 (134-434); RBC 3.79 M/mm3 (3.60-5.2); RDW 14.4 % (11.6-15.6)
[2019-09-13 08:14] LABS: ALBUMIN 3.4 g/dl (3.4-5.0); BILIRUBIN,DIRECT 0.1 mg/dL (0.0-0.2); BILIRUBIN,TOTAL 0.5 mg/dL (0.2-1); BLOOD UREA NITROGEN 41.9 mg/dL (7-18); CALCIUM 9.3 mg/dL (8.5-10.1); POTASSIUM 4.4 mmol/L (3.5-5.1); TOT PROT 6.5 g/dl (6.4-8.2)
--- NOTE | 2019-09-13 09:24 | PN ---
Progress Note, Physician History of Present Illness: stable n new issues - Current Medication List Current Medications: Active Medications Acetaminophen (Tylenol -) 650 mg PO Q4H PRN PRN Reason: PAIN LEVEL 4 - 6 Albuterol Sulfate (Ventolin 0.083% Nebulizer Soln -) 1 amp NEB Q4H PRN PRN Reason: SHORT OF BREATH/WHEEZING Last Admin: 09/09/19 21:30 Dose: 1 amp Albuterol/Ipratropium (Duoneb -) 1 amp NEB RQID [facility] Last Admin: 09/13/19 07:35 Dose: 1 amp Allopurinol (Zyloprim -) 100 mg PO DAILY [facility] Last Admin: 09/12/19 10:32 Dose: 100 mg Amlodipine Besylate (Norvasc -) 5 mg PO DAILY [facility] Last Admin: 09/12/19 10:36 Dose: 5 mg Amoxicillin/Clavulanate Potassium (Augmentin - 875mg Tablet) 1 tab PO BID@0800, 1730 [facility] Stop: 09/19/19 08:00 Benzocaine/Menthol (Cepacol Lozenge -) 1 each MM DAILY PRN PRN Reason: SORE THROAT Last Admin: 09/11/19 18:57 Dose: 1 each Gabapentin (Neurontin -) 200 mg PO HS PRN PRN Reason: PAIN LEVEL 4 - 6 Heparin Sodium (Porcine) (Heparin -) 5,000 unit SQ TID [facility] Last Admin: 09/13/19 05:39 Dose: Not Given Insulin Aspart (Novolog Vial Sliding Scale -) 1 vial SQ [facility]; Protocol Last Admin: 09/13/19 06:00 Dose: 1 unit Meclizine HCl (Antivert -) 25 mg PO DAILY PRN PRN Reason: VERTIGO Melatonin (Melatonin) 3 mg PO HS [facility] Last Admin: 09/12/19 21:28 Dose: 3 mg Methylprednisolone Sodium Succinate (Solu-Medrol -) 40 mg IVPUSH Q12H [facility] Last Admin: 09/12/19 21:27 Dose: 40 mg Metoprolol Succinate (Toprol Xl -) 100 mg PO DAILY [facility] Last Admin: 09/12/19 10:36 Dose: 100 mg Montelukast Sodium (Singulair -) 10 mg PO HS [facility] Last Admin: 09/12/19 21:48 Dose: 10 mg Mycophenolate Mofetil (Cellcept -) 500 mg PO BID [facility] Last Admin: 09/12/19 21:28 Dose: 500 mg Pantoprazole Sodium (Protonix -) 40 mg PO DAILY [facility] Last Admin: 09/12/19 10:32 Dose: 40 mg Spironolactone (Aldactone -) 25 mg PO DAILY [facility] Last Admin: 09/12/19 10:32 Dose: 25 mg Ursodiol (Actigal -) 300 mg PO BID [facility] Last Admin: 09/12/19 21:48 Dose: 300 mg - Objective Vital Signs: Vital Signs Temperature 98.1 F 09/13/19 05:00 Pulse Rate 80 09/13/19 05:00 Respiratory Rate 18 09/13/19 05:00 Blood Pressure 149/73 09/13/19 05:00 O2 Sat by Pulse Oximetry (%) 100 09/12/19 21:00 Constitutional: Yes: No Distress, Calm Cardiovascular: Yes: S1, S2 Respiratory: Yes: Regular, CTA Bilaterally Gastrointestinal: Yes: Normal Bowel Sounds, Soft Musculoskeletal: Yes: WNL Extremities: Yes: WNL Neurological: Yes: Alert, Oriented Psychiatric: Yes: Alert, Oriented Labs: CBC, BMP 09/13/19 07:10 09/13/19 07:10 Assessment/Plan Problem List - Problems (1) Liver transplant recipient Code(s): Z94.4 - LIVER TRANSPLANT STATUS (2) CKD (chronic kidney disease) Code(s): N18.9 - CHRONIC KIDNEY DISEASE, UNSPECIFIED Qualifiers: Chronic kidney disease stage: stage 2 (mild) Qualified Code(s): N18.2 - Chronic kidney disease, stage 2 (mild) 3 breoncheiactasis cough plan oral abx for couple of days rest as per the team
[2019-09-13] MEDS: MYCOPHENOLATE MOFETIL 500 MG TABLET PO SCH ×2 (10:15→22:07)
[2019-09-13] MEDS: SPIRONOLACTONE 25 MG TABLET (FP) PO SCH (10:15)
[2019-09-13] MEDS: methylPREDNISolone NA SUCC 40 MG/1 ML VIAL IVPUSH SCH ×2 (10:15→22:06)
[2019-09-13] MEDS: PANTOPRAZOLE 40 MG TABLET (FP) PO SCH (10:15)
[2019-09-13] MEDS: ALLOPURINOL 100 MG TABLET (FP) PO SCH (10:15)
[2019-09-13] MEDS: amLODIPine BESYLATE 5 MG TABLET (FP) PO SCH (10:15)
[2019-09-13] MEDS: URSODIOL 300 MG CAPSULE PO SCH ×2 (10:15→22:07)
--- NOTE | 2019-09-13 10:36 | PN ---
Progress Note (short form) - Note Progress Note: PULMONARY States breathing is improving. +cough with green sputum. No fevers recorded. Vital Signs Period Temp Pulse Resp BP Sys/Freeman Pulse Ox Last 24 Hr 97.8 F-98.1 F 80-93 18-20 135-151/69-81 100 Gen: NAD at rest Heart: RRR Lung: decreased breath sounds at the bases Abd: soft, nontender Ext: no edema CBC, BMP 09/13/19 07:10 09/13/19 07:10 Active Medications Acetaminophen (Tylenol -) 650 mg PO Q4H PRN PRN Reason: PAIN LEVEL 4 - 6 Albuterol Sulfate (Ventolin 0.083% Nebulizer Soln -) 1 amp NEB Q4H PRN PRN Reason: SHORT OF BREATH/WHEEZING Last Admin: 09/09/19 21:30 Dose: 1 amp Albuterol/Ipratropium (Duoneb -) 1 amp NEB RQID [facility] Last Admin: 09/13/19 07:35 Dose: 1 amp Allopurinol (Zyloprim -) 100 mg PO DAILY [facility] Last Admin: 09/13/19 10:15 Dose: 100 mg Amlodipine Besylate (Norvasc -) 5 mg PO DAILY [facility] Last Admin: 09/13/19 10:15 Dose: 5 mg Amoxicillin/Clavulanate Potassium (Augmentin - 875mg Tablet) 1 tab PO BID@0800, 1730 [facility] Stop: 09/19/19 08:00 Benzocaine/Menthol (Cepacol Lozenge -) 1 each MM DAILY PRN PRN Reason: SORE THROAT Last Admin: 09/11/19 18:57 Dose: 1 each Gabapentin (Neurontin -) 200 mg PO HS PRN PRN Reason: PAIN LEVEL 4 - 6 Heparin Sodium (Porcine) (Heparin -) 5,000 unit SQ TID [facility] Last Admin: 09/13/19 05:39 Dose: Not Given Insulin Aspart (Novolog Vial Sliding Scale -) 1 vial SQ ACHS [facility]; Protocol Last Admin: 09/13/19 06:00 Dose: 1 unit Meclizine HCl (Antivert -) 25 mg PO DAILY PRN PRN Reason: VERTIGO Melatonin (Melatonin) 3 mg PO HS [facility] Last Admin: 09/12/19 21:28 Dose: 3 mg Methylprednisolone Sodium Succinate (Solu-Medrol -) 40 mg IVPUSH Q12H [facility] Last Admin: 09/13/19 10:15 Dose: 40 mg Metoprolol Succinate (Toprol Xl -) 100 mg PO DAILY [facility] Last Admin: 09/13/19 10:15 Dose: 100 mg Montelukast Sodium (Singulair -) 10 mg PO HS [facility] Last Admin: 09/12/19 21:48 Dose: 10 mg Mycophenolate Mofetil (Cellcept -) 500 mg PO BID [facility] Last Admin: 09/13/19 10:15 Dose: 500 mg Pantoprazole Sodium (Protonix -) 40 mg PO DAILY [facility] Last Admin: 09/13/19 10:15 Dose: 40 mg Spironolactone (Aldactone -) 25 mg PO DAILY [facility] Last Admin: 09/13/19 10:15 Dose: 25 mg Ursodiol (Actigal -) 300 mg PO BID [facility] Last Admin: 09/13/19 10:15 Dose: 300 mg A/P Acute COPD Exacerbation Bronchiectasis Sarcoidosis Acute Kidney Injury h/o Liver Transplant on Immunosuppressants h/o Primary Biliary Cholangitis - continue medrol at current dose - can likely change steroids to PO prednisone 40mg daily in AM if continues to improve - inhaled bronchodilators - O2 to keep SpO2 >90% - consider IVF - monitor urine output, creatinine - DVT prophylaxis
[2019-09-13 10:41] LABS: ANISOCYTOSIS 1+; MACROCYTOSIS 1+; PLATELET ESTIMATE NORMAL
[2019-09-13] MEDS: AMOX TR/POT CLAV 875MG/125MG TABLETS (FP) PO SCH ×2 (11:30→17:04)
--- NOTE | 2019-09-13 13:27 | CON.GU ---
Consult Consult Specialty:: urology Referred by:: Yrn Reason for Consultation:: bilateral hydronephrosis - History of Present Illness Chief Complaint: bilateral hydronephrosis History of Present Illness: Patient is a 74 year old female admitted with pneumonia and found to have bilateral mild hydronephrosis and CKD. The patient denies nausea/vomiting or significant flank pain. Patient denies gross hematuria. She reports moderate frequency and urgency without dysuria. - Past Medical History Cardio/Vascular: Yes: HTN Pulmonary: Yes: Asthma, COPD, Other (sarcoidosis) Gastrointestinal: Yes: GERD, Other (colon adenoma removed 2011 ) Hepatobiliary: Yes: Hepatitis C (as per patient), Other (liver transplant for PBC at [facility]) Renal/: Yes: Renal Inusuff Rheumatology: Yes: Gout - Past Surgical History Past Surgical History: Yes: Cataract Removal (with implants bilaterally), Colonoscopy, Liver Transplant (liver transplanted at [facility]), Tubal Ligation, Upper Endoscopy - Alcohol/Substance Use Hx Alcohol Use: No History of Substance Use: reports: None - Smoking History Smoking history: Former smoker Have you smoked in the past 12 months: No Aproximately how many cigarettes per day: 2 If you are a former smoker, when did you quit?: 1992 - Social History Usual Living Arrangement: With Spouse ADL: Independent 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 History of Recent Travel: No Home Medications - Allergies Allergies/Adverse Reactions: Allergies Allergy/AdvReac Type Severity Reaction Status Date / Time shrimp Allergy Verified 07/17/18 11:25 - Home Medications Home Medications: Ambulatory Orders Gabapentin 200 mg PO HS PRN 02/22/17 Prednisone 5 mg PO DAILY 02/22/17 Spironolactone [Aldactone] 25 mg PO DAILY 02/22/17 Albuterol 2.5/Ipratropium 0.5 [Duoneb -] 1 amp NEB DAILY PRN 08/28/18 Albuterol Sulfate Inhaler - [Ventolin HFA Inhaler -] 2 inh IH Q6H PRN 08/28/18 Allopurinol [Zyloprim -] 100 mg PO DAILY 08/28/18 Budesonide/Formeterol Fumarate [SYMBICORT 160/4.5mcg -] 2 puff IH BID 08/28/18 Hydrochlorothiazide 12.5 mg PO DAILY 08/28/18 Meclizine HCl 25 mg PO DAILY PRN 08/28/18 Montelukast Sodium [Singulair] 10 mg PO DAILY 08/28/18 Metoprolol Succinate [Toprol XL -] 100 mg PO DAILY #30 tab.sr.24h 08/29/18 Pantoprazole Sodium 40 mg PO DAILY #30 tablet.dr 08/29/18 Ursodiol [Actigal] 300 mg NR BID #60 capsule 08/29/18 Amlodipine Besylate 5 mg PO DAILY 09/09/19 Mycophenolate Mofetil 500 mg PO DAILY 09/09/19 Physical Exam- Vital Signs: Vital Signs Temperature 98.0 F 09/13/19 09:10 Pulse Rate 80 09/13/19 09:10 Respiratory Rate 18 09/13/19 09:10 Blood Pressure 137/57 L 09/13/19 09:10 O2 Sat by Pulse Oximetry (%) 99 09/13/19 09:10 Constitutional: Yes: Well Nourished, No Distress, Calm Eyes: Yes: WNL, Conjunctiva Clear, EOM Intact HENT: Yes: WNL, Atraumatic, Normocephalic Neck: Yes: WNL, Supple, Trachea Midline Cardiovascular: Yes: Regular Rate and Rhythm Respiratory: Yes: Regular Gastrointestinal: Yes: WNL, Normal Bowel Sounds, Soft Renal/: Yes: WNL Kidneys: Yes: WNL External Genitalia: Yes: WNL Integumentary: Yes: WNL Labs: CBC, BMP 09/13/19 07:10 09/13/19 07:10 Imaging - Results Cat Scan: Report Reviewed Ultrasound: Report Reviewed Assessment/Plan impression CKD Bilateral mild hydronephrosis left renal cyst positive urine culture plan continue current treatment observe renal function will follow-up as outpatient urine culture appears to be a contaminant
--- NOTE | 2019-09-13 13:43 | PN ---
Progress Note, Physician History of Present Illness: Pt seen and examined at bedside. She feels that her breathing is improved. She still has a cough. - Current Medication List Current Medications: Active Medications Acetaminophen (Tylenol -) 650 mg PO Q4H PRN PRN Reason: PAIN LEVEL 4 - 6 Albuterol Sulfate (Ventolin 0.083% Nebulizer Soln -) 1 amp NEB Q4H PRN PRN Reason: SHORT OF BREATH/WHEEZING Last Admin: 09/09/19 21:30 Dose: 1 amp Albuterol/Ipratropium (Duoneb -) 1 amp NEB RQID [facility], [facility] Last Admin: 09/13/19 11:35 Dose: 1 amp Allopurinol (Zyloprim -) 100 mg PO DAILY [facility], [facility] Last Admin: 09/13/19 10:15 Dose: 100 mg Amlodipine Besylate (Norvasc -) 5 mg PO DAILY [facility], [facility] Last Admin: 09/13/19 10:15 Dose: 5 mg Amoxicillin/Clavulanate Potassium (Augmentin - 875mg Tablet) 1 tab PO BID@0800, 1730 [facility], [facility] Stop: 09/19/19 08:00 Last Admin: 09/13/19 11:30 Dose: 1 tab Benzocaine/Menthol (Cepacol Lozenge -) 1 each MM DAILY PRN PRN Reason: SORE THROAT Last Admin: 09/11/19 18:57 Dose: 1 each Gabapentin (Neurontin -) 200 mg PO HS PRN PRN Reason: PAIN LEVEL 4 - 6 Heparin Sodium (Porcine) (Heparin -) 5,000 unit SQ TID [facility], [facility] Last Admin: 09/13/19 05:39 Dose: Not Given Insulin Aspart (Novolog Vial Sliding Scale -) 1 vial SQ ACHS [facility], [facility]; Protocol Last Admin: 09/13/19 11:30 Dose: Not Given Meclizine HCl (Antivert -) 25 mg PO DAILY PRN PRN Reason: VERTIGO Melatonin (Melatonin) 3 mg PO HS [facility] Last Admin: 09/12/19 21:28 Dose: 3 mg Methylprednisolone Sodium Succinate (Solu-Medrol -) 40 mg IVPUSH Q12H [facility] Last Admin: 09/13/19 10:15 Dose: 40 mg Metoprolol Succinate (Toprol Xl -) 100 mg PO DAILY [facility] Last Admin: 09/13/19 10:15 Dose: 100 mg Montelukast Sodium (Singulair -) 10 mg PO HS [facility] Last Admin: 09/12/19 21:48 Dose: 10 mg Mycophenolate Mofetil (Cellcept -) 500 mg PO BID [facility] Last Admin: 09/13/19 10:15 Dose: 500 mg Pantoprazole Sodium (Protonix -) 40 mg PO DAILY [facility] Last Admin: 09/13/19 10:15 Dose: 40 mg Spironolactone (Aldactone -) 25 mg PO DAILY [facility] Last Admin: 09/13/19 10:15 Dose: 25 mg Ursodiol (Actigal -) 300 mg PO BID [facility] Last Admin: 09/13/19 10:15 Dose: 300 mg - Objective Vital Signs: Vital Signs Temperature 98.0 F 09/13/19 09:10 Pulse Rate 80 09/13/19 09:10 Respiratory Rate 18 09/13/19 09:10 Blood Pressure 137/57 L 09/13/19 09:10 O2 Sat by Pulse Oximetry (%) 99 09/13/19 09:10 Constitutional: Yes: Calm Eyes: Yes: Conjunctiva Clear HENT: Yes: Atraumatic Cardiovascular: Yes: S1, S2 Respiratory: Yes: CTA Bilaterally, Wheezes Genitourinary: Yes: WNL Musculoskeletal: Yes: WNL Edema: No Integumentary: Yes: WNL Neurological: Yes: Oriented Psychiatric: Yes: Oriented Labs: CBC, BMP 09/13/19 07:10 09/13/19 07:10 Problem List - Problems (1) Liver transplant recipient Code(s): Z94.4 - LIVER TRANSPLANT STATUS (2) CKD (chronic kidney disease) Code(s): N18.9 - CHRONIC KIDNEY DISEASE, UNSPECIFIED Qualifiers: Chronic kidney disease stage: stage 2 (mild) Qualified Code(s): N18.2 - Chronic kidney disease, stage 2 (mild) Assessment/Plan Current Medications Generic Name Dose Route Start Last Admin Trade Name Freq PRN Reason Stop Dose Admin Acetaminophen 650 mg 09/12/19 09:50 Tylenol - PO Q4H PRN PAIN LEVEL 4 - 6 Albuterol Sulfate 1 amp 09/09/19 19:31 09/09/19 21:30 Ventolin 0.083% Nebulizer Soln - NEB 1 amp Q4H PRN Administration SHORT OF BREATH/WHEEZING Albuterol/Ipratropium 1 amp 09/10/19 08:00 09/13/19 11:35 Duoneb - NEB 1 amp RQID KARSON Administration Allopurinol 100 mg 09/10/19 10:00 09/13/19 10:15 Zyloprim - PO 100 mg DAILY KARSON Administration Amlodipine Besylate 5 mg 09/10/19 10:00 09/13/19 10:15 Norvasc - PO 5 mg DAILY KARSON Administration Amoxicillin/Clavulanate Potassium 1 tab 09/13/19 08:00 09/13/19 11:30 Augmentin - 875mg Tablet PO 09/19/19 08:00 1 tab BID@0800,1730 KARSON Administration Benzocaine/Menthol 1 each 09/09/19 20:25 09/11/19 18:57 Cepacol Lozenge - MM 1 each DAILY PRN Administration SORE THROAT Gabapentin 200 mg 09/12/19 09:49 Neurontin - PO HS PRN PAIN LEVEL 4 - 6 Heparin Sodium (Porcine) 5,000 unit 09/09/19 22:00 09/13/19 05:39 Heparin - SQ Not Given TID [facility] Insulin Aspart 1 vial 09/10/19 11:00 09/13/19 11:30 Novolog Vial Sliding Scale - SQ Not Given ACHS [facility], [facility] Protocol Meclizine HCl 25 mg 09/09/19 19:28 Antivert - PO DAILY PRN VERTIGO Melatonin 3 mg 09/12/19 00:30 09/12/19 21:28 Melatonin PO 3 mg HS KARSON Administration Methylprednisolone Sodium Succinate 40 mg 09/12/19 22:00 09/13/19 10:15 Solu-Medrol - IVPUSH 40 mg Q12H KARSON Administration Metoprolol Succinate 100 mg 09/10/19 10:00 09/13/19 10:15 Toprol Xl - PO 100 mg DAILY KARSON Administration Montelukast Sodium 10 mg 09/09/19 22:00 09/12/19 21:48 Singulair - PO 10 mg HS KARSON Administration Mycophenolate Mofetil 500 mg 09/10/19 22:00 09/13/19 10:15 Cellcept - PO 500 mg BID KARSON Administration Pantoprazole Sodium 40 mg 09/09/19 20:30 09/13/19 10:15 Protonix - PO 40 mg DAILY K[facility]SON Administration Spironolactone 25 mg 09/10/19 10:00 09/13/19 10:15 Aldactone - PO 25 mg DAILY KARSON Administration Ursodiol 300 mg 09/09/19 22:00 09/13/19 10:15 Actigal - PO 300 mg BID KARSON Administration Impression 1. CKD 2. COPD exacerbation 3. liver transplant 4. sarcoidosis 5. HTN 6. gout 7. hep C 8. PNA 9. hydronephrosis 10. 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
[2019-09-13] MEDS ORDERED: SODIUM CHLORIDE 0.45% 1,000 ML IV SCH (13:45)
[2019-09-13 14:32] LABS: URINE APPEARANCE CLEAR; URINE BILIRUBIN NEGATIVE (NEGATIVE); URINE COLOR YELLOW; URINE GLUCOSE (UA) NEGATIVE (NEGATIVE); URINE KETONE NEGATIVE (NEGATIVE); URINE LEUK ESTERASE NEGATIVE (NEGATIVE); URINE NITRITE NEGATIVE (NEGATIVE); URINE PROTEIN NEGATIVE (NEGATIVE); URINE UROBILINOGEN 0.2 mg/dL (0.2-1.0)
[2019-09-13] MEDS: BENZOCAINE/MENTH/CETYLPYRD CL 1 EACH LOZENGE MM PRN (17:04)
--- NOTE | 2019-09-13 20:07 | PN.GI ---
GI Progress Note Subjective: GI NOte: No GI complaints, LFTs are nomalizing with resumption of actigal - Objective Vital Signs: Vital Signs Temperature 98.3 F 09/13/19 18:00 Pulse Rate 79 09/13/19 18:00 Respiratory Rate 18 09/13/19 18:00 Blood Pressure 124/72 09/13/19 18:00 O2 Sat by Pulse Oximetry (%) 99 09/13/19 09:10 Laboratory Tests 09/13/19 07:10 Total Bilirubin 0.5 Direct Bilirubin 0.1 AST 19 ALT 33 Alkaline Phosphatase 109 Constitutional: Calm ...Auscultate: Yes: Normoactive Bowel Sounds ...Palpate: Yes: Soft, Other (nontender) Labs: CBC, BMP 09/13/19 07:10 09/13/19 07:10 Assessment/Plan Assessment: - Upper respiratory infection in a liver transplant patient. 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 I emphasized to Teresa that she must be followed at a Liver Transplant Center Problem List - Problems (1) Liver transplant recipient Code(s): Z94.4 - LIVER TRANSPLANT STATUS (2) COPD with exacerbation Code(s): J44.1 - CHRONIC OBSTRUCTIVE PULMONARY DISEASE W (ACUTE) EXACERBATION (3) Colon adenoma Code(s): D12.6 - BENIGN NEOPLASM OF COLON, UNSPECIFIED (4) Diverticulosis Code(s): K57.90 - DVRTCLOS OF INTEST, PART UNSP, W/O PERF OR ABSCESS W/O BLEED (5) Gout Code(s): M10.9 - GOUT, UNSPECIFIED (6) Primary biliary cholangitis Code(s): K74.3 - PRIMARY BILIARY CIRRHOSIS (7) Pulmonary sarcoidosis Code(s): D86.0 - SARCOIDOSIS OF LUNG
[2019-09-13] MEDS ORDERED: INSULIN (NOVOLOG) ASPART 100 UNITS/ML 10ML VIAL ONE (21:41)
[2019-09-13] MEDS: MELATONIN 1 MG TABLET PO SCH (22:07)
[2019-09-13] MEDS: MONTELUKAST NA 10 MG TABLET PO SCH (22:07)
[2019-09-14] MEDS: INSULIN SLIDING SCALE (NOVOLOG) 1 VIAL SQ SCH ×2 (06:27→11:18)
[2019-09-14] MEDS: HEPARIN NA (PORCINE) 5,000 UNITS/ML 1ML VIAL SQ SCH (06:41)
[2019-09-14] MEDS: ALBUTEROL SO4 2.5/IPRATROPIUM 0.5 INH SOL 3 ML VIAL.NEB. NEB SCH (08:20)
[2019-09-14] MEDS: ALLOPURINOL 100 MG TABLET (FP) PO SCH (09:15)
[2019-09-14] MEDS: amLODIPine BESYLATE 5 MG TABLET (FP) PO SCH (09:15)
[2019-09-14] MEDS: PANTOPRAZOLE 40 MG TABLET (FP) PO SCH (09:15)
[2019-09-14] MEDS: AMOX TR/POT CLAV 875MG/125MG TABLETS (FP) PO SCH (09:15)
[2019-09-14] MEDS: MYCOPHENOLATE MOFETIL 500 MG TABLET PO SCH (09:15)
[2019-09-14] MEDS: URSODIOL 300 MG CAPSULE PO SCH (09:16)
[2019-09-14 09:21] LABS: ALBUMIN 3.6 g/dl (3.4-5.0); BILIRUBIN,TOTAL 0.3 mg/dL (0.2-1); BLOOD UREA NITROGEN 39.7 mg/dL (7-18); CALCIUM 9.2 mg/dL (8.5-10.1); CREATININE 1.5 mg/dL (0.55-1.3); POTASSIUM 4.6 mmol/L (3.5-5.1); TOT PROT 6.8 g/dl (6.4-8.2)
[2019-09-14 09:53] VITALS: BP 156/101; PULSE 89; TEMP 97.5
[2019-09-14] MEDS ORDERED: predniSONE 20 MG TABLET (UD) PO SCH (10:00)
--- NOTE | 2019-09-14 10:46 | PN ---
Progress Note (short form) - Note Progress Note: PULMONARY States breathing is improving. Able to ambulate hallways. Vital Signs Period Temp Pulse Resp BP Sys/Freeman Pulse Ox Last 24 Hr 97.5 F-98.3 F 79-97 18-18 124-156/56-101 95-96 Gen: NAD at rest Heart: RRR Lung: decreased breath sounds at the bases Abd: soft, nontender Ext: no edema CBC, BMP 09/13/19 07:10 09/14/19 08:00 Active Medications Acetaminophen (Tylenol -) 650 mg PO Q4H PRN PRN Reason: PAIN LEVEL 4 - 6 Albuterol Sulfate (Ventolin 0.083% Nebulizer Soln -) 1 amp NEB Q4H PRN PRN Reason: SHORT OF BREATH/WHEEZING Last Admin: 09/09/19 21:30 Dose: 1 amp Albuterol/Ipratropium (Duoneb -) 1 amp NEB RQID [facility] Last Admin: 09/13/19 20:17 Dose: 1 amp Allopurinol (Zyloprim -) 100 mg PO DAILY [facility] Last Admin: 09/14/19 09:15 Dose: 100 mg Amlodipine Besylate (Norvasc -) 5 mg PO DAILY [facility] Last Admin: 09/14/19 09:15 Dose: 5 mg Amoxicillin/Clavulanate Potassium (Augmentin - 875mg Tablet) 1 tab PO BID@0800, 1730 [facility] Stop: 09/19/19 08:00 Last Admin: 09/14/19 09:15 Dose: 1 tab Benzocaine/Menthol (Cepacol Lozenge -) 1 each MM DAILY PRN PRN Reason: SORE THROAT Last Admin: 09/13/19 17:04 Dose: 1 each Gabapentin (Neurontin -) 200 mg PO HS PRN PRN Reason: PAIN LEVEL 4 - 6 Heparin Sodium (Porcine) (Heparin -) 5,000 unit SQ TID [facility] Last Admin: 09/14/19 06:41 Dose: 5,000 unit Sodium Chloride (1/2 Normal Saline) 1,000 mls @ 50 mls/hr IV ASDIR [facility] Stop: 09/14/19 13:43 Last Admin: 09/13/19 14:46 Dose: 50 mls/hr Insulin Aspart (Novolog Vial Sliding Scale -) 1 vial SQ ACHS [facility]; Protocol Last Admin: 09/14/19 06:27 Dose: 1 unit Meclizine HCl (Antivert -) 25 mg PO DAILY PRN PRN Reason: VERTIGO Melatonin (Melatonin) 3 mg PO HS [facility] Last Admin: 09/13/19 22:07 Dose: 3 mg Metoprolol Succinate (Toprol Xl -) 100 mg PO DAILY [facility] Last Admin: 09/14/19 09:15 Dose: 100 mg Montelukast Sodium (Singulair -) 10 mg PO HS [facility] Last Admin: 09/13/19 22:07 Dose: 10 mg Mycophenolate Mofetil (Cellcept -) 500 mg PO BID [facility] Last Admin: 09/14/19 09:15 Dose: 500 mg Pantoprazole Sodium (Protonix -) 40 mg PO DAILY [facility] Last Admin: 09/14/19 09:15 Dose: 40 mg Prednisone (Deltasone -) 40 mg PO DAILY [facility] Last Admin: 09/14/19 09:15 Dose: 40 mg Ursodiol (Actigal -) 300 mg PO BID [facility] Last Admin: 09/14/19 09:16 Dose: 300 mg A/P Acute COPD Exacerbation Bronchiectasis Sarcoidosis Acute Kidney Injury h/o Liver Transplant on Immunosuppressants h/o Primary Biliary Cholangitis - will change steroids to PO prednisone 40mg daily - inhaled bronchodilators - O2 to keep SpO2 >90% - continue IVF - monitor urine output, creatinine - DVT prophylaxis
--- NOTE | 2019-09-14 10:51 | DS ---
Physical Exam: SUBJECTIVE: Patient seen and examined OBJECTIVE: Vital Signs Period Temp Pulse Resp BP Sys/Freeman Pulse Ox Last 24 Hr 97.5 F-98.3 F 79-97 18-18 124-156/56-101 95-96 PHYSICAL EXAM GENERAL: The patient is awake, alert, and fully oriented, in no acute distress. HEAD: Normal with no signs of trauma. EYES: PERRL, extraocular movements intact, sclera anicteric, conjunctiva clear. ENT: Ears normal, nares patent, oropharynx clear without exudates, moist mucous membranes. NECK: Trachea midline, full range of motion, supple. LUNGS: Breath sounds equal, clear to auscultation bilaterally, no wheezes, no crackles, no accessory muscle use. HEART: Regular rate and rhythm, S1, S2 without murmur, rub or gallop. ABDOMEN: Soft, nontender, nondistended, normoactive bowel sounds, no guarding, no rebound, no hepatosplenomegaly, no masses. EXTREMITIES: 2+ pulses, warm, well-perfused, no edema. NEUROLOGICAL: Cranial nerves II through XII grossly intact. Normal speech, gait not observed. PSYCH: Normal mood, normal affect. SKIN: Warm, dry, normal turgor, no rashes or lesions noted. LABS Laboratory Results - last 24 hr 09/13/19 09/13/19 09/13/19 07:10 11:28 14:00 Neutrophils % (Manual) 89.0 H Band Neutrophils % 0.0 Lymphocytes % (Manual) 5.0 L D Monocytes % (Manual) 5 D Eosinophils % (Manual) 0.0 Basophils % (Manual) 0.0 Myelocytes % (Man) 1 D Promyelocytes % (Man) 0 Blast Cells % (Manual) 0 Metamyelocytes 0 Hypochromia 0 Platelet Estimate Normal Polychromasia 0 Poikilocytosis 0 Anisocytosis 1+ Microcytosis 0 Macrocytosis 1+ Sodium Potassium Chloride Carbon Dioxide Anion Gap BUN Creatinine Est GFR (CKD-EPI)AfAm Est GFR (CKD-EPI)NonAf POC Glucometer 112 Random Glucose Calcium Total Bilirubin AST ALT Alkaline Phosphatase Total Protein Albumin Urine Color Yellow Urine Appearance Clear Urine pH 5.0 Ur Specific Greer 1.015 Urine Protein Negative Urine Glucose (UA) Negative Urine Ketones Negative Urine Blood Negative Urine Nitrite Negative Urine Bilirubin Negative Urine Urobilinogen 0.2 Ur Leukocyte Esterase Negative Ur Random Creatinine Ur Random Sodium Ur Random Potassium Ur Random Chloride Ur Random Urea Nitrogn 09/13/19 09/13/19 09/13/19 14:00 17:05 22:04 Neutrophils % (Manual) Band Neutrophils % Lymphocytes % (Manual) Monocytes % (Manual) Eosinophils % (Manual) Basophils % (Manual) Myelocytes % (Man) Promyelocytes % (Man) Blast Cells % (Manual) Metamyelocytes Hypochromia Platelet Estimate Polychromasia Poikilocytosis Anisocytosis Microcytosis Macrocytosis Sodium Potassium Chloride Carbon Dioxide Anion Gap BUN Creatinine Est GFR (CKD-EPI)AfAm Est GFR (CKD-EPI)NonAf POC Glucometer 193 139 Random Glucose Calcium Total Bilirubin AST ALT Alkaline Phosphatase Total Protein Albumin Urine Color Urine Appearance Urine pH Ur Specific Greer Urine Protein Urine Glucose (UA) Urine Ketones Urine Blood Urine Nitrite Urine Bilirubin Urine Urobilinogen Ur Leukocyte Esterase Ur Random Creatinine 106.0 Ur Random Sodium 35 L Ur Random Potassium 21.0 L Ur Random Chloride 20 L Ur Random Urea Nitrogn 539 09/14/19 09/14/19 06:23 08:00 Neutrophils % (Manual) Band Neutrophils % Lymphocytes % (Manual) Monocytes % (Manual) Eosinophils % (Manual) Basophils % (Manual) Myelocytes % (Man) Promyelocytes % (Man) Blast Cells % (Manual) Metamyelocytes Hypochromia Platelet Estimate Polychromasia Poikilocytosis Anisocytosis Microcytosis Macrocytosis Sodium 140 Potassium 4.6 Chloride 105 Carbon Dioxide 25 Anion Gap 10 BUN 39.7 H Creatinine 1.5 H Est GFR (CKD-EPI)AfAm 39.64 Est GFR (CKD-EPI)NonAf 34.21 POC Glucometer 178 Random Glucose 121 H Calcium 9.2 Total Bilirubin 0.3 AST 19 ALT 37 Alkaline Phosphatase 106 Total Protein 6.8 Albumin 3.6 Urine Color Urine Appearance Urine pH Ur Specific Greer Urine Protein Urine Glucose (UA) Urine Ketones Urine Blood Urine Nitrite Urine Bilirubin Urine Urobilinogen Ur Leukocyte Esterase Ur Random Creatinine Ur Random Sodium Ur Random Potassium Ur Random Chloride Ur Random Urea Nitrogn HOSPITAL COURSE: Date of Admission:09/09/19 Date of Discharge: 09/14/19 <Harman Salas - Last Filed: 09/14/19 10:51> Physical Exam: SUBJECTIVE: Patient seen and examined OBJECTIVE: Vital Signs Period Temp Pulse Resp BP Sys/Freeman Pulse Ox Last 24 Hr 97.5 F-98.3 F 79-97 18-18 124-156/56-101 95-96 PHYSICAL EXAM GENERAL: The patient is awake, alert, and fully oriented, in no acute distress. HEAD: Normal with no signs of trauma. EYES: PERRL, extraocular movements intact, sclera anicteric, conjunctiva clear. ENT: Ears normal, nares patent, oropharynx clear without exudates, moist mucous membranes. NECK: Trachea midline, full range of motion, supple. LUNGS: Breath sounds equal, clear to auscultation bilaterally, no wheezes, no crackles, no accessory muscle use. HEART: Regular rate and rhythm, S1, S2 without murmur, rub or gallop. ABDOMEN: Soft, nontender, nondistended, normoactive bowel sounds, no guarding, no rebound, no hepatosplenomegaly, no masses. EXTREMITIES: 2+ pulses, warm, well-perfused, no edema. NEUROLOGICAL: Cranial nerves II through XII grossly intact. Normal speech, gait not observed. PSYCH: Normal mood, normal affect. SKIN: Warm, dry, normal turgor, no rashes or lesions noted. LABS Laboratory Results - last 24 hr 09/13/19 09/13/19 09/13/19 07:10 11:28 14:00 Neutrophils % (Manual) 89.0 H Band Neutrophils % 0.0 Lymphocytes % (Manual) 5.0 L D Monocytes % (Manual) 5 D Eosinophils % (Manual) 0.0 Basophils % (Manual) 0.0 Myelocytes % (Man) 1 D Promyelocytes % (Man) 0 Blast Cells % (Manual) 0 Metamyelocytes 0 Hypochromia 0 Platelet Estimate Normal Polychromasia 0 Poikilocytosis 0 Anisocytosis 1+ Microcytosis 0 Macrocytosis 1+ Sodium Potassium Chloride Carbon Dioxide Anion Gap BUN Creatinine Est GFR (CKD-EPI)AfAm Est GFR (CKD-EPI)NonAf POC Glucometer 112 Random Glucose Calcium Total Bilirubin AST ALT Alkaline Phosphatase Total Protein Albumin Urine Color Yellow Urine Appearance Clear Urine pH 5.0 Ur Specific Greer 1.015 Urine Protein Negative Urine Glucose (UA) Negative Urine Ketones Negative Urine Blood Negative Urine Nitrite Negative Urine Bilirubin Negative Urine Urobilinogen 0.2 Ur Leukocyte Esterase Negative Ur Random Creatinine Ur Random Sodium Ur Random Potassium Ur Random Chloride Ur Random Urea Nitrogn 10/21/19 10/21/19 10/21/19 14:00 17:05 22:04 Neutrophils % (Manual) Band Neutrophils % Lymphocytes % (Manual) Monocytes % (Manual) Eosinophils % (Manual) Basophils % (Manual) Myelocytes % (Man) Promyelocytes % (Man) Blast Cells % (Manual) Metamyelocytes Hypochromia Platelet Estimate Polychromasia Poikilocytosis Anisocytosis Microcytosis Macrocytosis Sodium Potassium Chloride Carbon Dioxide Anion Gap BUN Creatinine Est GFR (CKD-EPI)AfAm Est GFR (CKD-EPI)NonAf POC Glucometer 193 139 Random Glucose Calcium Total Bilirubin AST ALT Alkaline Phosphatase Total Protein Albumin Urine Color Urine Appearance Urine pH Ur Specific Greer Urine Protein Urine Glucose (UA) Urine Ketones Urine Blood Urine Nitrite Urine Bilirubin Urine Urobilinogen Ur Leukocyte Esterase Ur Random Creatinine 106.0 Ur Random Sodium 35 L Ur Random Potassium 21.0 L Ur Random Chloride 20 L Ur Random Urea Nitrogn 539 09/14/19 09/14/19 06:23 08:00 Neutrophils % (Manual) Band Neutrophils % Lymphocytes % (Manual) Monocytes % (Manual) Eosinophils % (Manual) Basophils % (Manual) Myelocytes % (Man) Promyelocytes % (Man) Blast Cells % (Manual) Metamyelocytes Hypochromia Platelet Estimate Polychromasia Poikilocytosis Anisocytosis Microcytosis Macrocytosis Sodium 140 Potassium 4.6 Chloride 105 Carbon Dioxide 25 Anion Gap 10 BUN 39.7 H Creatinine 1.5 H Est GFR (CKD-EPI)AfAm 39.64 Est GFR (CKD-EPI)NonAf 34.21 POC Glucometer 178 Random Glucose 121 H Calcium 9.2 Total Bilirubin 0.3 AST 19 ALT 37 Alkaline Phosphatase 106 Total Protein 6.8 Albumin 3.6 Urine Color Urine Appearance Urine pH Ur Specific Greer Urine Protein Urine Glucose (UA) Urine Ketones Urine Blood Urine Nitrite Urine Bilirubin Urine Urobilinogen Ur Leukocyte Esterase Ur Random Creatinine Ur Random Sodium Ur Random Potassium Ur Random Chloride Ur Random Urea Nitrogn HOSPITAL COURSE: Date of Admission:09/09/19 Date of Discharge: 09/14/19 Minutes to complete discharge: 33 <Jorge Henderson - Last Filed: 09/14/19 11:12> Discharge Summary Problems reviewed: Yes Reason For Visit: PNEUMONIA Current Active Problems Liver transplant recipient (Acute) PNA (pneumonia) (Acute) - Home Medications Comprehensive Discharge Medication List: Ambulatory Orders Gabapentin 200 mg PO HS PRN 02/22/17 Albuterol Sulfate Inhaler - [Ventolin HFA Inhaler -] 2 inh IH Q6H PRN 08/28/18 Allopurinol [Zyloprim -] 100 mg PO DAILY 08/28/18 Budesonide/Formeterol Fumarate [SYMBICORT 160/4.5mcg -] 2 puff IH BID 08/28/18 Meclizine HCl 25 mg PO DAILY PRN 08/28/18 Montelukast Sodium [Singulair] 10 mg PO DAILY 08/28/18 Metoprolol Succinate [Toprol XL -] 100 mg PO DAILY #30 tab.sr.24h 08/29/18 Pantoprazole Sodium 40 mg PO DAILY #30 tablet. 08/29/18 Ursodiol [Actigal -] 300 mg NR BID #60 capsule 08/29/18 Amlodipine Besylate 5 mg PO DAILY 09/09/19 Mycophenolate Mofetil 500 mg PO DAILY 09/09/19 Amox-Tr/K Cl [Augmentin 875-125mg Tablet -] 1 tab PO BID@0800,1730 #11 tablet <Harman Salas - Last Filed: 09/14/19 10:51> Problems reviewed: Yes Current Active Problems Liver transplant recipient (Acute) PNA (pneumonia) (Acute) - Home Medications Comprehensive Discharge Medication List: Ambulatory Orders Gabapentin 200 mg PO HS PRN 02/22/17 Albuterol Sulfate Inhaler - [Ventolin HFA Inhaler -] 2 inh IH Q6H PRN 08/28/18 Allopurinol [Zyloprim -] 100 mg PO DAILY 08/28/18 Budesonide/Formeterol Fumarate [SYMBICORT 160/4.5mcg -] 2 puff IH BID 08/28/18 Meclizine HCl 25 mg PO DAILY PRN 08/28/18 Montelukast Sodium [Singulair] 10 mg PO DAILY 08/28/18 Metoprolol Succinate [Toprol XL -] 100 mg PO DAILY #30 tab.sr.24h 08/29/18 Pantoprazole Sodium 40 mg PO DAILY #30 tablet. 08/29/18 Ursodiol [Actigal -] 300 mg NR BID #60 capsule 08/29/18 Amlodipine Besylate 5 mg PO DAILY 09/09/19 Mycophenolate Mofetil 500 mg PO DAILY 09/09/19 Amox-Tr/K Cl [Augmentin 875-125mg Tablet -] 1 tab PO BID@0800,1730 #11 tablet Prednisone See Taper PO DAILY #20 tablet 09/14/19 <IzzyJorge valdez - Last Filed: 09/14/19 11:12> Condition: Stable - Instructions Diet, Activity, Other Instructions: MEDICATION CHANGES: Please DO NOT TAKE your Spirinolacone (Aldactone) until 09/16/19. Continue your Augmentin 875mg TWICE daily until 09/19/19 Please continue your Actigal and Cellcept as you have been Continue Toprol XL 100mg daily and Norvasc 5mg daily for your blood pressure Please take a prednisone taper as directed below. When you finish the taper, please continue 5mg Prednisone by mouth daily as directed by your liver transplant center Follow-up: Please follow-up with your Transplant Center which the number has been provided for you Please follow-up with Dr. Pool for your kidneys in 2 weeks Please follow-up with your primary care provider. If you do not have one; please see Dr. stauffer Please follow-up with Dr. Pollard in 2 weeks. Referrals: Transplant Center, [facility] [Other] Patricio Pollard MD [Staff Physician] - Dalia Pool MD [Staff Physician] - 2 Weeks Bella Stauffer MD [Staff Physician] - Disposition: HOME - Discharge Referral Referred to [facility] No <Harman Salas - Last Filed: 09/14/19 10:51> ATTENDING PHYSICIAN STATEMENT I saw and evaluated the patient. I reviewed the resident's note and discussed the case with the resident. I agree with the resident's findings and plan as documented. SUBJECTIVE: OBJECTIVE: ASSESSMENT AND PLAN: <Harman Salas - Last Filed: 09/14/19 10:51> Seen and examined; please see resident note for further historical information. I personally verified all walker historical information and exam findings. Personally interpreted all imaging and diagnostics and reviewed appropriate consults. I reviewed all labs and vital signs as per resident note and EMR as documented. I agree with the above assessment and plan unless supplemented by myself in the following. VS, labs, imaging reviewed NAD, AAO, resting comfortably in bed. RRR s1/2 no mgr Normal muscle tone, moves all 5 extremities with normal apparent strength Neck is supple, trachea midline, no cata LN Lungs CTAB with sym expansion NT ND +BS no cata organomegaly CN2-12 wnl; no FND NC AT EOMI PERRLA Normal mood, appropriate behavior, euthymic affect No skin breakdown or rashes noted Patient was seen and examined, has no new complaints. Hemodynamics stable and afebrile. They were counseled extensively regarding discharge plan, and they stated that they did not actually have a transplant specialist follow-up with due to the fact that there are old group left [facility]. They have been confused as to where to go. We will personally reach out to a transplant facility and we will call to get her established with care prior to discharge. Please see resident addendum on the discharge summary for further discussion of this. Pulmonary medicine changed to prednisone this morning for steroid. Will complete taper per their instructions. Will be able to be discharged home with bronchodilators and follow-up as indicated in the resident note. I agree with the problem list as indicated in the resident note. Full code <Jorge Henderson - Last Filed: 09/14/19 11:12>
--- NOTE | 2019-09-14 11:59 | PN ---
Progress Note, Physician History of Present Illness: stable n new issues - Current Medication List Current Medications: Active Medications Acetaminophen (Tylenol -) 650 mg PO Q4H PRN PRN Reason: PAIN LEVEL 4 - 6 Albuterol Sulfate (Ventolin 0.083% Nebulizer Soln -) 1 amp NEB Q4H PRN PRN Reason: SHORT OF BREATH/WHEEZING Last Admin: 09/09/19 21:30 Dose: 1 amp Albuterol/Ipratropium (Duoneb -) 1 amp NEB RQID [facility] Last Admin: 09/13/19 20:17 Dose: 1 amp Allopurinol (Zyloprim -) 100 mg PO DAILY [facility] Last Admin: 09/14/19 09:15 Dose: 100 mg Amlodipine Besylate (Norvasc -) 5 mg PO DAILY [facility] Last Admin: 09/14/19 09:15 Dose: 5 mg Amoxicillin/Clavulanate Potassium (Augmentin - 875mg Tablet) 1 tab PO BID@0800, 1730 [facility] Stop: 09/19/19 08:00 Last Admin: 09/14/19 09:15 Dose: 1 tab Benzocaine/Menthol (Cepacol Lozenge -) 1 each MM DAILY PRN PRN Reason: SORE THROAT Last Admin: 09/13/19 17:04 Dose: 1 each Gabapentin (Neurontin -) 200 mg PO HS PRN PRN Reason: PAIN LEVEL 4 - 6 Heparin Sodium (Porcine) (Heparin -) 5,000 unit SQ TID [facility] Last Admin: 09/14/19 06:41 Dose: 5,000 unit Sodium Chloride (1/2 Normal Saline) 1,000 mls @ 50 mls/hr IV ASDIR [facility] Stop: 09/14/19 13:43 Last Admin: 09/13/19 14:46 Dose: 50 mls/hr Insulin Aspart (Novolog Vial Sliding Scale -) 1 vial SQ ACHS [facility]; Protocol Last Admin: 09/14/19 11:18 Dose: Not Given Meclizine HCl (Antivert -) 25 mg PO DAILY PRN PRN Reason: VERTIGO Melatonin (Melatonin) 3 mg PO HS [facility] Last Admin: 09/13/19 22:07 Dose: 3 mg Metoprolol Succinate (Toprol Xl -) 100 mg PO DAILY [facility] Last Admin: 09/14/19 09:15 Dose: 100 mg Montelukast Sodium (Singulair -) 10 mg PO HS [facility] Last Admin: 09/13/19 22:07 Dose: 10 mg Mycophenolate Mofetil (Cellcept -) 500 mg PO BID [facility] Last Admin: 09/14/19 09:15 Dose: 500 mg Pantoprazole Sodium (Protonix -) 40 mg PO DAILY [facility] Last Admin: 09/14/19 09:15 Dose: 40 mg Prednisone (Deltasone -) 40 mg PO DAILY [facility] Last Admin: 09/14/19 09:15 Dose: 40 mg Ursodiol (Actigal -) 300 mg PO BID [facility] Last Admin: 09/14/19 09:16 Dose: 300 mg - Objective Vital Signs: Vital Signs Temperature 97.5 F L 09/14/19 09:51 Pulse Rate 89 09/14/19 09:51 Respiratory Rate 18 09/14/19 09:51 Blood Pressure 156/101 H 09/14/19 09:51 O2 Sat by Pulse Oximetry (%) 96 09/14/19 09:00 Constitutional: Yes: No Distress, Calm Cardiovascular: Yes: S1, S2 Respiratory: Yes: Regular, CTA Bilaterally Gastrointestinal: Yes: Normal Bowel Sounds, Soft Musculoskeletal: Yes: WNL Extremities: Yes: WNL Neurological: Yes: Alert, Oriented Psychiatric: Yes: Alert, Oriented Labs: CBC, BMP 09/13/19 07:10 09/14/19 08:00 Assessment/Plan Problem List - Problems (1) Liver transplant recipient Code(s): Z94.4 - LIVER TRANSPLANT STATUS (2) CKD (chronic kidney disease) Code(s): N18.9 - CHRONIC KIDNEY DISEASE, UNSPECIFIED Qualifiers: Chronic kidney disease stage: stage 2 (mild) Qualified Code(s): N18.2 - Chronic kidney disease, stage 2 (mild) 3 breoncheiactasis cough plan oral abx for couple of days rest as per the team
--- NOTE | 2019-09-14 13:18 | PN ---
Progress Note, Physician History of Present Illness: Pt seen and examined at bedside. She is awake and alert. She feels her breathing is improving. - Objective Vital Signs: Vital Signs Temperature 97.5 F L 09/14/19 09:51 Pulse Rate 89 09/14/19 09:51 Respiratory Rate 18 09/14/19 09:51 Blood Pressure 156/101 H 09/14/19 09:51 O2 Sat by Pulse Oximetry (%) 96 09/14/19 09:00 Constitutional: Yes: Calm Eyes: Yes: Conjunctiva Clear HENT: Yes: Atraumatic Neck: Yes: Supple Cardiovascular: Yes: S1, S2 Respiratory: Yes: Wheezes Gastrointestinal: Yes: Soft, Abdomen, Obese Genitourinary: Yes: WNL Musculoskeletal: Yes: WNL Edema: No Neurological: Yes: Oriented Psychiatric: Yes: Oriented Labs: CBC, BMP 09/13/19 07:10 09/14/19 08:00 Problem List - Problems (1) Liver transplant recipient Code(s): Z94.4 - LIVER TRANSPLANT STATUS (2) CKD (chronic kidney disease) Code(s): N18.9 - CHRONIC KIDNEY DISEASE, UNSPECIFIED Qualifiers: Chronic kidney disease stage: stage 2 (mild) Qualified Code(s): N18.2 - Chronic kidney disease, stage 2 (mild) Assessment/Plan Impression 1. CKD 2. COPD exacerbation 3. liver transplant 4. sarcoidosis 5. HTN 6. gout 7. hep C 8. PNA 9. hydronephrosis 10. 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
== END 2019-09-14 13:13 | disposition home or self-care (01) | DRG 191 ==
LOC: JER 11:10 → JERBED 17:05 → J7W 18:56
PROVIDERS: ADMIT Internal Medicine; ATTEND Internal Medicine
DX: J44.1 Chronic obstructive pulmonary disease with (acute) exacerbation (principal); N17.9 Acute kidney failure, unspecified; N13.30 Unspecified hydronephrosis; Z94.4 Liver transplant status; D86.0 Sarcoidosis of lung; K21.9 Gastro-esophageal reflux disease without esophagitis; I25.10 Atherosclerotic heart disease of native coronary artery without angina pectoris; I44.7 Left bundle-branch block, unspecified; D72.829 Elevated white blood cell count, unspecified; E66.8 Other obesity; Z68.34 Body mass index [BMI] 34.0-34.9, adult; M10.9 Gout, unspecified; K57.90 Diverticulosis of intestine, part unspecified, without perforation or abscess without bleeding; J06.9 Acute upper respiratory infection, unspecified; B18.2 Chronic viral hepatitis C; I12.9 Hypertensive chronic kidney disease with stage 1 through stage 4 chronic kidney disease, or unspecified chronic kidney disease; N18.2 Chronic kidney disease, stage 2 (mild); D12.6 Benign neoplasm of colon, unspecified; N28.1 Cyst of kidney, acquired; Z91.14 Patient's other noncompliance with medication regimen; K74.3 Primary biliary cirrhosis
CPT/HCPCS: 36415; 71046-TC-FY; 71250-TC; 76705-TC; 76775-TC; 76856-TC; 80048; 80053; 80074; 80076; 81003; 82150; 82436; 82565; 82962; 82977; 83516; 83690; 83735; 83880; 83930; 83935; 84100; 84133; 84300; 84443; 84484; 84540; 85025; 85027; 85651; 86038; 86850; 86900; 86901; 87040; 87205; 87798; 87804; 87899; 93005; 93010; 93306-TC; 94010; 94640; 97116-GP; 97161-GP; 99283-25; J1644; J7517

== ENCOUNTER 2019-10-31 08:02 | Emergency (ER) | payer OTHER ==
[2019-10-31 08:08] VITALS: TEMP 97.8; BMI 35.2
--- NOTE | 2019-10-31 08:29 | PDOC ---
History of Present Illness - General Chief Complaint: Injury Stated Complaint: FALL Time Seen by Provider: 10/31/19 08:21 - History of Present Illness Initial Comments: Ms. 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 Denies LOC. Denies dizziness or heart palpitations prior to fall. Reports left cheek pain and bruising. Reports mild left wrist pain and right knee pain and right rib pain. Denies fever/chills/recent illness. Denies abdominal pain. Denies neck pain. Denies headache. Denies dysuria/hematuria. Denies changes in stool. Past History - Past Medical History Allergies/Adverse Reactions: Allergies Allergy/AdvReac Type Severity Reaction Status Date / Time shrimp Allergy Verified 10/31/19 08:08 Home Medications: Ambulatory Orders Gabapentin 200 mg PO HS PRN 02/22/17 Albuterol Sulfate Inhaler - [Ventolin HFA Inhaler -] 2 inh IH Q6H PRN 08/28/18 Allopurinol [Zyloprim -] 100 mg PO DAILY 08/28/18 Budesonide/Formeterol Fumarate [SYMBICORT 160/4.5mcg -] 2 puff IH BID 08/28/18 Meclizine HCl 25 mg PO DAILY PRN 08/28/18 Montelukast Sodium [Singulair] 10 mg PO DAILY 08/28/18 Metoprolol Succinate [Toprol XL -] 100 mg PO DAILY #30 tab.sr.24h 08/29/18 Pantoprazole Sodium 40 mg PO DAILY #30 tablet.dr 08/29/18 Ursodiol [Actigal -] 300 mg NR BID #60 capsule 08/29/18 Amlodipine Besylate 5 mg PO DAILY 09/09/19 Mycophenolate Mofetil 500 mg PO DAILY 09/09/19 Amox-Tr/K Cl [Augmentin 875-125mg Tablet -] 1 tab PO BID@0800,1730 #11 tablet Prednisone See Taper PO DAILY #20 tablet 09/14/19 Anemia: No Asthma: No Cancer: No Cardiac Disorders: Yes (cad) CVA: No COPD: Yes CHF: No Dementia: No Diabetes: No GI Disorders: No Disorders: No HTN: Yes Hypercholesterolemia: No Liver Disease: Yes (cirrhosis, s/p transplant, hep c) Seizures: No Thyroid Disease: No - Surgical History Abdominal Surgery: No Appendectomy: No Cardiac Surgery: No Cholecystectomy: No Lung Surgery: No Neurologic Surgery: No Orthopedic Surgery: No - Immunization History Immunization Up to Date: Yes - Psycho Social/Smoking Cessation Hx Smoking History: Never smoked Have you smoked in the past 12 months: No Number of Cigarettes Smoked Daily: 2 If you are a former smoker, when did you quit?: 1992 Hx Alcohol Use: No Drug/Substance Use Hx: No Substance Use Type: None Hx Substance Use Treatment: No Review of Systems - Review of Systems Comments:: GENERAL/CONSTITUTIONAL: No fever or chills. No weakness._ HEAD, EYES, EARS, NOSE AND THROAT: No change in vision. No change in hearing. No sore throat. Reports left cheek pain. CARDIOVASCULAR: No chest pain or shortness of breath_ CHEST: Reports right chest wall pain. RESPIRATORY: Denies cough, hemoptysis_ GASTROINTESTINAL: No nausea, vomiting, diarrhea or constipation._ GENITOURINARY: No dysuria, frequency, or change in urination._ MUSCULOSKELETAL: Reports left wrist pain and right knee pain. SKIN: No rash_ NEUROLOGIC: No headache, vertigo, loss of consciousness, or change in strength/ sensation._ HEMATOLOGIC/LYMPHATIC: No anemia, easy bleeding, or history of blood clots._ ALLERGIC/IMMUNOLOGIC: No hives or skin allergy._ *Physical Exam - Vital Signs Last Vital Signs Temp Pulse Resp BP Pulse Ox 97.8 F 88 26 H 156/63 99 10/31/19 08:06 10/31/19 08:06 10/31/19 08:06 10/31/19 08:06 10/31/19 08:06 - Physical Exam GENERAL: Awake, alert, and oriented to person/place/time, in no acute distress_ HEAD: No signs of trauma, normocephalic, atraumatic _ EYES: PERRLA, EOMI, sclera anicteric, conjunctiva clear_ ENT: Hearing grossly normal, nares patent, oropharynx clear without exudates. No uvular deviation. Moist mucosa_ NECK: Normal ROM, supple, no lymphadenopathy, JVD, or masses_ LUNGS: No distress, speaks in full sentences, clear to auscultation bilaterally _ CHEST: TTP right lower chest wall. No bruising or overlying skin changes. HEART: Regular rate and rhythm, normal S1 and S2, no murmurs appreciated, peripheral pulses normal and equal bilaterally._ ABDOMEN: Soft, nontender, normoactive bowel sounds. No guarding, no rebound. No masses_ EXTREMITIES: Mild TTP left wrist and right knee without bruising or skin changes or swelling. No pitting edema bilaterally. Full ROM. NEUROLOGICAL: Cranial nerves II through XII grossly intact. Normal speech, normal gait, no focal sensorimotor deficits. Cerebellar testing intact. Romberg' s negative. Finger to nose and heel to eldridge intact. SKIN: Warm, Dry, normal turgor, no rashes or lesions noted_ Medical Decision Making - Medical Decision Making 10/31/19 08:42 74F presenting s/p mechanical fall last night. -ct head, c-spine, facial bones -XR right ribs 10/31/19 10:32 CT head shows no acute intracranial pathology, hemorrhage, mass, or midline shift. CT c-spine shows no fracture or subluxation. 1.5 cm thyroid nodule noted on left lobe. CT facial bones shows no fracture. XR ribs shows no fracture. Will give lidoderm patch. Plan to d/c home, f/u PCP for small thyroid nodule noted on CT neck. Tylenol and Motrin for pain control. Discharge - Discharge Information Problems reviewed: Yes Clinical Impression/Diagnosis: Fall Qualifiers: Encounter type: initial encounter Qualified Code(s): W19.XXXA - Unspecified fall, initial encounter Condition: Stable Disposition: HOME - Admission No - Follow up/Referral Referrals: Joie Arroyo [Primary Care Provider] - - Patient Discharge Instructions Patient Printed Discharge Instructions: How to Prevent Falls Additional Instructions: Please make a follow up appointment with your PCP Dr. Arroyo to follow up a thyroid nodule seen on your neck CT scan. Please take Tylenol as needed for your pain, and rest and ice the painful area. You may also use lidoderm patches over the counter. If you experience any new, worsening, or concerning symptoms, including loss of consciousness, severe headache, nausea/vomiting, frequent falls, or any other concerns, please return to the emergency department. - Post Discharge Activity
--- NOTE | 2019-10-31 09:36 | PDOC ---
Attending Attestation - Resident Resident Name: Kan Orr - ED Attending Attestation I have performed the following: I have examined & evaluated the patient, The case was reviewed & discussed with the resident, I agree w/resident's findings & plan - HPI HPI: 10/31/19 09:36 Ms. 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 no prodromal sx prior to fall. Reports left cheek pain and bruising. Reports mild left wrist pain and right knee pain and right rib pain. - Physicial Exam PE: 10/31/19 09:35 Agree with the resident's HPI and PE as documented in the electronic medical record. NAD, well appearing, GCS 15, airway patent. EOMI, PERRL, nl conjunctiva, anicteric; neck supple. right lateral chest wall TTP, no crepitus or skin discoloration. no repsiratory distress, lungs clear, RRR, abdomen soft nontender. no rebound, guarding. Back nontender. BENAVIDES x4, no focal neuro deficits. CN II-XII grossly intact. No peripheral edema. normal color for ethnicity, WWP. gait stable. no deformities. no joint laxity, FROM in all extremities. 10/31/19 10:47 10/31/19 10:48 - Medical Decision Making 10/31/19 09:35 Vital Signs Temp Pulse Resp BP Pulse Ox 97.8 F 88 26 H 156/63 99 10/31/19 08:06 10/31/19 08:06 10/31/19 08:06 10/31/19 08:06 10/31/19 08:06 Chest x-ray similar to previous with extensive fibrotic scarring and bronchial changes in the upper lobes, no evidence of pneumothorax or pleural effusion, no evidence of rib fractures noted, calcifications in the hilar or mediastinal lymph nodes are noted. There is old granulomatosis inflammation, no mediastinal widening, normal cardiac silhouette CT negative for acute intracranial pathology, stable, para sinus disease. No facial bone fractures, no cervical fractures, or subluxation. Left thyroid nodules noted, follow-up with ultrasound as an outpatient. no xray indicated for extremities, as no focal deficits. neuro vasc intact. FROM , no laxity or deformities. doubt fx or dislocation from the fall. Patient given Lidoderm for pain control. Declines additional analgesics. Stable for discharge, breathing exercises, pain control supportive care and adequate rest. 10/31/19 10:47 10/31/19 10:49
[2019-10-31] MEDS ORDERED: LIDOCAINE 5% TOPICAL PATCH TP ONE (10:40)
[2019-10-31] MEDS ORDERED: LIDOCAINE 5% TOPICAL PATCH ONE (10:47)
[2019-10-31 10:53] VITALS: BP 150/76; PULSE 79
[2019-10-31] MEDS ORDERED: LIDOCAINE PATCH REMOVAL MC SCH (22:00)
== END 2019-10-31 10:53 | disposition home or self-care (01) ==
LOC: JER 08:02
DX: Z04.3 Encounter for examination and observation following other accident (principal); J44.9 Chronic obstructive pulmonary disease, unspecified; I10 Essential (primary) hypertension; K21.9 Gastro-esophageal reflux disease without esophagitis; B19.20 Unspecified viral hepatitis C without hepatic coma; W18.39XA Other fall on same level, initial encounter; Y93.89 Activity, other specified; Y92.89 Other specified places as the place of occurrence of the external cause; Z91.013 Allergy to seafood; Z87.891 Personal history of nicotine dependence; K74.60 Unspecified cirrhosis of liver; I25.10 Atherosclerotic heart disease of native coronary artery without angina pectoris
CPT/HCPCS: 70450-TC; 70486-TC; 71101-TC-RT-FY; 72125-TC; 99281-25

== ENCOUNTER 2022-10-10 09:15 | Emergency (ER) | payer OTHER ==
[2022-10-10 09:25] VITALS: BP 153/65; RESP 18; TEMP 98.1; BMI 33.4
[2022-10-10] MEDS ORDERED: ACETAMINOPHEN 1000 MG/100 ML BAG IVPB ONE (10:49)
[2022-10-10] MEDS ORDERED: ACETAMINOPHEN INJECTION 100 ML IVPB ONE (10:53)
[2022-10-10 11:25] LABS: BASO % 0.4 % (0-2.0); EOS % 0.5 % (0-4.5); HEMATOCRIT 38.6 % (32.4-45.2); HEMOGLOBIN 12.2 GM/dL (10.7-15.3); INR 0.99 (0.83-1.09); LYMPH % 12.1 % (8-40); MCH 30.1 pg (25.7-33.7); MCHC 31.6 g/dl (32.0-36.0); MEAN CELL VOLUME 95.2 fl (80-96); MEAN PLT VOLUME 11.7 fl (7.5-11.1); PLATELET COUNT 183 10^3/uL (134-434); PROTHROMBIN TIME (PATIENT) 11.4 SEC (9.7-13.0); RBC 4.05 M/mm3 (3.60-5.2); RDW 14.9 % (11.6-15.6); WHITE BLOOD COUNT 11.7 K/mm3 (4.0-10.0)
[2022-10-10 11:27] LABS: ACTIVATED PTT 29.6 SECONDS (25.2-36.5)
[2022-10-10 11:33] LABS: ALBUMIN 3.5 g/dl (3.4-5.0); CALCIUM 9.1 mg/dL (8.5-10.1)
[2022-10-10 11:34] LABS: BLOOD UREA NITROGEN 30.7 mg/dL (7-18)
[2022-10-10 11:36] LABS: CREATININE 1.4 mg/dL (0.55-1.3)
[2022-10-10 11:38] LABS: BILIRUBIN,TOTAL 0.4 mg/dL (0.2-1); TOT PROT 6.5 g/dl (6.4-8.2)
[2022-10-10 11:41] LABS: N-TERMINAL BNP 721.8 pg/ml (5-450)
[2022-10-10 16:18] VITALS: PULSE 86
== END 2022-10-10 16:18 | disposition home or self-care (01) ==
LOC: JER 09:15
PROC: 3E033GC Introduction of Other Therapeutic Substance into Peripheral Vein, Percutaneous Approach (ICD-10-PCS; principal; 2022-10-10)
DX: M54.6 Pain in thoracic spine (principal); R06.02 Shortness of breath; J44.9 Chronic obstructive pulmonary disease, unspecified
CPT/HCPCS: 36415; 71046-TC-FY; 72128-TC; 80053; 83880; 84484; 85025; 85379; 85610; 85730; 93005; 93010; 99285-25

== ENCOUNTER 2023-07-21 15:22 | Inpatient (IN) | payer OTHER ==
[2023-07-21 15:35] VITALS: BMI 34.3
[2023-07-21 16:51] LABS: BASO % 0.2 % (0-2.0); EOS % 0.1 % (0-4.5); HEMATOCRIT 35.1 % (32.4-45.2); HEMOGLOBIN 11.3 GM/dL (10.7-15.3); MCH 29.9 pg (25.7-33.7); MCHC 32.1 g/dl (32.0-36.0); MEAN CELL VOLUME 93.1 fl (80-96); MEAN PLT VOLUME 10.5 fl (7.5-11.1); MONO % 8.9 % (3.8-10.2); NEUT % 85.8 % (42.8-82.8); PLATELET COUNT 164 10^3/uL (134-434); RBC 3.77 M/mm3 (3.60-5.2); RDW 16.6 % (11.6-15.6); WHITE BLOOD COUNT 12.5 K/mm3 (4.0-10.0)
[2023-07-21 16:53] LABS: EPI CELLS 17 /uL (0-25.1); HYALINE CASTS 0 /uL (0-3.1); URINE APPEARANCE CLEAR; URINE BACTERIA 18 /uL (0-1359); URINE BILIRUBIN NEGATIVE (NEGATIVE); URINE COLOR YELLOW; URINE GLUCOSE (UA) NEGATIVE (NEGATIVE); URINE KETONE NEGATIVE (NEGATIVE); URINE LEUK ESTERASE TRACE (NEGATIVE); URINE NITRITE NEGATIVE (NEGATIVE); URINE PROTEIN NEGATIVE (NEGATIVE); URINE RBC 22 /uL (0-23.9); URINE UROBILINOGEN 0.2 mg/dL (0.2-1.0); URINE WBC 22 /uL (0-25.8)
[2023-07-21 17:20] LABS: ANISOCYTOSIS 2+; MACROCYTOSIS 0; OVALOCYTE 1+
[2023-07-21 17:44] LABS: POTASSIUM 4.6 mmol/L (3.5-5.1)
[2023-07-21 17:46] LABS: ALBUMIN 3.1 g/dl (3.4-5.0); BLOOD UREA NITROGEN 38.8 mg/dL (7-18); CALCIUM 8.5 mg/dL (8.5-10.1)
[2023-07-21 17:49] LABS: CREATININE 1.6 mg/dL (0.55-1.3)
[2023-07-21 17:51] LABS: BILIRUBIN,TOTAL 0.5 mg/dL (0.2-1); TOT PROT 6.6 g/dl (6.4-8.2)
[2023-07-21] MEDS ORDERED: methylPREDNISolone NA SUCC 125 MG/2 ML VIAL IVPB ONE (18:14)
[2023-07-21] MEDS ORDERED: ALBUTEROL SO4 2.5/IPRATROPIUM 0.5 INH SOL 3 ML VIAL.NEB. NEB ONE ×2 (18:14→18:24)
[2023-07-21] MEDS ORDERED: methylPREDNISolone NA SUCC 125 MG/2 ML VIAL ONE (18:24)
[2023-07-21] MEDS ORDERED: REMDESIVIR 200 MG in SODIUM CHLORIDE 250 ML IVPB ONE (18:50)
[2023-07-21] MEDS ORDERED: VANCOMYCIN 1,000 MG in DEXTROSE 5%-WATER - 250 ML IVPB ONE (18:56)
[2023-07-21] MEDS ORDERED: PIPERACILLIN/TAZOB 4.5 GM 4.5 GM in DEXTROSE 5%-WATER 100 ML IVPB ONE (18:56)
[2023-07-21] MEDS ORDERED: VANCOMYCIN 1 GRAM (PRE-DOCKED) 1,000 MG/250 ML BAG IVPB ONE (18:58)
[2023-07-21] MEDS ORDERED: PIPERACILLIN/TAZOB 4.5 GM 4.5 GM/100 ML BAG IVPB ONE (19:32)
[2023-07-21] MEDS ORDERED: ALBUTEROL SO4 HFA INHALER IH PRN (23:50)
[2023-07-22 00:45] LABS: MAGNESIUM 1.5 mg/dL (1.8-2.4)
[2023-07-22] MEDS ORDERED: MAGNESIUM SULF 50% (8.12 MEQ/2 ML-1 GM VIAL) IVPB ONE (00:51)
[2023-07-22] MEDS ORDERED: MAGNESIUM SULFATE IN WATER 2 GM/50 ML IVPB IVPB ONE (01:14)
[2023-07-22 06:18] LABS: BASO % 0.1 % (0-2.0); EOS % 0.1 % (0-4.5); HEMATOCRIT 36.7 % (32.4-45.2); HEMOGLOBIN 11.7 GM/dL (10.7-15.3); LYMPH % 7.6 % (8-40); MCH 30.3 pg (25.7-33.7); MCHC 31.9 g/dl (32.0-36.0); MEAN PLT VOLUME 10.8 fl (7.5-11.1); MONO % 12.8 % (3.8-10.2); NEUT % 79.4 % (42.8-82.8); PLATELET COUNT 177 10^3/uL (134-434); RBC 3.86 M/mm3 (3.60-5.2); RDW 16.5 % (11.6-15.6); WHITE BLOOD COUNT 9.9 K/mm3 (4.0-10.0)
[2023-07-22 06:40] LABS: POTASSIUM 3.8 mmol/L (3.5-5.1)
[2023-07-22 06:43] LABS: BLOOD UREA NITROGEN 38.4 mg/dL (7-18); CALCIUM 8.5 mg/dL (8.5-10.1); MAGNESIUM 1.9 mg/dL (1.8-2.4)
[2023-07-22] MEDS ORDERED: guaiFENesin 200 MG/10 ML 10 ML UNIT-DOSE CUPS PO PRN (07:26)
[2023-07-22] MEDS ORDERED: PIPERACILLIN/TAZOB 3.375 GM 3.375 GM/50 ML BAG IVPB ONE ×2 (07:47→10:08)
[2023-07-22 08:23] LABS: CREATININE 1.7 mg/dL (0.55-1.3)
[2023-07-22 08:25] LABS: BILIRUBIN,TOTAL 0.4 mg/dL (0.2-1); TOT PROT 6.1 g/dl (6.4-8.2)
[2023-07-22] MEDS ORDERED: HEPARIN NA (PORCINE) 5,000 UNITS/ML 1ML VIAL ONE (08:40)
[2023-07-22] MEDS: amLODIPine BESYLATE 5 MG TABLET (FP) PO SCH (09:26)
[2023-07-22] MEDS: DEXAMETHASONE SOD PHOSPHATE 10 MG/1 ML VIAL IVPUSH SCH (09:26)
[2023-07-22] MEDS: HEPARIN NA (PORCINE) 5,000 UNITS/ML 1ML VIAL SQ SCH ×2 (09:26→22:14)
[2023-07-22] MEDS: BUDESONIDE/FORMETEROL FUMARATE 160/4.5 mcg INHALER IH SCH ×2 (09:27→22:18)
[2023-07-22] MEDS: MONTELUKAST NA 10 MG TABLET PO SCH (09:27)
[2023-07-22] MEDS ORDERED: MYCOPHENOLATE MOFETIL 500 MG TABLET PO ONE (10:00)
[2023-07-22] MEDS ORDERED: PIPERACILLIN/TAZOB 3.375 GM 3.375 GM in DEXTROSE 5%-WATER - 50 ML IVPB SCH (10:00)
[2023-07-22] MEDS ORDERED: REMDESIVIR 200 MG in SODIUM CHLORIDE 250 ML IVPB ONE (11:05)
[2023-07-22] MEDS: PIPERACILLIN/TAZOB 3.375 GM 3.375 GM in DEXTROSE 5%-WATER - 50 ML IVPB SCH (17:30)
[2023-07-22] MEDS ORDERED: VANCOMYCIN/WATER FOR INJ (PEG) 1,000 MG/200 ML BAG IVPB ONE (19:00)
[2023-07-22] MEDS ORDERED: VANCOMYCIN 1,000 MG in DEXTROSE 5%-WATER - 250 ML IVPB SCH (19:00)
[2023-07-22] MEDS: REMDESIVIR 100 MG in SODIUM CHLORIDE 250 ML IVPB SCH (22:13)
[2023-07-23] MEDS: PIPERACILLIN/TAZOB 3.375 GM 3.375 GM in DEXTROSE 5%-WATER - 50 ML IVPB SCH ×3 (01:30→17:30)
[2023-07-23 08:47] LABS: BASO % 0.1 % (0-2.0); HEMATOCRIT 35.7 % (32.4-45.2); HEMOGLOBIN 11.9 GM/dL (10.7-15.3); LYMPH % 6.2 % (8-40); MCH 30.8 pg (25.7-33.7); MCHC 33.4 g/dl (32.0-36.0); MEAN CELL VOLUME 92.4 fl (80-96); MEAN PLT VOLUME 10.2 fl (7.5-11.1); MONO % 7.9 % (3.8-10.2); NEUT % 85.8 % (42.8-82.8); PLATELET COUNT 198 10^3/uL (134-434); RBC 3.87 M/mm3 (3.60-5.2); RDW 16.6 % (11.6-15.6); WHITE BLOOD COUNT 7.4 K/mm3 (4.0-10.0)
[2023-07-23 09:04] LABS: POTASSIUM 4.5 mmol/L (3.5-5.1)
[2023-07-23 09:12] LABS: BLOOD UREA NITROGEN 39.5 mg/dL (7-18)
[2023-07-23 09:15] LABS: CREATININE 1.7 mg/dL (0.55-1.3)
[2023-07-23 09:16] LABS: BILIRUBIN,TOTAL 0.4 mg/dL (0.2-1); TOT PROT 6.4 g/dl (6.4-8.2)
[2023-07-23] MEDS: amLODIPine BESYLATE 5 MG TABLET (FP) PO SCH (09:50)
[2023-07-23] MEDS: DEXAMETHASONE SOD PHOSPHATE 10 MG/1 ML VIAL IVPUSH SCH (09:51)
[2023-07-23] MEDS: HEPARIN NA (PORCINE) 5,000 UNITS/ML 1ML VIAL SQ SCH ×2 (09:51→21:58)
[2023-07-23] MEDS: MONTELUKAST NA 10 MG TABLET PO SCH (09:51)
[2023-07-23] MEDS: BUDESONIDE/FORMETEROL FUMARATE 160/4.5 mcg INHALER IH SCH ×2 (10:04→22:00)
[2023-07-23] MEDS ORDERED: REMDESIVIR 100 MG in SODIUM CHLORIDE 250 ML IVPB SCH (11:15)
[2023-07-23] MEDS: MYCOPHENOLATE MOFETIL 500 MG TABLET PO SCH (21:58)
[2023-07-23] MEDS: REMDESIVIR 100 MG in SODIUM CHLORIDE 250 ML IVPB SCH (21:58)
[2023-07-24] MEDS: PIPERACILLIN/TAZOB 3.375 GM 3.375 GM in DEXTROSE 5%-WATER - 50 ML IVPB SCH ×3 (01:35→17:23)
[2023-07-24] MEDS: MYCOPHENOLATE MOFETIL 500 MG TABLET PO SCH ×3 (07:17→10:45)
[2023-07-24] MEDS: MONTELUKAST NA 10 MG TABLET PO SCH (10:45)
[2023-07-24] MEDS: amLODIPine BESYLATE 5 MG TABLET (FP) PO SCH (10:45)
[2023-07-24] MEDS: DEXAMETHASONE SOD PHOSPHATE 10 MG/1 ML VIAL IVPUSH SCH (10:45)
[2023-07-24] MEDS: HEPARIN NA (PORCINE) 5,000 UNITS/ML 1ML VIAL SQ SCH ×2 (10:45→21:25)
[2023-07-24] MEDS: BUDESONIDE/FORMETEROL FUMARATE 160/4.5 mcg INHALER IH SCH ×2 (11:03→21:49)
[2023-07-24] MEDS: REMDESIVIR 100 MG in SODIUM CHLORIDE 250 ML IVPB SCH (20:22)
[2023-07-24] MEDS ORDERED: FAMOTIDINE 20 MG TABLET PO ONE (21:38)
[2023-07-25] MEDS: PIPERACILLIN/TAZOB 3.375 GM 3.375 GM in DEXTROSE 5%-WATER - 50 ML IVPB SCH ×3 (01:01→18:08)
[2023-07-25 07:54] LABS: BILIRUBIN,DIRECT 0.2 mg/dL (0.0-0.2)
[2023-07-25 07:56] LABS: ALBUMIN 3.2 g/dl (3.4-5.0)
[2023-07-25 08:01] LABS: TOT PROT 6.6 g/dl (6.4-8.2)
[2023-07-25 08:04] LABS: BILIRUBIN,TOTAL 0.5 mg/dL (0.2-1)
[2023-07-25] MEDS: HEPARIN NA (PORCINE) 5,000 UNITS/ML 1ML VIAL SQ SCH ×2 (10:27→21:25)
[2023-07-25] MEDS: DEXAMETHASONE SOD PHOSPHATE 10 MG/1 ML VIAL IVPUSH SCH (10:27)
[2023-07-25] MEDS: MYCOPHENOLATE MOFETIL 500 MG TABLET PO SCH (10:27)
[2023-07-25] MEDS: amLODIPine BESYLATE 5 MG TABLET (FP) PO SCH (10:27)
[2023-07-25] MEDS: MONTELUKAST NA 10 MG TABLET PO SCH (10:28)
[2023-07-25] MEDS: BUDESONIDE/FORMETEROL FUMARATE 160/4.5 mcg INHALER IH SCH ×2 (12:13→21:26)
[2023-07-25] MEDS: REMDESIVIR 100 MG in SODIUM CHLORIDE 250 ML IVPB SCH (21:25)
[2023-07-25] MEDS ORDERED: MAG HYDROX/AL HYDROX/SIMETH 30 ML UNIT-DOSE CUP PO PRN (21:57)
[2023-07-25] MEDS ORDERED: FAMOTIDINE 10 MG TABLET PO ONE (21:57)
[2023-07-26] MEDS: PIPERACILLIN/TAZOB 3.375 GM 3.375 GM in DEXTROSE 5%-WATER - 50 ML IVPB SCH ×2 (01:51→09:50)
[2023-07-26] MEDS: HEPARIN NA (PORCINE) 5,000 UNITS/ML 1ML VIAL SQ SCH (09:47)
[2023-07-26] MEDS: MYCOPHENOLATE MOFETIL 500 MG TABLET PO SCH (09:47)
[2023-07-26] MEDS: MONTELUKAST NA 10 MG TABLET PO SCH (09:48)
[2023-07-26] MEDS: amLODIPine BESYLATE 5 MG TABLET (FP) PO SCH (09:48)
[2023-07-26] MEDS: DEXAMETHASONE SOD PHOSPHATE 10 MG/1 ML VIAL IVPUSH SCH (09:49)
[2023-07-26] MEDS: BUDESONIDE/FORMETEROL FUMARATE 160/4.5 mcg INHALER IH SCH (09:49)
[2023-07-26 13:42] VITALS: BP 143/70; PULSE 90; RESP 18; TEMP 97.9
== END 2023-07-26 14:08 | disposition home health service (06) | DRG 177 ==
LOC: JER 15:22 → JERBED 19:31 → J4S 07-22 13:56
PROVIDERS: ADMIT Internal Medicine; ATTEND Family Medicine
PROC: XW033E5 Introduction of Remdesivir Anti-infective into Peripheral Vein, Percutaneous Approach, New Technology Group 5 (ICD-10-PCS; principal; 2023-07-21)
DX: U07.1 COVID-19 (principal); J12.82 Pneumonia due to coronavirus disease 2019; J44.1 Chronic obstructive pulmonary disease with (acute) exacerbation; I13.0 Hypertensive heart and chronic kidney disease with heart failure and stage 1 through stage 4 chronic kidney disease, or unspecified chronic kidney disease; I50.32 Chronic diastolic (congestive) heart failure; Z94.4 Liver transplant status; D86.9 Sarcoidosis, unspecified; R09.02 Hypoxemia; N18.9 Chronic kidney disease, unspecified; K21.9 Gastro-esophageal reflux disease without esophagitis
CPT/HCPCS: 0241U-QW; 36415; 71046-TC-FY; 80053; 80076; 81003; 82728; 83615; 83735; 84484; 85025; 86140; 86850; 86900; 86901; 87040; 87086; 87186; 87899; 93005; 93010; 94761; 99285-25; C9399; J1100; J1644; J7517

== ENCOUNTER 2023-08-26 08:32 | Inpatient (IN) | payer OTHER ==
[2023-08-26] MEDS ORDERED: methylPREDNISolone NA SUCC 125 MG/2 ML VIAL IVPB ONE (09:37)
[2023-08-26] MEDS ORDERED: ALBUTEROL SO4 2.5/IPRATROPIUM 0.5 INH SOL 3 ML VIAL.NEB. NEB SCH (09:45)
[2023-08-26] MEDS ORDERED: ALBUTEROL SO4 2.5/IPRATROPIUM 0.5 INH SOL 3 ML VIAL.NEB. NEB ONE ×2 (10:20→20:13)
[2023-08-26] MEDS ORDERED: methylPREDNISolone NA SUCC 125 MG/2 ML VIAL ONE (10:21)
[2023-08-26 10:27] LABS: BASO % 0.3 % (0-2.0); EOS % 0.3 % (0-4.5); HEMATOCRIT 33.2 % (32.4-45.2); HEMOGLOBIN 10.9 GM/dL (10.7-15.3); LYMPH % 6.1 % (8-40); MCH 30.9 pg (25.7-33.7); MEAN CELL VOLUME 93.8 fl (80-96); MEAN PLT VOLUME 10.4 fl (7.5-11.1); NEUT % 81.3 % (42.8-82.8); PLATELET COUNT 218 10^3/uL (134-434); RBC 3.54 M/mm3 (3.60-5.2); RDW 16.7 % (11.6-15.6); WHITE BLOOD COUNT 11.2 K/mm3 (4.0-10.0)
[2023-08-26] MEDS: ALBUTEROL SO4 2.5/IPRATROPIUM 0.5 INH SOL 3 ML VIAL.NEB. NEB SCH ×5 (10:33→20:27)
[2023-08-26 10:34] LABS: INR 1.08 (0.83-1.09); PROTHROMBIN TIME (PATIENT) 12.5 SEC (9.7-13.0)
[2023-08-26 10:36] LABS: ACTIVATED PTT 28.9 SECONDS (25.2-36.5)
[2023-08-26 10:50] LABS: POTASSIUM 3.4 mmol/L (3.5-5.1)
[2023-08-26 10:53] LABS: ALBUMIN 3.4 g/dl (3.4-5.0); BLOOD UREA NITROGEN 26.9 mg/dL (7-18); CALCIUM 8.6 mg/dL (8.5-10.1)
[2023-08-26 10:54] LABS: MAGNESIUM 1.2 mg/dL (1.8-2.4)
[2023-08-26 10:55] LABS: CREATININE 1.3 mg/dL (0.55-1.3)
[2023-08-26 10:58] LABS: BILIRUBIN,TOTAL 0.5 mg/dL (0.2-1); TOT PROT 6.5 g/dl (6.4-8.2)
[2023-08-26 11:01] LABS: N-TERMINAL BNP 987.7 pg/ml (5-450)
[2023-08-26] MEDS ORDERED: POTASSIUM CHLORIDE TABS 10 MEQ TABLET.ER (FP) PO ONE (11:35)
[2023-08-26] MEDS ORDERED: MAGNESIUM SULF 50% (8.12 MEQ/2 ML-1 GM VIAL) IVPB ONE (11:35)
[2023-08-26] MEDS ORDERED: FUROSEMIDE 40 MG/4 ML INJECTABLE VIAL IVPUSH ONE (11:42)
[2023-08-26] MEDS ORDERED: ALBUTEROL SO4 0.083% IH SOL 2.5 MG/3 ML VIAL.NEB. NEB ONE ×2 (12:12→12:56)
[2023-08-26] MEDS ORDERED: POTASSIUM CHLORIDE TABS 10 MEQ TABLET.ER (FP) ONE (12:21)
[2023-08-26] MEDS ORDERED: MAGNESIUM SULF 50% (8.12 MEQ/2 ML-1 GM VIAL) ONE (12:21)
[2023-08-26] MEDS ORDERED: FUROSEMIDE 40 MG/4 ML INJECTABLE VIAL ONE (12:22)
[2023-08-26] MEDS ORDERED: CYCLOBENZAPRINE HCL 10 MG TABLET (FP) PO PRN (15:01)
[2023-08-26] MEDS ORDERED: GABAPENTIN 100 MG CAPSULE PO PRN (15:01)
[2023-08-26] MEDS: methylPREDNISolone NA SUCC 40 MG/1 ML VIAL IVPUSH SCH (18:00)
[2023-08-26] MEDS ORDERED: HEPARIN NA (PORCINE) 5,000 UNITS/ML 1ML VIAL ONE (22:53)
[2023-08-26] MEDS: HEPARIN NA (PORCINE) 5,000 UNITS/ML 1ML VIAL SQ SCH (23:15)
[2023-08-26] MEDS: URSODIOL 300 MG CAPSULE NR SCH (23:19)
[2023-08-26] MEDS: BUDESONIDE/FORMETEROL FUMARATE 160/4.5 mcg INHALER IH SCH (23:19)
[2023-08-27] MEDS ORDERED: methylPREDNISolone NA SUCC 40 MG/1 ML VIAL ONE ×2 (01:41→01:42)
[2023-08-27] MEDS: methylPREDNISolone NA SUCC 40 MG/1 ML VIAL IVPUSH SCH ×3 (01:53→17:47)
[2023-08-27 07:15] LABS: HEMATOCRIT 30.9 % (32.4-45.2); HEMOGLOBIN 10.2 GM/dL (10.7-15.3); MCH 31.1 pg (25.7-33.7); MEAN CELL VOLUME 94.2 fl (80-96); MEAN PLT VOLUME 10.4 fl (7.5-11.1); PLATELET COUNT 217 10^3/uL (134-434); RBC 3.28 M/mm3 (3.60-5.2); RDW 16.9 % (11.6-15.6)
[2023-08-27 07:35] LABS: POTASSIUM 3.9 mmol/L (3.5-5.1)
[2023-08-27 07:40] LABS: CALCIUM 8.8 mg/dL (8.5-10.1)
[2023-08-27 07:41] LABS: BLOOD UREA NITROGEN 21.8 mg/dL (7-18); MAGNESIUM 1.7 mg/dL (1.8-2.4)
[2023-08-27] MEDS ORDERED: ALBUTEROL SO4 2.5/IPRATROPIUM 0.5 INH SOL 3 ML VIAL.NEB. NEB ONE (07:44)
[2023-08-27 07:45] LABS: CREATININE 1.1 mg/dL (0.55-1.3)
[2023-08-27 07:46] LABS: BILIRUBIN,TOTAL 0.4 mg/dL (0.2-1); TOT PROT 6.3 g/dl (6.4-8.2)
[2023-08-27] MEDS: ALBUTEROL SO4 2.5/IPRATROPIUM 0.5 INH SOL 3 ML VIAL.NEB. NEB SCH ×4 (08:00→20:30)
[2023-08-27 09:11] LABS: ANISOCYTOSIS 0; HELMET CELLS 0; HOWELL-JOLLY BODIES 0; MACROCYTOSIS 0; OVALOCYTE 0; ROULEAU 0; SICKELED CELLS 0; TARGET CELLS 0; TEAR DROP CELLS 0; TOXIC GRANULATION 0
[2023-08-27] MEDS ORDERED: amLODIPine BESYLATE 5 MG TABLET (FP) PO SCH (10:00)
[2023-08-27] MEDS ORDERED: ALLOPURINOL 100 MG TABLET (FP) PO SCH (10:00)
[2023-08-27] MEDS ORDERED: FUROSEMIDE 40 MG/4 ML INJECTABLE VIAL IVPUSH SCH (10:00)
[2023-08-27] MEDS ORDERED: MYCOPHENOLATE MOFETIL 500 MG TABLET PO SCH (10:00)
[2023-08-27] MEDS ORDERED: PANTOPRAZOLE 40 MG TABLET PO SCH (10:00)
[2023-08-27] MEDS ORDERED: ASPIRIN COATED 81 MG TABLET.EC PO SCH (10:00)
[2023-08-27] MEDS ORDERED: HEPARIN NA (PORCINE) 5,000 UNITS/ML 1ML VIAL ONE (10:21)
[2023-08-27] MEDS: HEPARIN NA (PORCINE) 5,000 UNITS/ML 1ML VIAL SQ SCH ×2 (10:28→21:57)
[2023-08-27] MEDS: URSODIOL 300 MG CAPSULE NR SCH ×2 (10:28→21:57)
[2023-08-27] MEDS: BUDESONIDE/FORMETEROL FUMARATE 160/4.5 mcg INHALER IH SCH ×2 (10:28→21:57)
[2023-08-27] MEDS: AZITHROMYCIN IVPB 500 MG/250 ML BAG IVPB SCH (13:04)
[2023-08-27] MEDS ORDERED: AZITHROMYCIN IVPB 500 MG/250 ML BAG IVPB ONE (13:06)
[2023-08-27] MEDS ORDERED: MAGNESIUM OXIDE 400 MG TABLET (FP) PO ONE (21:18)
[2023-08-27 21:27] VITALS: BMI 34.0
[2023-08-27] MEDS ORDERED: MONTELUKAST NA 10 MG TABLET PO SCH (22:00)
[2023-08-28] MEDS: methylPREDNISolone NA SUCC 40 MG/1 ML VIAL IVPUSH SCH ×3 (01:32→17:40)
[2023-08-28] MEDS: ALBUTEROL SO4 2.5/IPRATROPIUM 0.5 INH SOL 3 ML VIAL.NEB. NEB SCH ×5 (07:10→19:35)
[2023-08-28] MEDS ORDERED: GABAPENTIN 100 MG CAPSULE PO PRN (08:00)
[2023-08-28] MEDS ORDERED: CYCLOBENZAPRINE HCL 10 MG TABLET (FP) PO PRN (08:00)
[2023-08-28] MEDS: AZITHROMYCIN IVPB 500 MG/250 ML BAG IVPB SCH (11:02)
[2023-08-28] MEDS: FUROSEMIDE 40 MG/4 ML INJECTABLE VIAL IVPUSH SCH (11:04)
[2023-08-28] MEDS: HEPARIN NA (PORCINE) 5,000 UNITS/ML 1ML VIAL SQ SCH ×2 (11:04→21:07)
[2023-08-28] MEDS: MYCOPHENOLATE MOFETIL 500 MG TABLET PO SCH (11:05)
[2023-08-28] MEDS: amLODIPine BESYLATE 5 MG TABLET (FP) PO SCH (11:05)
[2023-08-28] MEDS: PANTOPRAZOLE 40 MG TABLET PO SCH (11:05)
[2023-08-28] MEDS: URSODIOL 300 MG CAPSULE NR SCH ×2 (11:05→21:07)
[2023-08-28] MEDS: ALLOPURINOL 100 MG TABLET (FP) PO SCH (11:05)
[2023-08-28] MEDS: ASPIRIN COATED 81 MG TABLET.EC PO SCH (11:06)
[2023-08-28] MEDS: BUDESONIDE/FORMETEROL FUMARATE 160/4.5 mcg INHALER IH SCH ×2 (11:07→21:08)
[2023-08-28] MEDS: MONTELUKAST NA 10 MG TABLET PO SCH (21:07)
[2023-08-29] MEDS: methylPREDNISolone NA SUCC 40 MG/1 ML VIAL IVPUSH SCH ×3 (01:12→17:41)
[2023-08-29] MEDS: guaiFENesin/D-METHORPHAN HB 10 ML UNIT-DOSE CUPS PO PRN ×2 (07:02→21:31)
[2023-08-29] MEDS: ALBUTEROL SO4 2.5/IPRATROPIUM 0.5 INH SOL 3 ML VIAL.NEB. NEB SCH ×4 (07:51→19:11)
[2023-08-29 09:44] LABS: HEMOGLOBIN 10.1 GM/dL (10.7-15.3); MCH 30.8 pg (25.7-33.7); MCHC 32.4 g/dl (32.0-36.0); MEAN CELL VOLUME 95.1 fl (80-96); MEAN PLT VOLUME 10.5 fl (7.5-11.1); PLATELET COUNT 213 10^3/uL (134-434); RBC 3.26 M/mm3 (3.60-5.2); RDW 16.6 % (11.6-15.6); WHITE BLOOD COUNT 10.1 K/mm3 (4.0-10.0)
[2023-08-29 10:03] LABS: POTASSIUM 4.1 mmol/L (3.5-5.1)
[2023-08-29 10:08] LABS: BLOOD UREA NITROGEN 31.2 mg/dL (7-18)
[2023-08-29 10:11] LABS: CREATININE 1.6 mg/dL (0.55-1.3)
[2023-08-29] MEDS: PANTOPRAZOLE 40 MG TABLET PO SCH (10:42)
[2023-08-29] MEDS: ASPIRIN COATED 81 MG TABLET.EC PO SCH (10:42)
[2023-08-29] MEDS: MYCOPHENOLATE MOFETIL 500 MG TABLET PO SCH (10:42)
[2023-08-29] MEDS: URSODIOL 300 MG CAPSULE NR SCH ×2 (10:42→21:19)
[2023-08-29] MEDS: FUROSEMIDE 40 MG/4 ML INJECTABLE VIAL IVPUSH SCH (10:42)
[2023-08-29] MEDS: HEPARIN NA (PORCINE) 5,000 UNITS/ML 1ML VIAL SQ SCH ×2 (10:42→21:19)
[2023-08-29] MEDS: AZITHROMYCIN IVPB 500 MG/250 ML BAG IVPB SCH (10:43)
[2023-08-29] MEDS: ALLOPURINOL 100 MG TABLET (FP) PO SCH (10:43)
[2023-08-29] MEDS: amLODIPine BESYLATE 5 MG TABLET (FP) PO SCH (10:48)
[2023-08-29] MEDS: BUDESONIDE/FORMETEROL FUMARATE 160/4.5 mcg INHALER IH SCH ×2 (10:49→21:21)
[2023-08-29 15:09] VITALS: RESP 18
[2023-08-29] MEDS: MONTELUKAST NA 10 MG TABLET PO SCH (21:20)
[2023-08-30] MEDS: methylPREDNISolone NA SUCC 40 MG/1 ML VIAL IVPUSH SCH ×2 (02:48→09:25)
[2023-08-30] MEDS: ALBUTEROL SO4 2.5/IPRATROPIUM 0.5 INH SOL 3 ML VIAL.NEB. NEB SCH ×3 (07:56→15:15)
[2023-08-30] MEDS: ASPIRIN COATED 81 MG TABLET.EC PO SCH (09:25)
[2023-08-30] MEDS: ALLOPURINOL 100 MG TABLET (FP) PO SCH (09:25)
[2023-08-30] MEDS: MYCOPHENOLATE MOFETIL 500 MG TABLET PO SCH (09:25)
[2023-08-30] MEDS: PANTOPRAZOLE 40 MG TABLET PO SCH (09:25)
[2023-08-30] MEDS: HEPARIN NA (PORCINE) 5,000 UNITS/ML 1ML VIAL SQ SCH (09:25)
[2023-08-30] MEDS: BUDESONIDE/FORMETEROL FUMARATE 160/4.5 mcg INHALER IH SCH (09:25)
[2023-08-30] MEDS: URSODIOL 300 MG CAPSULE NR SCH (09:25)
[2023-08-30] MEDS: FUROSEMIDE 40 MG/4 ML INJECTABLE VIAL IVPUSH SCH (09:25)
[2023-08-30] MEDS: amLODIPine BESYLATE 5 MG TABLET (FP) PO SCH (09:25)
[2023-08-30] MEDS: AZITHROMYCIN IVPB 500 MG/250 ML BAG IVPB SCH (09:26)
[2023-08-30 11:20] VITALS: BP 135/65; PULSE 78; TEMP 97.9
== END 2023-08-30 16:26 | disposition home health service (06) | DRG 291 ==
LOC: JER 08:32 → JERBED 12:02 → J7W 08-27 16:33
PROVIDERS: ADMIT Family Medicine; ATTEND Family Medicine
DX: I13.0 Hypertensive heart and chronic kidney disease with heart failure and stage 1 through stage 4 chronic kidney disease, or unspecified chronic kidney disease (principal); I50.33 Acute on chronic diastolic (congestive) heart failure; J44.1 Chronic obstructive pulmonary disease with (acute) exacerbation; Z94.4 Liver transplant status; I25.10 Atherosclerotic heart disease of native coronary artery without angina pectoris; E11.65 Type 2 diabetes mellitus with hyperglycemia; K21.9 Gastro-esophageal reflux disease without esophagitis; Z95.0 Presence of cardiac pacemaker; N18.9 Chronic kidney disease, unspecified; M10.9 Gout, unspecified; J20.9 Acute bronchitis, unspecified; Z86.16 Personal history of COVID-19
CPT/HCPCS: 0241U-QW; 36415; 71045-TC-FY; 80048; 80053; 80061; 83036; 83735; 83880; 84443; 84484; 85025; 85027; 85610; 85730; 93005; 93010; 93306-TC; 94640; 99291; J1644; J7517

== ENCOUNTER 2023-09-04 13:27 | Inpatient (IN) | payer OTHER ==
[2023-09-04] MEDS ORDERED: methylPREDNISolone NA SUCC 125 MG/2 ML VIAL IVPUSH ONE (13:53)
[2023-09-04] MEDS ORDERED: PIPERACILLIN/TAZOB 4.5 GM 4.5 GM in DEXTROSE 5%-WATER 100 ML IVPB ONE (13:59)
[2023-09-04] MEDS: ALBUTEROL SO4 2.5/IPRATROPIUM 0.5 INH SOL 3 ML VIAL.NEB. NEB SCH ×4 (14:14→14:45)
[2023-09-04] MEDS ORDERED: ALBUTEROL SO4 2.5/IPRATROPIUM 0.5 INH SOL 3 ML VIAL.NEB. NEB ONE (14:16)
[2023-09-04] MEDS ORDERED: PIPERACILLIN/TAZOB 4.5 GM 4.5 GM/100 ML BAG IVPB ONE (14:17)
[2023-09-04] MEDS ORDERED: methylPREDNISolone NA SUCC 125 MG/2 ML VIAL ONE (14:17)
[2023-09-04 14:23] LABS: VENOUS BASE EXCESS 11.5 mmol/L (-2-2); VENOUS O2 SATURATION 63.3 % (70-80); VENOUS PH 7.363 (7.310-7.410)
[2023-09-04 14:24] LABS: VENOUS PCO2 70.8 mmHg (38-52)
[2023-09-04 14:46] LABS: POTASSIUM 3.7 mmol/L (3.5-5.1)
[2023-09-04 14:47] LABS: HEMATOCRIT 33.5 % (32.4-45.2); HEMOGLOBIN 10.8 GM/dL (10.7-15.3); MCH 30.6 pg (25.7-33.7); MCHC 32.3 g/dl (32.0-36.0); MEAN CELL VOLUME 94.8 fl (80-96); PLATELET COUNT 170 10^3/uL (134-434); RBC 3.53 M/mm3 (3.60-5.2); RDW 16.6 % (11.6-15.6)
[2023-09-04 14:49] LABS: CALCIUM 8.7 mg/dL (8.5-10.1)
[2023-09-04 14:50] LABS: ALBUMIN 2.7 g/dl (3.4-5.0); BLOOD UREA NITROGEN 23.3 mg/dL (7-18); MAGNESIUM 1.6 mg/dL (1.8-2.4)
[2023-09-04 14:52] LABS: CREATININE 1.3 mg/dL (0.55-1.3)
[2023-09-04 14:54] LABS: BILIRUBIN,TOTAL 0.7 mg/dL (0.2-1); TOT PROT 5.7 g/dl (6.4-8.2)
[2023-09-04 14:58] LABS: N-TERMINAL BNP 1083.1 pg/ml (5-450)
[2023-09-04 15:20] LABS: ANISOCYTOSIS 0; HELMET CELLS 0; HOWELL-JOLLY BODIES 0; MACROCYTOSIS 0; OVALOCYTE 0; ROULEAU 0; SICKELED CELLS 0; TARGET CELLS 0; TEAR DROP CELLS 0; TOXIC GRANULATION 0
[2023-09-04] MEDS ORDERED: ACETAMINOPHEN 1000 MG/100 ML BAG IVPB ONE (15:23)
[2023-09-04] MEDS ORDERED: ACETAMINOPHEN INJECTION 100 ML IVPB ONE (15:29)
[2023-09-04] MEDS ORDERED: FUROSEMIDE 40 MG/4 ML INJECTABLE VIAL IVPUSH ONE (18:39)
[2023-09-04] MEDS ORDERED: FUROSEMIDE 40 MG/4 ML INJECTABLE VIAL ONE (19:15)
[2023-09-05] MEDS ORDERED: ACETAMINOPHEN 1000 MG/100 ML BAG IVPB ONE (00:26)
[2023-09-05] MEDS ORDERED: ACETAMINOPHEN INJECTION 100 ML IVPB ONE (00:45)
[2023-09-05] MEDS ORDERED: CYCLOBENZAPRINE HCL 10 MG TABLET (FP) PO PRN (01:18)
[2023-09-05] MEDS ORDERED: MECLIZINE HCL 25 MG TABLET (FP) PO PRN (01:18)
[2023-09-05] MEDS ORDERED: MAGNESIUM SULF 50% (8.12 MEQ/2 ML-1 GM VIAL) IVPB ONE (01:25)
[2023-09-05] MEDS ORDERED: MAGNESIUM SULFATE IN WATER 2 GM/50 ML IVPB IVPB ONE (01:51)
[2023-09-05] MEDS ORDERED: PANTOPRAZOLE 40 MG TABLET PO ONE ×2 (06:11→06:20)
[2023-09-05] MEDS ORDERED: FUROSEMIDE 40 MG/4 ML INJECTABLE VIAL ONE (06:11)
[2023-09-05] MEDS: PANTOPRAZOLE 40 MG TABLET PO SCH (06:22)
[2023-09-05] MEDS: FUROSEMIDE 40 MG/4 ML INJECTABLE VIAL IVPUSH SCH ×2 (06:22→14:43)
[2023-09-05] MEDS: ALBUTEROL SO4 2.5/IPRATROPIUM 0.5 INH SOL 3 ML VIAL.NEB. NEB SCH ×3 (08:50→16:06)
[2023-09-05] MEDS ORDERED: ALBUTEROL SO4 2.5/IPRATROPIUM 0.5 INH SOL 3 ML VIAL.NEB. NEB ONE (09:02)
[2023-09-05] MEDS: URSODIOL 300 MG CAPSULE PO SCH ×2 (10:31→21:57)
[2023-09-05] MEDS: ALLOPURINOL 100 MG TABLET (FP) PO SCH (10:31)
[2023-09-05] MEDS: ENOXAPARIN NA (PORCINE) 40 MG/0.4 ML DISP.SYRIN SQ SCH (10:31)
[2023-09-05] MEDS: amLODIPine BESYLATE 5 MG TABLET (FP) PO SCH (10:31)
[2023-09-05] MEDS: MYCOPHENOLATE MOFETIL 500 MG TABLET PO SCH (13:00)
[2023-09-05] MEDS ORDERED: CYCLOBENZAPRINE HCL 5 MG TABLET ONE (14:14)
[2023-09-05] MEDS: CYCLOBENZAPRINE HCL 5 MG TABLET PO PRN (14:43)
[2023-09-05] MEDS ORDERED: PIPERACILLIN/TAZOB 3.375 GM 3.375 GM/50 ML BAG IVPB ONE (18:55)
[2023-09-05] MEDS: PIPERACILLIN/TAZOB 3.375 GM 3.375 GM in DEXTROSE 5%-WATER - 50 ML IVPB SCH (19:01)
[2023-09-05] MEDS: NYSTATIN 500,000 UNITS/5 ML SUSPENSION PO SCH (20:01)
[2023-09-05] MEDS: MONTELUKAST NA 10 MG TABLET PO SCH (21:57)
[2023-09-06] MEDS: NYSTATIN 500,000 UNITS/5 ML SUSPENSION PO SCH ×5 (00:10→23:23)
[2023-09-06] MEDS: CYCLOBENZAPRINE HCL 5 MG TABLET PO PRN (00:14)
[2023-09-06] MEDS: PIPERACILLIN/TAZOB 3.375 GM 3.375 GM in DEXTROSE 5%-WATER - 50 ML IVPB SCH ×3 (02:46→17:48)
[2023-09-06] MEDS: ALBUTEROL SO4 2.5/IPRATROPIUM 0.5 INH SOL 3 ML VIAL.NEB. NEB SCH ×4 (07:10→20:35)
[2023-09-06] MEDS: FUROSEMIDE 40 MG/4 ML INJECTABLE VIAL IVPUSH SCH ×2 (07:37→13:08)
[2023-09-06] MEDS: PANTOPRAZOLE 40 MG TABLET PO SCH (07:37)
[2023-09-06 08:22] LABS: BASO % 0.1 % (0-2.0); EOS % 0.1 % (0-4.5); HEMATOCRIT 28.7 % (32.4-45.2); HEMOGLOBIN 9.5 GM/dL (10.7-15.3); LYMPH % 3.9 % (8-40); MCH 31.3 pg (25.7-33.7); MCHC 33.1 g/dl (32.0-36.0); MEAN CELL VOLUME 94.7 fl (80-96); MONO % 10.9 % (3.8-10.2); PLATELET COUNT 184 10^3/uL (134-434); RBC 3.03 M/mm3 (3.60-5.2); RDW 16.5 % (11.6-15.6)
[2023-09-06 08:27] LABS: POTASSIUM 3.6 mmol/L (3.5-5.1)
[2023-09-06 08:39] LABS: BLOOD UREA NITROGEN 27.4 mg/dL (7-18); CALCIUM 8.9 mg/dL (8.5-10.1); MAGNESIUM 2.1 mg/dL (1.8-2.4)
[2023-09-06 08:42] LABS: CREATININE 1.6 mg/dL (0.55-1.3)
[2023-09-06] MEDS: ENOXAPARIN NA (PORCINE) 40 MG/0.4 ML DISP.SYRIN SQ SCH (10:13)
[2023-09-06] MEDS: URSODIOL 300 MG CAPSULE PO SCH ×2 (10:14→21:58)
[2023-09-06] MEDS: ALLOPURINOL 100 MG TABLET (FP) PO SCH (10:14)
[2023-09-06] MEDS: amLODIPine BESYLATE 5 MG TABLET (FP) PO SCH (10:14)
[2023-09-06] MEDS: MYCOPHENOLATE MOFETIL 500 MG TABLET PO SCH (10:14)
[2023-09-06] MEDS: ACETAMINOPHEN 500 MG TABLET (FP) PO PRN (15:02)
[2023-09-06] MEDS ORDERED: GABAPENTIN 100 MG CAPSULE PO PRN ×2 (15:09→17:52)
[2023-09-06] MEDS: MONTELUKAST NA 10 MG TABLET PO SCH (21:58)
[2023-09-07] MEDS: PIPERACILLIN/TAZOB 3.375 GM 3.375 GM in DEXTROSE 5%-WATER - 50 ML IVPB SCH ×3 (01:29→17:30)
[2023-09-07] MEDS: NYSTATIN 500,000 UNITS/5 ML SUSPENSION PO SCH ×3 (05:32→17:30)
[2023-09-07] MEDS: FUROSEMIDE 40 MG/4 ML INJECTABLE VIAL IVPUSH SCH ×2 (05:32→14:16)
[2023-09-07] MEDS: PANTOPRAZOLE 40 MG TABLET PO SCH (06:04)
[2023-09-07] MEDS: ACETAMINOPHEN 500 MG TABLET (FP) PO PRN ×2 (06:08→16:21)
[2023-09-07] MEDS: ALBUTEROL SO4 2.5/IPRATROPIUM 0.5 INH SOL 3 ML VIAL.NEB. NEB SCH ×4 (07:33→19:29)
[2023-09-07] MEDS: ENOXAPARIN NA (PORCINE) 40 MG/0.4 ML DISP.SYRIN SQ SCH (09:20)
[2023-09-07] MEDS: ALLOPURINOL 100 MG TABLET (FP) PO SCH (09:21)
[2023-09-07] MEDS: MYCOPHENOLATE MOFETIL 500 MG TABLET PO SCH (09:21)
[2023-09-07] MEDS: amLODIPine BESYLATE 5 MG TABLET (FP) PO SCH (09:21)
[2023-09-07] MEDS: URSODIOL 300 MG CAPSULE PO SCH ×2 (09:22→21:11)
[2023-09-07 10:20] LABS: BASO % 0.2 % (0-2.0); EOS % 0.3 % (0-4.5); HEMATOCRIT 31.7 % (32.4-45.2); HEMOGLOBIN 10.2 GM/dL (10.7-15.3); LYMPH % 6.2 % (8-40); MCH 30.7 pg (25.7-33.7); MCHC 32.1 g/dl (32.0-36.0); MEAN CELL VOLUME 95.8 fl (80-96); MEAN PLT VOLUME 10.4 fl (7.5-11.1); MONO % 12.2 % (3.8-10.2); NEUT % 81.1 % (42.8-82.8); PLATELET COUNT 180 10^3/uL (134-434); RBC 3.31 M/mm3 (3.60-5.2); RDW 16.2 % (11.6-15.6); WHITE BLOOD COUNT 10.1 K/mm3 (4.0-10.0)
[2023-09-07 10:38] LABS: POTASSIUM 3.3 mmol/L (3.5-5.1)
[2023-09-07 10:41] LABS: ALBUMIN 2.8 g/dl (3.4-5.0); BLOOD UREA NITROGEN 19.4 mg/dL (7-18)
[2023-09-07 10:42] LABS: CALCIUM 8.8 mg/dL (8.5-10.1)
[2023-09-07 10:44] LABS: CREATININE 1.6 mg/dL (0.55-1.3)
[2023-09-07 10:45] LABS: BILIRUBIN,TOTAL 0.7 mg/dL (0.2-1); TOT PROT 5.9 g/dl (6.4-8.2)
[2023-09-07] MEDS: MONTELUKAST NA 10 MG TABLET PO SCH (21:11)
[2023-09-08] MEDS: NYSTATIN 500,000 UNITS/5 ML SUSPENSION PO SCH ×6 (00:19→19:02)
[2023-09-08] MEDS: PIPERACILLIN/TAZOB 3.375 GM 3.375 GM in DEXTROSE 5%-WATER - 50 ML IVPB SCH ×3 (01:09→17:56)
[2023-09-08] MEDS: FUROSEMIDE 40 MG/4 ML INJECTABLE VIAL IVPUSH SCH ×2 (05:28→13:05)
[2023-09-08] MEDS: PANTOPRAZOLE 40 MG TABLET PO SCH (06:06)
[2023-09-08] MEDS: ALBUTEROL SO4 2.5/IPRATROPIUM 0.5 INH SOL 3 ML VIAL.NEB. NEB SCH ×4 (07:50→20:27)
[2023-09-08] MEDS ORDERED: ONDANSETRON 4 MG/2 ML VIAL IVPUSH PRN (09:39)
[2023-09-08] MEDS ORDERED: ONDANSETRON *ODT* 4 MG TABLET SL PRN (09:39)
[2023-09-08] MEDS: ENOXAPARIN NA (PORCINE) 40 MG/0.4 ML DISP.SYRIN SQ SCH (09:43)
[2023-09-08] MEDS: MYCOPHENOLATE MOFETIL 500 MG TABLET PO SCH (09:44)
[2023-09-08] MEDS: amLODIPine BESYLATE 5 MG TABLET (FP) PO SCH (09:44)
[2023-09-08] MEDS: URSODIOL 300 MG CAPSULE PO SCH ×2 (09:44→22:59)
[2023-09-08] MEDS: ALLOPURINOL 100 MG TABLET (FP) PO SCH (09:44)
[2023-09-08] MEDS ORDERED: POTASSIUM CHLORIDE ORAL LIQUID 20 MEQ/15 ML PO ONE (15:04)
[2023-09-08] MEDS: MONTELUKAST NA 10 MG TABLET PO SCH (22:59)
[2023-09-09] MEDS: NYSTATIN 500,000 UNITS/5 ML SUSPENSION PO SCH ×4 (01:57→17:53)
[2023-09-09] MEDS: PIPERACILLIN/TAZOB 3.375 GM 3.375 GM in DEXTROSE 5%-WATER - 50 ML IVPB SCH ×3 (01:57→17:54)
[2023-09-09] MEDS: FUROSEMIDE 40 MG/4 ML INJECTABLE VIAL IVPUSH SCH ×2 (06:10→13:09)
[2023-09-09] MEDS: PANTOPRAZOLE 40 MG TABLET PO SCH (07:05)
[2023-09-09] MEDS: ALBUTEROL SO4 2.5/IPRATROPIUM 0.5 INH SOL 3 ML VIAL.NEB. NEB SCH ×4 (07:35→20:05)
[2023-09-09] MEDS: ALLOPURINOL 100 MG TABLET (FP) PO SCH (09:18)
[2023-09-09] MEDS: MYCOPHENOLATE MOFETIL 500 MG TABLET PO SCH (09:18)
[2023-09-09] MEDS: amLODIPine BESYLATE 5 MG TABLET (FP) PO SCH (09:18)
[2023-09-09] MEDS: ENOXAPARIN NA (PORCINE) 40 MG/0.4 ML DISP.SYRIN SQ SCH (09:18)
[2023-09-09] MEDS: URSODIOL 300 MG CAPSULE PO SCH ×2 (09:19→21:43)
[2023-09-09 10:19] LABS: HEMATOCRIT 34.9 % (32.4-45.2); HEMOGLOBIN 11.5 GM/dL (10.7-15.3); MCH 30.9 pg (25.7-33.7); MCHC 32.9 g/dl (32.0-36.0); MEAN CELL VOLUME 94.1 fl (80-96); MEAN PLT VOLUME 11.1 fl (7.5-11.1); PLATELET COUNT 183 10^3/uL (134-434); RBC 3.71 M/mm3 (3.60-5.2); RDW 16.4 % (11.6-15.6); WHITE BLOOD COUNT 11.6 K/mm3 (4.0-10.0)
[2023-09-09 10:39] LABS: POTASSIUM 3.1 mmol/L (3.5-5.1)
[2023-09-09 10:55] LABS: CALCIUM 8.8 mg/dL (8.5-10.1); MAGNESIUM 1.7 mg/dL (1.8-2.4)
[2023-09-09 10:56] LABS: CREATININE 2.1 mg/dL (0.55-1.3)
[2023-09-09] MEDS ORDERED: POTASSIUM CHLORIDE ORAL LIQUID 20 MEQ/15 ML PO ONE (14:45)
[2023-09-09] MEDS ORDERED: POTASSIUM CHLORIDE TABS 20 MEQ TABLET.ER (FP) PO ONE (16:45)
[2023-09-09] MEDS: MONTELUKAST NA 10 MG TABLET PO SCH (21:43)
[2023-09-10] MEDS: PIPERACILLIN/TAZOB 3.375 GM 3.375 GM in DEXTROSE 5%-WATER - 50 ML IVPB SCH ×3 (01:15→17:15)
[2023-09-10] MEDS: NYSTATIN 500,000 UNITS/5 ML SUSPENSION PO SCH ×4 (05:41→17:15)
[2023-09-10] MEDS: PANTOPRAZOLE 40 MG TABLET PO SCH (06:08)
[2023-09-10] MEDS: ENOXAPARIN NA (PORCINE) 40 MG/0.4 ML DISP.SYRIN SQ SCH (09:51)
[2023-09-10] MEDS: ALLOPURINOL 100 MG TABLET (FP) PO SCH (09:51)
[2023-09-10] MEDS: MYCOPHENOLATE MOFETIL 500 MG TABLET PO SCH (09:52)
[2023-09-10] MEDS: URSODIOL 300 MG CAPSULE PO SCH ×2 (09:52→21:32)
[2023-09-10] MEDS: amLODIPine BESYLATE 5 MG TABLET (FP) PO SCH (09:52)
[2023-09-10 09:56] LABS: HEMATOCRIT 34.3 % (32.4-45.2); HEMOGLOBIN 10.9 GM/dL (10.7-15.3); MCH 30.6 pg (25.7-33.7); MCHC 31.9 g/dl (32.0-36.0); MEAN CELL VOLUME 96.1 fl (80-96); MEAN PLT VOLUME 10.7 fl (7.5-11.1); PLATELET COUNT 175 10^3/uL (134-434); RBC 3.57 M/mm3 (3.60-5.2); WHITE BLOOD COUNT 12.5 K/mm3 (4.0-10.0)
[2023-09-10 10:20] LABS: CREATININE 2.1 mg/dL (0.55-1.3)
[2023-09-10 10:21] LABS: TOT PROT 5.8 g/dl (6.4-8.2)
[2023-09-10 10:26] LABS: ALBUMIN 2.6 g/dl (3.4-5.0); BILIRUBIN,TOTAL 0.7 mg/dL (0.2-1); BLOOD UREA NITROGEN 22.9 mg/dL (7-18); CALCIUM 8.9 mg/dL (8.5-10.1)
[2023-09-10] MEDS: FUROSEMIDE 40 MG TABLET (FP) PO SCH (15:03)
[2023-09-10 16:12] VITALS: BMI 22.1
[2023-09-10] MEDS: MONTELUKAST NA 10 MG TABLET PO SCH (21:33)
[2023-09-11] MEDS: NYSTATIN 500,000 UNITS/5 ML SUSPENSION PO SCH ×5 (00:30→17:51)
[2023-09-11] MEDS: PIPERACILLIN/TAZOB 3.375 GM 3.375 GM in DEXTROSE 5%-WATER - 50 ML IVPB SCH ×3 (01:10→17:39)
[2023-09-11] MEDS: PANTOPRAZOLE 40 MG TABLET PO SCH (06:12)
[2023-09-11] MEDS: FUROSEMIDE 40 MG TABLET (FP) PO SCH ×2 (06:12→13:06)
[2023-09-11] MEDS: ALLOPURINOL 100 MG TABLET (FP) PO SCH (09:32)
[2023-09-11] MEDS: amLODIPine BESYLATE 5 MG TABLET (FP) PO SCH (09:33)
[2023-09-11] MEDS: ENOXAPARIN NA (PORCINE) 40 MG/0.4 ML DISP.SYRIN SQ SCH (09:33)
[2023-09-11] MEDS: MYCOPHENOLATE MOFETIL 500 MG TABLET PO SCH (09:42)
[2023-09-11] MEDS: URSODIOL 300 MG CAPSULE PO SCH ×2 (09:42→22:19)
[2023-09-11] MEDS: MONTELUKAST NA 10 MG TABLET PO SCH (22:19)
[2023-09-12] MEDS: PIPERACILLIN/TAZOB 3.375 GM 3.375 GM in DEXTROSE 5%-WATER - 50 ML IVPB SCH ×3 (03:00→17:41)
[2023-09-12] MEDS: NYSTATIN 500,000 UNITS/5 ML SUSPENSION PO SCH ×4 (03:25→17:23)
[2023-09-12] MEDS: PANTOPRAZOLE 40 MG TABLET PO SCH (06:28)
[2023-09-12] MEDS: ALLOPURINOL 100 MG TABLET (FP) PO SCH (10:05)
[2023-09-12] MEDS: ENOXAPARIN NA (PORCINE) 40 MG/0.4 ML DISP.SYRIN SQ SCH (10:05)
[2023-09-12] MEDS: amLODIPine BESYLATE 5 MG TABLET (FP) PO SCH (10:05)
[2023-09-12] MEDS: FUROSEMIDE 40 MG TABLET (FP) PO SCH (10:05)
[2023-09-12] MEDS: URSODIOL 300 MG CAPSULE PO SCH ×2 (10:06→21:26)
[2023-09-12] MEDS: MYCOPHENOLATE MOFETIL 500 MG TABLET PO SCH (10:06)
[2023-09-12 10:56] LABS: HEMATOCRIT 32.8 % (32.4-45.2); HEMOGLOBIN 10.4 GM/dL (10.7-15.3); MCH 30.3 pg (25.7-33.7); MCHC 31.8 g/dl (32.0-36.0); MEAN CELL VOLUME 95.5 fl (80-96); MEAN PLT VOLUME 11.1 fl (7.5-11.1); PLATELET COUNT 147 10^3/uL (134-434); RBC 3.44 M/mm3 (3.60-5.2); WHITE BLOOD COUNT 11.4 K/mm3 (4.0-10.0)
[2023-09-12 11:10] LABS: POTASSIUM 3.3 mmol/L (3.5-5.1)
[2023-09-12 11:13] LABS: CALCIUM 8.4 mg/dL (8.5-10.1)
[2023-09-12 11:14] LABS: ALBUMIN 2.5 g/dl (3.4-5.0); BLOOD UREA NITROGEN 23.9 mg/dL (7-18)
[2023-09-12 11:16] LABS: CREATININE 2.2 mg/dL (0.55-1.3)
[2023-09-12 11:18] LABS: BILIRUBIN,TOTAL 0.6 mg/dL (0.2-1); TOT PROT 5.9 g/dl (6.4-8.2)
[2023-09-12] MEDS ORDERED: POTASSIUM CHLORIDE TABS 10 MEQ TABLET.ER (FP) PO ONE (12:20)
[2023-09-12] MEDS ORDERED: POTASSIUM CHLORIDE ORAL LIQUID 20 MEQ/15 ML PO ONE (12:31)
[2023-09-12] MEDS: POTASSIUM CHLORIDE ORAL LIQUID 20 MEQ/15 ML PO ONE ×2 (14:43→14:50)
[2023-09-12] MEDS ORDERED: POTASSIUM CHLORIDE TABS 20 MEQ TABLET.ER (FP) PO ONE (15:15)
[2023-09-12] MEDS: MONTELUKAST NA 10 MG TABLET PO SCH (21:26)
[2023-09-13] MEDS: PIPERACILLIN/TAZOB 3.375 GM 3.375 GM in DEXTROSE 5%-WATER - 50 ML IVPB SCH ×3 (01:21→18:36)
[2023-09-13] MEDS: PANTOPRAZOLE 40 MG TABLET PO SCH (06:23)
[2023-09-13] MEDS: NYSTATIN 500,000 UNITS/5 ML SUSPENSION PO SCH ×4 (06:24→18:39)
[2023-09-13] MEDS: amLODIPine BESYLATE 5 MG TABLET (FP) PO SCH (10:27)
[2023-09-13] MEDS: FUROSEMIDE 40 MG TABLET (FP) PO SCH (10:27)
[2023-09-13] MEDS: MYCOPHENOLATE MOFETIL 500 MG TABLET PO SCH (10:27)
[2023-09-13] MEDS: ALLOPURINOL 100 MG TABLET (FP) PO SCH (10:27)
[2023-09-13] MEDS: URSODIOL 300 MG CAPSULE PO SCH ×2 (10:27→21:51)
[2023-09-13] MEDS: ENOXAPARIN NA (PORCINE) 40 MG/0.4 ML DISP.SYRIN SQ SCH (10:28)
[2023-09-13] MEDS: MONTELUKAST NA 10 MG TABLET PO SCH (21:50)
[2023-09-14] MEDS: NYSTATIN 500,000 UNITS/5 ML SUSPENSION PO SCH ×4 (00:04→18:31)
[2023-09-14] MEDS: PIPERACILLIN/TAZOB 3.375 GM 3.375 GM in DEXTROSE 5%-WATER - 50 ML IVPB SCH ×3 (02:32→18:51)
[2023-09-14] MEDS: PANTOPRAZOLE 40 MG TABLET PO SCH (06:18)
[2023-09-14] MEDS: ALLOPURINOL 100 MG TABLET (FP) PO SCH (11:06)
[2023-09-14] MEDS: amLODIPine BESYLATE 5 MG TABLET (FP) PO SCH (11:06)
[2023-09-14] MEDS: URSODIOL 300 MG CAPSULE PO SCH ×2 (11:06→22:19)
[2023-09-14] MEDS: ENOXAPARIN NA (PORCINE) 40 MG/0.4 ML DISP.SYRIN SQ SCH (11:07)
[2023-09-14] MEDS: MYCOPHENOLATE MOFETIL 500 MG TABLET PO SCH (11:07)
[2023-09-14 15:01] VITALS: RESP 18
[2023-09-14] MEDS: MONTELUKAST NA 10 MG TABLET PO SCH (22:19)
[2023-09-15] MEDS: NYSTATIN 500,000 UNITS/5 ML SUSPENSION PO SCH ×4 (01:05→17:08)
[2023-09-15] MEDS: PIPERACILLIN/TAZOB 3.375 GM 3.375 GM in DEXTROSE 5%-WATER - 50 ML IVPB SCH (01:05)
[2023-09-15] MEDS: PANTOPRAZOLE 40 MG TABLET PO SCH (06:08)
[2023-09-15 09:50] LABS: HEMATOCRIT 28.9 % (32.4-45.2); MCH 32.2 pg (25.7-33.7); MCHC 34.6 g/dl (32.0-36.0); MEAN CELL VOLUME 93.3 fl (80-96); MEAN PLT VOLUME 11.5 fl (7.5-11.1); PLATELET COUNT 182 10^3/uL (134-434); RDW 16.4 % (11.6-15.6); WHITE BLOOD COUNT 6.9 K/mm3 (4.0-10.0)
[2023-09-15 10:15] LABS: POTASSIUM 3.5 mmol/L (3.5-5.1)
[2023-09-15 10:16] LABS: CALCIUM 8.3 mg/dL (8.5-10.1)
[2023-09-15 10:17] LABS: BLOOD UREA NITROGEN 19.9 mg/dL (7-18)
[2023-09-15 10:18] LABS: MAGNESIUM 1.3 mg/dL (1.8-2.4)
[2023-09-15 10:33] LABS: CREATININE 1.9 mg/dL (0.55-1.3)
[2023-09-15] MEDS: ALLOPURINOL 100 MG TABLET (FP) PO SCH (10:57)
[2023-09-15] MEDS: amLODIPine BESYLATE 5 MG TABLET (FP) PO SCH (10:57)
[2023-09-15] MEDS: URSODIOL 300 MG CAPSULE PO SCH (10:57)
[2023-09-15] MEDS: MYCOPHENOLATE MOFETIL 500 MG TABLET PO SCH (10:58)
[2023-09-15] MEDS: ENOXAPARIN NA (PORCINE) 40 MG/0.4 ML DISP.SYRIN SQ SCH (10:58)
[2023-09-15 14:53] VITALS: BP 128/61; PULSE 103; TEMP 98.1
== END 2023-09-15 19:27 | DRG 291 ==
LOC: JER 13:27 → JERBED 20:52 → J8W 09-05 20:50
PROVIDERS: ADMIT Student in an Organized Health Care Education/Training Program; ATTEND Family Medicine
DX: I13.0 Hypertensive heart and chronic kidney disease with heart failure and stage 1 through stage 4 chronic kidney disease, or unspecified chronic kidney disease (principal); I50.33 Acute on chronic diastolic (congestive) heart failure; J18.9 Pneumonia, unspecified organism; J44.1 Chronic obstructive pulmonary disease with (acute) exacerbation; Z94.4 Liver transplant status; I25.10 Atherosclerotic heart disease of native coronary artery without angina pectoris; Z95.1 Presence of aortocoronary bypass graft; N18.9 Chronic kidney disease, unspecified; D86.0 Sarcoidosis of lung; K21.9 Gastro-esophageal reflux disease without esophagitis
CPT/HCPCS: 0241U-QW; 36415; 70450-TC; 70496-TC; 70498-TC; 71045-TC-FY; 71101-TC-LT-FY; 72170-TC-FY; 73502-TC-LT-FY; 73562-TC-LT-FY; 73590-TC-LT-FY; 80048; 80053; 82803; 83735; 83880; 84484; 85025; 85027; 87040; 87070; 87086; 87186; 87205; 87633; 87635; 93005; 93010; 94010; 94640; 94761; 97116-GP; 99285-25; J7517; Q0162; Q9967

== ENCOUNTER 2023-10-04 14:15 | Inpatient (IN) | payer OTHER ==
[2023-10-04 16:10] LABS: HEMATOCRIT 35.2 % (32.4-45.2); HEMOGLOBIN 11.6 GM/dL (10.7-15.3); MCH 31.5 pg (25.7-33.7); MEAN CELL VOLUME 95.5 fl (80-96); MEAN PLT VOLUME 11.1 fl (7.5-11.1); PLATELET COUNT 150 10^3/uL (134-434); RBC 3.69 M/mm3 (3.60-5.2); RDW 16.9 % (11.6-15.6); WHITE BLOOD COUNT 12.2 K/mm3 (4.0-10.0)
[2023-10-04] MEDS: SODIUM CHLORIDE 0.9% 500 ML INFUS.BAG IV ONE ×2 (16:19→16:29)
[2023-10-04] MEDS ORDERED: SODIUM CHLORIDE 1,000 ML IV STA ×2 (16:26→20:55)
[2023-10-04 16:33] LABS: POTASSIUM 3.6 mmol/L (3.5-5.1)
[2023-10-04 16:35] LABS: ALBUMIN 2.6 g/dl (3.4-5.0); BLOOD UREA NITROGEN 38.7 mg/dL (7-18); CALCIUM 8.4 mg/dL (8.5-10.1)
[2023-10-04 16:38] LABS: CREATININE 3.7 mg/dL (0.55-1.3)
[2023-10-04 16:40] LABS: BILIRUBIN,TOTAL 0.5 mg/dL (0.2-1)
[2023-10-04] MEDS ORDERED: FAMOTIDINE 20 MG/50 ML IVPB 20 MG/50 ML MG IVPB ONE ×2 (16:45→16:53)
[2023-10-04] MEDS ORDERED: CEFTRIAXONE 1 GM/50 ML BAG ONE (16:52)
[2023-10-04 17:55] LABS: EPI CELLS >36 /uL (0-25.1); HYALINE CASTS 2 /uL (0-3.1); URINE APPEARANCE CLEAR; URINE BACTERIA 60 /uL (0-1359); URINE BILIRUBIN NEGATIVE (NEGATIVE); URINE COLOR YELLOW; URINE GLUCOSE (UA) NEGATIVE (NEGATIVE); URINE KETONE TRACE (NEGATIVE); URINE LEUK ESTERASE 1+ (NEGATIVE); URINE NITRITE NEGATIVE (NEGATIVE); URINE PROTEIN NEGATIVE (NEGATIVE); URINE RBC 13 /uL (0-23.9); URINE UROBILINOGEN 0.2 mg/dL (0.2-1.0); URINE WBC 111 /uL (0-25.8)
[2023-10-04 18:09] LABS: INR 1.21 (0.83-1.09)
[2023-10-04 18:50] LABS: LACTIC ACID 2.6 mmol/L (0.4-2.0)
[2023-10-04] MEDS ORDERED: ONDANSETRON 4 MG/2 ML VIAL IVPUSH ONE (20:51)
[2023-10-04] MEDS ORDERED: ONDANSETRON 4 MG/2 ML VIAL ONE (20:54)
[2023-10-05] MEDS ORDERED: GABAPENTIN 100 MG CAPSULE PO PRN (00:15)
[2023-10-05] MEDS ORDERED: ALBUTEROL SO4 HFA INHALER IH PRN (00:15)
[2023-10-05] MEDS ORDERED: SODIUM CHLORIDE 1,000 ML IV SCH (02:00)
[2023-10-05] MEDS ORDERED: HYDROCORTISONE SOD SUCCINATE 100 MG/2 ML VIAL IVPUSH ONE (07:08)
[2023-10-05 07:18] LABS: BASO % 1.1 % (0-2.0); HEMATOCRIT 32.1 % (32.4-45.2); HEMOGLOBIN 10.2 GM/dL (10.7-15.3); LYMPH % 10.7 % (8-40); MCH 31.2 pg (25.7-33.7); MCHC 31.6 g/dl (32.0-36.0); MEAN CELL VOLUME 98.6 fl (80-96); MEAN PLT VOLUME 11.2 fl (7.5-11.1); MONO % 15.1 % (3.8-10.2); NEUT % 72.1 % (42.8-82.8); PLATELET COUNT 122 10^3/uL (134-434); RBC 3.26 M/mm3 (3.60-5.2); RDW 16.6 % (11.6-15.6)
[2023-10-05 07:21] LABS: POTASSIUM 3.5 mmol/L (3.5-5.1)
[2023-10-05 07:27] LABS: CALCIUM 7.7 mg/dL (8.5-10.1)
[2023-10-05 07:28] LABS: ALBUMIN 2.2 g/dl (3.4-5.0); BLOOD UREA NITROGEN 33.9 mg/dL (7-18); MAGNESIUM 1.1 mg/dL (1.8-2.4)
[2023-10-05 07:31] LABS: CREATININE 2.8 mg/dL (0.55-1.3); PHOSPHOROUS 3.1 mg/dL (2.5-4.9)
[2023-10-05 07:32] LABS: BILIRUBIN,TOTAL 0.6 mg/dL (0.2-1); TOT PROT 5.2 g/dl (6.4-8.2)
[2023-10-05] MEDS ORDERED: ENOXAPARIN NA (PORCINE) 30 MG/0.3 ML DISP.SYRIN SQ ONE (09:49)
[2023-10-05] MEDS ORDERED: CEFTRIAXONE 1 GM/50 ML BAG ONE (09:49)
[2023-10-05] MEDS: URSODIOL 300 MG CAPSULE PO SCH ×2 (10:00→22:20)
[2023-10-05] MEDS ORDERED: predniSONE 10 MG TABLET (UD) PO SCH (10:00)
[2023-10-05] MEDS: ENOXAPARIN NA (PORCINE) 30 MG/0.3 ML DISP.SYRIN SQ SCH (10:00)
[2023-10-05] MEDS: MYCOPHENOLATE MOFETIL 500 MG TABLET PO SCH ×2 (10:00→22:20)
[2023-10-05] MEDS: CEFTRIAXONE 1 GM in DEXTROSE 5%-WATER - 50 ML IVPB SCH (10:01)
[2023-10-05] MEDS: amLODIPine BESYLATE 5 MG TABLET (FP) PO SCH (10:01)
[2023-10-05] MEDS: BUDESONIDE/FORMETEROL FUMARATE 160/4.5 mcg INHALER IH SCH ×2 (11:07→22:20)
[2023-10-05] MEDS ORDERED: HYDROCORTISONE SOD SUCCINATE 100 MG/2 ML VIAL IVPUSH SCH (13:00)
[2023-10-05] MEDS: HYDROCORTISONE SOD SUCCINATE 100 MG/2 ML VIAL IVPUSH SCH ×2 (13:40→19:36)
[2023-10-05] MEDS ORDERED: HYDROCORTISONE SOD SUCCINATE 100 MG/2 ML VIAL ONE ×2 (13:44→19:25)
[2023-10-05] MEDS: MONTELUKAST NA 10 MG TABLET PO SCH (22:20)
[2023-10-06] MEDS ORDERED: HYDROCORTISONE SOD SUCCINATE 100 MG/2 ML VIAL ONE ×2 (00:09→06:23)
[2023-10-06] MEDS: HYDROCORTISONE SOD SUCCINATE 100 MG/2 ML VIAL IVPUSH SCH ×4 (00:18→18:25)
[2023-10-06 08:02] LABS: BASO % 0.4 % (0-2.0); HEMATOCRIT 31.4 % (32.4-45.2); HEMOGLOBIN 10.1 GM/dL (10.7-15.3); LYMPH % 6.2 % (8-40); MCHC 32.1 g/dl (32.0-36.0); MEAN CELL VOLUME 96.6 fl (80-96); MEAN PLT VOLUME 11.5 fl (7.5-11.1); MONO % 4.4 % (3.8-10.2); PLATELET COUNT 135 10^3/uL (134-434); RBC 3.24 M/mm3 (3.60-5.2); RDW 16.5 % (11.6-15.6); WHITE BLOOD COUNT 7.9 K/mm3 (4.0-10.0)
[2023-10-06 08:18] LABS: POTASSIUM 3.9 mmol/L (3.5-5.1)
[2023-10-06 08:22] LABS: BLOOD UREA NITROGEN 29.1 mg/dL (7-18); CALCIUM 8.2 mg/dL (8.5-10.1)
[2023-10-06 08:26] LABS: CREATININE 2.2 mg/dL (0.55-1.3)
[2023-10-06] MEDS ORDERED: ENOXAPARIN NA (PORCINE) 40 MG/0.4 ML DISP.SYRIN SQ ONE (08:34)
[2023-10-06] MEDS ORDERED: amLODIPine BESYLATE 5 MG TABLET (FP) ONE (08:34)
[2023-10-06] MEDS ORDERED: CEFTRIAXONE 1 GM/50 ML BAG ONE (08:35)
[2023-10-06] MEDS: MYCOPHENOLATE MOFETIL 500 MG TABLET PO SCH ×2 (09:22→21:58)
[2023-10-06] MEDS: URSODIOL 300 MG CAPSULE PO SCH ×2 (09:22→21:58)
[2023-10-06] MEDS: ENOXAPARIN NA (PORCINE) 30 MG/0.3 ML DISP.SYRIN SQ SCH (09:22)
[2023-10-06] MEDS: amLODIPine BESYLATE 5 MG TABLET (FP) PO SCH (09:23)
[2023-10-06] MEDS: CEFTRIAXONE 1 GM in DEXTROSE 5%-WATER - 50 ML IVPB SCH (09:59)
[2023-10-06] MEDS: BUDESONIDE/FORMETEROL FUMARATE 160/4.5 mcg INHALER IH SCH ×2 (09:59→22:25)
[2023-10-06] MEDS: ALLOPURINOL 100 MG TABLET (FP) PO SCH (10:02)
[2023-10-06] MEDS: MONTELUKAST NA 10 MG TABLET PO SCH (21:58)
[2023-10-07 01:00] VITALS: BMI 32.8
[2023-10-07 08:38] LABS: BASO % 0.2 % (0-2.0); EOS % 0.1 % (0-4.5); HEMATOCRIT 26.2 % (32.4-45.2); HEMOGLOBIN 8.6 GM/dL (10.7-15.3); LYMPH % 6.1 % (8-40); MCH 31.6 pg (25.7-33.7); MCHC 32.8 g/dl (32.0-36.0); MEAN CELL VOLUME 96.3 fl (80-96); MEAN PLT VOLUME 11.6 fl (7.5-11.1); MONO % 8.4 % (3.8-10.2); NEUT % 85.2 % (42.8-82.8); PLATELET COUNT 112 10^3/uL (134-434); RBC 2.72 M/mm3 (3.60-5.2); RDW 16.6 % (11.6-15.6); WHITE BLOOD COUNT 9.7 K/mm3 (4.0-10.0)
[2023-10-07 08:52] LABS: CHLORIDE 106 mmol/L (98-107); POTASSIUM 3.4 mmol/L (3.5-5.1); SODIUM 141 mmol/L (136-145)
[2023-10-07 09:00] LABS: ALBUMIN 2.4 g/dl (3.4-5.0)
[2023-10-07 09:01] LABS: CALCIUM 8.4 mg/dL (8.5-10.1)
[2023-10-07 09:02] LABS: ANION GAP 8 mmol/L (4-13); CO2 27 mmol/L (21-32); GLUCOSE,RANDOM 95 mg/dL (74-106)
[2023-10-07 09:04] LABS: CREATININE 2.3 mg/dL (0.55-1.3); SGOT/AST 8 U/L (15-37)
[2023-10-07 09:05] LABS: SGPT/ALT < 6 U/L (13-61)
[2023-10-07 09:06] LABS: BILIRUBIN,TOTAL 0.4 mg/dL (0.2-1); TOT PROT 5.1 g/dl (6.4-8.2)
[2023-10-07 09:08] LABS: ALK PHOS 71 U/L (45-117)
[2023-10-07] MEDS: CEFTRIAXONE 1 GM in DEXTROSE 5%-WATER - 50 ML IVPB SCH (09:40)
[2023-10-07] MEDS: predniSONE 10 MG TABLET (UD) PO SCH (09:40)
[2023-10-07] MEDS: URSODIOL 300 MG CAPSULE PO SCH ×2 (09:40→22:05)
[2023-10-07] MEDS: MYCOPHENOLATE MOFETIL 500 MG TABLET PO SCH ×2 (09:41→22:04)
[2023-10-07] MEDS: amLODIPine BESYLATE 5 MG TABLET (FP) PO SCH (09:41)
[2023-10-07] MEDS: ALLOPURINOL 100 MG TABLET (FP) PO SCH (09:41)
[2023-10-07] MEDS: ENOXAPARIN NA (PORCINE) 30 MG/0.3 ML DISP.SYRIN SQ SCH (09:41)
[2023-10-07] MEDS ORDERED: POTASSIUM CHLORIDE ORAL LIQUID 20 MEQ/15 ML PO ONE (09:57)
[2023-10-07] MEDS: FAMOTIDINE 10 MG TABLET PO SCH (10:29)
[2023-10-07] MEDS: BUDESONIDE/FORMETEROL FUMARATE 160/4.5 mcg INHALER IH SCH ×2 (11:25→22:05)
[2023-10-07 11:59] LABS: IRON SERUM 67 ug/dL (50-175)
[2023-10-07 12:00] LABS: TOTAL IRON BINDING CAPACITY 125 ug/dL (250-450)
[2023-10-07 16:35] LABS: HEMATOCRIT 27.3 % (32.4-45.2); HEMOGLOBIN 8.6 GM/dL (10.7-15.3); MCH 30.7 pg (25.7-33.7); MCHC 31.5 g/dl (32.0-36.0); MEAN CELL VOLUME 97.3 fl (80-96); MEAN PLT VOLUME 11.7 fl (7.5-11.1); PLATELET COUNT 111 10^3/uL (134-434); RDW 16.4 % (11.6-15.6); WHITE BLOOD COUNT 10.9 K/mm3 (4.0-10.0)
[2023-10-07] MEDS: MONTELUKAST NA 10 MG TABLET PO SCH (22:05)
[2023-10-08 09:46] LABS: HEMATOCRIT 27.1 % (32.4-45.2); HEMOGLOBIN 8.7 GM/dL (10.7-15.3); MCHC 31.9 g/dl (32.0-36.0); MEAN CELL VOLUME 96.9 fl (80-96); MEAN PLT VOLUME 11.3 fl (7.5-11.1); PLATELET COUNT 119 10^3/uL (134-434); RDW 16.6 % (11.6-15.6); WHITE BLOOD COUNT 9.2 K/mm3 (4.0-10.0)
[2023-10-08] MEDS: MYCOPHENOLATE MOFETIL 500 MG TABLET PO SCH ×2 (10:05→22:27)
[2023-10-08] MEDS: FAMOTIDINE 10 MG TABLET PO SCH (10:05)
[2023-10-08] MEDS: amLODIPine BESYLATE 5 MG TABLET (FP) PO SCH (10:05)
[2023-10-08] MEDS: URSODIOL 300 MG CAPSULE PO SCH ×2 (10:05→22:28)
[2023-10-08] MEDS: predniSONE 10 MG TABLET (UD) PO SCH (10:05)
[2023-10-08] MEDS: ENOXAPARIN NA (PORCINE) 30 MG/0.3 ML DISP.SYRIN SQ SCH (10:05)
[2023-10-08] MEDS: ALLOPURINOL 100 MG TABLET (FP) PO SCH (10:05)
[2023-10-08] MEDS: CEFTRIAXONE 1 GM in DEXTROSE 5%-WATER - 50 ML IVPB SCH (10:06)
[2023-10-08 10:18] LABS: ALBUMIN 2.4 g/dl (3.4-5.0); BLOOD UREA NITROGEN 26.3 mg/dL (7-18)
[2023-10-08] MEDS: BUDESONIDE/FORMETEROL FUMARATE 160/4.5 mcg INHALER IH SCH ×2 (10:19→22:28)
[2023-10-08 10:21] LABS: CREATININE 1.7 mg/dL (0.55-1.3)
[2023-10-08 10:23] LABS: BILIRUBIN,TOTAL 0.4 mg/dL (0.2-1); TOT PROT 5.2 g/dl (6.4-8.2)
[2023-10-08] MEDS ORDERED: POTASSIUM CHLORIDE ORAL LIQUID 20 MEQ/15 ML PO ONE (10:45)
[2023-10-08 11:16] LABS: ANISOCYTOSIS 0; MACROCYTOSIS 0
[2023-10-08] MEDS ORDERED: POTASSIUM CHLORIDE TABS 20 MEQ TABLET.ER (FP) PO ONE (11:30)
[2023-10-08] MEDS: MONTELUKAST NA 10 MG TABLET PO SCH (22:27)
[2023-10-09] MEDS: CEFTRIAXONE 1 GM in DEXTROSE 5%-WATER - 50 ML IVPB SCH (11:06)
[2023-10-09] MEDS: ENOXAPARIN NA (PORCINE) 30 MG/0.3 ML DISP.SYRIN SQ SCH (11:07)
[2023-10-09] MEDS: MYCOPHENOLATE MOFETIL 500 MG TABLET PO SCH ×2 (11:07→22:42)
[2023-10-09] MEDS: POTASSIUM CHLORIDE TABS 20 MEQ TABLET.ER (FP) PO SCH (11:08)
[2023-10-09] MEDS: predniSONE 10 MG TABLET (UD) PO SCH (11:08)
[2023-10-09] MEDS: amLODIPine BESYLATE 5 MG TABLET (FP) PO SCH (11:08)
[2023-10-09] MEDS: URSODIOL 300 MG CAPSULE PO SCH ×2 (11:08→22:42)
[2023-10-09] MEDS: ALLOPURINOL 100 MG TABLET (FP) PO SCH (11:09)
[2023-10-09] MEDS: BUDESONIDE/FORMETEROL FUMARATE 160/4.5 mcg INHALER IH SCH ×2 (11:09→22:44)
[2023-10-09] MEDS: FAMOTIDINE 10 MG TABLET PO SCH (11:09)
[2023-10-09 11:33] LABS: BASO % 0.2 % (0-2.0); EOS % 1.2 % (0-4.5); HEMATOCRIT 26.9 % (32.4-45.2); HEMOGLOBIN 8.6 GM/dL (10.7-15.3); LYMPH % 10.9 % (8-40); MCHC 31.9 g/dl (32.0-36.0); MEAN CELL VOLUME 97.2 fl (80-96); MONO % 13.4 % (3.8-10.2); NEUT % 74.3 % (42.8-82.8); PLATELET COUNT 116 10^3/uL (134-434); RBC 2.77 M/mm3 (3.60-5.2); RDW 16.7 % (11.6-15.6); WHITE BLOOD COUNT 9.8 K/mm3 (4.0-10.0)
[2023-10-09 12:23] LABS: CHLORIDE 103 mmol/L (98-107); POTASSIUM 3.4 mmol/L (3.5-5.1); SODIUM 137 mmol/L (136-145)
[2023-10-09 12:25] LABS: ANION GAP 5 mmol/L (4-13); BLOOD UREA NITROGEN 25.8 mg/dL (7-18); CALCIUM 8.2 mg/dL (8.5-10.1); CO2 29 mmol/L (21-32)
[2023-10-09 12:26] LABS: ALBUMIN 2.5 g/dl (3.4-5.0); GLUCOSE,RANDOM 84 mg/dL (74-106)
[2023-10-09 12:28] LABS: CREATININE 1.4 mg/dL (0.55-1.3); SGOT/AST 9 U/L (15-37); SGPT/ALT < 6 U/L (13-61)
[2023-10-09 12:30] LABS: BILIRUBIN,TOTAL 0.3 mg/dL (0.2-1); TOT PROT 5.1 g/dl (6.4-8.2)
[2023-10-09 12:31] LABS: ALK PHOS 67 U/L (45-117)
[2023-10-09] MEDS ORDERED: MAGNESIUM SULF 50% (8.12 MEQ/2 ML-1 GM VIAL) IVPB ONE (14:45)
[2023-10-09] MEDS ORDERED: POTASSIUM CHLORIDE ORAL LIQUID 20 MEQ/15 ML PO ONE (14:45)
[2023-10-09] MEDS ORDERED: BISMUTH SUBSALICYLATE 524 MG/30 ML PO ONE (19:59)
[2023-10-09 22:03] LABS: BASO % 0.1 % (0-2.0); EOS % 0.1 % (0-4.5); HEMOGLOBIN 8.8 GM/dL (10.7-15.3); LYMPH % 3.1 % (8-40); MCH 30.7 pg (25.7-33.7); MCHC 31.5 g/dl (32.0-36.0); MEAN CELL VOLUME 97.6 fl (80-96); MEAN PLT VOLUME 11.5 fl (7.5-11.1); MONO % 8.1 % (3.8-10.2); NEUT % 88.6 % (42.8-82.8); PLATELET COUNT 123 10^3/uL (134-434); RBC 2.87 M/mm3 (3.60-5.2); RDW 16.3 % (11.6-15.6); WHITE BLOOD COUNT 11.9 K/mm3 (4.0-10.0)
[2023-10-09 22:13] LABS: INR 1.05 (0.83-1.09); PROTHROMBIN TIME (PATIENT) 12.2 SEC (9.7-13.0)
[2023-10-09 22:16] LABS: ACTIVATED PTT 27.4 SECONDS (25.2-36.5)
[2023-10-09] MEDS: MONTELUKAST NA 10 MG TABLET PO SCH (22:42)
[2023-10-10 09:11] LABS: BASO % 0.3 % (0-2.0); EOS % 1.6 % (0-4.5); HEMOGLOBIN 8.9 GM/dL (10.7-15.3); LYMPH % 8.3 % (8-40); MCHC 31.9 g/dl (32.0-36.0); MEAN CELL VOLUME 97.2 fl (80-96); MEAN PLT VOLUME 11.6 fl (7.5-11.1); MONO % 12.5 % (3.8-10.2); NEUT % 77.3 % (42.8-82.8); PLATELET COUNT 148 10^3/uL (134-434); RBC 2.88 M/mm3 (3.60-5.2); RDW 16.2 % (11.6-15.6)
[2023-10-10 09:30] LABS: POTASSIUM 3.5 mmol/L (3.5-5.1)
[2023-10-10 09:32] LABS: CALCIUM 8.4 mg/dL (8.5-10.1)
[2023-10-10 09:33] LABS: BLOOD UREA NITROGEN 22.4 mg/dL (7-18); MAGNESIUM 1.9 mg/dL (1.8-2.4)
[2023-10-10 09:35] LABS: CREATININE 1.3 mg/dL (0.55-1.3)
[2023-10-10 09:36] LABS: ALBUMIN 2.3 g/dl (3.4-5.0)
[2023-10-10 09:37] LABS: TOT PROT 5.2 g/dl (6.4-8.2)
[2023-10-10 09:39] LABS: BILIRUBIN,TOTAL 0.3 mg/dL (0.2-1)
[2023-10-10] MEDS: MYCOPHENOLATE MOFETIL 500 MG TABLET PO SCH ×2 (11:31→21:21)
[2023-10-10] MEDS: CEFTRIAXONE 1 GM in DEXTROSE 5%-WATER - 50 ML IVPB SCH (11:31)
[2023-10-10] MEDS: POTASSIUM CHLORIDE TABS 20 MEQ TABLET.ER (FP) PO SCH ×2 (11:31→13:01)
[2023-10-10] MEDS: ENOXAPARIN NA (PORCINE) 30 MG/0.3 ML DISP.SYRIN SQ SCH (11:31)
[2023-10-10] MEDS: amLODIPine BESYLATE 5 MG TABLET (FP) PO SCH (11:32)
[2023-10-10] MEDS: URSODIOL 300 MG CAPSULE PO SCH ×2 (11:32→21:22)
[2023-10-10] MEDS: ALLOPURINOL 100 MG TABLET (FP) PO SCH (11:32)
[2023-10-10] MEDS: predniSONE 10 MG TABLET (UD) PO SCH (11:32)
[2023-10-10] MEDS: FAMOTIDINE 10 MG TABLET PO SCH (11:33)
[2023-10-10] MEDS: FAMOTIDINE 20 MG TABLET PO SCH (12:30)
[2023-10-10] MEDS: BUDESONIDE/FORMETEROL FUMARATE 160/4.5 mcg INHALER IH SCH ×2 (12:31→21:22)
[2023-10-10] MEDS: PIPERACILLIN/TAZOB 3.375 GM 3.375 GM in DEXTROSE 5%-WATER - 50 ML IVPB SCH (17:36)
[2023-10-10] MEDS ORDERED: GABAPENTIN 100 MG CAPSULE PO PRN (18:21)
[2023-10-10] MEDS ORDERED: ALBUTEROL SO4 HFA INHALER IH PRN (18:21)
[2023-10-10] MEDS: MONTELUKAST NA 10 MG TABLET PO SCH (21:22)
[2023-10-11] MEDS: PIPERACILLIN/TAZOB 3.375 GM 3.375 GM in DEXTROSE 5%-WATER - 50 ML IVPB SCH ×3 (02:50→17:25)
[2023-10-11] MEDS: ENOXAPARIN NA (PORCINE) 30 MG/0.3 ML DISP.SYRIN SQ SCH (09:42)
[2023-10-11] MEDS: URSODIOL 300 MG CAPSULE PO SCH ×2 (09:43→22:01)
[2023-10-11] MEDS: MYCOPHENOLATE MOFETIL 500 MG TABLET PO SCH ×2 (09:43→22:01)
[2023-10-11] MEDS: FAMOTIDINE 20 MG TABLET PO SCH (09:43)
[2023-10-11] MEDS: POTASSIUM CHLORIDE TABS 20 MEQ TABLET.ER (FP) PO SCH ×2 (09:43→10:54)
[2023-10-11] MEDS: predniSONE 10 MG TABLET (UD) PO SCH (09:44)
[2023-10-11] MEDS: BUDESONIDE/FORMETEROL FUMARATE 160/4.5 mcg INHALER IH SCH ×2 (09:44→22:09)
[2023-10-11] MEDS: amLODIPine BESYLATE 5 MG TABLET (FP) PO SCH (09:44)
[2023-10-11] MEDS: ALLOPURINOL 100 MG TABLET (FP) PO SCH (09:45)
[2023-10-11] MEDS: ALBUTEROL SO4 2.5/IPRATROPIUM 0.5 INH SOL 3 ML VIAL.NEB. NEB SCH ×3 (12:05→20:59)
[2023-10-11] MEDS: MONTELUKAST NA 10 MG TABLET PO SCH (22:01)
[2023-10-12] MEDS: PIPERACILLIN/TAZOB 3.375 GM 3.375 GM in DEXTROSE 5%-WATER - 50 ML IVPB SCH ×3 (02:31→18:22)
[2023-10-12] MEDS: ALBUTEROL SO4 2.5/IPRATROPIUM 0.5 INH SOL 3 ML VIAL.NEB. NEB SCH ×4 (07:35→20:20)
[2023-10-12] MEDS: amLODIPine BESYLATE 5 MG TABLET (FP) PO SCH (09:16)
[2023-10-12] MEDS: FAMOTIDINE 20 MG TABLET PO SCH (09:17)
[2023-10-12] MEDS: URSODIOL 300 MG CAPSULE PO SCH ×2 (09:17→22:12)
[2023-10-12] MEDS: POTASSIUM CHLORIDE TABS 20 MEQ TABLET.ER (FP) PO SCH ×2 (09:17→09:30)
[2023-10-12] MEDS: ENOXAPARIN NA (PORCINE) 30 MG/0.3 ML DISP.SYRIN SQ SCH ×2 (09:17→09:31)
[2023-10-12] MEDS: MYCOPHENOLATE MOFETIL 500 MG TABLET PO SCH ×2 (09:17→22:12)
[2023-10-12] MEDS: predniSONE 10 MG TABLET (UD) PO SCH (09:17)
[2023-10-12] MEDS: ALLOPURINOL 100 MG TABLET (FP) PO SCH (09:17)
[2023-10-12] MEDS: BUDESONIDE/FORMETEROL FUMARATE 160/4.5 mcg INHALER IH SCH ×2 (09:31→22:37)
[2023-10-12] MEDS: TRIMETHOBENZAMIDE HCL 200MG/2ML INJ IM PRN (18:27)
[2023-10-12] MEDS: MONTELUKAST NA 10 MG TABLET PO SCH (22:12)
[2023-10-13] MEDS: PIPERACILLIN/TAZOB 3.375 GM 3.375 GM in DEXTROSE 5%-WATER - 50 ML IVPB SCH ×3 (02:25→17:00)
[2023-10-13] MEDS: TRIMETHOBENZAMIDE HCL 200MG/2ML INJ IM PRN ×2 (05:53→23:48)
[2023-10-13] MEDS: ALBUTEROL SO4 2.5/IPRATROPIUM 0.5 INH SOL 3 ML VIAL.NEB. NEB SCH ×4 (09:00→19:21)
[2023-10-13] MEDS: MYCOPHENOLATE MOFETIL 500 MG TABLET PO SCH ×2 (10:37→22:03)
[2023-10-13] MEDS: FAMOTIDINE 20 MG TABLET PO SCH (10:37)
[2023-10-13] MEDS: ENOXAPARIN NA (PORCINE) 30 MG/0.3 ML DISP.SYRIN SQ SCH (10:37)
[2023-10-13] MEDS: ALLOPURINOL 100 MG TABLET (FP) PO SCH (10:38)
[2023-10-13] MEDS: POTASSIUM CHLORIDE TABS 20 MEQ TABLET.ER (FP) PO SCH (10:38)
[2023-10-13] MEDS: URSODIOL 300 MG CAPSULE PO SCH ×2 (10:38→22:03)
[2023-10-13] MEDS: amLODIPine BESYLATE 5 MG TABLET (FP) PO SCH (10:38)
[2023-10-13] MEDS: predniSONE 10 MG TABLET (UD) PO SCH (10:38)
[2023-10-13] MEDS: BUDESONIDE/FORMETEROL FUMARATE 160/4.5 mcg INHALER IH SCH ×2 (10:38→22:02)
[2023-10-13] MEDS: MONTELUKAST NA 10 MG TABLET PO SCH (22:03)
[2023-10-14] MEDS: PIPERACILLIN/TAZOB 3.375 GM 3.375 GM in DEXTROSE 5%-WATER - 50 ML IVPB SCH ×3 (01:36→18:47)
[2023-10-14 07:46] LABS: HEMATOCRIT 28.5 % (32.4-45.2); HEMOGLOBIN 9.2 GM/dL (10.7-15.3); MCH 31.4 pg (25.7-33.7); MCHC 32.1 g/dl (32.0-36.0); MEAN CELL VOLUME 97.8 fl (80-96); MEAN PLT VOLUME 10.5 fl (7.5-11.1); PLATELET COUNT 224 10^3/uL (134-434); RBC 2.92 M/mm3 (3.60-5.2); RDW 16.8 % (11.6-15.6); WHITE BLOOD COUNT 7.2 K/mm3 (4.0-10.0)
[2023-10-14 07:59] LABS: CHLORIDE 102 mmol/L (98-107); POTASSIUM 3.4 mmol/L (3.5-5.1); SODIUM 144 mmol/L (136-145)
[2023-10-14 08:02] LABS: CALCIUM 8.6 mg/dL (8.5-10.1); GLUCOSE,RANDOM 66 mg/dL (74-106)
[2023-10-14 08:03] LABS: ALBUMIN 2.4 g/dl (3.4-5.0); ANION GAP 7 mmol/L (4-13); BLOOD UREA NITROGEN 10.9 mg/dL (7-18); CO2 35 mmol/L (21-32)
[2023-10-14 08:10] LABS: SGOT/AST 6 U/L (15-37); SGPT/ALT < 6 U/L (13-61)
[2023-10-14 08:11] LABS: CREATININE 1.6 mg/dL (0.55-1.3)
[2023-10-14 08:12] LABS: BILIRUBIN,TOTAL 0.4 mg/dL (0.2-1); TOT PROT 5.1 g/dl (6.4-8.2)
[2023-10-14 08:14] LABS: ALK PHOS 60 U/L (45-117)
[2023-10-14] MEDS: ALBUTEROL SO4 2.5/IPRATROPIUM 0.5 INH SOL 3 ML VIAL.NEB. NEB SCH ×4 (08:22→20:01)
[2023-10-14] MEDS ORDERED: POTASSIUM CHLORIDE TABS 10 MEQ TABLET.ER (FP) PO ONE (09:20)
[2023-10-14] MEDS: URSODIOL 300 MG CAPSULE PO SCH ×2 (10:00→22:14)
[2023-10-14] MEDS: ENOXAPARIN NA (PORCINE) 30 MG/0.3 ML DISP.SYRIN SQ SCH (10:00)
[2023-10-14] MEDS ORDERED: ENOXAPARIN NA (PORCINE) 30 MG/0.3 ML DISP.SYRIN SQ SCH (10:00)
[2023-10-14] MEDS: predniSONE 10 MG TABLET (UD) PO SCH (10:02)
[2023-10-14] MEDS: FAMOTIDINE 20 MG TABLET PO SCH (10:02)
[2023-10-14] MEDS: amLODIPine BESYLATE 5 MG TABLET (FP) PO SCH (10:02)
[2023-10-14] MEDS: POTASSIUM CHLORIDE TABS 20 MEQ TABLET.ER (FP) PO SCH (10:02)
[2023-10-14] MEDS: ALLOPURINOL 100 MG TABLET (FP) PO SCH (10:02)
[2023-10-14] MEDS: MYCOPHENOLATE MOFETIL 500 MG TABLET PO SCH ×2 (10:02→22:14)
[2023-10-14] MEDS: BUDESONIDE/FORMETEROL FUMARATE 160/4.5 mcg INHALER IH SCH ×2 (10:02→22:14)
[2023-10-14] MEDS: MONTELUKAST NA 10 MG TABLET PO SCH (22:14)
[2023-10-15] MEDS: PIPERACILLIN/TAZOB 3.375 GM 3.375 GM in DEXTROSE 5%-WATER - 50 ML IVPB SCH ×2 (01:58→11:30)
[2023-10-15] MEDS: URSODIOL 300 MG CAPSULE PO SCH ×2 (11:26→21:36)
[2023-10-15] MEDS: predniSONE 10 MG TABLET (UD) PO SCH (11:27)
[2023-10-15] MEDS: ALLOPURINOL 100 MG TABLET (FP) PO SCH (11:27)
[2023-10-15] MEDS: FAMOTIDINE 20 MG TABLET PO SCH (11:27)
[2023-10-15] MEDS: BUDESONIDE/FORMETEROL FUMARATE 160/4.5 mcg INHALER IH SCH ×2 (11:27→21:36)
[2023-10-15] MEDS: POTASSIUM CHLORIDE TABS 20 MEQ TABLET.ER (FP) PO SCH (11:27)
[2023-10-15] MEDS: amLODIPine BESYLATE 5 MG TABLET (FP) PO SCH (11:27)
[2023-10-15] MEDS: ENOXAPARIN NA (PORCINE) 30 MG/0.3 ML DISP.SYRIN SQ SCH (11:28)
[2023-10-15] MEDS: MYCOPHENOLATE MOFETIL 500 MG TABLET PO SCH ×2 (11:37→21:36)
[2023-10-15] MEDS: ALBUTEROL SO4 2.5/IPRATROPIUM 0.5 INH SOL 3 ML VIAL.NEB. NEB SCH ×3 (15:15→20:07)
[2023-10-15] MEDS: MONTELUKAST NA 10 MG TABLET PO SCH (21:36)
[2023-10-16] MEDS: ALBUTEROL SO4 2.5/IPRATROPIUM 0.5 INH SOL 3 ML VIAL.NEB. NEB SCH ×4 (07:51→20:38)
[2023-10-16] MEDS: ALLOPURINOL 100 MG TABLET (FP) PO SCH (09:31)
[2023-10-16] MEDS: FAMOTIDINE 20 MG TABLET PO SCH (09:31)
[2023-10-16] MEDS: URSODIOL 300 MG CAPSULE PO SCH ×2 (09:31→21:37)
[2023-10-16] MEDS: predniSONE 10 MG TABLET (UD) PO SCH (09:31)
[2023-10-16] MEDS: amLODIPine BESYLATE 5 MG TABLET (FP) PO SCH (09:31)
[2023-10-16] MEDS: MYCOPHENOLATE MOFETIL 500 MG TABLET PO SCH ×2 (09:31→21:37)
[2023-10-16] MEDS: POTASSIUM CHLORIDE TABS 20 MEQ TABLET.ER (FP) PO SCH ×2 (09:32→10:27)
[2023-10-16] MEDS: ENOXAPARIN NA (PORCINE) 30 MG/0.3 ML DISP.SYRIN SQ SCH (09:32)
[2023-10-16] MEDS: BUDESONIDE/FORMETEROL FUMARATE 160/4.5 mcg INHALER IH SCH ×2 (09:34→21:36)
[2023-10-16] MEDS ORDERED: SODIUM CHLORIDE 250 ML IV STA (11:15)
[2023-10-16] MEDS: MONTELUKAST NA 10 MG TABLET PO SCH (21:37)
[2023-10-17] MEDS: ALBUTEROL SO4 2.5/IPRATROPIUM 0.5 INH SOL 3 ML VIAL.NEB. NEB SCH ×4 (07:53→19:55)
[2023-10-17 08:25] LABS: HEMATOCRIT 32.3 % (32.4-45.2); HEMOGLOBIN 10.1 GM/dL (10.7-15.3); MCH 30.7 pg (25.7-33.7); MCHC 31.4 g/dl (32.0-36.0); MEAN CELL VOLUME 97.7 fl (80-96); PLATELET COUNT 267 10^3/uL (134-434); RDW 16.6 % (11.6-15.6); WHITE BLOOD COUNT 11.3 K/mm3 (4.0-10.0)
[2023-10-17] MEDS: FAMOTIDINE 20 MG TABLET PO SCH (09:05)
[2023-10-17] MEDS: ALLOPURINOL 100 MG TABLET (FP) PO SCH (09:06)
[2023-10-17] MEDS: predniSONE 10 MG TABLET (UD) PO SCH (09:06)
[2023-10-17] MEDS: amLODIPine BESYLATE 5 MG TABLET (FP) PO SCH (09:06)
[2023-10-17] MEDS: ENOXAPARIN NA (PORCINE) 30 MG/0.3 ML DISP.SYRIN SQ SCH (09:06)
[2023-10-17] MEDS: MYCOPHENOLATE MOFETIL 500 MG TABLET PO SCH ×2 (09:06→21:25)
[2023-10-17] MEDS: TRIMETHOBENZAMIDE HCL 200MG/2ML INJ IM PRN (09:06)
[2023-10-17] MEDS: URSODIOL 300 MG CAPSULE PO SCH ×2 (09:06→21:24)
[2023-10-17] MEDS: POTASSIUM CHLORIDE TABS 20 MEQ TABLET.ER (FP) PO SCH (09:07)
[2023-10-17] MEDS: BUDESONIDE/FORMETEROL FUMARATE 160/4.5 mcg INHALER IH SCH ×2 (09:12→21:25)
[2023-10-17 09:15] LABS: POTASSIUM 3.4 mmol/L (3.5-5.1)
[2023-10-17 09:29] LABS: CALCIUM 9.3 mg/dL (8.5-10.1)
[2023-10-17 09:30] LABS: BLOOD UREA NITROGEN 16.3 mg/dL (7-18); CREATININE 1.6 mg/dL (0.55-1.3)
[2023-10-17] MEDS ORDERED: METOCLOPRAMIDE HCL 10 MG/10 ML UNIT DOSE CUP PO ONE (12:00)
[2023-10-17] MEDS ORDERED: POTASSIUM CHLORIDE ORAL LIQUID 20 MEQ/15 ML PO ONE (15:25)
[2023-10-17] MEDS: MONTELUKAST NA 10 MG TABLET PO SCH (21:25)
[2023-10-18] MEDS: ALBUTEROL SO4 2.5/IPRATROPIUM 0.5 INH SOL 3 ML VIAL.NEB. NEB SCH ×4 (07:39→20:25)
[2023-10-18] MEDS: amLODIPine BESYLATE 5 MG TABLET (FP) PO SCH ×2 (10:25→10:39)
[2023-10-18] MEDS: MYCOPHENOLATE MOFETIL 500 MG TABLET PO SCH ×3 (10:25→23:50)
[2023-10-18] MEDS: URSODIOL 300 MG CAPSULE PO SCH ×3 (10:25→23:45)
[2023-10-18] MEDS: POTASSIUM CHLORIDE TABS 20 MEQ TABLET.ER (FP) PO SCH (10:25)
[2023-10-18] MEDS: ALLOPURINOL 100 MG TABLET (FP) PO SCH (10:25)
[2023-10-18] MEDS: FAMOTIDINE 20 MG TABLET PO SCH (10:25)
[2023-10-18] MEDS: predniSONE 10 MG TABLET (UD) PO SCH (10:25)
[2023-10-18] MEDS: BUDESONIDE/FORMETEROL FUMARATE 160/4.5 mcg INHALER IH SCH ×2 (10:26→21:11)
[2023-10-18] MEDS: MECLIZINE HCL 12.5 MG TABLET PO SCH ×4 (11:59→23:10)
[2023-10-18] MEDS: TRIMETHOBENZAMIDE HCL 200MG/2ML INJ IM PRN (19:04)
[2023-10-18] MEDS ORDERED: GABAPENTIN 100 MG CAPSULE PO PRN (20:40)
[2023-10-18] MEDS ORDERED: ALBUTEROL SO4 HFA INHALER IH PRN (20:40)
[2023-10-18] MEDS ORDERED: TRIMETHOBENZAMIDE HCL 200MG/2ML INJ IM PRN (20:40)
[2023-10-18] MEDS: MONTELUKAST NA 10 MG TABLET PO SCH (21:09)
[2023-10-19] MEDS ORDERED: PROCHLORPERAZINE INJECTION 10 MG/2 ML VIAL IVPB ONE (01:26)
[2023-10-19] MEDS: MECLIZINE HCL 12.5 MG TABLET PO SCH ×4 (07:00→23:48)
[2023-10-19] MEDS: ALBUTEROL SO4 2.5/IPRATROPIUM 0.5 INH SOL 3 ML VIAL.NEB. NEB SCH ×4 (07:38→20:10)
[2023-10-19] MEDS: predniSONE 10 MG TABLET (UD) PO SCH (10:07)
[2023-10-19] MEDS: MYCOPHENOLATE MOFETIL 500 MG TABLET PO SCH ×2 (10:07→21:13)
[2023-10-19] MEDS: URSODIOL 300 MG CAPSULE PO SCH ×2 (10:07→21:13)
[2023-10-19] MEDS: ALLOPURINOL 100 MG TABLET (FP) PO SCH (10:08)
[2023-10-19] MEDS: amLODIPine BESYLATE 5 MG TABLET (FP) PO SCH (10:08)
[2023-10-19] MEDS: BUDESONIDE/FORMETEROL FUMARATE 160/4.5 mcg INHALER IH SCH ×2 (10:09→22:05)
[2023-10-19] MEDS: FAMOTIDINE 20 MG TABLET PO SCH (10:09)
[2023-10-19] MEDS: POTASSIUM CHLORIDE TABS 20 MEQ TABLET.ER (FP) PO SCH (10:10)
[2023-10-19] MEDS: MONTELUKAST NA 10 MG TABLET PO SCH (21:13)
[2023-10-20] MEDS: MECLIZINE HCL 12.5 MG TABLET PO SCH ×2 (05:38→12:28)
[2023-10-20] MEDS: ALBUTEROL SO4 2.5/IPRATROPIUM 0.5 INH SOL 3 ML VIAL.NEB. NEB SCH ×3 (08:36→16:55)
[2023-10-20] MEDS: URSODIOL 300 MG CAPSULE PO SCH (09:03)
[2023-10-20] MEDS: POTASSIUM CHLORIDE TABS 20 MEQ TABLET.ER (FP) PO SCH (09:03)
[2023-10-20] MEDS: FAMOTIDINE 20 MG TABLET PO SCH (09:03)
[2023-10-20] MEDS: MYCOPHENOLATE MOFETIL 500 MG TABLET PO SCH (09:03)
[2023-10-20] MEDS: predniSONE 10 MG TABLET (UD) PO SCH (09:04)
[2023-10-20] MEDS: amLODIPine BESYLATE 5 MG TABLET (FP) PO SCH (09:04)
[2023-10-20] MEDS: ALLOPURINOL 100 MG TABLET (FP) PO SCH (09:04)
[2023-10-20] MEDS: BUDESONIDE/FORMETEROL FUMARATE 160/4.5 mcg INHALER IH SCH (09:11)
[2023-10-20 17:29] VITALS: BP 131/65; PULSE 103; RESP 20; TEMP 97.8
== END 2023-10-20 16:55 | DRG 194 ==
LOC: JER 14:15 → JERBED 18:17 → J4S 10-07 00:13 → OBSVTOIN 10-07 10:47 → J7W 10-10 18:16
PROVIDERS: ADMIT Internal Medicine; ATTEND Family Medicine
DX: J18.9 Pneumonia, unspecified organism (principal); E27.40 Unspecified adrenocortical insufficiency; J44.1 Chronic obstructive pulmonary disease with (acute) exacerbation; I13.0 Hypertensive heart and chronic kidney disease with heart failure and stage 1 through stage 4 chronic kidney disease, or unspecified chronic kidney disease; J96.11 Chronic respiratory failure with hypoxia; J47.0 Bronchiectasis with acute lower respiratory infection; N17.9 Acute kidney failure, unspecified; Z94.4 Liver transplant status; N39.0 Urinary tract infection, site not specified; E87.20 Acidosis, unspecified; I50.32 Chronic diastolic (congestive) heart failure; J98.4 Other disorders of lung; R55 Syncope and collapse; D86.0 Sarcoidosis of lung; R91.1 Solitary pulmonary nodule; B19.20 Unspecified viral hepatitis C without hepatic coma; I25.10 Atherosclerotic heart disease of native coronary artery without angina pectoris; K74.3 Primary biliary cirrhosis; D64.9 Anemia, unspecified; K21.9 Gastro-esophageal reflux disease without esophagitis; E86.0 Dehydration; R19.7 Diarrhea, unspecified; E83.42 Hypomagnesemia; M54.30 Sciatica, unspecified side; N18.2 Chronic kidney disease, stage 2 (mild); E87.6 Hypokalemia; Z95.1 Presence of aortocoronary bypass graft
CPT/HCPCS: 36415; 70450-TC; 71045-TC-FY; 71250-TC; 74018-TC-FY; 74176-TC; 76775-TC; 76856-TC; 80048; 80053; 81003; 82024; 82272; 82436; 82533; 82570; 82728; 82962; 83540; 83550; 83605; 83690; 83735; 83880; 84100; 84133; 84300; 84484; 85025; 85027; 85610; 85730; 86480; 87045; 87046; 87070; 87086; 87116; 87186; 87205; 87206; 87305; 87324; 87449; 87635; 87798; 93005; 93010; 94640; 97116-GP; 97162-GP; 99285-25; G0378; J7517